=== PATIENT | male | born 1945 | race Two or more races ===

== ENCOUNTER 2020-11-22 10:15 | Inpatient (IN) | payer MEDICAID ==
[~2020-11-22] VITALS: Ht 167.6 cm; Wt 63.5 kg
[2020-11-22] MEDS ORDERED: Cefepime HCl 2 GM in NS 110 ML IV ONE (10:30)
--- NOTE | 2020-11-22 10:32 | Emergency Room Report ---
History of Present Illness General Source: Patient Present Illness HPI Patient is a 75-year-old male sent in from nursing facility for increased difficulty with breathing. Prior history of cerebral palsy as well as left srfqd-[id number]-vmdc amputation. Patient is chronically debilitated and nonverbal at baseline. Patient had been noted to have increased heart rate up to 150 at his facility. Patient had been sent in for further evaluation and treatment. History is limited due to patient's mental status history is primarily obtained from old chart. Allergies: Coded Allergies: No Known Allergies (Unverified , 11/22/20) Patient History Reviewed Nursing Documentation: PMH: Agreed; PSxH: Agreed Review of Systems All Other Systems: limited - Review systems is limited by poor historian Physical Exam General Appearance: mild distress, lethargic, Chronically Ill ENT: normal ENT inspection Neck: limited range of motion Respiratory: lungs clear Cardiovascular #1: tachycardia, edema Cardiovascular #2: 4+ femoral (R), 4+ femoral (L), 4+ dorsalis pedis (R) Gastrointestinal: normal inspection, non tender, soft, other - G-tube site without erythema or drainage Genitourinary: normal inspection Musculoskeletal: other - Contracted upper and lower extremity Neurologic: motor weakness, responsive - Opens eyes, nonverbal, other - Makes incomprehensible sounds grimaces to pain Psychiatric: mood/affect normal Skin: no rash Medical Decision Making Diagnostic Impression: Primary Impression: Sepsis Additional Impression: Cerebral palsy ER Course Patient presents for increased difficulty with breathing. Differential d iagnosis include was not limited to sepsis, pneumonia, urinary tract infection, electrolyte abnormality, encephalopathy among others. Because of complexity of patient's case laboratory tests and imaging studies were ordered. Patient was placed on a quality assurance monitor and was noted to have normal sinus rhythm with a rate of 111 without any PVCs or ectopy. Patient started on IV fluids as well as IV antibiotics after blood cultures were obtained. Axillary temperature was somewhat elevated suggesting that the patient may have early infection. EKG interpreted by me shows sinus tachycardia with a rate of [address] or T wave changes noted. Chest x-ray 1 view interpreted by me showed marked elevation of the right hemidiaphragm no effusions were noted with poor inspiration. Patient had a markedly elevated white count consistent with sepsis. Dr. Samantha Alvares was contacted for inpatient management Labs Test 11/22/20 10:30 11/22/20 14:53 White Blood Count 22.6 K/UL (4.8-10.8) Red Blood Count 3.65 M/UL (4.70-6.10) Hemoglobin 10.6 G/DL (14.2-18.0) Hematocrit 34.4 % (42.0-52.0) Mean Corpuscular Volume 94 FL (80-99) Mean Corpuscular Hemoglobin 29.1 PG (27.0-31.0) Mean Corpuscular Hemoglobin Concent 30.9 G/DL (32.0-36.0) Red Cell Distribution Width 15.9 % (11.6-14.8) Platelet Count 646 K/UL (150-450) Mean Platelet Volume 5.8 FL (6.5-10.1) Neutrophils (%) (Auto) % (45.0-75.0) Lymphocytes (%) (Auto) % (20.0-45.0) Monocytes (%) (Auto) % (1.0-10.0) Eosinophils (%) (Auto) % (0.0-3.0) Basophils (%) (Auto) % (0.0-2.0) Differential Total Cells Counted 100 Neutrophils % (Manual) 93 % (45-75) Lymphocytes % (Manual) 3 % (20-45) Monocytes % (Manual) 4 % (1-10) Eosinophils % (Manual) 0 % (0-3) Basophils % (Manual) 0 % (0-2) Band Neutrophils 0 % (0-8) Platelet Estimate Increased Platelet Morphology Normal Polychromasia 1+ Hypochromasia 1+ Anisocytosis 1+ Sodium Level 134 MMOL/L (136-145) Potassium Level 4.0 MMOL/L (3.5-5.1) Chloride Level 96 MMOL/L (98-107) Carbon Dioxide Level 28 MMOL/L (21-32) Anion Gap 10 mmol/L (5-15) Blood Urea Nitrogen 14 mg/dL (7-18) Creatinine 0.5 MG/DL (0.55-1.30) Estimat Glomerular Filtration Rate > 60 mL/min (>60) Glucose Level 135 MG/DL (74-106) Lactic Acid Level 1.70 mmol/L (0.4-2.0) Calcium Level 9.0 MG/DL (8.5-10.1) Phosphorus Level 4.1 MG/DL (2.5-4.9) Magnesium Level 1.9 MG/DL (1.8-2.4) Total Bilirubin 0.3 MG/DL (0.2-1.0) Aspartate Amino Transf (AST/SGOT) 31 U/L (15-37) Alanine Aminotransferase (ALT/SGPT) 49 U/L (12-78) Alkaline Phosphatase 109 U/L (46-116) Total Creatine Kinase 27 U/L (26-308) Creatine Kinase MB 0.6 NG/ML (0.0-3.6) Creatine Kinase MB Relative Index 2.2 Troponin I 0.032 ng/mL (0.000-0.056) Pro-B-Type Natriuretic Peptide 724 pg/mL (0-125) Total Protein 7.0 G/DL (6.4-8.2) Albumin 1.9 G/DL (3.4-5.0) Globulin 5.1 g/dL Albumin/Globulin Ratio 0.4 (1.0-2.7) POC Whole Blood Glucose 119 MG/DL (74-106) Status: improved Disposition: ADMITTED INPATIENT Condition: Serious Shiv Chapa MD Nov 22, 2020 10:32
[2020-11-22 10:54] LABS: HEMATOCRIT 34.4 % (42.0-52.0); HEMOGLOBIN 10.6 G/DL (14.2-18.0); MEAN CORPUSCULAR VOLUME 94 FL (80-99); PLATELET COUNT 646 K/UL (150-450); RED BLOOD COUNT 3.65 M/UL (4.70-6.10); RED CELL DISTRIBUTION WIDTH 15.9 % (11.6-14.8)
[2020-11-22 11:12] LABS: ANION GAP 10 mmol/L (5-15); BLOOD UREA NITROGEN 14 mg/dL (7-18); CARBON DIOXIDE 28 MMOL/L (21-32); CHLORIDE 96 MMOL/L (98-107); CREATININE 0.5 MG/DL (0.55-1.30); SODIUM 134 MMOL/L (136-145)
[2020-11-22 11:14] LABS: WHITE BLOOD COUNT 22.6 K/UL (4.8-10.8)
[2020-11-22 11:27] LABS: ALANINE AMINOTRANSFERASE 49 U/L (12-78); ALBUMIN 1.9 G/DL (3.4-5.0); ALBUMIN/GLOBULIN RATIO 0.4 (1.0-2.7); ALKALINE PHOSPHATASE 109 U/L (46-116); ASPARTATE AMINO TRANSFERASE 31 U/L (15-37); BILIRUBIN,TOTAL 0.3 MG/DL (0.2-1.0); CKMB 0.6 NG/ML (0.0-3.6); CREATINE KINASE 27 U/L (26-308); PHOSPHORUS 4.1 MG/DL (2.5-4.9)
[2020-11-22] MEDS ORDERED: VITAMIN C500 M1 GT (11:58)
[2020-11-22] MEDS ORDERED: VITAMIN D325 MC1 GT (11:58)
[2020-11-22] MEDS ORDERED: LEVETIRACETAM500 MG GT (11:58)
[2020-11-22] MEDS ORDERED: MIRALAX17 G2 GT (11:58)
[2020-11-22] MEDS ORDERED: ZINC SULFATE220 M1 GT (11:58)
[2020-11-22] MEDS ORDERED: PRO-STAT LIQUID30 ML GT (11:58)
[2020-11-22] MEDS ORDERED: SENNA8.6 M2 GT (11:58)
[2020-11-22] MEDS ORDERED: FAMOTIDINE20 MG GT (11:58)
[2020-11-22] MEDS ORDERED: ACETAMINOPHEN500 M3 GT (11:58)
[2020-11-22] MEDS ORDERED: MAALOX MAXIMUM355 M1 GT (11:58)
[2020-11-22] MEDS ORDERED: ALBUTEROL2.5 MG/3 M INH (11:58)
[2020-11-22] MEDS ORDERED: MULTIVITAMINS1 EAC8 GT (11:58)
[2020-11-22] MEDS ORDERED: CARBAMAZEPINE200 MG GT (11:58)
[2020-11-22] MEDS ORDERED: ZOFRAN4 M3 GT (11:58)
--- NOTE | 2020-11-22 15:02 | Cardiac Electrophysiology PN ---
Subjective Subjective [id number] Objective Last 24 Hour Vital Signs Date Time Temp Pulse Resp B/P (MAP) Pulse Ox O2 Delivery O2 Flow Rate FiO2 11/22/20 11:30 99.1 11/22/20 10:24 99.0 120 16 128/70 (89) 97 Nasal Cannula 2.0 Laboratory Tests Test 11/22/20 10:30 11/22/20 14:53 White Blood Count 22.6 K/UL (4.8-10.8) *H Red Blood Count 3.65 M/UL (4.70-6.10) L Hemoglobin 10.6 G/DL (14.2-18.0) L Hematocrit 34.4 % (42.0-52.0) L Mean Corpuscular Volume 94 FL (80-99) Mean Corpuscular Hemoglobin 29.1 PG (27.0-31.0) Mean Corpuscular Hemoglobin Concent 30.9 G/DL (32.0-36.0) L Red Cell Distribution Width 15.9 % (11.6-14.8) H Platelet Count 646 K/UL (150-450) H Mean Platelet Volume 5.8 FL (6.5-10.1) L Neutrophils (%) (Auto) % (45.0-75.0) Lymphocytes (%) (Auto) % (20.0-45.0) Monocytes (%) (Auto) % (1.0-10.0) Eosinophils (%) (Auto) % (0.0-3.0) Basophils (%) (Auto) % (0.0-2.0) Differential Total Cells Counted 100 Neutrophils % (Manual) 93 % (45-75) H Lymphocytes % (Manual) 3 % (20-45) L Monocytes % (Manual) 4 % (1-10) Eosinophils % (Manual) 0 % (0-3) Basophils % (Manual) 0 % (0-2) Band Neutrophils 0 % (0-8) Platelet Estimate Increased H Platelet Morphology Normal Polychromasia 1+ Hypochromasia 1+ Anisocytosis 1+ Sodium Level 134 MMOL/L (136-145) L Potassium Level 4.0 MMOL/L (3.5-5.1) Chloride Level 96 MMOL/L (98-107) L Carbon Dioxide Level 28 MMOL/L (21-32) Anion Gap 10 mmol/L (5-15) Blood Urea Nitrogen 14 mg/dL (7-18) Creatinine 0.5 MG/DL (0.55-1.30) L Estimat Glomerular Filtration Rate > 60 mL/min (>60) Glucose Level 135 MG/DL (74-106) H Lactic Acid Level 1.70 mmol/L (0.4-2.0) Calcium Level 9.0 MG/DL (8.5-10.1) Phosphorus Level 4.1 MG/DL (2.5-4.9) Magnesium Level 1.9 MG/DL (1.8-2.4) Total Bilirubin 0.3 MG/DL (0.2-1.0) Aspartate Amino Transf (AST/SGOT) 31 U/L (15-37) Alanine Aminotransferase (ALT/SGPT) 49 U/L (12-78) Alkaline Phosphatase 109 U/L (46-116) Total Creatine Kinase 27 U/L (26-308) Creatine Kinase MB 0.6 NG/ML (0.0-3.6) Creatine Kinase MB Relative Index 2.2 Troponin I 0.032 ng/mL (0.000-0.056) Pro-B-Type Natriuretic Peptide 724 pg/mL (0-125) H Total Protein 7.0 G/DL (6.4-8.2) Albumin 1.9 G/DL (3.4-5.0) L Globulin 5.1 g/dL Albumin/Globulin Ratio 0.4 (1.0-2.7) L POC Whole Blood Glucose 119 MG/DL (74-106) H Microbiology Date/Time Source Procedure Growth Status 11/22/20 10:40 Rectum Received 11/22/20 10:40 Nasopharynx SARS-CoV-2 Antigen (Rapid)(FRANK) - Final Complete Phoenix Amador MD Nov 22, 2020 15:02
[2020-11-22 15:29] VITALS: BP 127/83
--- NOTE | 2020-11-22 15:30 | NUR ---
NURSE NOTES: Received pt from [employer] Samira, all admission assessments and instructions done, pt is obtunded and nonverbal, pt is in RA, no SOB or acute respiratory distress noted. pt has intact iv access R wrist 20g SL. Dr Blackwood is aware about admission, WBC 22.6, NA 134 and other lab results and V/s AND multiple wounds, all orders noted and carried out. pt has multiple wounds RN took pictures and uploaded and ask wound nurse consult and Eysha came and all wound treatment done. pt has R BKA, applied condom cath for pt and is working well. pt has g tube in place and patent and pt is NPO per Dr Blackwood order. seizure precaution done. all needs attended, bed is locked and is in the lowest position, call light within easy reach. will continue close monitoring.
[2020-11-22] MEDS ORDERED: Acetaminophen 650mg/20.3ml GT PRN ×2 (16:00→16:30)
--- NOTE | 2020-11-22 17:55 | NUR ---
NURSE NOTES:WOUND CARE NOTES:Pt presented on admission with CP, L AKA,Multiple Pressure Injuries, Wound dorsal L hand. Macular red rash L Flank. Full thickness wound dorsal L hand(L)2.4cm x (W)1.9cm. Loose necrotic cap which was easily removed from wound bed. Base of wound is 95% fibrinous slough with marginal erythema along borders. Small amt sanguineous exudate noted. No erythema or elevation in skin temp periwound. Incontinence Associated dermatitis R and L groin and scrotum. Affected areas are erythematous and macerated. Full Thickness Pressure Injury Upper L buttocks(L)4.8cm x (W)6.4cmBase of wound is 25% necrotic ,75% lida. Edges are adherent to base of wound. Surrounding non-blanchable erythema without fluctuance /induration. No odor or exudate noted. No evidence of sacral skin breakdown. An erythematous and indurated soft tissue mass noted to posterior upper L thigh. (L)3.2cm x (W)3.7cm. Base of L AKA is erythematous,fluctuant, with increased warmth. DTPI medial R Heel(L)1cm x (W)1.2cm. Base of Pressure Injury is purpuric and fluctuant. Periwound is blanchable with dry flaky skin. Tx.Plan: Cleanse Dorsal L hand with Saline. Apply Therahoney. Apply Cavilon Skin Barrier periwound. Cover with Optifoam Drsg Daily and prn. Cleanse Wound L Buttocks with Saline. Apply Therahoney. Apply Moisture Barrier Paste periwound. Cover with Optifoam drsg. Change Daily and prn. Apply Moisture Barrier Paste to R and L Groin and scrotum with each incontinence care. Apply Cavilon Skin Barrier to Posterior Upper L thigh. Cover with Optifoam drsg. Change every 3 days and prn. Apply Betadine to Base of L AKA stump. Cover with Optifoam drsg. Change every 3 days and prn. Apply Betadine to medial R Heel. Cover with Optifoam drsg. Change every 3 days and prn. Reposition at least every 2hours or as tolerated. Off-load L AKA with Pillow. Off-load R Heel with Pillow.
--- NOTE | 2020-11-22 19:30 | NUR ---
NURSE NOTES: received patient sleeping with no signs of any distress. Alexis in place. patient is on room air. bed in low position. bed alarm on. will continue to monitor frequently and reposition.
--- NOTE | 2020-11-22 19:42 | NUR ---
NURSE HAND-OFF REPORT: Important Events on Shift:new addmision. Patient Status: Diet: Pending Orders: Pending Results/Labs: Pending MD notification: Latest Vital Signs: Temperature 96.3 , Pulse 94 , B/P 127 /83 , Respiratory Rate 18 , O2 SAT 94 , Nasal Cannula, O2 Flow Rate 2.0 . Vital Sign Comment: EKG Rhythm: Sinus Rhythm Rhythm change?: N MD Notified?: - MD Response: Latest Hoyt Fall Score: 55 Fall Risk: High Risk Safety Measures: Call light Within Reach, Bed Alarm Zone 1, Side Rails Side Rails x3, Bed position Low and Locked. Fall Precautions: Yellow Socks Yellow Gown Door Sign Patient Fall Education Report given to . Pt is sleeping and stable, no stress noted. endorsed plan of care.
[2020-11-22 20:00] VITALS: BP 124/70
--- NOTE | 2020-11-22 20:44 | Consultation ---
DATE OF CONSULTATION: 11/22/2020 CARDIOLOGY CONSULTATION CONSULTING PHYSICIAN: Phoenix Amador MD REFERRING PHYSICIAN: Samantha Blackwood MD REASON FOR CONSULTATION: Tachycardia. HISTORY OF PRESENT ILLNESS: The patient is a 75-year-old gentleman with history of cerebral palsy as well as left above-knee amputation, who was brought in from skilled nursing for fever and increased difficulty with breathing. The patient is chronically debilitated and nonverbal at baseline. The patient had heart rate up to 150 beats per minute at the facility. The patient was brought to the emergency room; however, the patient is not able to provide any information in view of his mental status. The patient is being admitted for sepsis and started on IV fluids as well as IV antibiotics and blood cultures were obtained. REVIEW OF SYSTEMS: Cannot be obtained. PAST MEDICAL HISTORY: As mentioned above. FAMILY HISTORY: Noncontributory. SOCIAL HISTORY: senior care resident. Does not smoke or drink alcohol. PHYSICAL EXAMINATION: VITAL SIGNS: Blood pressure 128/70, pulse is 130, respirations 18, temperature 99. HEAD AND NECK: Shows no JVD. LUNGS: Decreased breath sounds. CARDIOVASCULAR: Shows tachycardic. S1 and S2 with no gallop. ABDOMEN: Soft. EXTREMITIES: Contracted with left above-knee amputation. LABORATORY AND DIAGNOSTIC DATA: White count 22.6, hemoglobin of 10.6, hematocrit 34.5, platelet count 646. Sodium 134, potassium 4.0, BUN of 14, creatinine , glucose of 135. First troponin is negative. ASSESSMENT AND PLAN: 1. Tachycardia due to sepsis in this patient with white count of 23,000. The patient was started on IV fluid and IV antibiotics. Cultures were obtained. 2. Sinus tachycardia, again due to to the patient's sepsis. Hold off on any AV-nuria luis miguel that may make the patient more hypotensive; however, we will get an echocardiogram for further evaluation. 3. Sepsis of unclear source. 4. Mental retardation. 5. Status post left above-knee amputation. 6. Anemia. 7. Possible congestive heart failure. BNP of 724. Echocardiogram is pending. The case was discussed with the emergency room physician. Thank you very much for allowing me to participate in the care of this patient. Please do not hesitate to contact for any questions regarding my evaluation. Phoenix Amador M.D. DR: Chin JOB#: [id number] CC:
[2020-11-22] MEDS: levETIRAcetam 500mg/5ml Liquid GT SCH (21:08)
[2020-11-22] MEDS: Cefepime HCl 1 GM in D5W 55 ML IVPB SCH (21:08)
--- NOTE | 2020-11-22 22:08 | Consultation ---
History of Present Illness General Date patient seen: Nov 22, 2020 Reason for Hospitalization: Altered Level of Consciousness Present Illness HPI 75-year-old male sent in from nursing facility for increased difficulty with breathing. Prior history of cerebral palsy as well as left kpikv-thx-izrc amputation. Patient is chronically debilitated and nonverbal at baseline. Patient had been noted to have increased heart rate up to 150 at his facility. Patient had been sent in for further evaluation and treatment. History is limited due to patient's mental status history is primarily obtained from old chart. noted to have multiple decubitus and concerns. surgery called to evaluate and assist with care. Allergies: Coded Allergies: No Known Allergies (Unverified , 11/22/20) COVID-19 Screening Contact w/high risk pt: No Experienced COVID-19 symptoms?: No Medication History Scheduled Acetaminophen* (Acetaminophen Extra Strength*), 500 MG GT Q6H, (Reported) Amino Acids/Protein Hydrolys (Pro-Stat Liquid), 30 ML GT TWICE A DAY, (Reported) Ascorbic Acid* (Vitamin C*), 500 MG GT DAILY, (Reported) Carbamazepine* (Carbamazepine*), 200 MG GT FOUR TIMES A DAY, (Reported) Cholecalciferol (Vitamin D3) (Vitamin D3*), 25 MCG GT DAILY, (Reported) Famotidine* (Pepcid 20mg tablet*), 20 MG GT DAILY, (Reported) Levetiracetam* (Levetiracetam*), 100 MG GT TWICE A DAY, (Reported) Multivitamin With Minerals (Multivitamins With Minerals*), 1 TAB GT DAILY, (Repo rted) Polyethylene Glycol 3350* (Miralax*), 17 GM GT DAILY, (Reported) Zinc Sulfate (Zinc Sulfate*), 220 MG GT DAILY, (Reported) Scheduled PRN Albuterol Sulfate* (Albuterol Sulfate Hhn*), 3 ML INH Q4H PRN for Shortness of Breath, (Reported) Ondansetron* (Zofran*), 4 MG GT Q6H PRN for Nausea & Vomiting, (Reported) Miscellaneous Medications Mag Hydrox/Al Hydrox/Simeth (Maalox Maximum Strength Susp), 30 ML GT, (Reported) Sennosides (Senna), 8.6 MG GT, (Reported) Patient History History Provided By: Medical Record Healthcare decision maker Resuscitation status Advanced Directive on File Past Medical/Surgical History Past Medical/Surgical History: (1) Cerebral palsy (2) Sepsis Review of Systems Review of Symptoms General ROS: no weight loss or fever Psychological ROS: no depression or mood changes, no memory loss Ophthalmic ROS: no visual changes or eye irritation ENT ROS: no nasal congestion, hearing loss, dizziness Allergy and Immunology ROS: no allergic symptoms or urticaria Hematological and Lymphatic ROS: no swollen glands, unusual bleeding or bruising Endocrine ROS: no polyuria, polydipsia, weight changes, temperature intolerance Respiratory ROS: no cough, shortness of breath, or wheezing Cardiovascular ROS: no chest pain or dyspnea on exertion Gastrointestinal ROS: denies abdominal pain, bright red blood in stool. Musculoskeletal ROS: no myalgias or arthralgias Neurological ROS: no TIA or stroke symptoms Dermatological ROS: no new or changing skin lesions, rashes or pruritis Physical Exam Physical Exam General appearance: no distress, appears stated age Head: Normocephalic, without obvious abnormality, atraumatic Eyes: conjunctivae/corneas clear. PERRL, EOM's intact. Fundi benign Throat: Lips, mucosa, and tongue normal. Teeth and gums normal Neck: supple, symmetrical, trachea midline, no adenopathy, thyroid: not enlarged, symmetric, no tenderness/mass/nodules, no carotid bruit and no JVD Lungs: clear to auscultation bilaterally Heart: regular rate and rhythm, S1, S2 normal, no murmur, click, rub or gallop Abdomen: soft, non-tender. Bowel sounds normal. No masses, no organomegaly Extremities: extremities normal, atraumatic, no cyanosis or edema Pulses: 2+ and symmetric Skin: Skin see below Neurologic: Grossly normal Last 24 Hour Vital Signs Date Time Temp Pulse Resp B/P (MAP) Pulse Ox O2 Delivery O2 Flow Rate FiO2 11/22/20 20:00 96 11/22/20 20:00 98.1 97 22 124/70 (88) 100 11/22/20 15:30 Room Air 11/22/20 15:29 94 11/22/20 15:29 96.3 94 18 127/83 (98) 94 11/22/20 11:30 99.1 11/22/20 10:24 99.0 120 16 128/70 (89) 97 Nasal Cannula 2.0 Laboratory Tests Test 11/22/20 10:30 11/22/20 14:53 White Blood Count 22.6 K/UL (4.8-10.8) *H Red Blood Count 3.65 M/UL (4.70-6.10) L Hemoglobin 10.6 G/DL (14.2-18.0) L Hematocrit 34.4 % (42.0-52.0) L Mean Corpuscular Volume 94 FL (80-99) Mean Corpuscular Hemoglobin 29.1 PG (27.0-31.0) Mean Corpuscular Hemoglobin Concent 30.9 G/DL (32.0-36.0) L Red Cell Distribution Width 15.9 % (11.6-14.8) H Platelet Count 646 K/UL (150-450) H Mean Platelet Volume 5.8 FL (6.5-10.1) L Neutrophils (%) (Auto) % (45.0-75.0) Lymphocytes (%) (Auto) % (20.0-45.0) Monocytes (%) (Auto) % (1.0-10.0) Eosinophils (%) (Auto) % (0.0-3.0) Basophils (%) (Auto) % (0.0-2.0) Differential Total Cells Counted 100 Neutrophils % (Manual) 93 % (45-75) H Lymphocytes % (Manual) 3 % (20-45) L Monocytes % (Manual) 4 % (1-10) Eosinophils % (Manual) 0 % (0-3) Basophils % (Manual) 0 % (0-2) Band Neutrophils 0 % (0-8) Platelet Estimate Increased H Platelet Morphology Normal Polychromasia 1+ Hypochromasia 1+ Anisocytosis 1+ Sodium Level 134 MMOL/L (136-145) L Potassium Level 4.0 MMOL/L (3.5-5.1) Chloride Level 96 MMOL/L (98-107) L Carbon Dioxide Level 28 MMOL/L (21-32) Anion Gap 10 mmol/L (5-15) Blood Urea Nitrogen 14 mg/dL (7-18) Creatinine 0.5 MG/DL (0.55-1.30) L Estimat Glomerular Filtration Rate > 60 mL/min (>60) Glucose Level 135 MG/DL (74-106) H Lactic Acid Level 1.70 mmol/L (0.4-2.0) Calcium Level 9.0 MG/DL (8.5-10.1) Phosphorus Level 4.1 MG/DL (2.5-4.9) Magnesium Level 1.9 MG/DL (1.8-2.4) Total Bilirubin 0.3 MG/DL (0.2-1.0) Aspartate Amino Transf (AST/SGOT) 31 U/L (15-37) Alanine Aminotransferase (ALT/SGPT) 49 U/L (12-78) Alkaline Phosphatase 109 U/L (46-116) Total Creatine Kinase 27 U/L (26-308) Creatine Kinase MB 0.6 NG/ML (0.0-3.6) Creatine Kinase MB Relative Index 2.2 Troponin I 0.032 ng/mL (0.000-0.056) Pro-B-Type Natriuretic Peptide 724 pg/mL (0-125) H Total Protein 7.0 G/DL (6.4-8.2) Albumin 1.9 G/DL (3.4-5.0) L Globulin 5.1 g/dL Albumin/Globulin Ratio 0.4 (1.0-2.7) L POC Whole Blood Glucose 119 MG/DL (74-106) H Microbiology Date/Time Source Procedure Growth Status 11/22/20 10:40 Rectum Received 11/22/20 10:40 Nasopharynx SARS-CoV-2 Antigen (Rapid)(FRANK) - Final Complete Height (Feet): 5 Height (Inches): 6.00 Weight (Pounds): 140 Medications Current Medications Medications (Trade) Dose Ordered Sig/Venecia Route PRN Reason Start Time Stop Time Status Last Admin Dose Admin Acetaminophen (Tylenol) 650 mg Q4H PRN GT Temp >100.5 11/22/20 16:30 12/22/20 15:59 Acetaminophen (Tylenol) 650 mg Q4H PRN GT For Pain 11/22/20 16:30 12/22/20 16:29 Cefepime HCl 1 gm/ Dextrose 55 ml @ 110 mls/hr EVERY 12 HOURS IVPB 11/22/20 21:00 11/29/20 20:59 11/22/20 21:08 Levetiracetam (Keppra) 500 mg Q12HR GT 11/22/20 21:00 01/06/21 20:59 11/22/20 21:08 Assessment/Plan Problem List: (1) Cerebral palsy ICD Codes: G80.9 - Cerebral palsy, unspecified SNOMED: 360214241 (2) Sepsis Assessment & Plan: Pt presented on admission with CP, L AKA,Multiple Pressure Injuries, Wound dorsal L hand. Macular red rash L Flank. Full thickness wound dorsal L hand(L)2.4cm x (W)1.9cm. Loose necrotic cap which was easily removed from wound bed. Base of wound is 95% fibrinous slough with marginal erythema along borders. Small amt sanguineous exudate noted. No erythema or elevation in skin temp periwound. Incontinence Associated dermatitis R and L groin and scrotum. Affected areas are erythematous and macerated. Full Thickness Pressure Injury Upper L buttocks(L)4.8cm x (W)6.4cmBase of wound is 25% necrotic ,75% lida. Edges are adherent to base of wound. Surrounding non-blanchable erythema without fluctuance /induration. No odor or exudate noted. No evidence of sacral skin breakdown. An erythematous and indurated soft tissue mass noted to posterior upper L thigh. (L)3.2cm x (W)3.7cm. Base of L AKA is erythematous,fluctuant, with increased warmth. DTPI medial R Heel(L)1cm x (W)1.2cm. Base of Pressure Injury is purpuric and fluctuant. Periwound is blanchable with dry flaky skin. unlikely etiology of sepsis urine noted leukocytosis on abx Tx.Plan: Cleanse Dorsal L hand with Saline. Apply Therahoney. Apply Cavilon Skin Barrier periwound. Cover with Optifoam Drsg Daily and prn. Cleanse Wound L Buttocks with Saline. Apply Therahoney. Apply Moisture Barrier Paste periwound. Cover with Optifoam drsg. Change Daily and prn. Apply Moisture Barrier Paste to R and L Groin and scrotum with each incontinence care. Apply Cavilon Skin Barrier to Posterior Upper L thigh. Cover with Optifoam drsg. Change every 3 days and prn. Apply Betadine to Base of L AKA stump. Cover with Optifoam drsg. Change every 3 days and prn. Apply Betadine to medial R Heel. Cover with Optifoam drsg. Change every 3 days and prn. Reposition at least every 2hours or as tolerated. Off-load L AKA with Pillow. Off-load R Heel with Pillow. ICD Codes: A41.9 - Sepsis, unspecified organism SNOMED: [id number] Rowdy Arce Nov 22, 2020 22:08
--- NOTE | 2020-11-22 22:29 | History and Physical Report ---
DATE OF ADMISSION: 11/22/2020 HISTORY OF PRESENT ILLNESS: Patient is noted with secretions at the mouth and was suctioned. Patient had labored breathing at the longterm and was tachycardic. Patient still was tachycardic despite secretions and came to the hospital. Patient is a poor historian. He is being admitted for rule out pneumonia, rule out sepsis. COVID negative according to the ER doctor. Patient also has leukocytosis. Patient is admitted also for urinary tract infection with sepsis. Patient is basically again poor historian. Has history of cerebral palsy. PAST MEDICAL HISTORY: Cerebral palsy, nonverbal, history of GERD. Patient also has history of seizures and history of wounds. Patient has history of constipation as well. PAST SURGICAL HISTORY: Left AKA. ALLERGIES: No known allergies. FAMILY HISTORY: Noncontributory. SOCIAL HISTORY: No history of smoking, alcohol, or illicit drugs. Comes from a longterm. REVIEW OF SYSTEMS: Unable to obtain. Poor historian. Mostly nonverbal. Also, patient has cerebral palsy again. MEDICATIONS: Senokot, Keppra, famotidine, vitamin C. PHYSICAL EXAMINATION: VITAL SIGNS: Temperature 99.1, pulse is 94, blood pressure 127/83. HEENT: PERRLA. CHEST: Bilateral rhonchi. CARDIOVASCULAR: Regular rate and rhythm. No murmurs or extra sounds. GASTROINTESTINAL: Soft, nontender, nondistended. No organomegaly. EXTREMITIES: Does have amputation as mentioned. NEUROLOGIC: Nonverbal. LABORATORY DATA: WBC of 22.6, hemoglobin of 10.6, platelets of 646. Sodium 134, potassium of 4, BUN of 14, creatinine of 0.5. ASSESSMENT AND PLAN: Rule out pneumonia, respiratory insufficiency, seizure disorder, sepsis, UTI, tachycardia, SOB, leukocytosis. COVID negative. I have consulted Dr. Amador, Dr. Noam Em, and Dr. John Lara to help with the management of above-mentioned abnormal symptoms and abnormal findings and abnormal laboratories. Samantha Blackwood M.D. DR: GRISEL JOB#: [id number] CC:
[2020-11-22] MEDS: Acetaminophen 650mg/20.3ml GT PRN (23:12)
[2020-11-23] VITALS: BP 109/64
--- NOTE | 2020-11-23 02:00 | NUR ---
NURSE NOTES: patient sleeping comfortable with no signs of distress noted. changed repositioned. bed alarm on. call murrell within reach, will continue to monitor.
[2020-11-23 04:00] VITALS: BP 155/84
[2020-11-23 07:22] LABS: HEMOGLOBIN 9.8 G/DL (14.2-18.0); MEAN CORPUSCULAR VOLUME 95 FL (80-99); PLATELET COUNT 651 K/UL (150-450); RED BLOOD COUNT 3.37 M/UL (4.70-6.10); RED CELL DISTRIBUTION WIDTH 15.7 % (11.6-14.8); WHITE BLOOD COUNT 16.2 K/UL (4.8-10.8)
--- NOTE | 2020-11-23 07:27 | NUR ---
NURSE HAND-OFF REPORT: Important Events on Shift:no changes from previous assessment. patient resting comfortable with no signs of distress. complete bath, repositioned. 1 bm, empty condom cath 300 clear yellow. Patient Status: full Diet: NPO X meds Pending Orders: Pending Results/Labs: Pending MD notification: Latest Vital Signs: Temperature 97.7 , Pulse 95 , B/P 155 /84 , Respiratory Rate 24 , O2 SAT 97 , Nasal Cannula, O2 Flow Rate 2.0 . Vital Sign Comment: EKG Rhythm: Sinus Rhythm Rhythm change?: N MD Notified?: - MD Response: Latest Hoyt Fall Score: 70 Fall Risk: High Risk Safety Measures: Call light Within Reach, Bed Alarm Zone 1, Side Rails Side Rails x3, Bed position Low and Locked. Fall Precautions: Yellow Socks Yellow Gown Door Sign Patient Fall Education Report given to incoming day RN .
[2020-11-23 07:56] LABS: ALANINE AMINOTRANSFERASE 42 U/L (12-78); ALBUMIN 1.9 G/DL (3.4-5.0); ALBUMIN/GLOBULIN RATIO 0.4 (1.0-2.7); ALKALINE PHOSPHATASE 109 U/L (46-116); ANION GAP 11 mmol/L (5-15); ASPARTATE AMINO TRANSFERASE 28 U/L (15-37); BILIRUBIN,TOTAL 0.2 MG/DL (0.2-1.0); BLOOD UREA NITROGEN 14 mg/dL (7-18); CALCIUM 8.9 MG/DL (8.5-10.1); CARBON DIOXIDE 27 MMOL/L (21-32); CHLORIDE 103 MMOL/L (98-107); CREATININE 0.4 MG/DL (0.55-1.30); POTASSIUM 3.5 MMOL/L (3.5-5.1); SODIUM 141 MMOL/L (136-145)
[2020-11-23 08:00] VITALS: BP 166/104
--- NOTE | 2020-11-23 08:00 | NUR ---
NURSE NOTES: dr howell made aware regarding peg tube placement, that most likely PEG tube is not patent anymore. ped dr howell, dr clark call dr clark for GI issue.will take note and carry out.
[2020-11-23] MEDS: Cefepime HCl 1 GM in D5W 55 ML IVPB SCH ×2 (08:03→21:58)
[2020-11-23] MEDS: levETIRAcetam 500mg/5ml Liquid GT SCH ×2 (08:03→09:00)
[2020-11-23] MEDS ORDERED: NS 275ml ONE (08:14)
[2020-11-23] MEDS ORDERED: Sterile Water Irrig 1000ml IRRIG ONE (08:14)
--- NOTE | 2020-11-23 08:33 | Diagnostic Imaging Report ---
Indication: Shortness of breath Technique: One view of the chest Comparison: none Findings: There is marked elevation of the right hemidiaphragm. There is atelectasis at the right lung base. The lungs and pleural spaces are otherwise clear. The heart size is normal. Impression: Elevated right hemidiaphragm with right basilar atelectasis. No acute process otherwise
[2020-11-23] MEDS ORDERED: Hydromorphone 0.5mg/0.5ml inj IVP PRN (09:45)
--- NOTE | 2020-11-23 09:48 | General Progress Note ---
Subjective Allergies: Coded Allergies: No Known Allergies (Unverified , 11/22/20) Objective Last 24 Hour Vital Signs Date Time Temp Pulse Resp B/P (MAP) Pulse Ox O2 Delivery O2 Flow Rate FiO2 11/23/20 08:00 98.1 108 23 166/104 (124) 97 11/23/20 04:00 97.7 100 24 155/84 (107) 97 11/23/20 04:00 95 11/23/20 00:00 98.1 77 22 109/64 (79) 98 11/22/20 23:00 127 11/22/20 21:00 Room Air 11/22/20 20:00 96 11/22/20 20:00 98.1 97 22 124/70 (88) 100 11/22/20 15:30 Room Air 11/22/20 15:29 94 11/22/20 15:29 96.3 94 18 127/83 (98) 94 11/22/20 11:30 99.1 11/22/20 10:24 99.0 120 16 128/70 (89) 97 Nasal Cannula 2.0 Intake and Output 11/22/20 11/23/20 19:00 07:00 Output Total 300 ml Balance -300 ml Output Urine Total 300 ml # Voids 1 # Bowel Movements 1 1 Laboratory Tests 11/22/20 10:30: White Blood Count 22.6*H, Red Blood Count 3.65L, Hemoglobin 10.6L, Hematocrit 34.4L, Mean Corpuscular Volume 94, Mean Corpuscular Hemoglobin 29.1, Mean Corpuscular Hemoglobin Concent 30.9L, Red Cell Distribution Width 15.9H, Platelet Count 646H, Mean Platelet Volume 5.8L, Neutrophils (%) (Auto) , Lymphocytes (%) (Auto) , Monocytes (%) (Auto) , Eosinophils (%) (Auto) , Basophils (%) (Auto) , Differential Total Cells Counted 100, Neutrophils % (Manual) 93H, Lymphocytes % (Manual) 3L, Monocytes % (Manual) 4, Eosinophils % (Manual) 0, Basophils % (Manual) 0, Band Neutrophils 0, Platelet Estimate IncreasedH, Platelet Morphology Normal, Polychromasia 1+, Hypochromasia 1+, Anisocytosis 1+, Sodium Level 134L, Potassium Level 4.0, Chloride Level 96L, Carbon Dioxide Level 28, Anion Gap 10, Blood Urea Nitrogen 14, Creatinine 0.5L, Estimat Glomerular Filtration Rate > 60, Glucose Level 135H, Lactic Acid Level 1.70, Calcium Level 9.0, Phosphorus Level 4.1, Magnesium Level 1.9, Total Bilirubin 0.3, Aspartate Amino Transf (AST/SGOT) 31, Alanine Aminotransferase (ALT/SGPT) 49, Alkaline Phosphatase 109, Total Creatine Kinase 27, Creatine Kinase MB 0.6, Creatine Kinase MB Relative Index 2.2, Troponin I 0.032, Pro-B-Type Natriuretic Peptide 724H, Total Protein 7.0, Albumin 1.9L, Globulin 5.1, Albumin/Globulin Ratio 0.4L 11/22/20 14:53: POC Whole Blood Glucose 119H 11/23/20 06:54: White Blood Count 16.2H, Red Blood Count 3.37L, Hemoglobin 9.8L, Hematocrit 32.0L, Mean Corpuscular Volume 95, Mean Corpuscular Hemoglobin 29.2, Mean Corpuscular Hemoglobin Concent 30.7L, Red Cell Distribution Width 15.7H, Platelet Count 651H, Mean Platelet Volume 5.8L, Neutrophils (%) (Auto) , Lymphocytes (%) (Auto) , Monocytes (%) (Auto) , Eosinophils (%) (Auto) , Basophils (%) (Auto) , Differential Total Cells Counted 100, Neutrophils % (Manual) 87H, Lymphocytes % (Manual) 6L, Monocytes % (Manual) 5, Eosinophils % (Manual) 2, Basophils % (Manual) 0, Band Neutrophils 0, Platelet Estimate IncreasedH, Platelet Morphology Normal, Hypochromasia 1+, Anisocytosis 1+, Sodium Level 141, Potassium Level 3.5, Chloride Level 103, Carbon Dioxide Level 27, Anion Gap 11, Blood Urea Nitrogen 14, Creatinine 0.4L, Estimat Glomerular Filtration Rate > 60, Glucose Level 95, Calcium Level 8.9, Total Bilirubin 0.2, Aspartate Amino Transf (AST/SGOT) 28, Alanine Aminotransferase (ALT/SGPT) 42, Alkaline Phosphatase 109, Troponin I 0.006, Pro-B-Type Natriuretic Peptide 782H, Total Protein 6.8, Albumin 1.9L, Globulin 4.9, Albumin/Globulin Ratio 0.4L, Thyroid Stimulating Hormone (TSH) 2.220, Free Thyroxine 0.97 Height (Feet): 5 Height (Inches): 6.00 Weight (Pounds): 140 Assessment/Plan Assessment/Plan: Assessment - GT has migrated out of gastric cavity into anterior abd wall - removed - abdominal pain, induration - r/o abscess - tachycardia, leukocytosis, sepsis - cerebral palsy - contractures - decubitus ulcers - (L) BKA Recommendations - broad spect abx - CT abd / Pelvis - NGT - needs new GT at later date - IVF Nacho Mcelroy MD Nov 23, 2020 09:47
[2020-11-23] MEDS ORDERED: D5 1/2NS 1,000 ML IV SCH (10:00)
--- NOTE | 2020-11-23 10:09 | Consultation ---
Consult Note Consult Note DATE OF CONSULTATION: 11/23/2020 CONSULTING PHYSICIAN: Noam Em MD. ATTENDING PHYSICIAN: Dr. Blackwood REASON FOR CONSULTATION: Respiratory distress on arrival, abnormal chest x-ray HISTORY OF PRESENT ILLNESS: This is a 75-year-old male with past medical history of cerebral palsy, and left above-knee amputation, who was sent to ED from [facility] for worsening respiratory distress. Patient is reported to be chronically debilitated and nonverbal at baseline. EKG showed sinus tachycardia without acute ST or T wave changes in the ER. Chest x-ray shows right hemidiaphragm elevation with right basilar atelectasis. Patient was admitted to the hospital for further management. Patient was initially placed on 2 L nasal cannula but is now on room air. Leukocytosis improved with antibiotics. PAST MEDICAL HISTORY: Cerebral palsy, left above-knee amputation MEDICATIONS: Acetaminophen, albuterol sulfate, ascorbic acid, carbamazepine, cholecalciferol, famotidine, levetiracetam, multivitamin, ondansetron, polyethylene glycol, sennosides, zinc sulfate ALLERGIES: No known allergies FAMILY HISTORY: Unknown PERSONAL/SOCIAL HISTORY: Resident of [facility] REVIEW OF SYSTEMS: Unobtainable PHYSICAL EXAMINATION: VITAL SIGNS: Blood pressure 166/104, heart rate 108, respiratory rate 23, weight 63 kg, height 167 cm. General Appearance: mild distress, lethargic, Chronically Ill ENT: normal ENT inspection Neck: limited range of motion Respiratory: lungs clear Cardiovascular #1: tachycardia, edema Cardiovascular #2: 4+ femoral (R), 4+ femoral (L), 4+ dorsalis pedis (R) Gastrointestinal: normal inspection, non tender, soft, other - G-tube site without erythema or drainage Genitourinary: normal inspection Musculoskeletal: Contracted upper and lower extremity Neurologic: motor weakness, responsive - Opens eyes, nonverbal, Makes incomprehensible sounds grimaces to pain Psychiatric: mood/affect normal Skin: no rash LABORATORY DATA: Laboratory testing shows WBC 16.2, hemoglobin 9.8, hematocrit 32.0, platelet count 651. Chemistries show BNP 782, albumin 1.9 Assessment/Plan 1. Respiratory distress on arrival -Now saturating well on room air -Monitor for hypoxia and provide supplemental oxygen as needed 2. Right basilar atelectasis -Unknown whether acute or chronic as there is no previous chest x-ray on record -Given normoxemia, monitor at this point -Follow-up chest x-ray if indicated 3. Sepsis - On Abx - WBC downtrending The care for this patient was discussed with my supervising physician. Time spent for this case was approximately 31 minutes. Richi Boo Nov 23, 2020 10:09
[2020-11-23] MEDS ORDERED: Albuterol ud Inhalation HHN PRN (10:15)
--- NOTE | 2020-11-23 10:30 | NUR ---
NURSE NOTES: will keep patient NPO for now. Dr Mcelroy came and dcd PEG tube. Apparently PEG tube migrated and patient needs a new one. CT abd ordered.
--- NOTE | 2020-11-23 11:23 | Consultation ---
Consult Note Consult Note I am asked to evaluate the patient at the request of Dr. Alvares for fluid and electrolyte and blood pressure management Patient is a 75-year-old male sent in from nursing facility for increased difficulty with breathing. Prior history of cerebral palsy as well as left veuty-mzo-njmq amputation. Patient is chronically debilitated and nonverbal at baseline. Patient had been noted to have increased heart rate up to 150 at his facility. Patient had been sent in for further evaluation and treatment. History is limited due to patient's mental status history is primarily obtained from old chart. Allergies: No Known Allergies (Unverified , 11/22/20) PHYSICAL EXAMINATION: VITAL SIGNS: Temperature is 98.1, pulse is 108, blood pressure is 166/104. GENERAL APPEARANCE: Seems to have normal weight. HEAD AND NECK: Moist mucous membranes. HEART: Tachycardic. LUNGS: Clear. ABDOMEN: Soft. Currently has NG-tube. EXTREMITIES: No edema. Has contracture, left qodlf-wvo-lmrf amputation. SKIN: He has multiple early stage pressure ulcers, also has a left hand ulcer that seems to be pressure induced. LABORATORY AND DIAGNOSTIC DATA: WBC today is 16.2, hemoglobin 9.8, hematocrit 32, platelet is 651. Sodium 141, potassium 3.5, chloride 103, bicarb 27, BUN 13, creatinine 0.4, glucose is 95, albumin is 1.9. COVID test was negative. Chest x-ray, elevated right hemidiaphragm, right basilar atelectasis, no acute process otherwise. Cultures are pending. . Assessment/Plan 75-year-old male Patient presented with low serum sodium 134 however it is now corrected Blood pressure remains high Left gkkho-ser-ypoo amputation Sepsis, tachycardia Anemia Encephalopathy acute Seizure disorder Nonfunctioning GT tube, migrated to abdominal wall from gastric cavity. It is now removed Patient is n.p.o. per GI Change IV to D5 normal saline Intravenous Vasotec as needed for high blood pressure Monitor renal parameters and electrolytes Anemia work-up Urine analysis and culture Antibiotics Per orders Lenny Veliz MD Nov 23, 2020 11:23
[2020-11-23] MEDS ORDERED: Enalaprilat 2.5mg/2ml Inj IV PRN (11:30)
[2020-11-23] MEDS: D5NS 1,000 ML IV SCH (11:42)
--- NOTE | 2020-11-23 11:44 | Consultation ---
DATE OF CONSULTATION: 11/23/2020 CHIEF COMPLAINT: I was asked to see patient by Dr. Blackwood for evaluation of the gastrostomy failure. HISTORY OF PRESENT ILLNESS: The patient is a debilitated elderly man with a longstanding history of cerebral palsy and nonverbal state with gastrostomy tube who was brought into the hospital due to tachycardia and illness. He has been treated with antibiotics but overnight the nurse noted the gastrostomy tube would not flush. This morning, I was called to see the patient and upon examination I realized that the gastrostomy tip was within the anterior abdominal wall and not in the stomach. The gastrostomy catheter was therefore removed and some pink sanguinous fluid was draining. The abdomen itself appeared to be tender and indurated. PAST MEDICAL HISTORY: History of cerebral palsy, nonverbal state, gastroesophageal reflux disease, dysphagia status gastrostomy tube placement, seizure disorder, multiple wounds, status post left jrnoz-upo-meqf amputation, history of constipation, and contracture. ALLERGIES: None. FAMILY HISTORY: Noncontributory. SOCIAL HISTORY: The patient has had no history of smoking or drinking. REVIEW OF SYSTEMS: Unobtainable. PHYSICAL EXAMINATION: GENERAL: Thin man seen in his room, in distress. HEENT: Normocephalic and atraumatic. temporal wasting. NECK: Supple. CHEST: Clear to auscultation. CARDIOVASCULAR: Tachycardic heart rate. ABDOMEN: Distended, indurated, tender. When gastrostomy tube removed, there was pink sanguinous fluid draining from the gastrostomy site. EXTREMITIES: Contractions in the upper extremities and the left lloac-xcg-fhkl amputation in the left lower extremity. LABORATORY DATA: Noted. ASSESSMENT: The patient has a gastrostomy tube migration. He is to be evaluated with a CT scan of the abdomen and pelvis to rule out abscess formation. He is tachycardic with heart rate of 150. Some of this may be from pain since he is agitated. Also he may have sepsis, seems to have leukocytosis, tachycardia, and gastrostomy complication. I will keep the patient NPO, give broad-spectrum antibiotics, and check CT scan abdomen and pelvis. A nasogastric tube can be used in interim but the patient will need another gastrostomy tube at a later day once the current process is resolved. RECOMMENDATIONS: Per above discussion and per orders in the chart. Thank you for asking me to participate in the care of this patient. Nacho Mcelroy M.D. DR: Ruddy JOB#: [id number] CC: VISHAL
[2020-11-23 12:00] VITALS: BP 109/76
--- NOTE | 2020-11-23 12:20 | NUR ---
NURSE NOTES: left a message to Jennifer Szymanski, person who is listed on the facesheet regarding consent for contrast administration for CT abdomen. awaiting callback as of this time.
--- NOTE | 2020-11-23 12:38 | Surgery Progress Note ---
Surgery Progress Note Subjective Additional Comments no acute events labs improved exam stable dressings going well on abx Objective Last 24 Hour Vital Signs Date Time Temp Pulse Resp B/P (MAP) Pulse Ox O2 Delivery O2 Flow Rate FiO2 11/23/20 12:00 119 11/23/20 12:00 97.7 116 22 109/76 (87) 98 11/23/20 09:00 Room Air 11/23/20 08:00 101 11/23/20 08:00 98.1 108 23 166/104 (124) 97 11/23/20 04:00 97.7 100 24 155/84 (107) 97 11/23/20 04:00 95 11/23/20 00:00 98.1 77 22 109/64 (79) 98 11/22/20 23:00 127 11/22/20 21:00 Room Air 11/22/20 20:00 96 11/22/20 20:00 98.1 97 22 124/70 (88) 100 11/22/20 15:30 Room Air 11/22/20 15:29 94 11/22/20 15:29 96.3 94 18 127/83 (98) 94 I&O Intake and Output 11/22/20 11/23/20 19:00 07:00 Output Total 300 ml Balance -300 ml Output Urine Total 300 ml # Voids 1 # Bowel Movements 1 1 Dressing: saturated Cardiovascular: RSR Respiratory: decreased breath sounds Abdomen: soft, non-tender, present bowel sounds, non-distended Extremities: no edema, no tenderness, no cyanosis Laboratory Tests Test 11/22/20 14:53 11/23/20 06:54 POC Whole Blood Glucose 119 MG/DL (74-106) H White Blood Count 16.2 K/UL (4.8-10.8) H Red Blood Count 3.37 M/UL (4.70-6.10) L Hemoglobin 9.8 G/DL (14.2-18.0) L Hematocrit 32.0 % (42.0-52.0) L Mean Corpuscular Volume 95 FL (80-99) Mean Corpuscular Hemoglobin 29.2 PG (27.0-31.0) Mean Corpuscular Hemoglobin Concent 30.7 G/DL (32.0-36.0) L Red Cell Distribution Width 15.7 % (11.6-14.8) H Platelet Count 651 K/UL (150-450) H Mean Platelet Volume 5.8 FL (6.5-10.1) L Neutrophils (%) (Auto) % (45.0-75.0) Lymphocytes (%) (Auto) % (20.0-45.0) Monocytes (%) (Auto) % (1.0-10.0) Eosinophils (%) (Auto) % (0.0-3.0) Basophils (%) (Auto) % (0.0-2.0) Differential Total Cells Counted 100 Neutrophils % (Manual) 87 % (45-75) H Lymphocytes % (Manual) 6 % (20-45) L Monocytes % (Manual) 5 % (1-10) Eosinophils % (Manual) 2 % (0-3) Basophils % (Manual) 0 % (0-2) Band Neutrophils 0 % (0-8) Platelet Estimate Increased H Platelet Morphology Normal Hypochromasia 1+ Anisocytosis 1+ Sodium Level 141 MMOL/L (136-145) Potassium Level 3.5 MMOL/L (3.5-5.1) Chloride Level 103 MMOL/L (98-107) Carbon Dioxide Level 27 MMOL/L (21-32) Anion Gap 11 mmol/L (5-15) Blood Urea Nitrogen 14 mg/dL (7-18) Creatinine 0.4 MG/DL (0.55-1.30) L Estimat Glomerular Filtration Rate > 60 mL/min (>60) Glucose Level 95 MG/DL (74-106) Calcium Level 8.9 MG/DL (8.5-10.1) Total Bilirubin 0.2 MG/DL (0.2-1.0) Aspartate Amino Transf (AST/SGOT) 28 U/L (15-37) Alanine Aminotransferase (ALT/SGPT) 42 U/L (12-78) Alkaline Phosphatase 109 U/L (46-116) Troponin I 0.006 ng/mL (0.000-0.056) Pro-B-Type Natriuretic Peptide 782 pg/mL (0-125) H Total Protein 6.8 G/DL (6.4-8.2) Albumin 1.9 G/DL (3.4-5.0) L Globulin 4.9 g/dL Albumin/Globulin Ratio 0.4 (1.0-2.7) L Thyroid Stimulating Hormone (TSH) 2.220 uiU/mL (0.358-3.740) Free Thyroxine 0.97 NG/DL (0.76-1.46) Plan Problems: (1) Cerebral palsy (2) Sepsis Assessment & Plan: Pt presented on admission with CP, L AKA,Multiple Pressure Injuries, Wound dorsal L hand. Macular red rash L Flank. Full thickness wound dorsal L hand(L)2.4cm x (W)1.9cm. Loose necrotic cap which was easily removed from wound bed. Base of wound is 95% fibrinous slough with marginal erythema along borders. Small amt sanguineous exudate noted. No erythema or elevation in skin temp periwound. Incontinence Associated dermatitis R and L groin and scrotum. Affected areas are erythematous and macerated. Full Thickness Pressure Injury Upper L buttocks(L)4.8cm x (W)6.4cmBase of wound is 25% necrotic ,75% lida. Edges are adherent to base of wound. Surrounding non-blanchable erythema without fluctuance /induration. No odor or exudate noted. No evidence of sacral skin breakdown. An erythematous and indurated soft tissue mass noted to posterior upper L thigh. (L)3.2cm x (W)3.7cm. Base of L AKA is erythematous,fluctuant, with increased warmth. DTPI medial R Heel(L)1cm x (W)1.2cm. Base of Pressure Injury is purpuric and fluctuant. Periwound is blanchable with dry flaky skin. unlikely etiology of sepsis urine noted leukocytosis on abx Tx.Plan: Cleanse Dorsal L hand with Saline. Apply Therahoney. Apply Cavilon Skin Barrier periwound. Cover with Optifoam Drsg Daily and prn. Cleanse Wound L Buttocks with Saline. Apply Therahoney. Apply Moisture Barrier Paste periwound. Cover with Optifoam drsg. Change Daily and prn. Apply Moisture Barrier Paste to R and L Groin and scrotum with each incontinence care. Apply Cavilon Skin Barrier to Posterior Upper L thigh. Cover with Optifoam drsg. Change every 3 days and prn. Apply Betadine to Base of L AKA stump. Cover with Optifoam drsg. Change every 3 days and prn. Apply Betadine to medial R Heel. Cover with Optifoam drsg. Change every 3 days and prn. Reposition at least every 2hours or as tolerated. Off-load L AKA with Pillow. Off-load R Heel with Pillow. Rowdy Arce Nov 23, 2020 12:38
--- NOTE | 2020-11-23 13:42 | Diagnostic Imaging Report ---
Indication: Post nasogastric tube placement Technique: Supine view of the abdomen Comparison: none Findings: There is a nasogastric tube, tip coiled in the gastric fundus, in good position. Bowel gas pattern is unremarkable. There is severe thoracolumbar scoliotic deformity. Considerable stool is seen expanding the rectum Impression: Satisfactory nasogastric intubation Possible rectal fecal impaction
--- NOTE | 2020-11-23 14:14 | NUR ---
RADIOLOGY DEPT., ABDOMEN FOR N/GT PLCMT PERFORMED.-P.DYE
[2020-11-23 16:00] VITALS: BP 99/63
--- NOTE | 2020-11-23 16:33 | Cardiac Electrophysiology PN ---
Assessment/Plan Assessment/Plan 1. Sinus Tachycardia due to sepsis in this patient with white count of 23,000. The patient was started on IV fluid and IV antibiotics. 2. S/P gastrostomy tube migration. CT scan of the abdomen and pelvis to rule out abscess formation pending. 3. Sepsis of unclear source. 4. Possible congestive heart failure. BNP of 724. Echocardiogram EF 65% 5. Status post left above-knee amputation. 6. Anemia. 7. Mental retardation. Subjective Subjective Sinus tach is better now. PEG was removed as it was misplaced. Has NGT. Ct abd/pelvis is pending. Objective Last 24 Hour Vital Signs Date Time Temp Pulse Resp B/P (MAP) Pulse Ox O2 Delivery O2 Flow Rate FiO2 11/23/20 12:00 119 11/23/20 12:00 97.7 116 22 109/76 (87) 98 11/23/20 09:00 Room Air 11/23/20 08:00 101 11/23/20 08:00 98.1 108 23 166/104 (124) 97 11/23/20 04:00 97.7 100 24 155/84 (107) 97 11/23/20 04:00 95 11/23/20 00:00 98.1 77 22 109/64 (79) 98 11/22/20 23:00 127 11/22/20 21:00 Room Air 11/22/20 20:00 96 11/22/20 20:00 98.1 97 22 124/70 (88) 100 Intake and Output 11/22/20 11/23/20 19:00 07:00 Output Total 300 ml Balance -300 ml Output Urine Total 300 ml # Voids 1 # Bowel Movements 1 1 Laboratory Tests Test 11/23/20 06:54 White Blood Count 16.2 K/UL (4.8-10.8) H Red Blood Count 3.37 M/UL (4.70-6.10) L Hemoglobin 9.8 G/DL (14.2-18.0) L Hematocrit 32.0 % (42.0-52.0) L Mean Corpuscular Volume 95 FL (80-99) Mean Corpuscular Hemoglobin 29.2 PG (27.0-31.0) Mean Corpuscular Hemoglobin Concent 30.7 G/DL (32.0-36.0) L Red Cell Distribution Width 15.7 % (11.6-14.8) H Platelet Count 651 K/UL (150-450) H Mean Platelet Volume 5.8 FL (6.5-10.1) L Neutrophils (%) (Auto) % (45.0-75.0) Lymphocytes (%) (Auto) % (20.0-45.0) Monocytes (%) (Auto) % (1.0-10.0) Eosinophils (%) (Auto) % (0.0-3.0) Basophils (%) (Auto) % (0.0-2.0) Differential Total Cells Counted 100 Neutrophils % (Manual) 87 % (45-75) H Lymphocytes % (Manual) 6 % (20-45) L Monocytes % (Manual) 5 % (1-10) Eosinophils % (Manual) 2 % (0-3) Basophils % (Manual) 0 % (0-2) Band Neutrophils 0 % (0-8) Platelet Estimate Increased H Platelet Morphology Normal Hypochromasia 1+ Anisocytosis 1+ Sodium Level 141 MMOL/L (136-145) Potassium Level 3.5 MMOL/L (3.5-5.1) Chloride Level 103 MMOL/L (98-107) Carbon Dioxide Level 27 MMOL/L (21-32) Anion Gap 11 mmol/L (5-15) Blood Urea Nitrogen 14 mg/dL (7-18) Creatinine 0.4 MG/DL (0.55-1.30) L Estimat Glomerular Filtration Rate > 60 mL/min (>60) Glucose Level 95 MG/DL (74-106) Calcium Level 8.9 MG/DL (8.5-10.1) Total Bilirubin 0.2 MG/DL (0.2-1.0) Aspartate Amino Transf (AST/SGOT) 28 U/L (15-37) Alanine Aminotransferase (ALT/SGPT) 42 U/L (12-78) Alkaline Phosphatase 109 U/L (46-116) Troponin I 0.006 ng/mL (0.000-0.056) Pro-B-Type Natriuretic Peptide 782 pg/mL (0-125) H Total Protein 6.8 G/DL (6.4-8.2) Albumin 1.9 G/DL (3.4-5.0) L Globulin 4.9 g/dL Albumin/Globulin Ratio 0.4 (1.0-2.7) L Thyroid Stimulating Hormone (TSH) 2.220 uiU/mL (0.358-3.740) Free Thyroxine 0.97 NG/DL (0.76-1.46) Microbiology Date/Time Source Procedure Growth Status 11/22/20 10:40 Rectum Received 11/22/20 10:40 Nasopharynx SARS-CoV-2 Antigen (Rapid)(FRANK) - Final Complete Objective HEAD AND NECK: Shows no JVD.NGT in place LUNGS: Decreased breath sounds. CARDIOVASCULAR: Shows tachycardic. S1 and S2 with no gallop. ABDOMEN: Soft. EXTREMITIES: Contracted with left above-knee amputation. Phoenix Amador MD Nov 23, 2020 16:33
--- NOTE | 2020-11-23 17:44 | Consultation ---
DATE OF CONSULTATION: 11/23/2020 INFECTIOUS DISEASES CONSULTATION CONSULTING PHYSICIAN: John Lara MD PRIMARY ATTENDING PHYSICIAN: Samantha Blackwood MD REASON FOR CONSULTATION: Sepsis, gastrostomy infection. HISTORY OF PRESENT ILLNESS: This is a 75-year-old white male admitted yesterday from nursing facility because of difficulty of breathing. The patient is nonverbal. At the time of admission, had leukocytosis of 22.6, tachycardia with heart rate of 120. The patient had a gastrostomy tube that has migrated away and was out into anterior abdominal wall. G-tube will be removed. PAST MEDICAL HISTORY: Cerebral palsy, left nohaa-lix-bchw amputation, G-tube placement, pressure ulcer, constipation, anemia. ALLERGIES: No known drug allergies. MEDICATIONS: Enalapril, albuterol, cefepime, Keppra, Tylenol. SOCIAL HISTORY: long term resident. No other history obtainable. He is single. PHYSICAL EXAMINATION: VITAL SIGNS: Temperature is 98.1, pulse is 108, blood pressure is 166/104. GENERAL APPEARANCE: Seems to have normal weight. HEAD AND NECK: Moist mucous membranes. HEART: Tachycardic. LUNGS: Clear. ABDOMEN: Soft. Currently has NG-tube. EXTREMITIES: No edema. Has contracture, left ryirn-ifx-pqce amputation. SKIN: He has multiple early stage pressure ulcers, also has a left hand ulcer that seems to be pressure induced. LABORATORY AND DIAGNOSTIC DATA: WBC today is 16.2, hemoglobin 9.8, hematocrit 32, platelet is 651. Sodium 141, potassium 3.5, chloride 103, bicarb 27, BUN 13, creatinine 0.4, glucose is 95, albumin is 1.9. COVID test was negative. Chest x-ray, elevated right hemidiaphragm, right basilar atelectasis, no acute process otherwise. Cultures are pending. IMPRESSION: Sepsis, infected gastrostomy with gastrostomy migration, has cerebral palsy, anemia, has aphasia. RECOMMENDATION: Continue cefepime. We will follow up the cultures. At the end of my exam, I thank Dr. Blackwood for involving me in the care of this patient. John Lara M.D. DR: Wallace JOB#: [id number] CC: VISHAL
[2020-11-23 18:46] LABS: APPEARANCE,URINE SLIGHTLY CLOUDY; BILIRUBIN, URINE NEGATIVE (NEGATIVE); COLOR,URINE YELLOW; GLUCOSE, URINE (UA) NEGATIVE (NEGATIVE); KETONES,URINE 2+ (NEGATIVE); LEUKOCYTE ESTERASE ,URINE 1+ (NEGATIVE); NITRITE,URINE NEGATIVE (NEGATIVE); PH,URINE 5 (4.5-8.0); PROTEIN,URINE 2+ (NEGATIVE); UROBILINOGEN,URINE NORMAL MG/DL (0.0-1.0)
--- NOTE | 2020-11-23 19:47 | NUR ---
NURSE HAND-OFF REPORT: Important Events on Shift:pef tube dcd Patient Status: full code Diet: [] Pending Orders: [] Pending Results/Labs:[] Pending MD notification:[] Latest Vital Signs: Temperature 97.5 , Pulse 116 , B/P 99 /63 , Respiratory Rate 24 , O2 SAT 95 , Nasal Cannula, O2 Flow Rate 2.0 . Vital Sign Comment: [] EKG Rhythm: Sinus Tachycardia Rhythm change?: N MD Notified?: - MD Response: Latest Hoyt Fall Score: 70 Fall Risk: High Risk Safety Measures: Call light Within Reach, Bed Alarm Zone 1, Side Rails Side Rails x3, Bed position Low and Locked. Fall Precautions: Yellow Socks Yellow Gown Door Sign Patient Fall Education Report given to jimena jose
[2020-11-23 20:00] VITALS: BP 140/78
--- NOTE | 2020-11-23 20:40 | General Progress Note ---
Subjective ROS Limited/Unobtainable: Yes Allergies: Coded Allergies: No Known Allergies (Unverified , 11/22/20) Objective Last 24 Hour Vital Signs Date Time Temp Pulse Resp B/P (MAP) Pulse Ox O2 Delivery O2 Flow Rate FiO2 11/23/20 16:00 97.5 118 24 99/63 (75) 95 11/23/20 16:00 116 11/23/20 12:00 119 11/23/20 12:00 97.7 116 22 109/76 (87) 98 11/23/20 09:00 Room Air 11/23/20 08:00 101 11/23/20 08:00 98.1 108 23 166/104 (124) 97 11/23/20 04:00 97.7 100 24 155/84 (107) 97 11/23/20 04:00 95 11/23/20 00:00 98.1 77 22 109/64 (79) 98 11/22/20 23:00 127 11/22/20 21:00 Room Air Intake and Output 11/22/20 11/23/20 19:00 07:00 Output Total 300 ml Balance -300 ml Output Urine Total 300 ml # Voids 1 # Bowel Movements 1 1 Laboratory Tests 11/23/20 06:54: White Blood Count 16.2H, Red Blood Count 3.37L, Hemoglobin 9.8L, Hematocrit 32.0L, Mean Corpuscular Volume 95, Mean Corpuscular Hemoglobin 29.2, Mean Corpuscular Hemoglobin Concent 30.7L, Red Cell Distribution Width 15.7H, Platelet Count 651H, Mean Platelet Volume 5.8L, Neutrophils (%) (Auto) , Lymphocytes (%) (Auto) , Monocytes (%) (Auto) , Eosinophils (%) (Auto) , Ba sophils (%) (Auto) , Differential Total Cells Counted 100, Neutrophils % (Manual) 87H, Lymphocytes % (Manual) 6L, Monocytes % (Manual) 5, Eosinophils % (Manual) 2, Basophils % (Manual) 0, Band Neutrophils 0, Platelet Estimate IncreasedH, Platelet Morphology Normal, Hypochromasia 1+, Anisocytosis 1+, Sodium Level 141, Potassium Level 3.5, Chloride Level 103, Carbon Dioxide Level 27, Anion Gap 11, Blood Urea Nitrogen 14, Creatinine 0.4L, Estimat Glomerular Filtration Rate > 60, Glucose Level 95, Calcium Level 8.9, Total Bilirubin 0.2, Aspartate Amino Transf (AST/SGOT) 28, Alanine Aminotransferase (ALT/SGPT) 42, Alkaline Phosphatase 109, Troponin I 0.006, Pro-B-Type Natriuretic Peptide 782H, Total Protein 6.8, Albumin 1.9L, Globulin 4.9, Albumin/Globulin Ratio 0.4L, Thyroid Stimulating Hormone (TSH) 2.220, Free Thyroxine 0.97 11/23/20 16:17: Urine Color Yellow, Urine Appearance Slightly cloudy, Urine pH 5, Urine Specific Artie 1.020, Urine Protein 2+H, Urine Glucose (UA) Negative, Urine Ketones 2+H , Urine Blood Negative, Urine Nitrite Negative, Urine Bilirubin Negative, Urine Urobilinogen Normal, Urine Leukocyte Esterase 1+H, Urine RBC 0-2H, Urine WBC 2- 4, Urine Squamous Epithelial Cells Occasional, Urine Calcium Oxalate Crystals Many, Urine Bacteria Few Height (Feet): 5 Height (Inches): 6.00 Weight (Pounds): 140 Assessment/Plan Problem List: (1) Cerebral palsy ICD Codes: G80.9 - Cerebral palsy, unspecified SNOMED: 736008018 (2) Sepsis ICD Codes: A41.9 - Sepsis, unspecified organism SNOMED: 06921926 Status: progressing Assessment/Plan: afebrile nac sepsis uti tachy r/o abdominal abscess peg is out abx per Samantha Solis MD Nov 23, 2020 20:40
--- NOTE | 2020-11-23 21:42 | Diagnostic Imaging Report ---
EXAM: CT Abdomen and Pelvis With Intravenous Contrast CLINICAL HISTORY: Abscess TECHNIQUE: Axial computed tomography images of the abdomen and pelvis with intravenous contrast. CTDI is 4.0 mGy and DLP is 209.0 mGy-cm. One or more of the following dose reduction techniques were used: automated exposure control, adjustment of the mA and/or kV according to patient size, use of iterative reconstruction technique. COMPARISON: No relevant prior studies available. FINDINGS: Lung bases: Unremarkable. No mass. No consolidation. ABDOMEN: Liver: Simple appearing 0.9 cm hepatic cyst. No follow up is needed. The liver is otherwise unremarkable. Gallbladder and bile ducts: Unremarkable. No calcified stones. No ductal dilation. Pancreas: Unremarkable. No mass. No ductal dilation. Spleen: Unremarkable. No splenomegaly. Adrenals: Unremarkable. No mass. Kidneys and ureters: Striated nephrograms of the inferior poles of both kidneys is concerning for pyelonephritis. Simple appearing bilateral renal cysts measure up to 1.3 cm. No follow-up is needed. No hydronephrosis. Stomach and bowel: Significant stool in the rectal vault is concerning for impaction. No obstruction. No mucosal thickening. PELVIS: Appendix: No findings to suggest acute appendicitis. Bladder: There is marked thickening of the urinary bladder wall. Reproductive: Unremarkable as visualized. ABDOMEN and PELVIS: Intraperitoneal space: Unremarkable. No free air. No significant fluid collection. Bones/joints: Marked scoliosis. There are degenerative changes of the spine. No fracture. No dislocation. Soft tissues: There is an area of vague hypodensity just distal to the xiphoid process of the anterior abdominal wall musculature just left of midline measuring approximately 2.3 cm which appears to have a fistulous communication to the environment, and adjacent very foci of gas. Vasculature: Unremarkable. No abdominal aortic aneurysm. Lymph nodes: Unremarkable. No enlarged lymph nodes. Tubes, lines and devices: The nasogastric tube is in good position. IMPRESSION: 1. There is an area of vague hypodensity just distal to the xiphoid process of the anterior abdominal wall musculature just left of midline measuring approximately 2.3 cm which appears to have a fistulous communication to the environment, and adjacent very foci of gas. This finding is concerning for developing abscess/phlegmon. 2. Striated nephrograms of the inferior poles of both kidneys is concerning for pyelonephritis. 3. There is marked thickening of the urinary bladder wall. This is concerning for cystitis. 4. Significant stool in the rectal vault is concerning for impaction.
[2020-11-23] MEDS: levETIRAcetam 500mg/NS100ml 100 ML IVPB SCH (21:59)
--- NOTE | 2020-11-23 22:00 | NUR ---
NURSE NOTES: Assumed pt's care at 1900 from Sanket Shepard. Pt is alert to self, non verbal. Contrast admin via NG tube at 2029. Pt went down for CT at 2099. Pt returned from procedure at 2119. No acute distress noted. Cont IV ABT cefepime for sepsis with no adv reactions. Safety and comfort measures maintained, call light within reach, bed in low position & locked.
--- NOTE | 2020-11-23 23:18 | NUR ---
NURSE NOTES: Reviewed ABD CT scan with DR Mcelroy, no new orders received.
[2020-11-24] VITALS (9 sets, daily range): BP systolic 113–175; BP diastolic 71–92
--- NOTE | 2020-11-24 00:17 | NUR ---
Received call from microbiology lab to inform teletypewriter operator that pt is positive for MRSA in the nares. Message left for PCP. Contact precautions initiated
[2020-11-24 06:13] LABS: HEMATOCRIT 29.7 % (42.0-52.0); HEMOGLOBIN 9.2 G/DL (14.2-18.0); MEAN CORPUSCULAR VOLUME 93 FL (80-99); PLATELET COUNT 606 K/UL (150-450); RED BLOOD COUNT 3.19 M/UL (4.70-6.10); RED CELL DISTRIBUTION WIDTH 15.3 % (11.6-14.8); WHITE BLOOD COUNT 12.7 K/UL (4.8-10.8)
[2020-11-24 06:52] LABS: ALANINE AMINOTRANSFERASE 30 U/L (12-78); ALBUMIN 1.6 G/DL (3.4-5.0); ALBUMIN/GLOBULIN RATIO 0.3 (1.0-2.7); ALKALINE PHOSPHATASE 98 U/L (46-116); ANION GAP 11 mmol/L (5-15); ASPARTATE AMINO TRANSFERASE 18 U/L (15-37); BILIRUBIN,TOTAL 0.2 MG/DL (0.2-1.0); BLOOD UREA NITROGEN 11 mg/dL (7-18); CALCIUM 8.7 MG/DL (8.5-10.1); CARBON DIOXIDE 27 MMOL/L (21-32); CHLORIDE 103 MMOL/L (98-107); CHOLESTEROL 162 MG/DL (< 200); CREATININE 0.4 MG/DL (0.55-1.30); FERRITIN 397 NG/ML (8-388); GAMMA GLUTAMYL TRANSPEPTIDASE 53 U/L (5-85); HDL CHOLESTEROL 42 MG/DL (40-60); PHOSPHORUS 3.5 MG/DL (2.5-4.9); POTASSIUM 3.2 MMOL/L (3.5-5.1); SODIUM 141 MMOL/L (136-145); TRIGLYCERIDES 87 MG/DL (30-150)
[2020-11-24 07:07] LABS: % IRON SATURATION 9 % (15-50); IRON 9 ug/dL (50-175); TOTAL IRON BINDING CAPACITY 104 ug/dL (250-450)
--- NOTE | 2020-11-24 07:08 | NUR ---
NURSE NOTES: received patient report from jimena jose. patient is on bed asleep. not in acute distress. NPO. no acute events reported last night. afebrile. bed is low and locked for safety. will follow plan of care.
--- NOTE | 2020-11-24 07:14 | NUR ---
NURSE NOTES: reported to dr howell that k level today 3.2. awaiting callback and new order.
--- NOTE | 2020-11-24 07:15 | NUR ---
NURSE NOTES: Pt remains NPO, no acute distress noted. Endorse to oncoming shift to follow with DR Lara per PCP's request. IVF cont infusing at 50cc/hr. Safety and comfort measures maintained, remains on contact precautions.
--- NOTE | 2020-11-24 07:17 | NUR ---
NURSE HAND-OFF REPORT: Important Events on Shift: Follow up with DR Lara for positive MRRSA in nares, remains NPO.. IV fluid infusion cont. Patient Status: Diet: Pending Orders: Pending Results/Labs: Pending MD notification: Latest Vital Signs: Temperature 98.9 , Pulse 97 , B/P 155 /86 , Respiratory Rate 20 , O2 SAT 100 , Nasal Cannula, O2 Flow Rate 2.0 . Vital Sign Comment: EKG Rhythm: Sinus Rhythm Rhythm change?: N MD Notified?: - MD Response: Latest Hoyt Fall Score: 70 Fall Risk: High Risk Safety Measures: Call light Within Reach, Bed Alarm Zone 1, Side Rails Side Rails x3, Bed position Low and Locked. Fall Precautions: Yellow Socks Yellow Gown Door Sign Patient Fall Education Report given to .
[2020-11-24] MEDS: D5NS 1,000 ML IV SCH (07:57)
[2020-11-24] MEDS: levETIRAcetam 500mg/NS100ml 100 ML IVPB SCH ×2 (08:59→20:17)
[2020-11-24] MEDS: Cefepime HCl 1 GM in D5W 55 ML IVPB SCH (09:00)
--- NOTE | 2020-11-24 09:30 | NUR ---
RD ASSESSMENT & RECOMMENDATIONS SEE CARE ACTIVITY FOR COMPLETE ASSESSMENT DAILY ESTIMATED NEEDS: Needs based on Wound underweight 37kg 30-40 kcals/kg 9398-5861 total kcals 1.25-2 g protein/kg 46-74 g total protein 25-35ml/kcal mL/kg 925-1295 total fluid mLs NUTRITION DIAGNOSIS: Increased kcal and pro needs r/t underweight status and wound care as evidenced by pt is est 62% of IBW, BMI underweight per guidelines, multiple wounds including full thickness wounds x2, refer to WC eval. CURRENT TF: Jevity 1.2 @50 ml/hr ENTERAL NUTRITION RECOMMENDATIONS: Maintain current TF as ordered Jevity 1.2 @50ml/hr x24 hrs to provide 1200ml, 1440 kcal, 67g pro, 968ml free H2O - Initiate Jevity 1.2 @35ml/hr for 6 hrs, advance as tolerated 10ml/hr q4-6 hrs to goal. - Flush per MD, HOB over 30 degrees ADDITIONAL RECOMMENDATIONS: 1) Wound care: add DARLENE BID, Vit C 250mg BID 2) Maintain calibrated bed scale wts 3) Monitor BG, need for carb control TF
--- NOTE | 2020-11-24 09:32 | Pulmonology Progress Note ---
Subjective ROS Limited/Unobtainable: Yes Interval Events: none major reported per nursing Constitutional: Reports: no symptoms HEENT: Repors: no symptoms Respiratory: Reports: no symptoms Cardiovascular: Reports: no symptoms Gastrointestinal/Abdominal: Reports: constipation Genitourinary: Reports: no symptoms Allergies: Coded Allergies: No Known Allergies (Unverified , 11/22/20) Objective Last 24 Hour Vital Signs Date Time Temp Pulse Resp B/P (MAP) Pulse Ox O2 Delivery O2 Flow Rate FiO2 11/24/20 09:00 Room Air 11/24/20 08:00 98.8 100 20 159/81 (107) 100 11/24/20 07:42 107 11/24/20 04:25 97 11/24/20 04:01 98.9 100 20 155/86 (109) 100 11/24/20 00:13 98.9 103 20 175/92 (119) 100 11/24/20 00:00 105 11/23/20 21:00 Room Air 11/23/20 20:20 106 11/23/20 20:00 98.8 107 20 140/78 (98) 94 11/23/20 16:00 97.5 118 24 99/63 (75) 95 11/23/20 16:00 116 11/23/20 12:00 119 11/23/20 12:00 97.7 116 22 109/76 (87) 98 Intake and Output 11/23/20 11/24/20 19:00 07:00 Intake Total 55 ml 400 ml Output Total 400 ml 200 ml Balance -345 ml 200 ml Intake IV Total 55 ml 400 ml Output Urine Total 400 ml 200 ml # Bowel Movements 1 1 General Appearance: no acute distress HEENT: normocephalic, atraumatic, anicteric Respiratory: lungs clear Cardiovascular: normal rate, regular rhythm Extremities: no edema, other - contracture noted Microbiology Date/Time Source Procedure Growth Status 11/22/20 11:00 Blood Blood Culture - Preliminary NO GROWTH AFTER 24 HOURS Resulted 11/22/20 10:45 Blood Blood Culture - Preliminary NO GROWTH AFTER 24 HOURS Resulted 11/22/20 10:40 Rectum Received 11/22/20 10:40 Nasal Nares MRSA Culture - Final Staphylococcus Aureus - Mrsa Complete 11/22/20 10:40 Nasopharynx SARS-CoV-2 Antigen (Rapid)(FRANK) - Final Complete Laboratory Tests 11/23/20 16:17: Urine Color Yellow, Urine Appearance Slightly cloudy, Urine pH 5, Urine Specific [place] 1.020, Urine Protein 2+H, Urine Glucose (UA) Negative, Urine Ketones 2+H , Urine Blood Negative, Urine Nitrite Negative, Urine Bilirubin Negative, Urine Urobilinogen Normal, Urine Leukocyte Esterase 1+H, Urine RBC 0-2H, Urine WBC 2- 4, Urine Squamous Epithelial Cells Occasional, Urine Calcium Oxalate Crystals Many, Urine Bacteria Few 11/24/20 05:45: White Blood Count 12.7H, Red Blood Count 3.19L, Hemoglobin 9.2L, Hematocrit 29.7L, Mean Corpuscular Volume 93, Mean Corpuscular Hemoglobin 29.0, Mean Corpuscular Hemoglobin Concent 31.1L, Red Cell Distribution Width 15.3H, Platelet Count 606H, Mean Platelet Volume 5.5L, Neutrophils (%) (Auto) , Lymphocytes (%) (Auto) , Monocytes (%) (Auto) , Eosinophils (%) (Auto) , Basophils (%) (Auto) , Differential Total Cells Counted 100, Neutrophils % (Manual) 85H, Lymphocytes % (Manual) 7L, Monocytes % (Manual) 6, Eosinophils % (Manual) 2, Basophils % (Manual) 0, Band Neutrophils 0, Platelet Estimate IncreasedH, Platelet Morphology Normal, Hypochromasia 1+, Anisocytosis 1+, Sodium Level 141, Potassium Level 3.2L, Chloride Level 103, Carbon Dioxide Level 27, Anion Gap 11, Blood Urea Nitrogen 11, Creatinine 0.4L, Estimat Glomerular Filtration Rate > 60, Glucose Level 136H, Calcium Level 8.7, Phosphorus Level 3.5, Magnesium Level 1.9, Iron Level 9L, Total Iron Binding Capacity 104L, Percent Iron Saturation 9L, Unsaturated Iron Binding 95L, Ferritin 397H, Total Bilirubin 0.2, Gamma Glutamyl Transpeptidase 53, Aspartate Amino Transf (AST/SGOT) 18, Alanine Aminotransferase (ALT/SGPT) 30, Alkaline Phosphatase 98, C-Reactive Protein, Quantitative 34.2H, Pro-B-Type Natriuretic Peptide 831H, Total Protein 6.3L, Albumin 1.6L, Globulin 4.7, Albumin/Globulin Ratio 0.3L, Triglycerides Level 87, Cholesterol Level 162, LDL Cholesterol 101H, HDL Cholesterol 42, Cholesterol/HDL Ratio 3.9, Vitamin B12 Level 1017H, Folate 15.2 Current Medications Medications (Trade) Dose Ordered Sig/Venecia Route PRN Reason Start Time Stop Time Status Last Admin Dose Admin Acetaminophen (Tylenol) 650 mg Q4H PRN GT Temp >100.5 11/22/20 16:30 12/22/20 15:59 11/22/20 23:12 Acetaminophen (Tylenol) 650 mg Q4H PRN GT For Pain 11/22/20 16:30 12/22/20 16:29 Albuterol Sulfate (Proventil) 2.5 mg Q4H PRN HHN Shortness of Breath 11/23/20 10:15 11/28/20 10:14 Barium Sulfate (Readi-Cat 2) 450 ml NOW PRN ORAL Radiology Procedure 11/23/20 10:00 11/25/20 09:59 11/23/20 19:58 Cefepime HCl 1 gm/ Dextrose 55 ml @ 110 mls/hr EVERY 12 HOURS IVPB 11/22/20 21:00 11/29/20 20:59 11/24/20 09:00 Dextrose/Sodium Chloride 1,000 ml @ 50 mls/hr Q20H IV 11/23/20 11:30 12/23/20 11:29 11/24/20 07:57 Enalaprilat (Vasotec) 2.5 mg Q4H PRN IV For blood pressure over 160 sy 11/23/20 11:30 12/23/20 11:29 Hydromorphone HCl (Dilaudid) 0.5 mg Q2H PRN IVP For Pain 11/23/20 09:45 11/30/20 09:44 11/23/20 09:57 Levetiracetam 100 ml @ 400 mls/hr Q12HR IVPB 11/23/20 21:00 02/21/21 20:59 11/24/20 08:59 Potassium Chloride 100 ml @ 100 mls/hr Q1HR IVPB 11/24/20 08:00 11/24/20 11:59 11/24/20 08:59 Assessment/Plan Assessment/Plan 1. Respiratory distress on arrival -Now saturating well on room air -Monitor for hypoxia and provide supplemental oxygen as needed 2. Right basilar atelectasis -Unknown whether acute or chronic as there is no previous chest x-ray on record -Given normoxemia, monitor at this point -Follow-up chest x-ray if indicated 3. Sepsis - On Abx - WBC downtrending 4. DVT ppx - SCD if V/D US negative for DVT The care for this patient was discussed with my supervising physician. Time spent for this case was approximately 31 minutes. Richi Boo Nov 24, 2020 09:32
[2020-11-24] MEDS ORDERED: Sorbitol Solution UD 30ml NG SCH (11:30)
[2020-11-24] MEDS: Acetaminophen 650mg/20.3ml GT PRN (11:35)
--- NOTE | 2020-11-24 11:35 | Infectious Diseases Prog Note ---
Assessment/Plan Assessment/Plan IMPRESSION: Sepsis, Infected gastrostomy with gastrostomy migration, ? 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 RECOMMENDATION: Change cefepime to Zosyn We will follow up the cultures. Subjective ROS Limited/Unobtainable: Yes Allergies: Coded Allergies: No Known Allergies (Unverified , 11/22/20) Objective Last 24 Hour Vital Signs Date Time Temp Pulse Resp B/P (MAP) Pulse Ox O2 Delivery O2 Flow Rate FiO2 11/24/20 09:00 Room Air 11/24/20 08:00 98.8 100 20 159/81 (107) 100 11/24/20 07:42 107 11/24/20 04:25 97 11/24/20 04:01 98.9 100 20 155/86 (109) 100 11/24/20 00:13 98.9 103 20 175/92 (119) 100 11/24/20 00:00 105 11/23/20 21:00 Room Air 11/23/20 20:20 106 11/23/20 20:00 98.8 107 20 140/78 (98) 94 11/23/20 16:00 97.5 118 24 99/63 (75) 95 11/23/20 16:00 116 11/23/20 12:00 119 11/23/20 12:00 97.7 116 22 109/76 (87) 98 Height (Feet): 5 Height (Inches): 6.00 Weight (Pounds): 140 HEENT: mucous membranes moist Respiratory/Chest: lungs clear Cardiovascular: tachycardia Abdomen: soft, non tender, other - NG tube Extremities: no edema, other - left AKA, flexion contraction of hands Neurologic/Psychiatric: unresponsiveness Microbiology Date/Time Source Procedure Growth Status 11/22/20 11:00 Blood Blood Culture - Preliminary NO GROWTH AFTER 24 HOURS Resulted 11/22/20 10:45 Blood Blood Culture - Preliminary NO GROWTH AFTER 24 HOURS Resulted 11/22/20 10:40 Rectum Received 11/22/20 10:40 Nasal Nares MRSA Culture - Final Staphylococcus Aureus - Mrsa Complete 11/22/20 10:40 Nasopharynx SARS-CoV-2 Antigen (Rapid)(FRANK) - Final Complete Laboratory Tests Test 11/23/20 16:17 11/24/20 05:45 Urine Color Yellow Urine Appearance Slightly cloudy Urine pH 5 (4.5-8.0) Urine Specific [place] 1.020 (1.005-1.035) Urine Protein 2+ (NEGATIVE) H Urine Glucose (UA) Negative (NEGATIVE) Urine Ketones 2+ (NEGATIVE) H Urine Blood Negative (NEGATIVE) Urine Nitrite Negative (NEGATIVE) Urine Bilirubin Negative (NEGATIVE) Urine Urobilinogen Normal MG/DL (0.0-1.0) Urine Leukocyte Esterase 1+ (NEGATIVE) H Urine RBC 0-2 /HPF (0 - 0) H Urine WBC 2-4 /HPF (0 - 0) Urine Squamous Epithelial Cells Occasional /LPF Urine Calcium Oxalate Crystals Many /LPF (NONE) Urine Bacteria Few /HPF (NONE) White Blood Count 12.7 K/UL (4.8-10.8) H Red Blood Count 3.19 M/UL (4.70-6.10) L Hemoglobin 9.2 G/DL (14.2-18.0) L Hematocrit 29.7 % (42.0-52.0) L Mean Corpuscular Volume 93 FL (80-99) Mean Corpuscular Hemoglobin 29.0 PG (27.0-31.0) Mean Corpuscular Hemoglobin Concent 31.1 G/DL (32.0-36.0) L Red Cell Distribution Width 15.3 % (11.6-14.8) H Platelet Count 606 K/UL (150-450) H Mean Platelet Volume 5.5 FL (6.5-10.1) L Neutrophils (%) (Auto) % (45.0-75.0) Lymphocytes (%) (Auto) % (20.0-45.0) Monocytes (%) (Auto) % (1.0-10.0) Eosinophils (%) (Auto) % (0.0-3.0) Basophils (%) (Auto) % (0.0-2.0) Differential Total Cells Counted 100 Neutrophils % (Manual) 85 % (45-75) H Lymphocytes % (Manual) 7 % (20-45) L Monocytes % (Manual) 6 % (1-10) Eosinophils % (Manual) 2 % (0-3) Basophils % (Manual) 0 % (0-2) Band Neutrophils 0 % (0-8) Platelet Estimate Increased H Platelet Morphology Normal Hypochromasia 1+ Anisocytosis 1+ Sodium Level 141 MMOL/L (136-145) Potassium Level 3.2 MMOL/L (3.5-5.1) L Chloride Level 103 MMOL/L (98-107) Carbon Dioxide Level 27 MMOL/L (21-32) Anion Gap 11 mmol/L (5-15) Blood Urea Nitrogen 11 mg/dL (7-18) Creatinine 0.4 MG/DL (0.55-1.30) L Estimat Glomerular Filtration Rate > 60 mL/min (>60) Glucose Level 136 MG/DL (74-106) H Calcium Level 8.7 MG/DL (8.5-10.1) Phosphorus Level 3.5 MG/DL (2.5-4.9) Magnesium Level 1.9 MG/DL (1.8-2.4) Iron Level 9 ug/dL (50-175) L Total Iron Binding Capacity 104 ug/dL (250-450) L Percent Iron Saturation 9 % (15-50) L Unsaturated Iron Binding 95 ug/dL (112-346) L Ferritin 397 NG/ML (8-388) H Total Bilirubin 0.2 MG/DL (0.2-1.0) Gamma Glutamyl Transpeptidase 53 U/L (5-85) Aspartate Amino Transf (AST/SGOT) 18 U/L (15-37) Alanine Aminotransferase (ALT/SGPT) 30 U/L (12-78) Alkaline Phosphatase 98 U/L (46-116) C-Reactive Protein, Quantitative 34.2 mg/dL (0.00-0.90) H Pro-B-Type Natriuretic Peptide 831 pg/mL (0-125) H Total Protein 6.3 G/DL (6.4-8.2) L Albumin 1.6 G/DL (3.4-5.0) L Globulin 4.7 g/dL Albumin/Globulin Ratio 0.3 (1.0-2.7) L Triglycerides Level 87 MG/DL (30-150) Cholesterol Level 162 MG/DL (< 200) LDL Cholesterol 101 mg/dL (<100) H HDL Cholesterol 42 MG/DL (40-60) Cholesterol/HDL Ratio 3.9 (3.3-4.4) Vitamin B12 Level 1017 PG/ML (193-986) H Folate 15.2 NG/ML (8.6-58.9) Current Medications Medications (Trade) Dose Ordered Sig/Venecia Route PRN Reason Start Time Stop Time Status Last Admin Dose Admin Acetaminophen (Tylenol) 650 mg Q4H PRN GT Temp >100.5 11/22/20 16:30 12/22/20 15:59 11/22/20 23:12 Acetaminophen (Tylenol) 650 mg Q4H PRN GT For Pain 11/22/20 16:30 12/22/20 16:29 Albuterol Sulfate (Proventil) 2.5 mg Q4H PRN HHN Shortness of Breath 11/23/20 10:15 11/28/20 10:14 Barium Sulfate (Readi-Cat 2) 450 ml NOW PRN ORAL Radiology Procedure 11/23/20 10:00 11/25/20 09:59 11/23/20 19:58 Cefepime HCl 1 gm/ Dextrose 55 ml @ 110 mls/hr EVERY 12 HOURS IVPB 11/22/20 21:00 11/29/20 20:59 11/24/20 09:00 Dextrose/Sodium Chloride 1,000 ml @ 50 mls/hr Q20H IV 11/23/20 11:30 12/23/20 11:29 11/24/20 07:57 Enalaprilat (Vasotec) 2.5 mg Q4H PRN IV For blood pressure over 160 sy 11/23/20 11:30 12/23/20 11:29 Hydromorphone HCl (Dilaudid) 0.5 mg Q2H PRN IVP For Pain 11/23/20 09:45 11/30/20 09:44 11/23/20 09:57 Levetiracetam 100 ml @ 400 mls/hr Q12HR IVPB 11/23/20 21:00 02/21/21 20:59 11/24/20 08:59 Potassium Chloride 100 ml @ 100 mls/hr Q1HR IVPB 11/24/20 08:00 11/24/20 11:59 11/24/20 11:00 Sorbitol (sorbitoL) 60 ml ONCE NG 11/24/20 11:30 11/24/20 13:00 John Lara MD Nov 24, 2020 11:35
--- NOTE | 2020-11-24 12:07 | Surgery Progress Note ---
Surgery Progress Note Subjective Additional Comments doing well tolerating tube feeds comfortable dressings going well Objective Last 24 Hour Vital Signs Date Time Temp Pulse Resp B/P (MAP) Pulse Ox O2 Delivery O2 Flow Rate FiO2 11/24/20 11:55 100.5 103 20 145/77 (99) 100 11/24/20 09:00 Room Air 11/24/20 08:00 98.8 100 20 159/81 (107) 100 11/24/20 07:42 107 11/24/20 04:25 97 11/24/20 04:01 98.9 100 20 155/86 (109) 100 11/24/20 00:13 98.9 103 20 175/92 (119) 100 11/24/20 00:00 105 11/23/20 21:00 Room Air 11/23/20 20:20 106 11/23/20 20:00 98.8 107 20 140/78 (98) 94 11/23/20 16:00 97.5 118 24 99/63 (75) 95 11/23/20 16:00 116 I&O Intake and Output 11/23/20 11/24/20 19:00 07:00 Intake Total 55 ml 400 ml Output Total 400 ml 200 ml Balance -345 ml 200 ml Intake IV Total 55 ml 400 ml Output Urine Total 400 ml 200 ml # Bowel Movements 1 1 Dressing: saturated Cardiovascular: RSR Respiratory: decreased breath sounds Abdomen: soft, non-tender, present bowel sounds, non-distended Extremities: no tenderness, no cyanosis Laboratory Tests Test 11/23/20 16:17 11/24/20 05:45 Urine Color Yellow Urine Appearance Slightly cloudy Urine pH 5 (4.5-8.0) Urine Specific [place] 1.020 (1.005-1.035) Urine Protein 2+ (NEGATIVE) H Urine Glucose (UA) Negative (NEGATIVE) Urine Ketones 2+ (NEGATIVE) H Urine Blood Negative (NEGATIVE) Urine Nitrite Negative (NEGATIVE) Urine Bilirubin Negative (NEGATIVE) Urine Urobilinogen Normal MG/DL (0.0-1.0) Urine Leukocyte Esterase 1+ (NEGATIVE) H Urine RBC 0-2 /HPF (0 - 0) H Urine WBC 2-4 /HPF (0 - 0) Urine Squamous Epithelial Cells Occasional /LPF Urine Calcium Oxalate Crystals Many /LPF (NONE) Urine Bacteria Few /HPF (NONE) White Blood Count 12.7 K/UL (4.8-10.8) H Red Blood Count 3.19 M/UL (4.70-6.10) L Hemoglobin 9.2 G/DL (14.2-18.0) L Hematocrit 29.7 % (42.0-52.0) L Mean Corpuscular Volume 93 FL (80-99) Mean Corpuscular Hemoglobin 29.0 PG (27.0-31.0) Mean Corpuscular Hemoglobin Concent 31.1 G/DL (32.0-36.0) L Red Cell Distribution Width 15.3 % (11.6-14.8) H Platelet Count 606 K/UL (150-450) H Mean Platelet Volume 5.5 FL (6.5-10.1) L Neutrophils (%) (Auto) % (45.0-75.0) Lymphocytes (%) (Auto) % (20.0-45.0) Monocytes (%) (Auto) % (1.0-10.0) Eosinophils (%) (Auto) % (0.0-3.0) Basophils (%) (Auto) % (0.0-2.0) Differential Total Cells Counted 100 Neutrophils % (Manual) 85 % (45-75) H Lymphocytes % (Manual) 7 % (20-45) L Monocytes % (Manual) 6 % (1-10) Eosinophils % (Manual) 2 % (0-3) Basophils % (Manual) 0 % (0-2) Band Neutrophils 0 % (0-8) Platelet Estimate Increased H Platelet Morphology Normal Hypochromasia 1+ Anisocytosis 1+ Sodium Level 141 MMOL/L (136-145) Potassium Level 3.2 MMOL/L (3.5-5.1) L Chloride Level 103 MMOL/L (98-107) Carbon Dioxide Level 27 MMOL/L (21-32) Anion Gap 11 mmol/L (5-15) Blood Urea Nitrogen 11 mg/dL (7-18) Creatinine 0.4 MG/DL (0.55-1.30) L Estimat Glomerular Filtration Rate > 60 mL/min (>60) Glucose Level 136 MG/DL (74-106) H Calcium Level 8.7 MG/DL (8.5-10.1) Phosphorus Level 3.5 MG/DL (2.5-4.9) Magnesium Level 1.9 MG/DL (1.8-2.4) Iron Level 9 ug/dL (50-175) L Total Iron Binding Capacity 104 ug/dL (250-450) L Percent Iron Saturation 9 % (15-50) L Unsaturated Iron Binding 95 ug/dL (112-346) L Ferritin 397 NG/ML (8-388) H Total Bilirubin 0.2 MG/DL (0.2-1.0) Gamma Glutamyl Transpeptidase 53 U/L (5-85) Aspartate Amino Transf (AST/SGOT) 18 U/L (15-37) Alanine Aminotransferase (ALT/SGPT) 30 U/L (12-78) Alkaline Phosphatase 98 U/L (46-116) C-Reactive Protein, Quantitative 34.2 mg/dL (0.00-0.90) H Pro-B-Type Natriuretic Peptide 831 pg/mL (0-125) H Total Protein 6.3 G/DL (6.4-8.2) L Albumin 1.6 G/DL (3.4-5.0) L Globulin 4.7 g/dL Albumin/Globulin Ratio 0.3 (1.0-2.7) L Triglycerides Level 87 MG/DL (30-150) Cholesterol Level 162 MG/DL (< 200) LDL Cholesterol 101 mg/dL (<100) H HDL Cholesterol 42 MG/DL (40-60) Cholesterol/HDL Ratio 3.9 (3.3-4.4) Vitamin B12 Level 1017 PG/ML (193-986) H Folate 15.2 NG/ML (8.6-58.9) Plan Problems: (1) Cerebral palsy (2) Sepsis Assessment & Plan: Pt presented on admission with CP, L AKA,Multiple Pressure Injuries, Wound dorsal L hand. Macular red rash L Flank. Full thickness wound dorsal L hand(L)2.4cm x (W)1.9cm. Loose necrotic cap which was easily removed from wound bed. Base of wound is 95% fibrinous slough with marginal erythema along borders. Small amt sanguineous exudate noted. No erythema or elevation in skin temp periwound. Incontinence Associated dermatitis R and L groin and scrotum. Affected areas are erythematous and macerated. Full Thickness Pressure Injury Upper L buttocks(L)4.8cm x (W)6.4cmBase of wound is 25% necrotic ,75% lida. Edges are adherent to base of wound. Surrounding non-blanchable erythema without fluctuance /induration. No odor or exudate noted. No evidence of sacral skin breakdown. An erythematous and indurated soft tissue mass noted to posterior upper L thigh. (L)3.2cm x (W)3.7cm. Base of L AKA is erythematous,fluctuant, with increased warmth. DTPI medial R Heel(L)1cm x (W)1.2cm. Base of Pressure Injury is purpuric and fluctuant. Periwound is blanchable with dry flaky skin. unlikely etiology of sepsis urine noted leukocytosis on abx Tx.Plan: Cleanse Dorsal L hand with Saline. Apply Therahoney. Apply Cavilon Skin Barrier periwound. Cover with Optifoam Drsg Daily and prn. Cleanse Wound L Buttocks with Saline. Apply Therahoney. Apply Moisture Barrier Paste periwound. Cover with Optifoam drsg. Change Daily and prn. Apply Moisture Barrier Paste to R and L Groin and scrotum with each incontinence care. Apply Cavilon Skin Barrier to Posterior Upper L thigh. Cover with Optifoam drsg. Change every 3 days and prn. Apply Betadine to Base of L AKA stump. Cover with Optifoam drsg. Change every 3 days and prn. Apply Betadine to medial R Heel. Cover with Optifoam drsg. Change every 3 days and prn. Reposition at least every 2hours or as tolerated. Off-load L AKA with Pillow. Off-load R Heel with Pillow. DAILY ESTIMATED NEEDS: Needs based on Wound underweight 37kg 30-40 kcals/kg 9027-5780 total kcals 1.25-2 g protein/kg 46-74 g total protein 25-35ml/kcal mL/kg 925-1295 total fluid mLs NUTRITION DIAGNOSIS: Increased kcal and pro needs r/t underweight status and wound care as evidenced by pt is est 62% of IBW, BMI underweight per guidelines, multiple wounds including full thickness wounds x2, refer to WC eval. CURRENT TF: Jevity 1.2 @50 ml/hr ENTERAL NUTRITION RECOMMENDATIONS: Maintain current TF as ordered Jevity 1.2 @50ml/hr x24 hrs to provide 1200ml, 1440 kcal, 67g pro, 968ml free H2O - Initiate Jevity 1.2 @35ml/hr for 6 hrs, advance as tolerated 10ml/hr q4-6 hrs to goal. - Flush per MD, HOB over 30 degrees ADDITIONAL RECOMMENDATIONS: 1) Wound care: add DARLENE BID, Vit C 250mg BID 2) Maintain calibrated bed scale wts 3) Monitor BG, need for carb control TF Rowdy Arce Nov 24, 2020 12:06
--- NOTE | 2020-11-24 12:28 | Nephrology Progress Note ---
Assessment/Plan Problem List: (1) Dehydration (2) Electrolyte imbalance (3) Sepsis (4) Anemia (5) HTN (hypertension) (6) Seizure disorder Assessment 75-year-old male Patient presented with low serum sodium 134 however it is now corrected Blood pressure remains high Left [id number] amputation Sepsis, tachycardia Anemia Encephalopathy acute Seizure disorder Nonfunctioning GT tube, migrated to abdominal wall from gastric cavity. It is now removed Plan November 24: Labs reviewed. Low potassium addressed. Venofer 200 mg 1 dose IV ordered. Continue per consultants. On tube feeding now. Will stop IV fluids. Patient is n.p.o. per GI Change IV to D5 normal saline Intravenous Vasotec as needed for high blood pressure Monitor renal parameters and electrolytes Anemia work-up Urine analysis and culture Antibiotics Per orders Subjective ROS Limited/Unobtainable: Yes Objective Objective Last 24 Hour Vital Signs Date Time Temp Pulse Resp B/P (MAP) Pulse Ox O2 Delivery O2 Flow Rate FiO2 11/24/20 11:55 100.5 103 20 145/77 (99) 100 11/24/20 09:00 Room Air 11/24/20 08:00 98.8 100 20 159/81 (107) 100 11/24/20 07:42 107 11/24/20 04:25 97 11/24/20 04:01 98.9 100 20 155/86 (109) 100 11/24/20 00:13 98.9 103 20 175/92 (119) 100 11/24/20 00:00 105 11/23/20 21:00 Room Air 11/23/20 20:20 106 11/23/20 20:00 98.8 107 20 140/78 (98) 94 11/23/20 16:00 97.5 118 24 99/63 (75) 95 11/23/20 16:00 116 Intake and Output 11/23/20 11/24/20 19:00 07:00 Intake Total 55 ml 400 ml Output Total 400 ml 200 ml Balance -345 ml 200 ml Intake IV Total 55 ml 400 ml Output Urine Total 400 ml 200 ml # Bowel Movements 1 1 Current Medications Medications (Trade) Dose Ordered Sig/Venecia Route PRN Reason Start Time Stop Time Status Last Admin Dose Admin Acetaminophen (Tylenol) 650 mg Q4H PRN GT Temp >100.5 11/22/20 16:30 12/22/20 15:59 11/24/20 11:35 Acetaminophen (Tylenol) 650 mg Q4H PRN GT For Pain 11/22/20 16:30 12/22/20 16:29 Albuterol Sulfate (Proventil) 2.5 mg Q4H PRN HHN Shortness of Breath 11/23/20 10:15 11/28/20 10:14 Barium Sulfate (Readi-Cat 2) 450 ml NOW PRN ORAL Radiology Procedure 11/23/20 10:00 11/25/20 09:59 11/23/20 19:58 Dextrose/Sodium Chloride 1,000 ml @ 50 mls/hr Q20H IV 11/23/20 11:30 12/23/20 11:29 11/24/20 07:57 Enalaprilat (Vasotec) 2.5 mg Q4H PRN IV For blood pressure over 160 sy 11/23/20 11:30 12/23/20 11:29 Hydromorphone HCl (Dilaudid) 0.5 mg Q2H PRN IVP For Pain 11/23/20 09:45 11/30/20 09:44 11/23/20 09:57 Levetiracetam 100 ml @ 400 mls/hr Q12HR IVPB 11/23/20 21:00 02/21/21 20:59 11/24/20 08:59 Piperacillin Sod/ Tazobactam Sod 3.375 gm/Sodium Chloride 110 ml @ 27.5 mls/hr EVERY 8 HOURS IVPB 11/24/20 14:00 11/29/20 13:59 Sorbitol (sorbitoL) 60 ml ONCE NG 11/24/20 11:30 11/24/20 13:00 11/24/20 11:35 Laboratory Tests 11/23/20 16:17: Urine Color Yellow, Urine Appearance Slightly cloudy, Urine pH 5, Urine Specific [place] 1.020, Urine Protein 2+H, Urine Glucose (UA) Negative, Urine Ketones 2+H , Urine Blood Negative, Urine Nitrite Negative, Urine Bilirubin Negative, Urine Urobilinogen Normal, Urine Leukocyte Esterase 1+H, Urine RBC 0-2H, Urine WBC 2- 4, Urine Squamous Epithelial Cells Occasional, Urine Calcium Oxalate Crystals Many, Urine Bacteria Few 11/24/20 05:45: White Blood Count 12.7H, Red Blood Count 3.19L, Hemoglobin 9.2L, Hematocrit 29.7L, Mean Corpuscular Volume 93, Mean Corpuscular Hemoglobin 29.0, Mean Corpuscular Hemoglobin Concent 31.1L, Red Cell Distribution Width 15.3H, Platelet Count 606H, Mean Platelet Volume 5.5L, Neutrophils (%) (Auto) , Lymphocytes (%) (Auto) , Monocytes (%) (Auto) , Eosinophils (%) (Auto) , Basophils (%) (Auto) , Differential Total Cells Counted 100, Neutrophils % (Manual) 85H, Lymphocytes % (Manual) 7L, Monocytes % (Manual) 6, Eosinophils % (Manual) 2, Basophils % (Manual) 0, Band Neutrophils 0, Platelet Estimate IncreasedH, Platelet Morphology Normal, Hypochromasia 1+, Anisocytosis 1+, Sodium Level 141, Potassium Level 3.2L, Chloride Level 103, Carbon Dioxide Level 27, Anion Gap 11, Blood Urea Nitrogen 11, Creatinine 0.4L, Estimat Glomerular Filtration Rate > 60, Glucose Level 136H, Calcium Level 8.7, Phosphorus Level 3.5, Magnesium Level 1.9, Iron Level 9L, Total Iron Binding Capacity 104L, Percent Iron Saturation 9L, Unsaturated Iron Binding 95L, Ferritin 397H, Total Bilirubin 0.2, Gamma Glutamyl Transpeptidase 53, Aspartate Amino Transf (AST/SGOT) 18, Alanine Aminotransferase (ALT/SGPT) 30, Alkaline Phosphatase 98, C-Reactive Protein, Quantitative 34.2H, Pro-B-Type Natriuretic Peptide 831H, Total Protein 6.3L, Albumin 1.6L, Globulin 4.7, Albumin/Globulin Ratio 0.3L, Triglycerides Level 87, Cholesterol Level 162, LDL Cholesterol 101H, HDL Cholesterol 42, Cholesterol/HDL Ratio 3.9, Vitamin B12 Level 1017H, Folate 15.2 Height (Feet): 5 Height (Inches): 6.00 Weight (Pounds): 140 General Appearance: no apparent distress, lethargic Cardiovascular: tachycardia Respiratory/Chest: decreased breath sounds Abdomen: distended Lenny Veliz MD Nov 24, 2020 12:28
[2020-11-24] MEDS ORDERED: Iron Sucrose 200 MG in NS 110 ML IVPB SCH (14:00)
--- NOTE | 2020-11-24 14:24 | Diagnostic Imaging Report ---
Indication: Bilateral lower extremity edema Technique: Grayscale and duplex images of the bilateral lower extremity veins Comparison: 06/07/2019 Findings: Grayscale and duplex images demonstrate thrombus expanding the left common femoral vein, also filling the femoral vein. This results in absence of flow. Patient is status post [id number] amputation. On the right, grayscale and duplex images demonstrate no evidence of intraluminal thrombus. Normal phasic Doppler waveforms and normal augmentation response. No evidence of valvular insufficiency. Normal compressibility Impression: Positive for left common femoral and femoral deep venous thrombosis
[2020-11-24] MEDS: Piperacillin/Tazobactam 3.375 GM in NS 110 ML IVPB SCH ×2 (15:34→20:19)
--- NOTE | 2020-11-24 16:59 | Cardiac Electrophysiology PN ---
Assessment/Plan Assessment/Plan 1. Sinus Tachycardia due to sepsis in this patient with white count of 23,000 on IV fluid and IV antibiotics. 2. S/P gastrostomy tube migration.Now is removed and has NGT. S/P CT scan of the abdomen and pelvis to rule out abscess formation FU GI and surgery 3. Sepsis of unclear source. 4. Possible congestive heart failure. BNP of 724. Echocardiogram EF 65% 5. Status post left above-knee amputation. 6. Anemia. 7. Mental retardation. Subjective Subjective PEG was removed as it was misplaced. Has NGT. S/P CT abd/pelvis is noted. Also has DVT in the LLE stump Objective Last 24 Hour Vital Signs Date Time Temp Pulse Resp B/P (MAP) Pulse Ox O2 Delivery O2 Flow Rate FiO2 11/24/20 12:05 97.7 11/24/20 11:55 100.5 103 20 145/77 (99) 100 11/24/20 09:00 Room Air 11/24/20 08:00 98.8 100 20 159/81 (107) 100 11/24/20 07:42 107 11/24/20 04:25 97 11/24/20 04:01 98.9 100 20 155/86 (109) 100 11/24/20 00:13 98.9 103 20 175/92 (119) 100 11/24/20 00:00 105 11/23/20 21:00 Room Air 11/23/20 20:20 106 11/23/20 20:00 98.8 107 20 140/78 (98) 94 Intake and Output 11/23/20 11/24/20 19:00 07:00 Intake Total 55 ml 400 ml Output Total 400 ml 200 ml Balance -345 ml 200 ml Intake IV Total 55 ml 400 ml Output Urine Total 400 ml 200 ml # Bowel Movements 1 1 Laboratory Tests Test 11/24/20 05:45 White Blood Count 12.7 K/UL (4.8-10.8) H Red Blood Count 3.19 M/UL (4.70-6.10) L Hemoglobin 9.2 G/DL (14.2-18.0) L Hematocrit 29.7 % (42.0-52.0) L Mean Corpuscular Volume 93 FL (80-99) Mean Corpuscular Hemoglobin 29.0 PG (27.0-31.0) Mean Corpuscular Hemoglobin Concent 31.1 G/DL (32.0-36.0) L Red Cell Distribution Width 15.3 % (11.6-14.8) H Platelet Count 606 K/UL (150-450) H Mean Platelet Volume 5.5 FL (6.5-10.1) L Neutrophils (%) (Auto) % (45.0-75.0) Lymphocytes (%) (Auto) % (20.0-45.0) Monocytes (%) (Auto) % (1.0-10.0) Eosinophils (%) (Auto) % (0.0-3.0) Basophils (%) (Auto) % (0.0-2.0) Differential Total Cells Counted 100 Neutrophils % (Manual) 85 % (45-75) H Lymphocytes % (Manual) 7 % (20-45) L Monocytes % (Manual) 6 % (1-10) Eosinophils % (Manual) 2 % (0-3) Basophils % (Manual) 0 % (0-2) Band Neutrophils 0 % (0-8) Platelet Estimate Increased H Platelet Morphology Normal Hypochromasia 1+ Anisocytosis 1+ Sodium Level 141 MMOL/L (136-145) Potassium Level 3.2 MMOL/L (3.5-5.1) L Chloride Level 103 MMOL/L (98-107) Carbon Dioxide Level 27 MMOL/L (21-32) Anion Gap 11 mmol/L (5-15) Blood Urea Nitrogen 11 mg/dL (7-18) Creatinine 0.4 MG/DL (0.55-1.30) L Estimat Glomerular Filtration Rate > 60 mL/min (>60) Glucose Level 136 MG/DL (74-106) H Calcium Level 8.7 MG/DL (8.5-10.1) Phosphorus Level 3.5 MG/DL (2.5-4.9) Magnesium Level 1.9 MG/DL (1.8-2.4) Iron Level 9 ug/dL (50-175) L Total Iron Binding Capacity 104 ug/dL (250-450) L Percent Iron Saturation 9 % (15-50) L Unsaturated Iron Binding 95 ug/dL (112-346) L Ferritin 397 NG/ML (8-388) H Total Bilirubin 0.2 MG/DL (0.2-1.0) Gamma Glutamyl Transpeptidase 53 U/L (5-85) Aspartate Amino Transf (AST/SGOT) 18 U/L (15-37) Alanine Aminotransferase (ALT/SGPT) 30 U/L (12-78) Alkaline Phosphatase 98 U/L (46-116) C-Reactive Protein, Quantitative 34.2 mg/dL (0.00-0.90) H Pro-B-Type Natriuretic Peptide 831 pg/mL (0-125) H Total Protein 6.3 G/DL (6.4-8.2) L Albumin 1.6 G/DL (3.4-5.0) L Globulin 4.7 g/dL Albumin/Globulin Ratio 0.3 (1.0-2.7) L Triglycerides Level 87 MG/DL (30-150) Cholesterol Level 162 MG/DL (< 200) LDL Cholesterol 101 mg/dL (<100) H HDL Cholesterol 42 MG/DL (40-60) Cholesterol/HDL Ratio 3.9 (3.3-4.4) Vitamin B12 Level 1017 PG/ML (193-986) H Folate 15.2 NG/ML (8.6-58.9) Microbiology Date/Time Source Procedure Growth Status 11/22/20 11:00 Blood Blood Culture - Preliminary NO GROWTH AFTER 24 HOURS Resulted 11/22/20 10:45 Blood Blood Culture - Preliminary NO GROWTH AFTER 24 HOURS Resulted 11/22/20 10:40 Rectum Received 11/22/20 10:40 Nasal Nares MRSA Culture - Final Staphylococcus Aureus - Mrsa Complete 11/22/20 10:40 Nasopharynx SARS-CoV-2 Antigen (Rapid)(FRANK) - Final Complete Objective HEAD AND NECK: Shows no JVD.NGT in place LUNGS: Decreased breath sounds. CARDIOVASCULAR: Shows tachycardic. S1 and S2 with no gallop. ABDOMEN: Soft. EXTREMITIES: Contracted with left above-knee amputation. Phoenix Amador MD Nov 24, 2020 16:59
--- NOTE | 2020-11-24 17:16 | NUR ---
NURSE NOTES: patient is noted to be in distress, breathing rapidly, and HR was elevated to 150s. Patient was suctioned, VS taken 142/95 34 146 94% on non-rebreather which was placed by RT, when and blood sugar was checked resulted to 179. PERSONNEL SECURITY SPECIALIST came and stabilized the patient. DR Blackwood was informed by MARLEN Ascencio, ordered to transfer to ICU. Currently patient is stable, more awake now. Awaiting bed availability in ICU.
--- NOTE | 2020-11-24 17:48 | NUR ---
NURSE NOTES: Called Dr. Blackwood regarding patient's condition. MD ordered to transfer to ICU. Informed Dr. Blackwood that ABG was done while patient is on room air, and non rebreather mask was placed during rapid response. And MD said to inform Dr. Em about patient's condition, if patient can stay telemetry or SDU status. Will call Dr. Em about this matter.
--- NOTE | 2020-11-24 17:50 | NUR ---
NURSE NOTES: Dr. Amador made aware that [facility] called for the patient- due to resp. distress- HR 148-150/min BP 170/98
--- NOTE | 2020-11-24 17:52 | NUR ---
NURSE NOTES: Left message to Dr. Baxter, awaiting for call back. Per Dr. Blackwood, Dr. Em can decide if patient needs to be transferred to ICU or SDU, or to remain in telemetry.
--- NOTE | 2020-11-24 18:52 | NUR ---
NURSE NOTES: patient will be transferred to bed F
--- NOTE | 2020-11-24 19:11 | Diagnostic Imaging Report ---
EXAM: XR Chest, 1 View CLINICAL HISTORY: SOB TECHNIQUE: Frontal view of the chest. COMPARISON: Chest radiograph on 11/22/2020 FINDINGS: Hardware: Enteric tube terminates in the region of the gastric antrum. Lungs/pleura: Stable elevation of the right hemidiaphragm. Low lung volumes with probable crowding of bronchovascular markings and bibasilar atelectasis. Component of pulmonary vasculature congestion or infectious/inflammatory process cannot be excluded. No pleural effusion or pneumothorax. Heart/mediastinum: Normal. No cardiomegaly. Soft tissues: Unremarkable. Bones: No acute fracture. Upper abdomen: Nonspecific gas filled bowel partially visualized. IMPRESSION: 1. Enteric tube terminates in the region of the gastric antrum. 2. Stable elevation of the right hemidiaphragm. Low lung volumes with probable crowding of bronchovascular markings and bibasilar atelectasis. Component of pulmonary vasculature congestion or infectious/inflammatory process cannot be excluded.
[2020-11-24 19:19] LABS: HEMATOCRIT 34.8 % (42.0-52.0); HEMOGLOBIN 10.7 G/DL (14.2-18.0); MEAN CORPUSCULAR VOLUME 96 FL (80-99); PLATELET COUNT 721 K/UL (150-450); RED BLOOD COUNT 3.64 M/UL (4.70-6.10); RED CELL DISTRIBUTION WIDTH 17.3 % (11.6-14.8)
[2020-11-24 19:26] LABS: ANION GAP 14 mmol/L (5-15); BLOOD UREA NITROGEN 13 mg/dL (7-18); CARBON DIOXIDE 23 MMOL/L (21-32); CHLORIDE 104 MMOL/L (98-107); CREATININE 0.6 MG/DL (0.55-1.30); SODIUM 141 MMOL/L (136-145)
[2020-11-24 19:31] LABS: ALANINE AMINOTRANSFERASE 30 U/L (12-78); ALBUMIN 1.9 G/DL (3.4-5.0); ALBUMIN/GLOBULIN RATIO 0.4 (1.0-2.7); ALKALINE PHOSPHATASE 127 U/L (46-116); ASPARTATE AMINO TRANSFERASE 22 U/L (15-37); BILIRUBIN,TOTAL 0.3 MG/DL (0.2-1.0); PHOSPHORUS 3.6 MG/DL (2.5-4.9)
--- NOTE | 2020-11-24 22:24 | General Progress Note ---
Subjective Allergies: Coded Allergies: No Known Allergies (Unverified , 11/22/20) Subjective Seen early am appeared stable at time of visit subsequently went into tachycardia and resp distress NGT feeds stopped and transferred to ICU Objective Last 24 Hour Vital Signs Date Time Temp Pulse Resp B/P (MAP) Pulse Ox O2 Delivery O2 Flow Rate FiO2 11/24/20 19:30 94 Non-Rebreather 15.0 100 11/24/20 19:30 156 24 94 Non-Rebreather 15.0 100 11/24/20 17:19 146 34 94 11/24/20 17:18 156 11/24/20 16:00 98.6 97 20 125/74 (91) 100 11/24/20 16:00 97 11/24/20 16:00 98 11/24/20 12:05 97.7 11/24/20 12:00 104 11/24/20 11:55 100.5 103 20 145/77 (99) 100 11/24/20 09:00 Room Air 11/24/20 08:00 98.8 100 20 159/81 (107) 100 11/24/20 07:42 107 11/24/20 04:25 97 11/24/20 04:01 98.9 100 20 155/86 (109) 100 11/24/20 00:13 98.9 103 20 175/92 (119) 100 11/24/20 00:00 105 Intake and Output 11/23/20 11/24/20 19:00 07:00 Intake Total 55 ml 400 ml Output Total 400 ml 200 ml Balance -345 ml 200 ml Intake IV Total 55 ml 400 ml Output Urine Total 400 ml 200 ml # Bowel Movements 1 1 Laboratory Tests 11/24/20 05:45: White Blood Count 12.7H, Red Blood Count 3.19L, Hemoglobin 9.2L, Hematocrit 29.7L, Mean Corpuscular Volume 93, Mean Corpuscular Hemoglobin 29.0, Mean Corpuscular Hemoglobin Concent 31.1L, Red Cell Distribution Width 15.3H, Platelet Count 606H, Mean Platelet Volume 5.5L, Neutrophils (%) (Auto) , Lymphocytes (%) (Auto) , Monocytes (%) (Auto) , Eosinophils (%) (Auto) , Basophils (%) (Auto) , Differential Total Cells Counted 100, Neutrophils % (Manual) 85H, Lymphocytes % (Manual) 7L, Monocytes % (Manual) 6, Eosinophils % (Manual) 2, Basophils % (Manual) 0, Band Neutrophils 0, Platelet Estimate IncreasedH, Platelet Morphology Normal, Hypochromasia 1+, Anisocytosis 1+, Sodium Level 141, Potassium Level 3.2L, Chloride Level 103, Carbon Dioxide Level 27, Anion Gap 11, Blood Urea Nitrogen 11, Creatinine 0.4L, Estimat Glomerular Filtration Rate > 60, Glucose Level 136H, Calcium Level 8.7, Phosphorus Level 3.5, Magnesium Level 1.9, Iron Level 9L, Total Iron Binding Capacity 104L, Percent Iron Saturation 9L, Unsaturated Iron Binding 95L, Ferritin 397H, Total Bilirubin 0.2, Gamma Glutamyl Transpeptidase 53, Aspartate Amino Transf (AST/SGOT) 18, Alanine Aminotransferase (ALT/SGPT) 30, Alkaline Phosphatase 98, C-Reactive Protein, Quantitative 34.2H, Pro-B-Type Natriuretic Peptide 831H, Total Protein 6.3L, Albumin 1.6L, Globulin 4.7, Albumin/Globulin Ratio 0.3L, Triglycerides Level 87, Cholesterol Level 162, LDL Cholesterol 101H, HDL Cholesterol 42, Cholesterol/HDL Ratio 3.9, Vitamin B12 Level 1017H, Folate 15.2 11/24/20 17:16: Arterial Blood pH 7.399, Arterial Blood Partial Pressure CO2 32.9L, Arterial Blo od Partial Pressure O2 46.0*L, Arterial Blood HCO3 19.9L, Arterial Blood Oxygen Saturation 80.0*L, Arterial Blood Base Excess -4.2L, Raj Test Positive 11/24/20 18:50: White Blood Count 23.0#*H, Red Blood Count 3.64L, Hemoglobin 10.7L, Hematocrit 34.8L, Mean Corpuscular Volume 96, Mean Corpuscular Hemoglobin 29.4, Mean Corpuscular Hemoglobin Concent 30.6L, Red Cell Distribution Width 17.3H, Platelet Count 721H, Mean Platelet Volume 5.5L, Neutrophils (%) (Auto) , Lymphocytes (%) (Auto) , Monocytes (%) (Auto) , Eosinophils (%) (Auto) , Basophils (%) (Auto) , Differential Total Cells Counted 100, Neutrophils % (Manual) 88H, Lymphocytes % (Manual) 10L, Monocytes % (Manual) 2, Eosinophils % (Manual) 0, Basophils % (Manual) 0, Band Neutrophils 0, Platelet Estimate IncreasedH, Platelet Morphology Normal, Hypochromasia 1+, Anisocytosis 1+, Sod ium Level 141, Potassium Level 4.0, Chloride Level 104, Carbon Dioxide Level 23, Anion Gap 14, Blood Urea Nitrogen 13, Creatinine 0.6, Estimat Glomerular Filtration Rate > 60, Glucose Level 186H, Calcium Level 9.0, Phosphorus Level 3.6, Magnesium Level 2.3, Total Bilirubin 0.3, Aspartate Amino Transf (AST/SGOT) 22, Alanine Aminotransferase (ALT/SGPT) 30, Alkaline Phosphatase 127H, Total Protein 6.3L, Albumin 1.9L, Globulin 4.4, Albumin/Globulin Ratio 0.4L 11/24/20 19:00: Arterial Blood pH 7.412, Arterial Blood Partial Pressure CO2 30.7L, Arterial Blood Partial Pressure O2 71.0L, Arterial Blood HCO3 19.1L, Arterial Blood Oxygen Saturation 94.1L, Arterial Blood Base Excess -4.5L, Raj Test Positive 11/24/20 19:38: D-Dimer > 35.20H Height (Feet): 5 Height (Inches): 6.00 Weight (Pounds): 140 Objective Debilitaed man NCAT coarse BS RR abd TTP epigastric, (+) purulent d/c from prior GT site, indurated / swollen subxiphoid area (+) contracted OBS Assessment/Plan Status: progressing Assessment/Plan: Assessment - GT migration into anterior abd wall - removed - abdominal pain, induration - r/o abscess in evolution - tachycardia, leukocytosis, sepsis - respiratory distress - cerebral palsy - contractures - decubitus ulcers - (L) BKA Recommendations - broad spect abx - Hold TF - pulmonary f/u - NGT for meds (and later, for feeds) - needs new GT at later date - IVF Nacho Mcelroy MD Nov 24, 2020 22:24
--- NOTE | 2020-11-24 22:51 | General Progress Note ---
Subjective ROS Limited/Unobtainable: Yes Allergies: Coded Allergies: No Known Allergies (Unverified , 11/22/20) Objective Last 24 Hour Vital Signs Date Time Temp Pulse Resp B/P (MAP) Pulse Ox O2 Delivery O2 Flow Rate FiO2 11/24/20 19:30 94 Non-Rebreather 15.0 100 11/24/20 19:30 156 24 94 Non-Rebreather 15.0 100 11/24/20 17:19 146 34 94 11/24/20 17:18 156 11/24/20 16:00 98.6 97 20 125/74 (91) 100 11/24/20 16:00 97 11/24/20 16:00 98 11/24/20 12:05 97.7 11/24/20 12:00 104 11/24/20 11:55 100.5 103 20 145/77 (99) 100 11/24/20 09:00 Room Air 11/24/20 08:00 98.8 100 20 159/81 (107) 100 11/24/20 07:42 107 11/24/20 04:25 97 11/24/20 04:01 98.9 100 20 155/86 (109) 100 11/24/20 00:13 98.9 103 20 175/92 (119) 100 11/24/20 00:00 105 Intake and Output 11/23/20 11/24/20 19:00 07:00 Intake Total 55 ml 400 ml Output Total 400 ml 200 ml Balance -345 ml 200 ml Intake IV Total 55 ml 400 ml Output Urine Total 400 ml 200 ml # Bowel Movements 1 1 Laboratory Tests 11/24/20 05:45: White Blood Count 12.7H, Red Blood Count 3.19L, Hemoglobin 9.2L, Hematocrit 29.7L, Mean Corpuscular Volume 93, Mean Corpuscular Hemoglobin 29.0, Mean Corpuscular Hemoglobin Concent 31.1L, Red Cell Distribution Width 15.3H, Platelet Count 606H, Mean Platelet Volume 5.5L, Neutrophils (%) (Auto) , Lymphocytes (%) (Auto) , Monocytes (%) (Auto) , Eosinophils (%) (Auto) , Basophils (%) (Auto) , Differential Total Cells Counted 100, Neutrophils % (Manual) 85H, Lymphocytes % (Manual) 7L, Monocytes % (Manual) 6, Eosinophils % (Manual) 2, Basophils % (Manual) 0, Band Neutrophils 0, Platelet Estimate IncreasedH, Platelet Morphology Normal, Hypochromasia 1+, Anisocytosis 1+, Sodium Level 141, Potassium Level 3.2L, Chloride Level 103, Carbon Dioxide Level 27, Anion Gap 11, Blood Urea Nitrogen 11, Creatinine 0.4L, Estimat Glomerular Filtration Rate > 60, Glucose Level 136H, Calcium Level 8.7, Phosphorus Level 3.5, Magnesium Level 1.9, Iron Level 9L, Total Iron Binding Capacity 104L, Percent Iron Saturation 9L, Unsaturated Iron Binding 95L, Ferritin 397H, Total Bilirubin 0.2, Gamma Glutamyl Transpeptidase 53, Aspartate Amino Transf (AST/SGOT) 18, Alanine Aminotransferase (ALT/SGPT) 30, Alkaline Phosphatase 98, C-Reactive Protein, Quantitative 34.2H, Pro-B-Type Natriuretic Peptide 831H, Total Protein 6.3L, Albumin 1.6L, Globulin 4.7, Albumin/Globulin Ratio 0.3L, Triglycerides Level 87, Cholesterol Level 162, LDL Cholesterol 101H, HDL Cholesterol 42, Cholesterol/HDL Ratio 3.9, Vitamin B12 Level 1017H, Folate 15.2 11/24/20 17:16: Arterial Blood pH 7.399, Arterial Blood Partial Pressure CO2 32.9L, Arterial Blood Partial Pressure O2 46.0*L, Arterial Blood HCO3 19.9L, Arterial Blood Oxygen Saturation 80.0*L, Arterial Blood Base Excess -4.2L, Raj Test Positive 11/24/20 18:50: White Blood Count 23.0#*H, Red Blood Count 3.64L, Hemoglobin 10.7L, Hematocrit 34.8L, Mean Corpuscular Volume 96, Mean Corpuscular Hemoglobin 29.4, Mean Corpuscular Hemoglobin Concent 30.6L, Red Cell Distribution Width 17.3H, Platelet Count 721H, Mean Platelet Volume 5.5L, Neutrophils (%) (Auto) , Lymphocytes (%) (Auto) , Monocytes (%) (Auto) , Eosinophils (%) (Auto) , Basophils (%) (Auto) , Differential Total Cells Counted 100, Neutrophils % (Manual) 88H, Lymphocytes % (Manual) 10L, Monocytes % (Manual) 2, Eosinophils % (Manual) 0, Basophils % (Manual) 0, Band Neutrophils 0, Platelet Estimate IncreasedH, Platelet Morphology Normal, Hypochromasia 1+, Anisocytosis 1+, Sodium Level 141, Potassium Level 4.0, Chloride Level 104, Carbon Dioxide Level 23, Anion Gap 14, Blood Urea Nitrogen 13, Creatinine 0.6, Estimat Glomerular Filtration Rate > 60, Glucose Level 186H, Calcium Level 9.0, Phosphorus Level 3.6, Magnesium Level 2.3, Total Bilirubin 0.3, Aspartate Amino Transf (AST/SGOT) 22, Alanine Aminotransferase (ALT/SGPT) 30, Alkaline Phosphatase 127H, Total Protein 6.3L, Albumin 1.9L, Globulin 4.4, Albumin/Globulin Ratio 0.4L 11/24/20 19:00: Arterial Blood pH 7.412, Arterial Blood Partial Pressure CO2 30.7L, Arterial Blood Partial Pressure O2 71.0L, Arterial Blood HCO3 19.1L, Arterial Blood Oxygen Saturation 94.1L, Arterial Blood Base Excess -4.5L, Raj Test Positive 11/24/20 19:38: D-Dimer > 35.20H Height (Feet): 5 Height (Inches): 6.00 Weight (Pounds): 140 Assessment/Plan Problem List: (1) Cerebral palsy ICD Codes: G80.9 - Cerebral palsy, unspecified SNOMED: 731845470 (2) Sepsis ICD Codes: A41.9 - Sepsis, unspecified organism SNOMED: 84924722 Status: progressing Assessment/Plan: s/p RR gave order to transfer to icu and informed dr sales poor prognosis abnormal cxr sepsis uti r/o abdominal abscess peg is out Samantha Blackwood MD Nov 24, 2020 22:51
--- NOTE | 2020-11-24 23:11 | General Progress Note ---
Progress Note Progress Note All noted Asked to eval duplex findings--images reviewed Hx of left AKA with femoral vein DVT Hx of sepsis/ arrhythmia/ PEG feeding malfunction/ CHF/ Cerebral palsy Rec Abx per ID General surgery & GI f/u DVT prophylaxis d/w pmd Jose Lindsay MD Nov 24, 2020 23:11
[2020-11-25] VITALS (24 sets, daily range): BP systolic 119–189; BP diastolic 58–106
[2020-11-25] MEDS: Piperacillin/Tazobactam 3.375 GM in NS 110 ML IVPB SCH ×3 (06:22→20:59)
[2020-11-25 06:37] LABS: HEMATOCRIT 32.2 % (42.0-52.0); HEMOGLOBIN 9.8 G/DL (14.2-18.0); MEAN CORPUSCULAR VOLUME 94 FL (80-99); PLATELET COUNT 578 K/UL (150-450); RED BLOOD COUNT 3.41 M/UL (4.70-6.10); RED CELL DISTRIBUTION WIDTH 16.3 % (11.6-14.8); WHITE BLOOD COUNT 21.6 K/UL (4.8-10.8)
--- NOTE | 2020-11-25 07:20 | NUR ---
NURSE NOTES: Report received from Radha Storey RN.Pt asleep noted no resp distress on NRB Mask 100%,NO signs of pain or discomfort,S-Tach on the monitor,NGT clamped,Jevity feeding off,pt incontinent of urine and diarrhea stools,IV site to DANNY intact with IVF D5 1/2 NS at 50 ml/hr,LFA heplock infiltrated,not flushing,will dcd it,SR up x 2 HOB elevated ,bed lock in lowest position,will continue with plans of care.
--- NOTE | 2020-11-25 07:51 | General Progress Note ---
Subjective ROS Limited/Unobtainable: No Allergies: Coded Allergies: No Known Allergies (Unverified , 11/22/20) Objective Last 24 Hour Vital Signs Date Time Temp Pulse Resp B/P (MAP) Pulse Ox O2 Delivery O2 Flow Rate FiO2 11/25/20 07:23 97 22 100 Non-Rebreather 15.0 100 11/25/20 07:23 100 Non-Rebreather 15.0 100 11/25/20 07:00 103 22 165/86 (112) 100 11/25/20 06:00 101 25 123/74 (90) 100 11/25/20 05:00 98.5 105 21 151/84 (106) 100 11/25/20 04:00 102 11/25/20 04:00 Non-Rebreather 15.0 11/25/20 04:00 108 25 129/78 (95) 100 11/25/20 03:00 115 31 142/82 (102) 100 11/25/20 02:00 112 22 145/85 (105) 100 11/25/20 01:00 118 27 130/78 (95) 100 11/25/20 00:00 Non-Rebreather 15.0 11/25/20 00:00 115 22 135/80 (98) 100 11/25/20 00:00 120 11/24/20 23:00 116 119/73 (88) 100 11/24/20 22:00 131 29 118/76 (90) 100 11/24/20 22:00 Non-Rebreather 15.0 11/24/20 21:00 98.6 137 32 113/71 (85) 100 11/24/20 21:00 Non-Rebreather 15.0 11/24/20 20:00 147 33 141/88 (105) 99 11/24/20 20:00 Non-Rebreather 15.0 11/24/20 20:00 146 11/24/20 19:30 94 Non-Rebreather 15.0 100 11/24/20 19:30 156 24 94 Non-Rebreather 15.0 100 11/24/20 17:19 146 34 94 11/24/20 17:18 156 11/24/20 16:00 98.6 97 20 125/74 (91) 100 11/24/20 16:00 97 11/24/20 16:00 98 11/24/20 12:05 97.7 11/24/20 12:00 104 11/24/20 11:55 100.5 103 20 145/77 (99) 100 11/24/20 09:00 Room Air 11/24/20 08:00 98.8 100 20 159/81 (107) 100 Intake and Output 11/24/20 11/25/20 19:00 07:00 Intake Total 210 ml Output Total 150 ml Balance -150 ml 210 ml Intake IV Total 210 ml Output Urine Total 150 ml # Bowel Movements 4 10 Laboratory Tests 11/24/20 17:16: Arterial Blood pH 7.399, Arterial Blood Partial Pressure CO2 32.9L, Arterial Blood Partial Pressure O2 46.0*L, Arterial Blood HCO3 19.9L, Arterial Blood Oxygen Saturation 80.0*L, Arterial Blood Base Excess -4.2L, Raj Test Positive 11/24/20 18:50: White Blood Count 23.0#*H, Red Blood Count 3.64L, Hemoglobin 10.7L, Hematocrit 34.8L, Mean Corpuscular Volume 96, Mean Corpuscular Hemoglobin 29.4, Mean Corpuscular Hemoglobin Concent 30.6L, Red Cell Distribution Width 17.3H, Platelet Count 721H, Mean Platelet Volume 5.5L, Neutrophils (%) (Auto) , Lymphocytes (%) (Auto) , Monocytes (%) (Auto) , Eosinophils (%) (Auto) , Basophils (%) (Auto) , Differential Total Cells Counted 100, Neutrophils % (Manual) 88H, Lymphocytes % (Manual) 10L, Monocytes % (Manual) 2, Eosinophils % (Manual) 0, Basophils % (Manual) 0, Band Neutrophils 0, Platelet Estimate IncreasedH, Platelet Morphology Normal, Hypochromasia 1+, Anisocytosis 1+, Sodium Level 141, Potassium Level 4.0, Chloride Level 104, Carbon Dioxide Level 23, Anion Gap 14, Blood Urea Nitrogen 13, Creatinine 0.6, Estimat Glomerular Filtration Rate > 60, Glucose Level 186H, Calcium Level 9.0, Phosphorus Level 3.6, Magnesium Level 2.3, Total Bilirubin 0.3, Aspartate Amino Transf (AST/SGOT) 22, Alanine Aminotransferase (ALT/SGPT) 30, Alkaline Phosphatase 127H, Total Protein 6.3L, Albumin 1.9L, Globulin 4.4, Albumin/Globulin Ratio 0.4L 11/24/20 19:00: Arterial Blood pH 7.412, Arterial Blood Partial Pressure CO2 30.7L, Arterial Blood Partial Pressure O2 71.0L, Arterial Blood HCO3 19.1L, Arterial Blood Oxygen Saturation 94.1L, Arterial Blood Base Excess -4.5L, Raj Test Positive 11/24/20 19:38: D-Dimer > 35.20H 11/25/20 06:00: White Blood Count 21.6H, Red Blood Count 3.41L, Hemoglobin 9.8L, Hematocrit 32.2L, Mean Corpuscular Volume 94, Mean Corpuscular Hemoglobin 28.8, Mean Corpuscular Hemoglobin Concent 30.5L, Red Cell Distribution Width 16.3H, Platelet Count 578H, Mean Platelet Volume 5.8L, Neutrophils (%) (Auto) , Lymphocytes (%) (Auto) , Monocytes (%) (Auto) , Eosinophils (%) (Auto) , Basophils (%) (Auto) , Neutrophils % (Manual) [Pending], Lymphocytes % (Manual) [Pending], Platelet Estimate [Pending], Platelet Morphology [Pending], Sodium Level [Pending], Potassium Level [Pending], Chloride Level [Pending], Carbon Dioxide Level [Pending], Blood Urea Nitrogen [Pending], Creatinine [Pending], Estimat Glomerular Filtration Rate [Pending], Glucose Level [Pending], Calcium Level [Pending], Total Bilirubin [Pending], Aspartate Amino Transf (AST/SGOT) [Pending], Alanine Aminotransferase (ALT/SGPT) [Pending], Alkaline Phosphatase [Pending], Total Protein [Pending], Albumin [Pending], Globulin [Pending] Height (Feet): 5 Height (Inches): 6.00 Weight (Pounds): 140 General Appearance: lethargic EENT: normal ENT inspection Neck: supple Cardiovascular: tachycardia Respiratory/Chest: decreased breath sounds, accessory muscle use Abdomen: hypoactive bowel sounds Extremities: non-tender Assessment/Plan Status: progressing Assessment/Plan: Assessment - GT migration into anterior abd wall - removed - abdominal pain, induration - r/o abscess in evolution - tachycardia, leukocytosis, sepsis - respiratory distress - cerebral palsy - contractures - decubitus ulcers - (L) BKA Recommendations - broad spect abx - Hold TF given patient on 100 % non breather - pulmonary f/u - NGT for meds (and later, for feeds) - needs new GT at later date - IVF Padilla Luz MD Nov 25, 2020 07:51
[2020-11-25 08:58] LABS: ALANINE AMINOTRANSFERASE 18 U/L (12-78); ALBUMIN 1.4 G/DL (3.4-5.0); ALBUMIN/GLOBULIN RATIO 0.3 (1.0-2.7); ALKALINE PHOSPHATASE 94 U/L (46-116); ANION GAP 13 mmol/L (5-15); ASPARTATE AMINO TRANSFERASE 18 U/L (15-37); BILIRUBIN,TOTAL 0.1 MG/DL (0.2-1.0); BLOOD UREA NITROGEN 16 mg/dL (7-18); CALCIUM 8.6 MG/DL (8.5-10.1); CARBON DIOXIDE 23 MMOL/L (21-32); CHLORIDE 109 MMOL/L (98-107); CREATININE 0.6 MG/DL (0.55-1.30); POTASSIUM 2.8 MMOL/L (3.5-5.1); SODIUM 145 MMOL/L (136-145)
--- NOTE | 2020-11-25 09:00 | NUR ---
NURSE NOTES: Dr Veliz at bedside,updated re pt's status,K level low 2.9,K replacement IV ordered.
--- NOTE | 2020-11-25 09:18 | Diagnostic Imaging Report ---
EXAM: US Duplex Bilateral Lower Extremities Veins CLINICAL HISTORY: DVT TECHNIQUE: Real-time duplex ultrasound scan of the bilateral lower extremity veins integrating B-mode two-dimensional vascular structure, Doppler spectral analysis, color flow Doppler imaging and compression. COMPARISON: Bilateral lower extremity venous Doppler dated 11/24/20 FINDINGS: Right deep veins: Unremarkable. No DVT in the right common femoral, femoral, proximal deep femoral or popliteal veins. The veins demonstrate normal color flow, are normally compressible, with normal phasic flow and/or augmentation response. Left deep veins: Persistent thrombus in the left common femoral and proximal superficial femoral veins. Patent flow in the distal left superficial femoral vein. Soft tissues: No popliteal cyst. Other findings: Status post left [id number] amputation. IMPRESSION: 1. Persistent thrombus in the left common femoral and proximal superficial femoral veins. 2. No evidence of DVT in the right lower extremity. 3. Status post left [id number] amputation.
[2020-11-25] MEDS: levETIRAcetam 500mg/NS100ml 100 ML IVPB SCH ×2 (09:24→20:56)
--- NOTE | 2020-11-25 09:35 | Nephrology Progress Note ---
Assessment/Plan Problem List: (1) Dehydration (2) Electrolyte imbalance (3) Sepsis (4) Anemia (5) HTN (hypertension) (6) Seizure disorder Assessment 75-year-old male Patient presented with low serum sodium 134 however it is now corrected Blood pressure remains high Left [id number] amputation Sepsis, tachycardia Anemia Encephalopathy acute Seizure disorder Nonfunctioning GT tube, migrated to abdominal wall from gastric cavity. It is now removed Plan November 25: Patient in ICU. On nonrebreather mask. Labs reviewed. Leukocytosis. Renal parameters stable. Low serum potassium addressed. Discussed with RN. Continue per consultants. Patient is full code. November 24: Labs reviewed. Low potassium addressed. Venofer 200 mg 1 dose IV ordered. Continue per consultants. On tube feeding now. Will stop IV fluids. Patient is n.p.o. per GI Change IV to D5 normal saline Intravenous Vasotec as needed for high blood pressure Monitor renal parameters and electrolytes Anemia work-up Urine analysis and culture Antibiotics Per orders Subjective ROS Limited/Unobtainable: Yes Objective Objective Last 24 Hour Vital Signs Date Time Temp Pulse Resp B/P (MAP) Pulse Ox O2 Delivery O2 Flow Rate FiO2 11/25/20 09:00 102 22 143/83 (103) 100 11/25/20 08:00 Non-Rebreather 15.0 11/25/20 08:00 98.8 105 28 138/58 (84) 100 11/25/20 08:00 103 11/25/20 07:23 97 22 100 Non-Rebreather 15.0 100 11/25/20 07:23 100 Non-Rebreather 15.0 100 11/25/20 07:00 103 22 165/86 (112) 100 11/25/20 06:00 101 25 123/74 (90) 100 11/25/20 05:00 98.5 105 21 151/84 (106) 100 11/25/20 04:00 102 11/25/20 04:00 Non-Rebreather 15.0 11/25/20 04:00 108 25 129/78 (95) 100 11/25/20 03:00 115 31 142/82 (102) 100 11/25/20 02:00 112 22 145/85 (105) 100 11/25/20 01:00 118 27 130/78 (95) 100 11/25/20 00:00 Non-Rebreather 15.0 11/25/20 00:00 115 22 135/80 (98) 100 11/25/20 00:00 120 11/24/20 23:00 116 119/73 (88) 100 11/24/20 22:00 131 29 118/76 (90) 100 11/24/20 22:00 Non-Rebreather 15.0 11/24/20 21:00 98.6 137 32 113/71 (85) 100 11/24/20 21:00 Non-Rebreather 15.0 11/24/20 20:00 147 33 141/88 (105) 99 11/24/20 20:00 Non-Rebreather 15.0 11/24/20 20:00 146 11/24/20 19:30 94 Non-Rebreather 15.0 100 11/24/20 19:30 156 24 94 Non-Rebreather 15.0 100 11/24/20 17:19 146 34 94 11/24/20 17:18 156 11/24/20 16:00 98.6 97 20 125/74 (91) 100 11/24/20 16:00 97 11/24/20 16:00 98 11/24/20 12:05 97.7 11/24/20 12:00 104 11/24/20 11:55 100.5 103 20 145/77 (99) 100 Intake and Output 11/24/20 11/25/20 19:00 07:00 Intake Total 210 ml Output Total 150 ml Balance -150 ml 210 ml Intake IV Total 210 ml Output Urine Total 150 ml # Bowel Movements 4 10 Current Medications Medications (Trade) Dose Ordered Sig/Venecia Route PRN Reason Start Time Stop Time Status Last Admin Dose Admin Acetaminophen (Tylenol) 650 mg Q4H PRN GT Temp >100.5 11/22/20 16:30 12/22/20 15:59 11/24/20 11:35 Acetaminophen (Tylenol) 650 mg Q4H PRN GT For Pain 11/22/20 16:30 12/22/20 16:29 Albuterol Sulfate (Proventil) 2.5 mg Q4H PRN HHN Shortness of Breath 11/23/20 10:15 11/28/20 10:14 Barium Sulfate (Readi-Cat 2) 450 ml NOW PRN ORAL Radiology Procedure 11/23/20 10:00 3/20/21 09:59 11/23/20 19:58 Enalaprilat (Vasotec) 2.5 mg Q4H PRN IV For blood pressure over 160 sy 11/23/20 11:30 12/23/20 11:29 Famotidine (Pepcid I.v.) 20 mg Q12HR IVP 11/24/20 21:00 12/24/20 20:59 11/25/20 09:25 Hydromorphone HCl (Dilaudid) 0.5 mg Q2H PRN IVP For Pain 11/23/20 09:45 11/30/20 09:44 11/23/20 09:57 Levetiracetam 100 ml @ 400 mls/hr Q12HR IVPB 11/23/20 21:00 02/21/21 20:59 11/25/20 09:24 Piperacillin Sod/ Tazobactam Sod 3.375 gm/Sodium Chloride 110 ml @ 27.5 mls/hr EVERY 8 HOURS IVPB 11/24/20 14:00 11/29/20 13:59 11/25/20 06:22 Potassium Chloride 100 ml @ 100 mls/hr Q1HR IVPB 11/25/20 10:00 11/25/20 13:59 11/25/20 09:25 Laboratory Tests 11/24/20 17:16: Arterial Blood pH 7.399, Arterial Blood Partial Pressure CO2 32.9L, Arterial Blood Partial Pressure O2 46.0*L, Arterial Blood HCO3 19.9L, Arterial Blood Oxygen Saturation 80.0*L, Arterial Blood Base Excess -4.2L, Raj Test Positive 11/24/20 18:50: White Blood Count 23.0#*H, Red Blood Count 3.64L, Hemoglobin 10.7L, Hematocrit 34.8L, Mean Corpuscular Volume 96, Mean Corpuscular Hemoglobin 29.4, Mean Corpuscular Hemoglobin Concent 30.6L, Red Cell Distribution Width 17.3H, Platelet Count 721H, Mean Platelet Volume 5.5L, Neutrophils (%) (Auto) , Lymphocytes (%) (Auto) , Monocytes (%) (Auto) , Eosinophils (%) (Auto) , Basophils (%) (Auto) , Differential Total Cells Counted 100, Neutrophils % (Manual) 88H, Lymphocytes % (Manual) 10L, Monocytes % (Manual) 2, Eosinophils % (Manual) 0, Basophils % (Manual) 0, Band Neutrophils 0, Platelet Estimate IncreasedH, Platelet Morphology Normal, Hypochromasia 1+, Anisocytosis 1+, Sodium Level 141, Potassium Level 4.0, Chloride Level 104, Carbon Dioxide Level 23, Anion Gap 14, Blood Urea Nitrogen 13, Creatinine 0.6, Estimat Glomerular Filtration Rate > 60, Glucose Level 186H, Calcium Level 9.0, Phosphorus Level 3.6, Magnesium Level 2.3, Total Bilirubin 0.3, Aspartate Amino Transf (AST/SGOT) 22, Alanine Aminotransferase (ALT/SGPT) 30, Alkaline Phosphatase 127H, Total Protein 6.3L, Albumin 1.9L, Globulin 4.4, Albumin/Globulin Ratio 0.4L 11/24/20 19:00: Arterial Blood pH 7.412, Arterial Blood Partial Pressure CO2 30.7L, Arterial Blood Partial Pressure O2 71.0L, Arterial Blood HCO3 19.1L, Arterial Blood Oxygen Saturation 94.1L, Arterial Blood Base Excess -4.5L, Raj Test Positive 11/24/20 19:38: D-Dimer > 35.20H 11/25/20 06:00: White Blood Count 21.6H, Red Blood Count 3.41L, Hemoglobin 9.8L, Hematocrit 32.2L, Mean Corpuscular Volume 94, Mean Corpuscular Hemoglobin 28.8, Mean Corpuscular Hemoglobin Concent 30.5L, Red Cell Distribution Width 16.3H, Platelet Count 578H, Mean Platelet Volume 5.8L, Neutrophils (%) (Auto) , Lymphocytes (%) (Auto) , Monocytes (%) (Auto) , Eosinophils (%) (Auto) , Basophils (%) (Auto) , Neutrophils % (Manual) [Pending], Lymphocytes % (Manual) [Pending], Platelet Estimate [Pending], Platelet Morphology [Pending], Sodium Level 145, Potassium Level 2.8L, Chloride Level 109H, Carbon Dioxide Level 23, Anion Gap 13, Blood Urea Nitrogen 16, Creatinine 0.6, Estimat Glomerular Filtration Rate > 60, Glucose Level 175H, Calcium Level 8.6, Total Bilirubin 0.1L, Aspartate Amino Transf (AST/SGOT) 18, Alanine Aminotransferase (ALT/SGPT) 18, Alkaline Phosphatase 94, Total Protein 5.7L, Albumin 1.4L, Globulin 4.3, Albumin/Globulin Ratio 0.3L Height (Feet): 5 Height (Inches): 6.00 Weight (Pounds): 140 General Appearance: mild distress EENT: other - On nonrebreather mask Cardiovascular: tachycardia Respiratory/Chest: decreased breath sounds Abdomen: distended Lenny Veliz MD Nov 25, 2020 09:35
--- NOTE | 2020-11-25 10:33 | General Progress Note ---
Subjective ROS Limited/Unobtainable: Yes Allergies: Coded Allergies: No Known Allergies (Unverified , 11/22/20) Objective Last 24 Hour Vital Signs Date Time Temp Pulse Resp B/P (MAP) Pulse Ox O2 Delivery O2 Flow Rate FiO2 11/25/20 10:00 102 24 139/89 (106) 100 11/25/20 09:00 102 22 143/83 (103) 100 11/25/20 08:00 Non-Rebreather 15.0 11/25/20 08:00 98.8 105 28 138/58 (84) 100 11/25/20 08:00 103 11/25/20 07:23 97 22 100 Non-Rebreather 15.0 100 11/25/20 07:23 100 Non-Rebreather 15.0 100 11/25/20 07:00 103 22 165/86 (112) 100 11/25/20 06:00 101 25 123/74 (90) 100 11/25/20 05:00 98.5 105 21 151/84 (106) 100 11/25/20 04:00 102 11/25/20 04:00 Non-Rebreather 15.0 11/25/20 04:00 108 25 129/78 (95) 100 11/25/20 03:00 115 31 142/82 (102) 100 11/25/20 02:00 112 22 145/85 (105) 100 11/25/20 01:00 118 27 130/78 (95) 100 11/25/20 00:00 Non-Rebreather 15.0 11/25/20 00:00 115 22 135/80 (98) 100 11/25/20 00:00 120 11/24/20 23:00 116 119/73 (88) 100 11/24/20 22:00 131 29 118/76 (90) 100 11/24/20 22:00 Non-Rebreather 15.0 11/24/20 21:00 98.6 137 32 113/71 (85) 100 11/24/20 21:00 Non-Rebreather 15.0 11/24/20 20:00 147 33 141/88 (105) 99 11/24/20 20:00 Non-Rebreather 15.0 11/24/20 20:00 146 11/24/20 19:30 94 Non-Rebreather 15.0 100 11/24/20 19:30 156 24 94 Non-Rebreather 15.0 100 11/24/20 17:19 146 34 94 11/24/20 17:18 156 11/24/20 16:00 98.6 97 20 125/74 (91) 100 11/24/20 16:00 97 11/24/20 16:00 98 11/24/20 12:05 97.7 11/24/20 12:00 104 11/24/20 11:55 100.5 103 20 145/77 (99) 100 Intake and Output 11/24/20 11/25/20 19:00 07:00 Intake Total 210 ml Output Total 150 ml Balance -150 ml 210 ml Intake IV Total 210 ml Output Urine Total 150 ml # Bowel Movements 4 10 Laboratory Tests 11/24/20 17:16: Arterial Blood pH 7.399, Arterial Blood Partial Pressure CO2 32.9L, Arterial Blood Partial Pressure O2 46.0*L, Arterial Blood HCO3 19.9L, Arterial Blood Oxygen Saturation 80.0*L, Arterial Blood Base Excess -4.2L, Raj Test Positive 11/24/20 18:50: White Blood Count 23.0#*H, Red Blood Count 3.64L, Hemoglobin 10.7L, Hematocrit 34.8L, Mean Corpuscular Volume 96, Mean Corpuscular Hemoglobin 29.4, Mean Corpuscular Hemoglobin Concent 30.6L, Red Cell Distribution Width 17.3H, Platelet Count 721H, Mean Platelet Volume 5.5L, Neutrophils (%) (Auto) , Lymphocytes (%) (Auto) , Monocytes (%) (Auto) , Eosinophils (%) (Auto) , Basophils (%) (Auto) , Differential Total Cells Counted 100, Neutrophils % (Manual) 88H, Lymphocytes % (Manual) 10L, Monocytes % (Manual) 2, Eosinophils % (Manual) 0, Basophils % (Manual) 0, Band Neutrophils 0, Platelet Estimate IncreasedH, Platelet Morphology Normal, Hypochromasia 1+, Anisocytosis 1+, Sodium Level 141, Potassium Level 4.0, Chloride Level 104, Carbon Dioxide Level 23, Anion Gap 14, Blood Urea Nitrogen 13, Creatinine 0.6, Estimat Glomerular Filtration Rate > 60, Glucose Level 186H, Calcium Level 9.0, Phosphorus Level 3.6, Magnesium Level 2.3, Total Bilirubin 0.3, Aspartate Amino Transf (AST/SGOT) 22, Alanine Aminotransferase (ALT/SGPT) 30, Alkaline Phosphatase 127H, Total Protein 6.3L, Albumin 1.9L, Globulin 4.4, Albumin/Globulin Ratio 0.4L 11/24/20 19:00: Arterial Blood pH 7.412, Arterial Blood Partial Pressure CO2 30.7L, Arterial Blood Partial Pressure O2 71.0L, Arterial Blood HCO3 19.1L, Arterial Blood Oxygen Saturation 94.1L, Arterial Blood Base Excess -4.5L, Raj Test Positive 11/24/20 19:38: D-Dimer > 35.20H 11/25/20 06:00: White Blood Count 21.6H, Red Blood Count 3.41L, Hemoglobin 9.8L, Hematocrit 32.2L, Mean Corpuscular Volume 94, Mean Corpuscular Hemoglobin 28.8, Mean Corpuscular Hemoglobin Concent 30.5L, Red Cell Distribution Width 16.3H, Platelet Count 578H, Mean Platelet Volume 5.8L, Neutrophils (%) (Auto) , Lymphocytes (%) (Auto) , Monocytes (%) (Auto) , Eosinophils (%) (Auto) , Basophils (%) (Auto) , Differential Total Cells Counted 100, Neutrophils % (Manual) 80H, Lymphocytes % (Manual) 14L, Monocytes % (Manual) 4, Eosinophils % (Manual) 0, Basophils % (Manual) 0, Band Neutrophils 2, Platelet Estimate IncreasedH, Platelet Morphology Normal, Hypochromasia 1+, Anisocytosis 1+, Sodi um Level 145, Potassium Level 2.8L, Chloride Level 109H, Carbon Dioxide Level 23, Anion Gap 13, Blood Urea Nitrogen 16, Creatinine 0.6, Estimat Glomerular Filtration Rate > 60, Glucose Level 175H, Calcium Level 8.6, Total Bilirubin 0.1L, Aspartate Amino Transf (AST/SGOT) 18, Alanine Aminotransferase (ALT/SGPT) 18, Alkaline Phosphatase 94, Total Protein 5.7L, Albumin 1.4L, Globulin 4.3, Albumin/Globulin Ratio 0.3L Height (Feet): 5 Height (Inches): 6.00 Weight (Pounds): 140 Assessment/Plan Problem List: (1) Cerebral palsy ICD Codes: G80.9 - Cerebral palsy, unspecified SNOMED: 530591518 (2) Sepsis ICD Codes: A41.9 - Sepsis, unspecified organism SNOMED: 07714611 Status: progressing Assessment/Plan: resp failure poor prognosis sepsis uti r/o abdominal abscess peg is out Samantha Blackwood MD Nov 25, 2020 10:33
--- NOTE | 2020-11-25 11:11 | NUR ---
NURSE NOTES: pt incontinent of urine,placed a condom catheter,will continue to monitor pt's urine output.
--- NOTE | 2020-11-25 11:44 | Pulmonology Progress Note ---
Subjective ROS Limited/Unobtainable: Yes Interval Events: Transferred to ICU for hypoxemia Constitutional: Reports: no symptoms HEENT: Repors: no symptoms Respiratory: Reports: no symptoms Cardiovascular: Reports: no symptoms Gastrointestinal/Abdominal: Reports: constipation Genitourinary: Reports: no symptoms Allergies: Coded Allergies: No Known Allergies (Unverified , 11/22/20) Objective Last 24 Hour Vital Signs Date Time Temp Pulse Resp B/P (MAP) Pulse Ox O2 Delivery O2 Flow Rate FiO2 11/25/20 11:03 95 19 150/84 (106) 100 11/25/20 10:00 102 24 139/89 (106) 100 11/25/20 09:00 102 22 143/83 (103) 100 11/25/20 08:00 Non-Rebreather 15.0 11/25/20 08:00 98.8 105 28 138/58 (84) 100 11/25/20 08:00 103 11/25/20 07:23 97 22 100 Non-Rebreather 15.0 100 11/25/20 07:23 100 Non-Rebreather 15.0 100 11/25/20 07:00 103 22 165/86 (112) 100 11/25/20 06:00 101 25 123/74 (90) 100 11/25/20 05:00 98.5 105 21 151/84 (106) 100 11/25/20 04:00 102 11/25/20 04:00 Non-Rebreather 15.0 11/25/20 04:00 108 25 129/78 (95) 100 11/25/20 03:00 115 31 142/82 (102) 100 11/25/20 02:00 112 22 145/85 (105) 100 11/25/20 01:00 118 27 130/78 (95) 100 11/25/20 00:00 Non-Rebreather 15.0 11/25/20 00:00 115 22 135/80 (98) 100 11/25/20 00:00 120 11/24/20 23:00 116 119/73 (88) 100 11/24/20 22:00 131 29 118/76 (90) 100 11/24/20 22:00 Non-Rebreather 15.0 11/24/20 21:00 98.6 137 32 113/71 (85) 100 11/24/20 21:00 Non-Rebreather 15.0 11/24/20 20:00 147 33 141/88 (105) 99 11/24/20 20:00 Non-Rebreather 15.0 11/24/20 20:00 146 11/24/20 19:30 94 Non-Rebreather 15.0 100 11/24/20 19:30 156 24 94 Non-Rebreather 15.0 100 11/24/20 17:19 146 34 94 11/24/20 17:18 156 11/24/20 16:00 98.6 97 20 125/74 (91) 100 11/24/20 16:00 97 11/24/20 16:00 98 11/24/20 12:05 97.7 11/24/20 12:00 104 11/24/20 11:55 100.5 103 20 145/77 (99) 100 Intake and Output 11/24/20 11/25/20 19:00 07:00 Intake Total 210 ml Output Total 150 ml Balance -150 ml 210 ml Intake IV Total 210 ml Output Urine Total 150 ml # Bowel Movements 4 10 General Appearance: no acute distress HEENT: normocephalic, atraumatic, anicteric Respiratory: lungs clear Cardiovascular: normal rate, regular rhythm Extremities: no edema, other - contracture noted Microbiology Date/Time Source Procedure Growth Status 11/23/20 16:17 External Cath Urine Culture - Preliminary NO GROWTH Resulted Laboratory Tests 11/24/20 17:16: Arterial Blood pH 7.399, Arterial Blood Partial Pressure CO2 32.9L, Arterial Blood Partial Pressure O2 46.0*L, Arterial Blood HCO3 19.9L, Arterial Blood Oxygen Saturation 80.0*L, Arterial Blood Base Excess -4.2L, Raj Test Positive 11/24/20 18:50: White Blood Count 23.0#*H, Red Blood Count 3.64L, Hemoglobin 10.7L, Hematocrit 34.8L, Mean Corpuscular Volume 96, Mean Corpuscular Hemoglobin 29.4, Mean Corpuscular Hemoglobin Concent 30.6L, Red Cell Distribution Width 17.3H, Platelet Count 721H, Mean Platelet Volume 5.5L, Neutrophils (%) (Auto) , Lymphocytes (%) (Auto) , Monocytes (%) (Auto) , Eosinophils (%) (Auto) , Basophils (%) (Auto) , Differential Total Cells Counted 100, Neutrophils % (Manual) 88H, Lymphocytes % (Manual) 10L, Monocytes % (Manual) 2, Eosinophils % (Manual) 0, Basophils % (Manual) 0, Band Neutrophils 0, Platelet Estimate IncreasedH, Platelet Morphology Normal, Hypochromasia 1+, Anisocytosis 1+, Sodium Level 141, Potassium Level 4.0, Chloride Level 104, Carbon Dioxide Level 23, Anion Gap 14, Blood Urea Nitrogen 13, Creatinine 0.6, Estimat Glomerular Filtration Rate > 60, Glucose Level 186H, Calcium Level 9.0, Phosphorus Level 3.6, Magnesium Level 2.3, Total Bilirubin 0.3, Aspartate Amino Transf (AST/SGOT) 22, Alanine Aminotransferase (ALT/SGPT) 30, Alkaline Phosphatase 127H, Total Protein 6.3L, Albumin 1.9L, Globulin 4.4, Albumin/Globulin Ratio 0.4L 11/24/20 19:00: Arterial Blood pH 7.412, Arterial Blood Partial Pressure CO2 30.7L, Arterial Blood Partial Pressure O2 71.0L, Arterial Blood HCO3 19.1L, Arterial Blood Oxygen Saturation 94.1L, Arterial Blood Base Excess -4.5L, Raj Test Positive 11/24/20 19:38: D-Dimer > 35.20H 11/25/20 06:00: White Blood Count 21.6H, Red Blood Count 3.41L, Hemoglobin 9.8L, Hematocrit 32.2L, Mean Corpuscular Volume 94, Mean Corpuscular Hemoglobin 28.8, Mean Corpuscular Hemoglobin Concent 30.5L, Red Cell Distribution Width 16.3H, Platelet Count 578H, Mean Platelet Volume 5.8L, Neutrophils (%) (Auto) , Lymphocytes (%) (Auto) , Monocytes (%) (Auto) , Eosinophils (%) (Auto) , Basophils (%) (Auto) , Differential Total Cells Counted 100, Neutrophils % (Manual) 80H, Lymphocytes % (Manual) 14L, Monocytes % (Manual) 4, Eosinophils % (Manual) 0, Basophils % (Manual) 0, Band Neutrophils 2, Platelet Estimate IncreasedH, Platelet Morphology Normal, Hypochromasia 1+, Anisocytosis 1+, Sodium Level 145, Potassium Level 2.8L, Chloride Level 109H, Carbon Dioxide Level 23, Anion Gap 13, Blood Urea Nitrogen 16, Creatinine 0.6, Estimat Glomerular Filtration Rate > 60, Glucose Level 175H, Calcium Level 8.6, Total Bilirubin 0.1L, Aspartate Amino Transf (AST/SGOT) 18, Alanine Aminotransferase (ALT/SGPT) 18, Alkaline Phosphatase 94, Total Protein 5.7L, Albumin 1.4L, Globulin 4.3, Albumin/Globulin Ratio 0.3L Current Medications Medications (Trade) Dose Ordered Sig/Venecia Route PRN Reason Start Time Stop Time Status Last Admin Dose Admin Acetaminophen (Tylenol) 650 mg Q4H PRN GT Temp >100.5 11/22/20 16:30 12/22/20 15:59 11/24/20 11:35 Acetaminophen (Tylenol) 650 mg Q4H PRN GT For Pain 11/22/20 16:30 12/22/20 16:29 Albuterol Sulfate (Proventil) 2.5 mg Q4H PRN HHN Shortness of Breath 11/23/20 10:15 11/28/20 10:14 Enalaprilat (Vasotec) 2.5 mg Q4H PRN IV For blood pressure over 160 sy 11/23/20 11:30 12/23/20 11:29 Enoxaparin Sodium (Lovenox) 60 mg EVERY 12 HOURS SUBQ 11/25/20 21:00 02/23/21 20:59 Famotidine (Pepcid I.v.) 20 mg Q12HR IVP 11/24/20 21:00 12/24/20 20:59 11/25/20 09:25 Hydromorphone HCl (Dilaudid) 0.5 mg Q2H PRN IVP For Pain 11/23/20 09:45 11/30/20 09:44 11/23/20 09:57 Levetiracetam 100 ml @ 400 mls/hr Q12HR IVPB 11/23/20 21:00 02/21/21 20:59 11/25/20 09:24 Piperacillin Sod/ Tazobactam Sod 3.375 gm/Sodium Chloride 110 ml @ 27.5 mls/hr EVERY 8 HOURS IVPB 11/24/20 14:00 11/29/20 13:59 11/25/20 06:22 Potassium Chloride 100 ml @ 100 mls/hr Q1HR IVPB 11/25/20 10:00 11/25/20 13:59 11/25/20 11:20 Assessment/Plan Assessment/Plan 1. Respiratory distress -Continue NRBM - Needs frequent suctioning and hygiene 2. Right basilar atelectasis -Continue pulmonary hygiene 3. Sepsis - On Abx - WBC downtrending 4. 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
--- NOTE | 2020-11-25 13:00 | NUR ---
NURSE NOTES: Reinaldo Coleman placed pt on Venti mask 50%,tolerating well O2 sat 98%
--- NOTE | 2020-11-25 14:31 | Surgery Progress Note ---
Surgery Progress Note Subjective Additional Comments respiratory distress now in ICU labs noted imaging reviewed min responsive Objective Last 24 Hour Vital Signs Date Time Temp Pulse Resp B/P (MAP) Pulse Ox O2 Delivery O2 Flow Rate FiO2 11/25/20 13:03 98 27 169/106 (127) 100 11/25/20 12:00 Non-Rebreather 15.0 11/25/20 12:00 92 11/25/20 12:00 98.4 92 20 157/85 (109) 100 11/25/20 11:03 95 19 150/84 (106) 100 11/25/20 10:00 102 24 139/89 (106) 100 11/25/20 09:00 102 22 143/83 (103) 100 11/25/20 08:00 Non-Rebreather 15.0 11/25/20 08:00 98.8 105 28 138/58 (84) 100 11/25/20 08:00 103 11/25/20 07:23 97 22 100 Non-Rebreather 15.0 100 11/25/20 07:23 100 Non-Rebreather 15.0 100 11/25/20 07:00 103 22 165/86 (112) 100 11/25/20 06:00 101 25 123/74 (90) 100 11/25/20 05:00 98.5 105 21 151/84 (106) 100 11/25/20 04:00 102 11/25/20 04:00 Non-Rebreather 15.0 11/25/20 04:00 108 25 129/78 (95) 100 11/25/20 03:00 115 31 142/82 (102) 100 11/25/20 02:00 112 22 145/85 (105) 100 11/25/20 01:00 118 27 130/78 (95) 100 11/25/20 00:00 Non-Rebreather 15.0 11/25/20 00:00 115 22 135/80 (98) 100 11/25/20 00:00 120 11/24/20 23:00 116 119/73 (88) 100 11/24/20 22:00 131 29 118/76 (90) 100 11/24/20 22:00 Non-Rebreather 15.0 11/24/20 21:00 98.6 137 32 113/71 (85) 100 11/24/20 21:00 Non-Rebreather 15.0 11/24/20 20:00 147 33 141/88 (105) 99 11/24/20 20:00 Non-Rebreather 15.0 11/24/20 20:00 146 11/24/20 19:30 94 Non-Rebreather 15.0 100 11/24/20 19:30 156 24 94 Non-Rebreather 15.0 100 11/24/20 17:19 146 34 94 11/24/20 17:18 156 11/24/20 16:00 98.6 97 20 125/74 (91) 100 11/24/20 16:00 97 11/24/20 16:00 98 I&O Intake and Output 11/24/20 11/25/20 19:00 07:00 Intake Total 210 ml Output Total 150 ml Balance -150 ml 210 ml Intake IV Total 210 ml Output Urine Total 150 ml # Bowel Movements 4 10 Dressing: saturated Cardiovascular: RSR Respiratory: decreased breath sounds Abdomen: soft, non-tender, present bowel sounds, non-distended Extremities: no tenderness, no cyanosis Laboratory Tests Test 11/24/20 17:16 11/24/20 18:50 11/24/20 19:00 11/24/20 19:38 Arterial Blood pH 7.399 (7.350-7.450) 7.412 (7.350-7.450) Arterial Blood Partial Pressure CO2 32.9 mmHg (35.0-45.0) L 30.7 mmHg (35.0-45.0) L Arterial Blood Partial Pressure O2 46.0 mmHg (75.0-100.0) 71.0 mmHg (75.0-100.0) L Arterial Blood HCO3 19.9 mmol/L (22.0-26.0) L 19.1 mmol/L (22.0-26.0) L Arterial Blood Oxygen Saturation 80.0 % (95-100) *L 94.1 % (95-100) L Arterial Blood Base Excess -4.2 (-2-2) L -4.5 (-2-2) L Raj Test Positive Positive White Blood Count 23.0 K/UL (4.8-10.8) #*H Red Blood Count 3.64 M/UL (4.70-6.10) L Hemoglobin 10.7 G/DL (14.2-18.0) L Hematocrit 34.8 % (42.0-52.0) L Mean Corpuscular Volume 96 FL (80-99) Mean Corpuscular Hemoglobin 29.4 PG (27.0-31.0) Mean Corpuscular Hemoglobin Concent 30.6 G/DL (32.0-36.0) L Red Cell Distribution Width 17.3 % (11.6-14.8) H Platelet Count 721 K/UL (150-450) H Mean Platelet Volume 5.5 FL (6.5-10.1) L Neutrophils (%) (Auto) % (45.0-75.0) Lymphocytes (%) (Auto) % (20.0-45.0) Monocytes (%) (Auto) % (1.0-10.0) Eosinophils (%) (Auto) % (0.0-3.0) Basophils (%) (Auto) % (0.0-2.0) Differential Total Cells Counted 100 Neutrophils % (Manual) 88 % (45-75) H Lymphocytes % (Manual) 10 % (20-45) L Monocytes % (Manual) 2 % (1-10) Eosinophils % (Manual) 0 % (0-3) Basophils % (Manual) 0 % (0-2) Band Neutrophils 0 % (0-8) Platelet Estimate Increased H Platelet Morphology Normal Hypochromasia 1+ Anisocytosis 1+ Sodium Level 141 MMOL/L (136-145) Potassium Level 4.0 MMOL/L (3.5-5.1) Chloride Level 104 MMOL/L (98-107) Carbon Dioxide Level 23 MMOL/L (21-32) Anion Gap 14 mmol/L (5-15) Blood Urea Nitrogen 13 mg/dL (7-18) Creatinine 0.6 MG/DL (0.55-1.30) Estimat Glomerular Filtration Rate > 60 mL/min (>60) Glucose Level 186 MG/DL (74-106) H Calcium Level 9.0 MG/DL (8.5-10.1) Phosphorus Level 3.6 MG/DL (2.5-4.9) Magnesium Level 2.3 MG/DL (1.8-2.4) Total Bilirubin 0.3 MG/DL (0.2-1.0) Aspartate Amino Transf (AST/SGOT) 22 U/L (15-37) Alanine Aminotransferase (ALT/SGPT) 30 U/L (12-78) Alkaline Phosphatase 127 U/L (46-116) H Total Protein 6.3 G/DL (6.4-8.2) L Albumin 1.9 G/DL (3.4-5.0) L Globulin 4.4 g/dL Albumin/Globulin Ratio 0.4 (1.0-2.7) L D-Dimer > 35.20 mg/L FEU Test 11/25/20 06:00 White Blood Count 21.6 K/UL (4.8-10.8) H Red Blood Count 3.41 M/UL (4.70-6.10) L Hemoglobin 9.8 G/DL (14.2-18.0) L Hematocrit 32.2 % (42.0-52.0) L Mean Corpuscular Volume 94 FL (80-99) Mean Corpuscular Hemoglobin 28.8 PG (27.0-31.0) Mean Corpuscular Hemoglobin Concent 30.5 G/DL (32.0-36.0) L Red Cell Distribution Width 16.3 % (11.6-14.8) H Platelet Count 578 K/UL (150-450) H Mean Platelet Volume 5.8 FL (6.5-10.1) L Neutrophils (%) (Auto) % (45.0-75.0) Lymphocytes (%) (Auto) % (20.0-45.0) Monocytes (%) (Auto) % (1.0-10.0) Eosinophils (%) (Auto) % (0.0-3.0) Basophils (%) (Auto) % (0.0-2.0) Differential Total Cells Counted 100 Neutrophils % (Manual) 80 % (45-75) H Lymphocytes % (Manual) 14 % (20-45) L Monocytes % (Manual) 4 % (1-10) Eosinophils % (Manual) 0 % (0-3) Basophils % (Manual) 0 % (0-2) Band Neutrophils 2 % (0-8) Platelet Estimate Increased H Platelet Morphology Normal Hypochromasia 1+ Anisocytosis 1+ Sodium Level 145 MMOL/L (136-145) Potassium Level 2.8 MMOL/L (3.5-5.1) L Chloride Level 109 MMOL/L (98-107) H Carbon Dioxide Level 23 MMOL/L (21-32) Anion Gap 13 mmol/L (5-15) Blood Urea Nitrogen 16 mg/dL (7-18) Creatinine 0.6 MG/DL (0.55-1.30) Estimat Glomerular Filtration Rate > 60 mL/min (>60) Glucose Level 175 MG/DL (74-106) H Calcium Level 8.6 MG/DL (8.5-10.1) Total Bilirubin 0.1 MG/DL (0.2-1.0) L Aspartate Amino Transf (AST/SGOT) 18 U/L (15-37) Alanine Aminotransferase (ALT/SGPT) 18 U/L (12-78) Alkaline Phosphatase 94 U/L (46-116) Total Protein 5.7 G/DL (6.4-8.2) L Albumin 1.4 G/DL (3.4-5.0) L Globulin 4.3 g/dL Albumin/Globulin Ratio 0.3 (1.0-2.7) L Plan Problems: (1) Cerebral palsy (2) Sepsis Assessment & Plan: Pt presented on admission with CP, L AKA,Multiple Pressure Injuries, Wound dorsal L hand. Macular red rash L Flank. Full thickness wound dorsal L hand(L)2.4cm x (W)1.9cm. Loose necrotic cap which was easily removed from wound bed. Base of wound is 95% fibrinous slough with marginal erythema along borders. Small amt sanguineous exudate noted. No erythema or elevation in skin temp periwound. Incontinence Associated dermatitis R and L groin and scrotum. Affected areas are erythematous and macerated. Full Thickness Pressure Injury Upper L buttocks(L)4.8cm x (W)6.4cmBase of wound is 25% necrotic ,75% lida. Edges are adherent to base of wound. Surrounding non-blanchable erythema without fluctuance /induration. No odor or exudate noted. No evidence of sacral skin breakdown. An erythematous and indurated soft tissue mass noted to posterior upper L thigh. (L)3.2cm x (W)3.7cm. Base of L AKA is erythematous,fluctuant, with increased warmth. DTPI medial R Heel(L)1cm x (W)1.2cm. Base of Pressure Injury is purpuric and fluctuant. Periwound is blanchable with dry flaky skin. unlikely etiology of sepsis urine noted leukocytosis on abx Tx.Plan: Cleanse Dorsal L hand with Saline. Apply Therahoney. Apply Cavilon Skin Barrier periwound. Cover with Optifoam Drsg Daily and prn. Cleanse Wound L Buttocks with Saline. Apply Therahoney. Apply Moisture Barrier Paste periwound. Cover with Optifoam drsg. Change Daily and prn. Apply Moisture Barrier Paste to R and L Groin and scrotum with each incontinence care. Apply Cavilon Skin Barrier to Posterior Upper L thigh. Cover with Optifoam drsg. Change every 3 days and prn. Apply Betadine to Base of L AKA stump. Cover with Optifoam drsg. Change every 3 days and prn. Apply Betadine to medial R Heel. Cover with Optifoam drsg. Change every 3 days and prn. Reposition at least every 2hours or as tolerated. Off-load L AKA with Pillow. Off-load R Heel with Pillow. DAILY ESTIMATED NEEDS: Needs based on Wound underweight 37kg 30-40 kcals/kg 0454-6542 total kcals 1.25-2 g protein/kg 46-74 g total protein 25-35ml/kcal mL/kg 925-1295 total fluid mLs NUTRITION DIAGNOSIS: Increased kcal and pro needs r/t underweight status and wound care as evidenced by pt is est 62% of IBW, BMI underweight per guidelines, multiple wounds including full thickness wounds x2, refer to WC eval. CURRENT TF: Jevity 1.2 @50 ml/hr ENTERAL NUTRITION RECOMMENDATIONS: Maintain current TF as ordered Jevity 1.2 @50ml/hr x24 hrs to provide 1200ml, 1440 kcal, 67g pro, 968ml free H2O - Initiate Jevity 1.2 @35ml/hr for 6 hrs, advance as tolerated 10ml/hr q4-6 hrs to goal. - Flush per , HOB over 30 degrees ADDITIONAL RECOMMENDATIONS: 1) Wound care: add DARLENE BID, Vit C 250mg BID 2) Maintain calibrated bed scale wts 3) Monitor BG, need for carb control TF respiratory insufficiency now in icu on support cxr noted cont respiratory support Rowdy Arce Nov 25, 2020 14:31
--- NOTE | 2020-11-25 14:42 | NUR ---
CASE MANAGEMENT:REVIEW 11/25/20 SI: SEPSIS. RESPIRATORY DISTRESS 98.4 92 20 157/85 100% ON 15L/NRB WBC+21.6 H/H-9.8/32.2 K-2.8 IS: IV KCL Q1HRS X4 BAGS IV ZOSYN Q8HRS IV KEPPRA Q12 IV PEPCID Q12 LOVENOX SQ Q12 : ICU STATUS DCP: FROM [facility]
--- NOTE | 2020-11-25 14:45 | NUR ---
NURSE NOTES: Pt's BP remains high and sustaining,Vasotec 2.5 mg IV given,will continue to monitor pt's BP,Dr Amador here,aware of pt's high BP.
--- NOTE | 2020-11-25 14:47 | Cardiac Electrophysiology PN ---
Assessment/Plan Assessment/Plan 1. Sinus Tachycardia due to sepsis in this patient with white count of 23,000 on IV fluid and IV antibiotics. 2. S/P gastrostomy tube migration. Now is removed and has NGT. S/P CT scan of the abdomen and pelvis to rule out abscess formation. FU GI and surgery 3. Sepsis of unclear source. 4. Possible congestive heart failure. BNP of 724. Echocardiogram EF 65% 5. Status post left above-knee amputation. 6. Anemia. 7. Mental retardation. 8. Left thigh DVT on Lovenox 60 bid 9. Accelerated HTN. add Norvasc 5 bid and prn Clonidine DW RN Subjective Subjective PEG was removed as it was misplaced. Has NGT. S/P CT abd/pelvis. Also has DVT in the LLE stump Objective Last 24 Hour Vital Signs Date Time Temp Pulse Resp B/P (MAP) Pulse Ox O2 Delivery O2 Flow Rate FiO2 11/25/20 14:00 92 22 189/93 (125) 100 11/25/20 13:03 98 27 169/106 (127) 100 11/25/20 12:00 Non-Rebreather 15.0 11/25/20 12:00 92 11/25/20 12:00 98.4 92 20 157/85 (109) 100 11/25/20 11:03 95 19 150/84 (106) 100 11/25/20 10:00 102 24 139/89 (106) 100 11/25/20 09:00 102 22 143/83 (103) 100 11/25/20 08:00 Non-Rebreather 15.0 11/25/20 08:00 98.8 105 28 138/58 (84) 100 11/25/20 08:00 103 11/25/20 07:23 97 22 100 Non-Rebreather 15.0 100 11/25/20 07:23 100 Non-Rebreather 15.0 100 11/25/20 07:00 103 22 165/86 (112) 100 11/25/20 06:00 101 25 123/74 (90) 100 11/25/20 05:00 98.5 105 21 151/84 (106) 100 11/25/20 04:00 102 11/25/20 04:00 Non-Rebreather 15.0 11/25/20 04:00 108 25 129/78 (95) 100 11/25/20 03:00 115 31 142/82 (102) 100 11/25/20 02:00 112 22 145/85 (105) 100 11/25/20 01:00 118 27 130/78 (95) 100 11/25/20 00:00 Non-Rebreather 15.0 11/25/20 00:00 115 22 135/80 (98) 100 11/25/20 00:00 120 11/24/20 23:00 116 119/73 (88) 100 11/24/20 22:00 131 29 118/76 (90) 100 11/24/20 22:00 Non-Rebreather 15.0 11/24/20 21:00 98.6 137 32 113/71 (85) 100 11/24/20 21:00 Non-Rebreather 15.0 11/24/20 20:00 147 33 141/88 (105) 99 11/24/20 20:00 Non-Rebreather 15.0 11/24/20 20:00 146 11/24/20 19:30 94 Non-Rebreather 15.0 100 11/24/20 19:30 156 24 94 Non-Rebreather 15.0 100 11/24/20 17:19 146 34 94 11/24/20 17:18 156 11/24/20 16:00 98.6 97 20 125/74 (91) 100 11/24/20 16:00 97 11/24/20 16:00 98 Intake and Output 11/24/20 11/25/20 19:00 07:00 Intake Total 210 ml Output Total 150 ml Balance -150 ml 210 ml Intake IV Total 210 ml Output Urine Total 150 ml # Bowel Movements 4 10 Laboratory Tests Test 11/24/20 17:16 11/24/20 18:50 11/24/20 19:00 11/24/20 19:38 Arterial Blood pH 7.399 (7.350-7.450) 7.412 (7.350-7.450) Arterial Blood Partial Pressure CO2 32.9 mmHg (35.0-45.0) L 30.7 mmHg (35.0-45.0) L Arterial Blood Partial Pressure O2 46.0 mmHg (75.0-100.0) 71.0 mmHg (75.0-100.0) L Arterial Blood HCO3 19.9 mmol/L (22.0-26.0) L 19.1 mmol/L (22.0-26.0) L Arterial Blood Oxygen Saturation 80.0 % (95-100) *L 94.1 % (95-100) L Arterial Blood Base Excess -4.2 (-2-2) L -4.5 (-2-2) L Raj Test Positive Positive White Blood Count 23.0 K/UL (4.8-10.8) #*H Red Blood Count 3.64 M/UL (4.70-6.10) L Hemoglobin 10.7 G/DL (14.2-18.0) L Hematocrit 34.8 % (42.0-52.0) L Mean Corpuscular Volume 96 FL (80-99) Mean Corpuscular Hemoglobin 29.4 PG (27.0-31.0) Mean Corpuscular Hemoglobin Concent 30.6 G/DL (32.0-36.0) L Red Cell Distribution Width 17.3 % (11.6-14.8) H Platelet Count 721 K/UL (150-450) H Mean Platelet Volume 5.5 FL (6.5-10.1) L Neutrophils (%) (Auto) % (45.0-75.0) Lymphocytes (%) (Auto) % (20.0-45.0) Monocytes (%) (Auto) % (1.0-10.0) Eosinophils (%) (Auto) % (0.0-3.0) Basophils (%) (Auto) % (0.0-2.0) Differential Total Cells Counted 100 Neutrophils % (Manual) 88 % (45-75) H Lymphocytes % (Manual) 10 % (20-45) L Monocytes % (Manual) 2 % (1-10) Eosinophils % (Manual) 0 % (0-3) Basophils % (Manual) 0 % (0-2) Band Neutrophils 0 % (0-8) Platelet Estimate Increased H Platelet Morphology Normal Hypochromasia 1+ Anisocytosis 1+ Sodium Level 141 MMOL/L (136-145) Potassium Level 4.0 MMOL/L (3.5-5.1) Chloride Level 104 MMOL/L (98-107) Carbon Dioxide Level 23 MMOL/L (21-32) Anion Gap 14 mmol/L (5-15) Blood Urea Nitrogen 13 mg/dL (7-18) Creatinine 0.6 MG/DL (0.55-1.30) Estimat Glomerular Filtration Rate > 60 mL/min (>60) Glucose Level 186 MG/DL (74-106) H Calcium Level 9.0 MG/DL (8.5-10.1) Phosphorus Level 3.6 MG/DL (2.5-4.9) Magnesium Level 2.3 MG/DL (1.8-2.4) Total Bilirubin 0.3 MG/DL (0.2-1.0) Aspartate Amino Transf (AST/SGOT) 22 U/L (15-37) Alanine Aminotransferase (ALT/SGPT) 30 U/L (12-78) Alkaline Phosphatase 127 U/L (46-116) H Total Protein 6.3 G/DL (6.4-8.2) L Albumin 1.9 G/DL (3.4-5.0) L Globulin 4.4 g/dL Albumin/Globulin Ratio 0.4 (1.0-2.7) L D-Dimer > 35.20 mg/L FEU Test 11/25/20 06:00 White Blood Count 21.6 K/UL (4.8-10.8) H Red Blood Count 3.41 M/UL (4.70-6.10) L Hemoglobin 9.8 G/DL (14.2-18.0) L Hematocrit 32.2 % (42.0-52.0) L Mean Corpuscular Volume 94 FL (80-99) Mean Corpuscular Hemoglobin 28.8 PG (27.0-31.0) Mean Corpuscular Hemoglobin Concent 30.5 G/DL (32.0-36.0) L Red Cell Distribution Width 16.3 % (11.6-14.8) H Platelet Count 578 K/UL (150-450) H Mean Platelet Volume 5.8 FL (6.5-10.1) L Neutrophils (%) (Auto) % (45.0-75.0) Lymphocytes (%) (Auto) % (20.0-45.0) Monocytes (%) (Auto) % (1.0-10.0) Eosinophils (%) (Auto) % (0.0-3.0) Basophils (%) (Auto) % (0.0-2.0) Differential Total Cells Counted 100 Neutrophils % (Manual) 80 % (45-75) H Lymphocytes % (Manual) 14 % (20-45) L Monocytes % (Manual) 4 % (1-10) Eosinophils % (Manual) 0 % (0-3) Basophils % (Manual) 0 % (0-2) Band Neutrophils 2 % (0-8) Platelet Estimate Increased H Platelet Morphology Normal Hypochromasia 1+ Anisocytosis 1+ Sodium Level 145 MMOL/L (136-145) Potassium Level 2.8 MMOL/L (3.5-5.1) L Chloride Level 109 MMOL/L (98-107) H Carbon Dioxide Level 23 MMOL/L (21-32) Anion Gap 13 mmol/L (5-15) Blood Urea Nitrogen 16 mg/dL (7-18) Creatinine 0.6 MG/DL (0.55-1.30) Estimat Glomerular Filtration Rate > 60 mL/min (>60) Glucose Level 175 MG/DL (74-106) H Calcium Level 8.6 MG/DL (8.5-10.1) Total Bilirubin 0.1 MG/DL (0.2-1.0) L Aspartate Amino Transf (AST/SGOT) 18 U/L (15-37) Alanine Aminotransferase (ALT/SGPT) 18 U/L (12-78) Alkaline Phosphatase 94 U/L (46-116) Total Protein 5.7 G/DL (6.4-8.2) L Albumin 1.4 G/DL (3.4-5.0) L Globulin 4.3 g/dL Albumin/Globulin Ratio 0.3 (1.0-2.7) L Microbiology Date/Time Source Procedure Growth Status 11/23/20 16:17 External Cath Urine Culture - Preliminary NO GROWTH Resulted Objective HEAD AND NECK: Shows no JVD.NGT in place LUNGS: Decreased breath sounds. CARDIOVASCULAR: Shows tachycardic. S1 and S2 with no gallop. ABDOMEN: Soft. EXTREMITIES: Contracted with left above-knee amputation. Phoenix Amador MD Nov 25, 2020 14:47
--- NOTE | 2020-11-25 16:00 | NUR ---
NURSE NOTES: Pt placed on 340% Venti mask, by Clayton,O2 sat 97%,tolerating well O2 titration,no sob presented.,
--- NOTE | 2020-11-25 17:00 | NUR ---
NURSE NOTES: bed bath given ,pt with diarrhea stools x2,kept dry and clean,pulled up and repositioned.
--- NOTE | 2020-11-25 19:01 | NUR ---
NURSE HAND-OFF REPORT: Latest Vital Signs: Temperature 98.0 , Pulse 115 , B/P 180 /83 , Respiratory Rate 21 , O2 SAT 91 , Nasal Cannula, O2 Flow Rate 8.0 . Vital Sign Comment: stable EKG Rhythm: Sinus Tachycardia Rhythm change?: N Notified?: Josef Em MD Response: Latest Hoyt Fall Score: 70 Fall Risk: High Risk Safety Measures: Call light Within Reach, Bed Alarm Zone 1, Side Rails Side Rails x3, Bed position Low and Locked. Fall Precautions: Yellow Socks Yellow Gown Door Sign Patient Fall Education Report given to Stacy fernandez RN..
[2020-11-25] MEDS: Enoxaparin 60mg Inj SUBQ SCH (20:58)
[2020-11-26] VITALS (24 sets, daily range): BP systolic 105–165; BP diastolic 58–87
[2020-11-26] MEDS: Piperacillin/Tazobactam 3.375 GM in NS 110 ML IVPB SCH ×3 (06:00→21:08)
--- NOTE | 2020-11-26 06:35 | Consultation ---
History of Present Illness General Chief Complaint: Altered Level of Consciousness Present Illness Allergies: Coded Allergies: No Known Allergies (Unverified , 11/22/20) Medication History Scheduled Acetaminophen* (Acetaminophen Extra Strength*), 500 MG GT Q6H, (Reported) Amino Acids/Protein Hydrolys (Pro-Stat Liquid), 30 ML GT TWICE A DAY, (Reported) Ascorbic Acid* (Vitamin C*), 500 MG GT DAILY, (Reported) Carbamazepine* (Carbamazepine*), 200 MG GT FOUR TIMES A DAY, (Reported) Cholecalciferol (Vitamin D3) (Vitamin D3*), 25 MCG GT DAILY, (Reported) Famotidine* (Pepcid 20mg tablet*), 20 MG GT DAILY, (Reported) Levetiracetam* (Levetiracetam*), 100 MG GT TWICE A DAY, (Reported) Multivitamin With Minerals (Multivitamins With Minerals*), 1 TAB GT DAILY, (Reported) Polyethylene Glycol 3350* (Miralax*), 17 GM GT DAILY, (Reported) Zinc Sulfate (Zinc Sulfate*), 220 MG GT DAILY, (Reported) Scheduled PRN Albuterol Sulfate* (Albuterol Sulfate Hhn*), 3 ML INH Q4H PRN for Shortness of Breath, (Reported) Ondansetron* (Zofran*), 4 MG GT Q6H PRN for Nausea & Vomiting, (Reported) Miscellaneous Medications Mag Hydrox/Al Hydrox/Simeth (Maalox Maximum Strength Susp), 30 ML GT, (Reported) Sennosides (Senna), 8.6 MG GT, (Reported) Patient History Healthcare decision maker Resuscitation status Advanced Directive on File Physical Exam Last 24 Hour Vital Signs Date Time Temp Pulse Resp B/P (MAP) Pulse Ox O2 Delivery O2 Flow Rate FiO2 11/26/20 05:00 98 146/64 (91) 100 11/26/20 04:00 Non-Rebreather 15.0 11/26/20 04:00 102 136/68 (90) 99 11/26/20 04:00 96 11/26/20 03:00 97 126/74 (91) 100 11/26/20 02:00 99 118/77 (91) 100 11/26/20 01:00 99 144/74 (97) 100 11/26/20 00:00 102 128/65 (86) 100 3/21/21 00:00 Non-Rebreather 15.0 11/26/20 00:00 102 11/25/20 23:00 105 119/65 (83) 99 11/25/20 22:00 109 137/74 (95) 99 11/25/20 21:00 109 119/74 (89) 100 11/25/20 20:57 107 161/74 11/25/20 20:00 Non-Rebreather 15.0 11/25/20 20:00 108 161/74 (103) 100 11/25/20 19:30 100 Venturi Mask 10.0 45 11/25/20 19:30 106 22 100 Venturi Mask 10.0 45 11/25/20 19:00 109 135/78 (97) 97 11/25/20 18:00 115 21 180/83 (115) 91 11/25/20 17:00 96 21 167/92 (117) 97 11/25/20 17:00 100 Venturi Mask 8.0 40 11/25/20 16:42 97 142/70 11/25/20 16:00 Non-Rebreather 15.0 11/25/20 16:00 97 11/25/20 16:00 98.0 97 16 142/70 (94) 97 11/25/20 15:04 100 Bi-Pap 10.0 50 11/25/20 15:04 99 22 100 Venturi Mask 10.0 50 11/25/20 15:00 99 19 123/64 (83) 97 11/25/20 14:45 189/93 11/25/20 14:00 92 22 189/93 (125) 100 11/25/20 13:03 98 27 169/106 (127) 100 11/25/20 12:01 Non-Rebreather 15.0 11/25/20 12:00 92 11/25/20 12:00 98.4 92 20 157/85 (109) 100 11/25/20 11:03 95 19 150/84 (106) 100 11/25/20 10:00 102 24 139/89 (106) 100 11/25/20 09:00 102 22 143/83 (103) 100 11/25/20 08:01 Non-Rebreather 15.0 11/25/20 08:00 98.8 105 28 138/58 (84) 100 11/25/20 08:00 103 11/25/20 07:23 97 22 100 Non-Rebreather 15.0 100 11/25/20 07:23 100 Non-Rebreather 15.0 100 11/25/20 07:00 103 22 165/86 (112) 100 Intake and Output 11/25/20 11/26/20 19:00 07:00 Intake Total 160 ml Output Total 220 ml Balance -60 ml Intake Oral 0 ml Free Water 100 ml Other 60 ml Output Urine Total 220 ml # Bowel Movements 3 3 Height (Feet): 5 Height (Inches): 6.00 Weight (Pounds): 140 Medications Current Medications Medications (Trade) Dose Ordered Sig/Venecia Route PRN Reason Start Time Stop Time Status Last Admin Dose Admin Acetaminophen (Tylenol) 650 mg Q4H PRN GT Temp >100.5 11/22/20 16:30 12/22/20 15:59 11/24/20 11:35 Acetaminophen (Tylenol) 650 mg Q4H PRN GT For Pain 11/22/20 16:30 12/22/20 16:29 Albuterol Sulfate (Proventil) 2.5 mg Q4H PRN HHN Shortness of Breath 11/23/20 10:15 11/28/20 10:14 Amlodipine Besylate (Norvasc) 5 mg EVERY 12 HOURS ORAL 11/25/20 21:00 12/25/20 20:59 11/25/20 20:57 Clonidine HCl (Catapres Tab) 0.1 mg Q4H PRN ORAL sbp>170 11/25/20 14:45 02/23/21 14:44 Enalaprilat (Vasotec) 2.5 mg Q4H PRN IV For blood pressure over 160 sy 11/23/20 11:30 12/23/20 11:29 11/25/20 14:45 Enoxaparin Sodium (Lovenox) 60 mg EVERY 12 HOURS SUBQ 11/25/20 21:00 02/23/21 20:59 11/25/20 20:58 Famotidine (Pepcid I.v.) 20 mg Q12HR IVP 11/24/20 21:00 12/24/20 20:59 11/25/20 20:54 Hydromorphone HCl (Dilaudid) 0.5 mg Q2H PRN IVP For Pain 11/23/20 09:45 11/30/20 09:44 11/23/20 09:57 Levetiracetam 100 ml @ 400 mls/hr Q12HR IVPB 11/23/20 21:00 02/21/21 20:59 11/25/20 20:56 Piperacillin Sod/ Tazobactam Sod 3.375 gm/Sodium Chloride 110 ml @ 27.5 mls/hr EVERY 8 HOURS IVPB 11/24/20 14:00 11/29/20 13:59 11/25/20 20:59 Assessment/Plan Assessment/Plan: Hematology Consultation JOSE ROBERTO RECIO: Omaira Mendez [facility]: LLE stump dvt HPI Patient is a 75-year-old male sent in from nursing facility for increased difficulty with breathing. Prior history of cerebral palsy as well as left [id number] amputation. Patient is chronically debilitated and nonverbal at baseline. Patient had been noted to have increased heart rate up to 150 at his facility. Patient had been sent in for further evaluation and treatment. History is limited due to patient's mental status history is primarily obtained from old chart. In the icu at this time, has a lle stump, have started him on lovenox bid therapy. Allergies: No Known Allergies (Unverified , 11/22/20) Patient History Reviewed Nursing Documentation: PMH: Agreed; PSxH: Agreed Review of Systems All Other Systems: limited - Review systems is limited by poor historian Physical Exam General Appearance: mild distress, lethargic, Chronically Ill ENT: normal ENT inspection Neck: limited range of motion Respiratory: lungs clear Cardiovascular: tachycardia, edema Gastrointestinal: normal inspection, non tender, soft Genitourinary: normal inspection Musculoskeletal: other - Contracted upper and lower extremity +++left above knee amp Neurologic: motor weakness, responsive - Opens eyes, nonverbal, other - Makes incomprehensible sounds grimaces to pain Skin: no rash Labs: reviewed Imaging: noted Assessment and Recs # LLE stump dvt, that is acute diagnosed --> for dvt have started lovenox bid therapy, treatment dose --> 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 --> as per cards # S/P gastrostomy tube migration. Now is removed and has NGT. --> S/P CT scan of the abdomen and pelvis to rule out abscess formation. FU GI and surgery # Status post left above-knee amputation. # Mental retardation. Nate Robbins RN, MD Nov 26, 2020 06:35
--- NOTE | 2020-11-26 07:10 | NUR ---
NURSE NOTES: Report received from rebecca Storey RN.Pt asleep noted no resp distress,stable,no signs of pain or discomfort,SR on the monitor,NGT clamped,Kept NPO,incontinent of diarrhea stools and urine,condom cath out SR up x2 HOB elevated bed lock in lowest position,will continue with plans of care.,
[2020-11-26 07:27] LABS: HEMATOCRIT 27.1 % (42.0-52.0); HEMOGLOBIN 8.2 G/DL (14.2-18.0); MEAN CORPUSCULAR VOLUME 95 FL (80-99); PLATELET COUNT 520 K/UL (150-450); RED BLOOD COUNT 2.86 M/UL (4.70-6.10); WHITE BLOOD COUNT 20.9 K/UL (4.8-10.8)
--- NOTE | 2020-11-26 07:54 | Pulmonology Progress Note ---
Subjective ROS Limited/Unobtainable: Yes Interval Events: Transferred to ICU for hypoxemia Constitutional: Reports: no symptoms HEENT: Repors: no symptoms Respiratory: Reports: no symptoms Cardiovascular: Reports: no symptoms Gastrointestinal/Abdominal: Reports: constipation Genitourinary: Reports: no symptoms Allergies: Coded Allergies: No Known Allergies (Unverified , 11/22/20) Objective Last 24 Hour Vital Signs Date Time Temp Pulse Resp B/P (MAP) Pulse Ox O2 Delivery O2 Flow Rate FiO2 11/26/20 07:00 93 17 140/81 (100) 99 11/26/20 06:00 90 105/59 (74) 99 11/26/20 05:00 98 146/64 (91) 100 11/26/20 04:00 Non-Rebreather 15.0 11/26/20 04:00 102 136/68 (90) 99 11/26/20 04:00 96 11/26/20 03:00 97 126/74 (91) 100 11/26/20 02:00 99 118/77 (91) 100 11/26/20 01:00 99 144/74 (97) 100 11/26/20 00:00 102 128/65 (86) 100 11/26/20 00:00 Non-Rebreather 15.0 11/26/20 00:00 102 11/25/20 23:00 105 119/65 (83) 99 11/25/20 22:00 109 137/74 (95) 99 11/25/20 21:00 109 119/74 (89) 100 11/25/20 20:57 107 161/74 11/25/20 20:00 Non-Rebreather 15.0 11/25/20 20:00 108 161/74 (103) 100 11/25/20 19:30 100 Venturi Mask 10.0 45 11/25/20 19:30 106 22 100 Venturi Mask 10.0 45 11/25/20 19:00 109 135/78 (97) 97 11/25/20 18:00 115 21 180/83 (115) 91 11/25/20 17:00 96 21 167/92 (117) 97 11/25/20 17:00 100 Venturi Mask 8.0 40 11/25/20 16:42 97 142/70 11/25/20 16:00 Non-Rebreather 15.0 11/25/20 16:00 97 11/25/20 16:00 98.0 97 16 142/70 (94) 97 11/25/20 15:04 100 Bi-Pap 10.0 50 11/25/20 15:04 99 22 100 Venturi Mask 10.0 50 11/25/20 15:00 99 19 123/64 (83) 97 11/25/20 14:45 189/93 11/25/20 14:00 92 22 189/93 (125) 100 11/25/20 13:03 98 27 169/106 (127) 100 11/25/20 12:01 Non-Rebreather 15.0 11/25/20 12:00 92 11/25/20 12:00 98.4 92 20 157/85 (109) 100 11/25/20 11:03 95 19 150/84 (106) 100 11/25/20 10:00 102 24 139/89 (106) 100 11/25/20 09:00 102 22 143/83 (103) 100 11/25/20 08:01 Non-Rebreather 15.0 11/25/20 08:00 98.8 105 28 138/58 (84) 100 11/25/20 08:00 103 Intake and Output 11/25/20 11/26/20 19:00 07:00 Intake Total 160 ml Output Total 220 ml Balance -60 ml Intake Oral 0 ml Free Water 100 ml Other 60 ml Output Urine Total 220 ml # Bowel Movements 3 3 General Appearance: no acute distress HEENT: normocephalic, atraumatic, anicteric Respiratory: lungs clear Cardiovascular: normal rate, regular rhythm Extremities: no edema, other - contracture noted Microbiology Date/Time Source Procedure Growth Status 11/23/20 16:17 External Cath Urine Culture - Preliminary NO GROWTH Resulted Laboratory Tests 11/26/20 06:45: White Blood Count 20.9H, Red Blood Count 2.86L, Hemoglobin 8.2L, Hematocrit 27.1L, Mean Corpuscular Volume 95, Mean Corpuscular Hemoglobin 28.9, Mean Corpuscular Hemoglobin Concent 30.4L, Red Cell Distribution Width 17.0H, Platelet Count 520H, Mean Platelet Volume 5.8L, Neutrophils (%) (Auto) , Lympho cytes (%) (Auto) , Monocytes (%) (Auto) , Eosinophils (%) (Auto) , Basophils (%) (Auto) , Neutrophils % (Manual) [Pending], Lymphocytes % (Manual) [Pending], Platelet Estimate [Pending], Platelet Morphology [Pending], Sodium Level [Pending], Potassium Level [Pending], Chloride Level [Pending], Carbon Dioxide Level [Pending], Blood Urea Nitrogen [Pending], Creatinine [Pending], Estimat Glomerular Filtration Rate [Pending], Glucose Level [Pending], Uric Acid [Pending], Calcium Level [Pending], Phosphorus Level [Pending], Magnesium Level [Pending], Total Bilirubin [Pending], Aspartate Amino Transf (AST/SGOT) [Pending], Alanine Aminotransferase (ALT/SGPT) [Pending], Alkaline Phosphatase [Pending], C-Reactive Protein, Quantitative [Pending], Pro-B-Type Natriuretic Peptide [Pending], Total Protein [Pending], Albumin [Pending], Globulin [Pending] Current Medications Medications (Trade) Dose Ordered Sig/Venecia Route PRN Reason Start Time Stop Time Status Last Admin Dose Admin Acetaminophen (Tylenol) 650 mg Q4H PRN GT Temp >100.5 11/22/20 16:30 12/22/20 15:59 11/24/20 11:35 Acetaminophen (Tylenol) 650 mg Q4H PRN GT For Pain 11/22/20 16:30 12/22/20 16:29 Albuterol Sulfate (Proventil) 2.5 mg Q4H PRN HHN Shortness of Breath 11/23/20 10:15 11/28/20 10:14 Amlodipine Besylate (Norvasc) 5 mg EVERY 12 HOURS ORAL 11/25/20 21:00 12/25/20 20:59 11/25/20 20:57 Clonidine HCl (Catapres Tab) 0.1 mg Q4H PRN ORAL sbp>170 11/25/20 14:45 02/23/21 14:44 Enalaprilat (Vasotec) 2.5 mg Q4H PRN IV For blood pressure over 160 sy 11/23/20 11:30 12/23/20 11:29 11/25/20 14:45 Enoxaparin Sodium (Lovenox) 60 mg EVERY 12 HOURS SUBQ 11/25/20 21:00 02/23/21 20:59 11/25/20 20:58 Famotidine (Pepcid I.v.) 20 mg Q12HR IVP 11/24/20 21:00 12/24/20 20:59 11/25/20 20:54 Hydromorphone HCl (Dilaudid) 0.5 mg Q2H PRN IVP For Pain 11/23/20 09:45 11/30/20 09:44 11/23/20 09:57 Levetiracetam 100 ml @ 400 mls/hr Q12HR IVPB 11/23/20 21:00 02/21/21 20:59 11/25/20 20:56 Piperacillin Sod/ Tazobactam Sod 3.375 gm/Sodium Chloride 110 ml @ 27.5 mls/hr EVERY 8 HOURS IVPB 11/24/20 14:00 11/29/20 13:59 11/26/20 06:00 Assessment/Plan Assessment/Plan 1. Respiratory distress -Continue NRBM - Needs frequent suctioning and hygiene 2. Right basilar atelectasis -Continue pulmonary hygiene 3. Sepsis - On Abx - WBC downtrending 4. 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
--- NOTE | 2020-11-26 07:55 | NUR ---
RESPIRATORY NOTE: Patient received in stable condition on Venturi mask @ 10 Lpm / 45% FiO2. All VS are WNL. No s/s of respiratory distress noted at this time. ABG to be drawn. Will continue to monitor.
[2020-11-26 07:57] LABS: ALANINE AMINOTRANSFERASE 19 U/L (12-78); ALBUMIN 1.4 G/DL (3.4-5.0); ALBUMIN/GLOBULIN RATIO 0.4 (1.0-2.7); ALKALINE PHOSPHATASE 88 U/L (46-116); ANION GAP 9 mmol/L (5-15); ASPARTATE AMINO TRANSFERASE 16 U/L (15-37); BILIRUBIN,TOTAL 0.2 MG/DL (0.2-1.0); BLOOD UREA NITROGEN 11 mg/dL (7-18); CALCIUM 8.4 MG/DL (8.5-10.1); CARBON DIOXIDE 25 MMOL/L (21-32); CHLORIDE 111 MMOL/L (98-107); CREATININE 0.4 MG/DL (0.55-1.30); PHOSPHORUS 2.6 MG/DL (2.5-4.9); SODIUM 146 MMOL/L (136-145)
--- NOTE | 2020-11-26 08:01 | General Progress Note ---
Subjective ROS Limited/Unobtainable: No Allergies: Coded Allergies: No Known Allergies (Unverified , 11/22/20) Objective Last 24 Hour Vital Signs Date Time Temp Pulse Resp B/P (MAP) Pulse Ox O2 Delivery O2 Flow Rate FiO2 11/26/20 07:00 93 17 140/81 (100) 99 11/26/20 06:00 90 105/59 (74) 99 11/26/20 05:00 98 146/64 (91) 100 11/26/20 04:00 Non-Rebreather 15.0 11/26/20 04:00 102 136/68 (90) 99 11/26/20 04:00 96 11/26/20 03:00 97 126/74 (91) 100 11/26/20 02:00 99 118/77 (91) 100 11/26/20 01:00 99 144/74 (97) 100 11/26/20 00:00 102 128/65 (86) 100 11/26/20 00:00 Non-Rebreather 15.0 11/26/20 00:00 102 11/25/20 23:00 105 119/65 (83) 99 11/25/20 22:00 109 137/74 (95) 99 11/25/20 21:00 109 119/74 (89) 100 11/25/20 20:57 107 161/74 11/25/20 20:00 Non-Rebreather 15.0 11/25/20 20:00 108 161/74 (103) 100 11/25/20 19:30 100 Venturi Mask 10.0 45 11/25/20 19:30 106 22 100 Venturi Mask 10.0 45 11/25/20 19:00 109 135/78 (97) 97 11/25/20 18:00 115 21 180/83 (115) 91 11/25/20 17:00 96 21 167/92 (117) 97 11/25/20 17:00 100 Venturi Mask 8.0 40 11/25/20 16:42 97 142/70 11/25/20 16:00 Non-Rebreather 15.0 11/25/20 16:00 97 11/25/20 16:00 98.0 97 16 142/70 (94) 97 11/25/20 15:04 100 Bi-Pap 10.0 50 11/25/20 15:04 99 22 100 Venturi Mask 10.0 50 11/25/20 15:00 99 19 123/64 (83) 97 11/25/20 14:45 189/93 11/25/20 14:00 92 22 189/93 (125) 100 11/25/20 13:03 98 27 169/106 (127) 100 11/25/20 12:01 Non-Rebreather 15.0 11/25/20 12:00 92 11/25/20 12:00 98.4 92 20 157/85 (109) 100 11/25/20 11:03 95 19 150/84 (106) 100 11/25/20 10:00 102 24 139/89 (106) 100 11/25/20 09:00 102 22 143/83 (103) 100 11/25/20 08:01 Non-Rebreather 15.0 Intake and Output 11/25/20 11/26/20 19:00 07:00 Intake Total 160 ml Output Total 220 ml Balance -60 ml Intake Oral 0 ml Free Water 100 ml Other 60 ml Output Urine Total 220 ml # Bowel Movements 3 3 Laboratory Tests 11/26/20 06:45: White Blood Count 20.9H, Red Blood Count 2.86L, Hemoglobin 8.2L, Hematocrit 27.1L, Mean Corpuscular Volume 95, Mean Corpuscular Hemoglobin 28.9, Mean Corpuscular Hemoglobin Concent 30.4L, Red Cell Distribution Width 17.0H, Platelet Count 520H, Mean Platelet Volume 5.8L, Neutrophils (%) (Auto) , Lymphocytes (%) (Auto) , Monocytes (%) (Auto) , Eosinophils (%) (Auto) , Basophi ls (%) (Auto) , Neutrophils % (Manual) [Pending], Lymphocytes % (Manual) [Pending], Platelet Estimate [Pending], Platelet Morphology [Pending], Sodium Level [Pending], Potassium Level [Pending], Chloride Level [Pending], Carbon Dioxide Level [Pending], Blood Urea Nitrogen [Pending], Creatinine [Pending], Estimat Glomerular Filtration Rate [Pending], Glucose Level [Pending], Uric Acid [Pending], Calcium Level [Pending], Phosphorus Level [Pending], Magnesium Level [Pending], Total Bilirubin [Pending], Aspartate Amino Transf (AST/SGOT) [Pending], Alanine Aminotransferase (ALT/SGPT) [Pending], Alkaline Phosphatase [Pending], C-Reactive Protein, Quantitative [Pending], Pro-B-Type Natriuretic Peptide [Pending], Total Protein [Pending], Albumin [Pending], Globulin [Pending] Height (Feet): 5 Height (Inches): 6.00 Weight (Pounds): 140 General Appearance: no apparent distress EENT: normal ENT inspection Neck: supple Cardiovascular: normal rate Respiratory/Chest: decreased breath sounds Abdomen: normal bowel sounds, non tender, soft Extremities: non-tender Assessment/Plan Status: progressing Assessment/Plan: Assessment - GT migration into anterior abd wall - removed - abdominal pain, induration - r/o abscess in evolution - tachycardia, leukocytosis, sepsis - respiratory distress - cerebral palsy - contractures - decubitus ulcers - (L) BKA Recommendations - broad spect abx - Hold TF given patient on 100 % non breather - pulmonary f/u - NGT for meds (and later, for feeds) - needs new GT at later date - IVF Padilla Luz MD Nov 26, 2020 08:01
[2020-11-26 08:08] LABS: POTASSIUM 2.7 MMOL/L (3.5-5.1)
--- NOTE | 2020-11-26 08:16 | NUR ---
RESPIRATORY NOTE: ABG drawn at this time. Results given to Bonnie CALDERON.
[2020-11-26] MEDS: levETIRAcetam 500mg/NS100ml 100 ML IVPB SCH ×2 (08:50→20:56)
[2020-11-26] MEDS: Enoxaparin 60mg Inj SUBQ SCH ×2 (08:51→21:03)
--- NOTE | 2020-11-26 08:51 | NUR ---
RESPIRATORY NOTE: Post ABG result Patient's FiO2 was titrated from 10 Lpm / 45% Venturi mask to 4 Lpm / 36% Nasal Cannula. All VS remain WNL. No s/s of respiratory distress noted at this time. Bonnie CALDERON is aware. Will continue to closely monitor.
--- NOTE | 2020-11-26 09:30 | NUR ---
NURSE NOTES: Dona care done,pt with diarrhea stools,kept dry and clean,Pulled up and repositioned,condom cath replaced.
--- NOTE | 2020-11-26 10:00 | NUR ---
NURSE NOTES: Pt stable,tolerating O2 at 4 L NC,no son presented,O2 sat remains high 98-100%.
--- NOTE | 2020-11-26 10:29 | Nephrology Progress Note ---
Assessment/Plan Problem List: (1) Dehydration (2) Electrolyte imbalance (3) Sepsis (4) Anemia (5) HTN (hypertension) (6) Seizure disorder Assessment 75-year-old male Patient presented with low serum sodium 134 however it is now corrected Blood pressure remains high Left [id number] amputation Sepsis, tachycardia Anemia Encephalopathy acute Seizure disorder Nonfunctioning GT tube, migrated to abdominal wall from gastric cavity. It is now removed Plan November 26: Patient remains in ICU. Not in any distress. Labs reviewed. Potassium 2.6, replacement ordered. Medication list reviewed. Discussed with RN. Clinically improved. November 25: Patient in ICU. On nonrebreather mask. Labs reviewed. Leukocytosis. Renal parameters stable. Low serum potassium addressed. Discussed with RN. Continue per consultants. Patient is full code. November 24: Labs reviewed. Low potassium addressed. Venofer 200 mg 1 dose IV ordered. Continue per consultants. On tube feeding now. Will stop IV fluids. Patient is n.p.o. per GI Change IV to D5 normal saline Intravenous Vasotec as needed for high blood pressure Monitor renal parameters and electrolytes Anemia work-up Urine analysis and culture Antibiotics Per orders Subjective ROS Limited/Unobtainable: Yes Objective Objective Last 24 Hour Vital Signs Date Time Temp Pulse Resp B/P (MAP) Pulse Ox O2 Delivery O2 Flow Rate FiO2 11/26/20 09:00 95 16 154/87 (109) 100 11/26/20 08:51 100 Nasal Cannula 4.0 36 11/26/20 08:50 96 153/62 11/26/20 08:04 Non-Rebreather 15.0 11/26/20 08:01 98.8 96 20 153/62 (92) 93 11/26/20 08:00 91 11/26/20 07:55 99 Venturi Mask 10.0 45 11/26/20 07:55 92 18 99 Venturi Mask 10.0 45 11/26/20 07:00 93 17 140/81 (100) 99 11/26/20 06:00 90 105/59 (74) 99 11/26/20 05:00 98 146/64 (91) 100 11/26/20 04:00 Non-Rebreather 15.0 11/26/20 04:00 102 136/68 (90) 99 11/26/20 04:00 96 11/26/20 03:00 97 126/74 (91) 100 11/26/20 02:00 99 118/77 (91) 100 11/26/20 01:00 99 144/74 (97) 100 11/26/20 00:00 102 128/65 (86) 100 11/26/20 00:00 Non-Rebreather 15.0 11/26/20 00:00 102 11/25/20 23:00 105 119/65 (83) 99 11/25/20 22:00 109 137/74 (95) 99 11/25/20 21:00 109 119/74 (89) 100 11/25/20 20:57 107 161/74 11/25/20 20:00 Non-Rebreather 15.0 11/25/20 20:00 108 161/74 (103) 100 11/25/20 19:30 100 Venturi Mask 10.0 45 11/25/20 19:30 106 22 100 Venturi Mask 10.0 45 11/25/20 19:00 109 135/78 (97) 97 11/25/20 18:00 115 21 180/83 (115) 91 11/25/20 17:00 96 21 167/92 (117) 97 11/25/20 17:00 100 Venturi Mask 8.0 40 11/25/20 16:42 97 142/70 11/25/20 16:00 Non-Rebreather 15.0 11/25/20 16:00 97 11/25/20 16:00 98.0 97 16 142/70 (94) 97 11/25/20 15:04 100 Bi-Pap 10.0 50 11/25/20 15:04 99 22 100 Venturi Mask 10.0 50 11/25/20 15:00 99 19 123/64 (83) 97 11/25/20 14:45 189/93 11/25/20 14:00 92 22 189/93 (125) 100 11/25/20 13:03 98 27 169/106 (127) 100 11/25/20 12:01 Non-Rebreather 15.0 11/25/20 12:00 92 11/25/20 12:00 98.4 92 20 157/85 (109) 100 11/25/20 11:03 95 19 150/84 (106) 100 Intake and Output 11/25/20 11/26/20 19:00 07:00 Intake Total 160 ml Output Total 220 ml Balance -60 ml Intake Oral 0 ml Free Water 100 ml Other 60 ml Output Urine Total 220 ml # Bowel Movements 3 3 Current Medications Medications (Trade) Dose Ordered Sig/Venecia Route PRN Reason Start Time Stop Time Status Last Admin Dose Admin Acetaminophen (Tylenol) 650 mg Q4H PRN GT Temp >100.5 11/22/20 16:30 12/22/20 15:59 11/24/20 11:35 Acetaminophen (Tylenol) 650 mg Q4H PRN GT For Pain 11/22/20 16:30 12/22/20 16:29 Albuterol Sulfate (Proventil) 2.5 mg Q4H PRN HHN Shortness of Breath 11/23/20 10:15 11/28/20 10:14 Amlodipine Besylate (Norvasc) 5 mg EVERY 12 HOURS ORAL 11/25/20 21:00 12/25/20 20:59 11/26/20 08:50 Clonidine HCl (Catapres Tab) 0.1 mg Q4H PRN ORAL sbp>170 11/25/20 14:45 02/23/21 14:44 Enalaprilat (Vasotec) 2.5 mg Q4H PRN IV For blood pressure over 160 sy 11/23/20 11:30 12/23/20 11:29 11/25/20 14:45 Enoxaparin Sodium (Lovenox) 60 mg EVERY 12 HOURS SUBQ 11/25/20 21:00 02/23/21 20:59 11/26/20 08:51 Famotidine (Pepcid I.v.) 20 mg Q12HR IVP 11/24/20 21:00 12/24/20 20:59 11/26/20 08:50 Hydromorphone HCl (Dilaudid) 0.5 mg Q2H PRN IVP For Pain 11/23/20 09:45 11/30/20 09:44 11/23/20 09:57 Levetiracetam 100 ml @ 400 mls/hr Q12HR IVPB 11/23/20 21:00 02/21/21 20:59 11/26/20 08:50 Piperacillin Sod/ Tazobactam Sod 3.375 gm/Sodium Chloride 110 ml @ 27.5 mls/hr EVERY 8 HOURS IVPB 11/24/20 14:00 11/29/20 13:59 11/26/20 06:00 Potassium Chloride 100 ml @ 100 mls/hr Q1H IVPB 11/26/20 09:15 11/26/20 15:14 11/26/20 09:35 Laboratory Tests 11/26/20 06:45: White Blood Count 20.9H, Red Blood Count 2.86L, Hemoglobin 8.2L, Hematocrit 27.1L, Mean Corpuscular Volume 95, Mean Corpuscular Hemoglobin 28.9, Mean Corpuscular Hemoglobin Concent 30.4L, Red Cell Distribution Width 17.0H, Platelet Count 520H, Mean Platelet Volume 5.8L, Neutrophils (%) (Auto) , Lymphocytes (%) (Auto) , Monocytes (%) (Auto) , Eosinophils (%) (Auto) , Basophils (%) (Auto) , Differential Total Cells Counted 100, Neutrophils % (Manual) 87H, Lymphocytes % (Manual) 7L, Monocytes % (Manual) 5, Eosinophils % (Manual) 1, Basophils % (Manual) 0, Band Neutrophils 0, Platelet Estimate Inc reasedH, Platelet Morphology Normal, Hypochromasia 1+, Anisocytosis 1+, Sodium Level 146H, Potassium Level 2.7*L, Chloride Level 111H, Carbon Dioxide Level 25, Anion Gap 9, Blood Urea Nitrogen 11, Creatinine 0.4L, Estimat Glomerular Filtration Rate > 60, Glucose Level 85, Uric Acid 2.6, Calcium Level 8.4L, Phosphorus Level 2.6, Magnesium Level 1.8, Total Bilirubin 0.2, Aspartate Amino Transf (AST/SGOT) 16, Alanine Aminotransferase (ALT/SGPT) 19, Alkaline Phosphatase 88, C-Reactive Protein, Quantitative 28.8H, Pro-B-Type Natriuretic Peptide 583H, Total Protein 5.3L, Albumin 1.4L, Globulin 3.9, Albumin/Globulin Ratio 0.4L 11/26/20 08:16: Arterial Blood pH 7.437, Arterial Blood Partial Pressure CO2 35.6, Arterial Blood Partial Pressure O2 101.4H, Arterial Blood HCO3 23.5, Arterial Blood Oxygen Saturation 97.5, Arterial Blood Base Excess -0.5, Raj Test Positive Height (Feet): 5 Height (Inches): 6.00 Weight (Pounds): 140 General Appearance: no apparent distress Neck: limited range of motion Cardiovascular: tachycardia Respiratory/Chest: decreased breath sounds Abdomen: distended Lenny Veliz MD Nov 26, 2020 10:29
--- NOTE | 2020-11-26 12:22 | Infectious Diseases Prog Note ---
Assessment/Plan Assessment/Plan IMPRESSION: Sepsis, Infected gastrostomy with gastrostomy migration, ? 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 DVT of left leg RECOMMENDATION: Continue Zosyn We will follow up CBC Subjective ROS Limited/Unobtainable: Yes Allergies: Coded Allergies: No Known Allergies (Unverified , 11/22/20) Objective Last 24 Hour Vital Signs Date Time Temp Pulse Resp B/P (MAP) Pulse Ox O2 Delivery O2 Flow Rate FiO2 11/26/20 11:00 93 19 150/78 (102) 100 11/26/20 10:00 88 18 132/62 (85) 100 11/26/20 09:00 95 16 154/87 (109) 100 11/26/20 08:51 100 Nasal Cannula 4.0 36 11/26/20 08:50 96 153/62 11/26/20 08:04 Non-Rebreather 15.0 11/26/20 08:01 98.8 96 20 153/62 (92) 93 11/26/20 08:00 91 11/26/20 07:55 99 Venturi Mask 10.0 45 11/26/20 07:55 92 18 99 Venturi Mask 10.0 45 11/26/20 07:00 93 17 140/81 (100) 99 11/26/20 06:00 90 105/59 (74) 99 11/26/20 05:00 98 146/64 (91) 100 11/26/20 04:00 Non-Rebreather 15.0 11/26/20 04:00 102 136/68 (90) 99 11/26/20 04:00 96 11/26/20 03:00 97 126/74 (91) 100 11/26/20 02:00 99 118/77 (91) 100 11/26/20 01:00 99 144/74 (97) 100 11/26/20 00:00 102 128/65 (86) 100 11/26/20 00:00 Non-Rebreather 15.0 11/26/20 00:00 102 11/25/20 23:00 105 119/65 (83) 99 11/25/20 22:00 109 137/74 (95) 99 11/25/20 21:00 109 119/74 (89) 100 11/25/20 20:57 107 161/74 11/25/20 20:00 Non-Rebreather 15.0 11/25/20 20:00 108 161/74 (103) 100 11/25/20 19:30 100 Venturi Mask 10.0 45 11/25/20 19:30 106 22 100 Venturi Mask 10.0 45 11/25/20 19:00 109 135/78 (97) 97 11/25/20 18:00 115 21 180/83 (115) 91 11/25/20 17:00 96 21 167/92 (117) 97 11/25/20 17:00 100 Venturi Mask 8.0 40 11/25/20 16:42 97 142/70 11/25/20 16:00 Non-Rebreather 15.0 11/25/20 16:00 97 11/25/20 16:00 98.0 97 16 142/70 (94) 97 11/25/20 15:04 100 Bi-Pap 10.0 50 11/25/20 15:04 99 22 100 Venturi Mask 10.0 50 11/25/20 15:00 99 19 123/64 (83) 97 11/25/20 14:45 189/93 11/25/20 14:00 92 22 189/93 (125) 100 11/25/20 13:03 98 27 169/106 (127) 100 Height (Feet): 5 Height (Inches): 6.00 Weight (Pounds): 140 HEENT: other - dry mouth Respiratory/Chest: lungs clear, other - O2 by nasal cannula Cardiovascular: normal rate Abdomen: soft, non tender Extremities: no edema, other - contracture Skin: ulcers, other - buttock Neurologic/Psychiatric: aphasia Microbiology Date/Time Source Procedure Growth Status 11/23/20 16:17 External Cath Urine Culture - Preliminary NO GROWTH Resulted Laboratory Tests Test 11/26/20 06:45 11/26/20 08:16 White Blood Count 20.9 K/UL (4.8-10.8) H Red Blood Count 2.86 M/UL (4.70-6.10) L Hemoglobin 8.2 G/DL (14.2-18.0) L Hematocrit 27.1 % (42.0-52.0) L Mean Corpuscular Volume 95 FL (80-99) Mean Corpuscular Hemoglobin 28.9 PG (27.0-31.0) Mean Corpuscular Hemoglobin Concent 30.4 G/DL (32.0-36.0) L Red Cell Distribution Width 17.0 % (11.6-14.8) H Platelet Count 520 K/UL (150-450) H Mean Platelet Volume 5.8 FL (6.5-10.1) L Neutrophils (%) (Auto) % (45.0-75.0) Lymphocytes (%) (Auto) % (20.0-45.0) Monocytes (%) (Auto) % (1.0-10.0) Eosinophils (%) (Auto) % (0.0-3.0) Basophils (%) (Auto) % (0.0-2.0) Differential Total Cells Counted 100 Neutrophils % (Manual) 87 % (45-75) H Lymphocytes % (Manual) 7 % (20-45) L Monocytes % (Manual) 5 % (1-10) Eosinophils % (Manual) 1 % (0-3) Basophils % (Manual) 0 % (0-2) Band Neutrophils 0 % (0-8) Platelet Estimate Increased H Platelet Morphology Normal Hypochromasia 1+ Anisocytosis 1+ Sodium Level 146 MMOL/L (136-145) H Potassium Level 2.7 MMOL/L (3.5-5.1) *L Chloride Level 111 MMOL/L (98-107) H Carbon Dioxide Level 25 MMOL/L (21-32) Anion Gap 9 mmol/L (5-15) Blood Urea Nitrogen 11 mg/dL (7-18) Creatinine 0.4 MG/DL (0.55-1.30) L Estimat Glomerular Filtration Rate > 60 mL/min (>60) Glucose Level 85 MG/DL (74-106) Uric Acid 2.6 MG/DL (2.6-7.2) Calcium Level 8.4 MG/DL (8.5-10.1) L Phosphorus Level 2.6 MG/DL (2.5-4.9) Magnesium Level 1.8 MG/DL (1.8-2.4) Total Bilirubin 0.2 MG/DL (0.2-1.0) Aspartate Amino Transf (AST/SGOT) 16 U/L (15-37) Alanine Aminotransferase (ALT/SGPT) 19 U/L (12-78) Alkaline Phosphatase 88 U/L (46-116) C-Reactive Protein, Quantitative 28.8 mg/dL (0.00-0.90) H Pro-B-Type Natriuretic Peptide 583 pg/mL (0-125) H Total Protein 5.3 G/DL (6.4-8.2) L Albumin 1.4 G/DL (3.4-5.0) L Globulin 3.9 g/dL Albumin/Globulin Ratio 0.4 (1.0-2.7) L Arterial Blood pH 7.437 (7.350-7.450) Arterial Blood Partial Pressure CO2 35.6 mmHg (35.0-45.0) Arterial Blood Partial Pressure O2 101.4 mmHg (75.0-100.0) H Arterial Blood HCO3 23.5 mmol/L (22.0-26.0) Arterial Blood Oxygen Saturation 97.5 % (95-100) Arterial Blood Base Excess -0.5 (-2-2) Raj Test Positive Current Medications Medications (Trade) Dose Ordered Sig/Venecia Route PRN Reason Start Time Stop Time Status Last Admin Dose Admin Acetaminophen (Tylenol) 650 mg Q4H PRN GT Temp >100.5 11/22/20 16:30 12/22/20 15:59 11/24/20 11:35 Acetaminophen (Tylenol) 650 mg Q4H PRN GT For Pain 11/22/20 16:30 12/22/20 16:29 Albuterol Sulfate (Proventil) 2.5 mg Q4H PRN HHN Shortness of Breath 11/23/20 10:15 11/28/20 10:14 Amlodipine Besylate (Norvasc) 5 mg EVERY 12 HOURS ORAL 11/25/20 21:00 12/25/20 20:59 11/26/20 08:50 Clonidine HCl (Catapres Tab) 0.1 mg Q4H PRN ORAL sbp>170 11/25/20 14:45 02/23/21 14:44 Enalaprilat (Vasotec) 2.5 mg Q4H PRN IV For blood pressure over 160 sy 11/23/20 11:30 12/23/20 11:29 11/25/20 14:45 Enoxaparin Sodium (Lovenox) 60 mg EVERY 12 HOURS SUBQ 11/25/20 21:00 02/23/21 20:59 11/26/20 08:51 Famotidine (Pepcid I.v.) 20 mg Q12HR IVP 11/24/20 21:00 12/24/20 20:59 11/26/20 08:50 Hydromorphone HCl (Dilaudid) 0.5 mg Q2H PRN IVP For Pain 11/23/20 09:45 11/30/20 09:44 11/23/20 09:57 Levetiracetam 100 ml @ 400 mls/hr Q12HR IVPB 11/23/20 21:00 02/21/21 20:59 11/26/20 08:50 Piperacillin Sod/ Tazobactam Sod 3.375 gm/Sodium Chloride 110 ml @ 27.5 mls/hr EVERY 8 HOURS IVPB 11/24/20 14:00 11/29/20 13:59 11/26/20 06:00 Potassium Chloride 100 ml @ 100 mls/hr Q1H IVPB 11/26/20 09:15 11/26/20 15:14 11/26/20 12:10 John Lara MD Nov 26, 2020 12:22
--- NOTE | 2020-11-26 12:57 | Surgery Progress Note ---
Surgery Progress Note Subjective Additional Comments weaning oxygen support doing better labs noted no n/v/f/c Objective Last 24 Hour Vital Signs Date Time Temp Pulse Resp B/P (MAP) Pulse Ox O2 Delivery O2 Flow Rate FiO2 11/26/20 12:00 Non-Rebreather 15.0 11/26/20 12:00 98.5 100 19 157/85 (109) 99 11/26/20 12:00 101 11/26/20 11:00 93 19 150/78 (102) 100 11/26/20 10:00 88 18 132/62 (85) 100 11/26/20 09:00 95 16 154/87 (109) 100 11/26/20 08:51 100 Nasal Cannula 4.0 36 11/26/20 08:50 96 153/62 11/26/20 08:04 Non-Rebreather 15.0 11/26/20 08:01 98.8 96 20 153/62 (92) 93 11/26/20 08:00 91 11/26/20 07:55 99 Venturi Mask 10.0 45 11/26/20 07:55 92 18 99 Venturi Mask 10.0 45 11/26/20 07:00 93 17 140/81 (100) 99 11/26/20 06:00 90 105/59 (74) 99 11/26/20 05:00 98 146/64 (91) 100 11/26/20 04:00 Non-Rebreather 15.0 11/26/20 04:00 102 136/68 (90) 99 11/26/20 04:00 96 11/26/20 03:00 97 126/74 (91) 100 11/26/20 02:00 99 118/77 (91) 100 11/26/20 01:00 99 144/74 (97) 100 11/26/20 00:00 102 128/65 (86) 100 11/26/20 00:00 Non-Rebreather 15.0 11/26/20 00:00 102 11/25/20 23:00 105 119/65 (83) 99 11/25/20 22:00 109 137/74 (95) 99 11/25/20 21:00 109 119/74 (89) 100 11/25/20 20:57 107 161/74 11/25/20 20:00 Non-Rebreather 15.0 11/25/20 20:00 108 161/74 (103) 100 11/25/20 19:30 100 Venturi Mask 10.0 45 11/25/20 19:30 106 22 100 Venturi Mask 10.0 45 11/25/20 19:00 109 135/78 (97) 97 11/25/20 18:00 115 21 180/83 (115) 91 11/25/20 17:00 96 21 167/92 (117) 97 11/25/20 17:00 100 Venturi Mask 8.0 40 11/25/20 16:42 97 142/70 11/25/20 16:00 Non-Rebreather 15.0 11/25/20 16:00 97 11/25/20 16:00 98.0 97 16 142/70 (94) 97 11/25/20 15:04 100 Bi-Pap 10.0 50 11/25/20 15:04 99 22 100 Venturi Mask 10.0 50 11/25/20 15:00 99 19 123/64 (83) 97 11/25/20 14:45 189/93 11/25/20 14:00 92 22 189/93 (125) 100 11/25/20 13:03 98 27 169/106 (127) 100 I&O Intake and Output 11/25/20 11/26/20 19:00 07:00 Intake Total 160 ml Output Total 220 ml Balance -60 ml Intake Oral 0 ml Free Water 100 ml Other 60 ml Output Urine Total 220 ml # Bowel Movements 3 3 Dressing: saturated Cardiovascular: RSR Respiratory: decreased breath sounds Abdomen: soft, flat, non-tender, present bowel sounds, non-distended Extremities: no edema, no tenderness, no cyanosis Laboratory Tests Test 11/26/20 06:45 11/26/20 08:16 White Blood Count 20.9 K/UL (4.8-10.8) H Red Blood Count 2.86 M/UL (4.70-6.10) L Hemoglobin 8.2 G/DL (14.2-18.0) L Hematocrit 27.1 % (42.0-52.0) L Mean Corpuscular Volume 95 FL (80-99) Mean Corpuscular Hemoglobin 28.9 PG (27.0-31.0) Mean Corpuscular Hemoglobin Concent 30.4 G/DL (32.0-36.0) L Red Cell Distribution Width 17.0 % (11.6-14.8) H Platelet Count 520 K/UL (150-450) H Mean Platelet Volume 5.8 FL (6.5-10.1) L Neutrophils (%) (Auto) % (45.0-75.0) Lymphocytes (%) (Auto) % (20.0-45.0) Monocytes (%) (Auto) % (1.0-10.0) Eosinophils (%) (Auto) % (0.0-3.0) Basophils (%) (Auto) % (0.0-2.0) Differential Total Cells Counted 100 Neutrophils % (Manual) 87 % (45-75) H Lymphocytes % (Manual) 7 % (20-45) L Monocytes % (Manual) 5 % (1-10) Eosinophils % (Manual) 1 % (0-3) Basophils % (Manual) 0 % (0-2) Band Neutrophils 0 % (0-8) Platelet Estimate Increased H Platelet Morphology Normal Hypochromasia 1+ Anisocytosis 1+ Sodium Level 146 MMOL/L (136-145) H Potassium Level 2.7 MMOL/L (3.5-5.1) *L Chloride Level 111 MMOL/L (98-107) H Carbon Dioxide Level 25 MMOL/L (21-32) Anion Gap 9 mmol/L (5-15) Blood Urea Nitrogen 11 mg/dL (7-18) Creatinine 0.4 MG/DL (0.55-1.30) L Estimat Glomerular Filtration Rate > 60 mL/min (>60) Glucose Level 85 MG/DL (74-106) Uric Acid 2.6 MG/DL (2.6-7.2) Calcium Level 8.4 MG/DL (8.5-10.1) L Phosphorus Level 2.6 MG/DL (2.5-4.9) Magnesium Level 1.8 MG/DL (1.8-2.4) Total Bilirubin 0.2 MG/DL (0.2-1.0) Aspartate Amino Transf (AST/SGOT) 16 U/L (15-37) Alanine Aminotransferase (ALT/SGPT) 19 U/L (12-78) Alkaline Phosphatase 88 U/L (46-116) C-Reactive Protein, Quantitative 28.8 mg/dL (0.00-0.90) H Pro-B-Type Natriuretic Peptide 583 pg/mL (0-125) H Total Protein 5.3 G/DL (6.4-8.2) L Albumin 1.4 G/DL (3.4-5.0) L Globulin 3.9 g/dL Albumin/Globulin Ratio 0.4 (1.0-2.7) L Arterial Blood pH 7.437 (7.350-7.450) Arterial Blood Partial Pressure CO2 35.6 mmHg (35.0-45.0) Arterial Blood Partial Pressure O2 101.4 mmHg (75.0-100.0) H Arterial Blood HCO3 23.5 mmol/L (22.0-26.0) Arterial Blood Oxygen Saturation 97.5 % (95-100) Arterial Blood Base Excess -0.5 (-2-2) Raj Test Positive Plan Problems: (1) Cerebral palsy (2) Sepsis Assessment & Plan: Pt presented on admission with CP, L AKA,Multiple Pressure Injuries, Wound dorsal L hand. Macular red rash L Flank. Full thickness wound dorsal L hand(L)2.4cm x (W)1.9cm. Loose necrotic cap which was easily removed from wound bed. Base of wound is 95% fibrinous slough with marginal erythema along borders. Small amt sanguineous exudate noted. No erythema or elevation in skin temp periwound. Incontinence Associated dermatitis R and L groin and scrotum. Affected areas are erythematous and macerated. Full Thickness Pressure Injury Upper L buttocks(L)4.8cm x (W)6.4cmBase of wound is 25% necrotic ,75% lida. Edges are adherent to base of wound. Surrounding non-blanchable erythema without fluctuance /induration. No odor or exudate noted. No evidence of sacral skin breakdown. An erythematous and indurated soft tissue mass noted to posterior upper L thigh. (L)3.2cm x (W)3.7cm. Base of L AKA is erythematous,fluctuant, with increased warmth. DTPI medial R Heel(L)1cm x (W)1.2cm. Base of Pressure Injury is purpuric and fluctuant. Periwound is blanchable with dry flaky skin. unlikely etiology of sepsis urine noted leukocytosis on abx Tx.Plan: Cleanse Dorsal L hand with Saline. Apply Therahoney. Apply Cavilon Skin Barrier periwound. Cover with Optifoam Drsg Daily and prn. Cleanse Wound L Buttocks with Saline. Apply Therahoney. Apply Moisture Barrier Paste periwound. Cover with Optifoam drsg. Change Daily and prn. Apply Moisture Barrier Paste to R and L Groin and scrotum with each incontinence care. Apply Cavilon Skin Barrier to Posterior Upper L thigh. Cover with Optifoam drsg. Change every 3 days and prn. Apply Betadine to Base of L AKA stump. Cover with Optifoam drsg. Change every 3 days and prn. Apply Betadine to medial R Heel. Cover with Optifoam drsg. Change every 3 days and prn. Reposition at least every 2hours or as tolerated. Off-load L AKA with Pillow. Off-load R Heel with Pillow. DAILY ESTIMATED NEEDS: Needs based on Wound underweight 37kg 30-40 kcals/kg 6547-6783 total kcals 1.25-2 g protein/kg 46-74 g total protein 25-35ml/kcal mL/kg 925-1295 total fluid mLs NUTRITION DIAGNOSIS: Increased kcal and pro needs r/t underweight status and wound care as evidenced by pt is est 62% of IBW, BMI underweight per guidelines, multiple wounds including full thickness wounds x2, refer to WC eval. CURRENT TF: Jevity 1.2 @50 ml/hr ENTERAL NUTRITION RECOMMENDATIONS: Maintain current TF as ordered Jevity 1.2 @50ml/hr x24 hrs to provide 1200ml, 1440 kcal, 67g pro, 968ml free H2O - Initiate Jevity 1.2 @35ml/hr for 6 hrs, advance as tolerated 10ml/hr q4-6 hrs to goal. - Flush per , HOB over 30 degrees ADDITIONAL RECOMMENDATIONS: 1) Wound care: add DARLENE BID, Vit C 250mg BID 2) Maintain calibrated bed scale wts 3) Monitor BG, need for carb control TF respiratory insufficiency now in icu on support cxr noted cont respiratory support Rowdy Arce Nov 26, 2020 12:57
--- NOTE | 2020-11-26 15:00 | NUR ---
NURSE NOTES: IV site to DANNY starting to get red and swollen,IV site resited to RAC ,inserted by Renate Fernández with # 20 G angiocath x1 attempt,procedure tolerated well.
--- NOTE | 2020-11-26 15:42 | General Progress Note ---
Subjective ROS Limited/Unobtainable: Yes Allergies: Coded Allergies: No Known Allergies (Unverified , 11/22/20) Objective Last 24 Hour Vital Signs Date Time Temp Pulse Resp B/P (MAP) Pulse Ox O2 Delivery O2 Flow Rate FiO2 11/26/20 15:00 102 21 111/74 (86) 94 11/26/20 14:00 99 20 165/76 (105) 100 11/26/20 13:00 106 20 147/74 (98) 100 11/26/20 12:00 Non-Rebreather 15.0 11/26/20 12:00 98.5 100 19 157/85 (109) 99 11/26/20 12:00 101 11/26/20 11:00 93 19 150/78 (102) 100 11/26/20 10:00 88 18 132/62 (85) 100 11/26/20 09:00 95 16 154/87 (109) 100 11/26/20 08:51 100 Nasal Cannula 4.0 36 11/26/20 08:50 96 153/62 11/26/20 08:04 Non-Rebreather 15.0 11/26/20 08:01 98.8 96 20 153/62 (92) 93 11/26/20 08:00 91 11/26/20 07:55 99 Venturi Mask 10.0 45 11/26/20 07:55 92 18 99 Venturi Mask 10.0 45 11/26/20 07:00 93 17 140/81 (100) 99 11/26/20 06:00 90 105/59 (74) 99 11/26/20 05:00 98 146/64 (91) 100 11/26/20 04:00 Non-Rebreather 15.0 11/26/20 04:00 102 136/68 (90) 99 11/26/20 04:00 96 11/26/20 03:00 97 126/74 (91) 100 11/26/20 02:00 99 118/77 (91) 100 11/26/20 01:00 99 144/74 (97) 100 11/26/20 00:00 102 128/65 (86) 100 11/26/20 00:00 Non-Rebreather 15.0 11/26/20 00:00 102 11/25/20 23:00 105 119/65 (83) 99 11/25/20 22:00 109 137/74 (95) 99 11/25/20 21:00 109 119/74 (89) 100 11/25/20 20:57 107 161/74 11/25/20 20:00 Non-Rebreather 15.0 11/25/20 20:00 108 161/74 (103) 100 11/25/20 19:30 100 Venturi Mask 10.0 45 11/25/20 19:30 106 22 100 Venturi Mask 10.0 45 11/25/20 19:00 109 135/78 (97) 97 11/25/20 18:00 115 21 180/83 (115) 91 11/25/20 17:00 96 21 167/92 (117) 97 11/25/20 17:00 100 Venturi Mask 8.0 40 11/25/20 16:42 97 142/70 11/25/20 16:00 Non-Rebreather 15.0 11/25/20 16:00 97 11/25/20 16:00 98.0 97 16 142/70 (94) 97 Intake and Output 11/25/20 11/26/20 19:00 07:00 Intake Total 160 ml Output Total 220 ml Balance -60 ml Intake Oral 0 ml Free Water 100 ml Other 60 ml Output Urine Total 220 ml # Bowel Movements 3 3 Laboratory Tests 11/26/20 06:45: White Blood Count 20.9H, Red Blood Count 2.86L, Hemoglobin 8.2L, Hematocrit 27.1L, Mean Corpuscular Volume 95, Mean Corpuscular Hemoglobin 28.9, Mean Corpuscular Hemoglobin Concent 30.4L, Red Cell Distribution Width 17.0H, Platelet Count 520H, Mean Platelet Volume 5.8L, Neutrophils (%) (Auto) , Lymphocytes (%) (Auto) , Monocytes (%) (Auto) , Eosinophils (%) (Auto) , Basophils (%) (Auto) , Differential Total Cells Counted 100, Neutrophils % (Manual) 87H, Lymphocytes % (Manual) 7L, Monocytes % (Manual) 5, Eosinophils % (Manual) 1, Basophils % (Manual) 0, Band Neutrophils 0, Platelet Estimate IncreasedH, Platelet Morphology Normal, Hypochromasia 1+, Anisocytosis 1+, Sodium Level 146H, Potassium Level 2.7*L, Chloride Level 111H, Carbon Dioxide Level 25, Anion Gap 9, Blood Urea Nitrogen 11, Creatinine 0.4L, Estimat Glomerular Filtration Rate > 60, Glucose Level 85, Uric Acid 2.6, Calcium Level 8.4L, Phosphorus Level 2.6, Magnesium Level 1.8, Total Bilirubin 0.2, Aspartate Amino Transf (AST/SGOT) 16, Alanine Aminotransferase (ALT/SGPT) 19, Alkaline Phosphatase 88, C-Reactive Protein, Quantitative 28.8H, Pro-B-Type Natriuretic Peptide 583H, Total Protein 5.3L, Albumin 1.4L, Globulin 3.9, Albumin/Globulin Ratio 0.4L 11/26/20 08:16: Arterial Blood pH 7.437, Arterial Blood Partial Pressure CO2 35.6, Arterial Blood Partial Pressure O2 101.4H, Arterial Blood HCO3 23.5, Arterial Blood Oxygen Saturation 97.5, Arterial Blood Base Excess -0.5, Raj Test Positive Height (Feet): 5 Height (Inches): 6.00 Weight (Pounds): 140 Assessment/Plan Problem List: (1) Cerebral palsy ICD Codes: G80.9 - Cerebral palsy, unspecified SNOMED: 543244739 (2) Sepsis ICD Codes: A41.9 - Sepsis, unspecified organism SNOMED: 54622073 Status: progressing Assessment/Plan: hypokalemia.treatment per dr osorio persistent leukocytosis anemia is getting worse poor prognosis sepsis uti r/o abdominal abscess peg is out Samantha Blackwood MD Nov 26, 2020 15:42
--- NOTE | 2020-11-26 17:00 | NUR ---
NURSE NOTES: Bed bath given,pt with another diarrhea stools with solid particles at this time.kept dry and clean,pulled up turned and repositioned .
--- NOTE | 2020-11-26 18:56 | NUR ---
NURSE HAND-OFF REPORT: Latest Vital Signs: Temperature 97.8 , Pulse 88 , B/P 126 /58 , Respiratory Rate 21 , O2 SAT 100 , Nasal Cannula, O2 Flow Rate 4.0 . Vital Sign Comment: stable EKG Rhythm: Sinus Rhythm Rhythm change?: N Notified?: N Response: Latest Hoyt Fall Score: 70 Fall Risk: High Risk Safety Measures: Call light Within Reach, Bed Alarm Zone 1, Side Rails Side Rails x3, Bed position Low and Locked. Fall Precautions: Yellow Socks Yellow Gown Door Sign Patient Fall Education Report given to Radha Storey RN..
[2020-11-27] VITALS (18 sets, daily range): BP systolic 98–151; BP diastolic 51–88
[2020-11-27 05:23] LABS: HEMATOCRIT 31.5 % (42.0-52.0); HEMOGLOBIN 9.5 G/DL (14.2-18.0); MEAN CORPUSCULAR VOLUME 95 FL (80-99); PLATELET COUNT 548 K/UL (150-450); RED BLOOD COUNT 3.32 M/UL (4.70-6.10); RED CELL DISTRIBUTION WIDTH 17.3 % (11.6-14.8); WHITE BLOOD COUNT 18.1 K/UL (4.8-10.8)
[2020-11-27] MEDS: Piperacillin/Tazobactam 3.375 GM in NS 110 ML IVPB SCH ×3 (06:28→21:41)
--- NOTE | 2020-11-27 06:58 | Hematology/Onc Progress Note ---
Assessment/Plan Assessment/Plan Assessment and Recs # LLE stump dvt, that is acute diagnosed --> for dvt have started lovenox bid therapy, treatment dose --> likely is due to penitentiary immobility --> does not need a hypercoag workup # Leukocytosis due to Sepsis --> currently is on abx --> .wbc 23-->21-->18 -> remains on zosyn --> as per ID # Anemia due to chronic disease --> hgb 9.8-->9.5 --> transfuse prn --> no hemolysis is noted # Cerebral palsy -> chronic condition # Sinus Tachycardia due to sepsis in this patient with white count of 23,000 on IV fluid and IV antibiotics. --> as per cards # S/P gastrostomy tube migration. Now is removed and has NGT. --> S/P CT scan of the abdomen and pelvis to rule out abscess formation. FU GI and surgery # Status post left above-knee amputation. # Mental retardation. DARIUS RN Subjective HEENT: Denies: no symptoms, eye pain, blurred vision, tearing, double vision, ear pain, ear discharge, nose pain, nose congestion, throat pain, throat swelling, mouth pain, mouth swelling, other Cardiovascular: Denies: no symptoms, chest pain, edema, irregular heart rate, lightheadedness, palpitations, syncope, other Respiratory: Denies: no symptoms, cough, shortness of breath, SOB with excertion, SOB at rest, sputum, wheezing, other Gastrointestinal/Abdominal: Denies: no symptoms, abdomen distended, abdominal pain, black stools, tarry stools, blood in stool, constipated, diarrhea, difficulty swallowing, nausea, poor appetite, poor fluid intake, rectal bleeding, vomiting, other Genitourinary: Denies: no symptoms, burning, discharge, frequency, flank pain, hematuria, incontinence, pain, urgency, other Neurologic/Psychiatric: Denies: no symptoms, anxiety, depressed, emotional problems, headache, numbness, paresthesia, pre-existing deficit, seizure, tingling, tremors, weakness, other Endocrine: Denies: no symptoms, excessive sweating, flushing, intolerance to cold, intolerance to heat, increased hunger, increased thirst, increased urine, unexplained weight gain, unexplained weight loss, other Hematologic/Lymphatic: Denies: no symptoms, anemia, easy bleeding, easy bruising, adenopathy, other Allergies: Coded Allergies: No Known Allergies (Unverified , 11/22/20) Subjective 11/27 labs noted, meds reviewed, on lovenox bid, cbc is noted Objective Objective Current Medications Medications (Trade) Dose Ordered Sig/Venecia Route PRN Reason Start Time Stop Time Status Last Admin Dose Admin Acetaminophen (Tylenol) 650 mg Q4H PRN GT Temp >100.5 11/22/20 16:30 12/22/20 15:59 11/24/20 11:35 Acetaminophen (Tylenol) 650 mg Q4H PRN GT For Pain 11/22/20 16:30 12/22/20 16:29 Albuterol Sulfate (Proventil) 2.5 mg Q4H PRN HHN Shortness of Breath 11/23/20 10:15 11/28/20 10:14 Amlodipine Besylate (Norvasc) 5 mg EVERY 12 HOURS ORAL 11/25/20 21:00 12/25/20 20:59 11/26/20 20:57 Clonidine HCl (Catapres Tab) 0.1 mg Q4H PRN ORAL sbp>170 11/25/20 14:45 02/23/21 14:44 Enalaprilat (Vasotec) 2.5 mg Q4H PRN IV For blood pressure over 160 sy 11/23/20 11:30 12/23/20 11:29 11/25/20 14:45 Enoxaparin Sodium (Lovenox) 60 mg EVERY 12 HOURS SUBQ 11/25/20 21:00 02/23/21 20:59 11/26/20 21:03 Famotidine (Pepcid I.v.) 20 mg Q12HR IVP 11/24/20 21:00 12/24/20 20:59 11/26/20 20:55 Hydromorphone HCl (Dilaudid) 0.5 mg Q2H PRN IVP For Pain 11/23/20 09:45 11/30/20 09:44 11/23/20 09:57 Levetiracetam 100 ml @ 400 mls/hr Q12HR IVPB 11/23/20 21:00 02/21/21 20:59 11/26/20 20:56 Piperacillin Sod/ Tazobactam Sod 3.375 gm/Sodium Chloride 110 ml @ 27.5 mls/hr EVERY 8 HOURS IVPB 11/24/20 14:00 11/29/20 13:59 11/27/20 06:28 Last 24 Hour Vital Signs Date Time Temp Pulse Resp B/P (MAP) Pulse Ox O2 Delivery O2 Flow Rate FiO2 11/27/20 05:00 77 18 151/70 (97) 99 11/27/20 04:00 80 21 98/51 (67) 98 11/27/20 04:00 Nasal Cannula 4.0 11/27/20 04:00 77 11/27/20 03:00 79 19 146/64 (91) 97 11/27/20 02:00 83 20 136/64 (88) 98 11/27/20 01:00 87 20 147/70 (95) 100 11/27/20 00:00 88 11/27/20 00:00 88 19 151/85 (107) 98 11/27/20 00:00 Nasal Cannula 4.0 11/26/20 23:00 93 17 133/77 (95) 100 11/26/20 22:00 92 18 109/64 (79) 98 11/26/20 21:00 94 18 120/85 (97) 99 11/26/20 20:57 95 140/69 11/26/20 20:00 Nasal Cannula 4.0 11/26/20 20:00 95 16 140/69 (92) 100 11/26/20 19:16 100 Nasal Cannula 4.0 36 11/26/20 19:16 95 18 100 Nasal Cannula 4.0 36 11/26/20 19:00 93 20 124/62 (82) 99 11/26/20 18:00 88 21 126/58 (80) 100 11/26/20 17:05 95 17 111/74 (86) 98 11/26/20 16:05 97.8 88 15 125/78 (94) 99 11/26/20 16:01 Nasal Cannula 4.0 11/26/20 16:00 90 11/26/20 15:00 102 21 111/74 (86) 94 11/26/20 14:00 99 20 165/76 (105) 100 11/26/20 13:00 106 20 147/74 (98) 100 11/26/20 12:01 Nasal Cannula 4.0 11/26/20 12:00 98.5 100 19 157/85 (109) 99 11/26/20 12:00 101 11/26/20 11:00 93 19 150/78 (102) 100 11/26/20 10:00 88 18 132/62 (85) 100 11/26/20 09:00 95 16 154/87 (109) 100 11/26/20 08:51 100 Nasal Cannula 4.0 36 11/26/20 08:50 96 153/62 11/26/20 08:01 98.8 96 20 153/62 (92) 93 11/26/20 08:01 Venturi Mask 45.0 11/26/20 08:00 91 11/26/20 07:55 99 Venturi Mask 10.0 45 11/26/20 07:55 92 18 99 Venturi Mask 10.0 45 11/26/20 07:00 93 17 140/81 (100) 99 11/26/20 06:00 90 105/59 (74) 99 11/26/20 05:00 98 146/64 (91) 100 11/26/20 04:00 Non-Rebreather 15.0 11/26/20 04:00 102 136/68 (90) 99 11/26/20 04:00 96 11/26/20 03:00 97 126/74 (91) 100 11/26/20 02:00 99 118/77 (91) 100 11/26/20 01:00 99 144/74 (97) 100 11/26/20 00:00 102 128/65 (86) 100 11/26/20 00:00 Non-Rebreather 15.0 11/26/20 00:00 102 11/25/20 23:00 105 119/65 (83) 99 11/25/20 22:00 109 137/74 (95) 99 11/25/20 21:00 109 119/74 (89) 100 11/25/20 20:57 107 161/74 11/25/20 20:00 Non-Rebreather 15.0 11/25/20 20:00 108 161/74 (103) 100 11/25/20 19:30 100 Venturi Mask 10.0 45 11/25/20 19:30 106 22 100 Venturi Mask 10.0 45 11/25/20 19:00 109 135/78 (97) 97 11/25/20 18:00 115 21 180/83 (115) 91 11/25/20 17:00 96 21 167/92 (117) 97 11/25/20 17:00 100 Venturi Mask 8.0 40 11/25/20 16:42 97 142/70 11/25/20 16:02 Venturi Mask 8.0 11/25/20 16:00 97 11/25/20 16:00 98.0 97 16 142/70 (94) 97 11/25/20 15:04 100 Bi-Pap 10.0 50 11/25/20 15:04 99 22 100 Venturi Mask 10.0 50 11/25/20 15:00 99 19 123/64 (83) 97 11/25/20 14:45 189/93 11/25/20 14:00 92 22 189/93 (125) 100 11/25/20 13:03 98 27 169/106 (127) 100 11/25/20 12:02 Non-Rebreather 15.0 11/25/20 12:00 92 11/25/20 12:00 98.4 92 20 157/85 (109) 100 11/25/20 11:03 95 19 150/84 (106) 100 11/25/20 10:00 102 24 139/89 (106) 100 11/25/20 09:00 102 22 143/83 (103) 100 11/25/20 08:02 Non-Rebreather 15.0 11/25/20 08:00 98.8 105 28 138/58 (84) 100 11/25/20 08:00 103 11/25/20 07:23 97 22 100 Non-Rebreather 15.0 100 11/25/20 07:23 100 Non-Rebreather 15.0 100 11/25/20 07:00 103 22 165/86 (112) 100 Intake and Output 11/26/20 11/27/20 19:00 07:00 Intake Total 260 ml Output Total 601 ml Balance -341 ml Free Water 200 ml Other 60 ml Output Urine Total 600 ml Stool Total 1 ml # Bowel Movements 3 3 Labs Test 11/24/20 17:16 11/24/20 18:50 11/24/20 19:00 11/24/20 19:38 Arterial Blood pH 7.399 (7.350-7.450) 7.412 (7.350-7.450) Arterial Blood Partial Pressure CO2 32.9 mmHg (35.0-45.0) 30.7 mmHg (35.0-45.0) Arterial Blood Partial Pressure O2 46.0 mmHg (75.0-100.0) 71.0 mmHg (75.0-100.0) Arterial Blood HCO3 19.9 mmol/L (22.0-26.0) 19.1 mmol/L (22.0-26.0) Arterial Blood Oxygen Saturation 80.0 % (95-100) 94.1 % (95-100) Arterial Blood Base Excess -4.2 (-2-2) -4.5 (-2-2) Raj Test Positive Positive White Blood Count 23.0 K/UL (4.8-10.8) Red Blood Count 3.64 M/UL (4.70-6.10) Hemoglobin 10.7 G/DL (14.2-18.0) Hematocrit 34.8 % (42.0-52.0) Mean Corpuscular Volume 96 FL (80-99) Mean Corpuscular Hemoglobin 29.4 PG (27.0-31.0) Mean Corpuscular Hemoglobin Concent 30.6 G/DL (32.0-36.0) Red Cell Distribution Width 17.3 % (11.6-14.8) Platelet Count 721 K/UL (150-450) Mean Platelet Volume 5.5 FL (6.5-10.1) Neutrophils (%) (Auto) % (45.0-75.0) Lymphocytes (%) (Auto) % (20.0-45.0) Monocytes (%) (Auto) % (1.0-10.0) Eosinophils (%) (Auto) % (0.0-3.0) Basophils (%) (Auto) % (0.0-2.0) Differential Total Cells Counted 100 Neutrophils % (Manual) 88 % (45-75) Lymphocytes % (Manual) 10 % (20-45) Monocytes % (Manual) 2 % (1-10) Eosinophils % (Manual) 0 % (0-3) Basophils % (Manual) 0 % (0-2) Band Neutrophils 0 % (0-8) Platelet Estimate Increased Platelet Morphology Normal Hypochromasia 1+ Anisocytosis 1+ Sodium Level 141 MMOL/L (136-145) Potassium Level 4.0 MMOL/L (3.5-5.1) Chloride Level 104 MMOL/L (98-107) Carbon Dioxide Level 23 MMOL/L (21-32) Anion Gap 14 mmol/L (5-15) Blood Urea Nitrogen 13 mg/dL (7-18) Creatinine 0.6 MG/DL (0.55-1.30) Estimat Glomerular Filtration Rate > 60 mL/min (>60) Glucose Level 186 MG/DL (74-106) Calcium Level 9.0 MG/DL (8.5-10.1) Phosphorus Level 3.6 MG/DL (2.5-4.9) Magnesium Level 2.3 MG/DL (1.8-2.4) Total Bilirubin 0.3 MG/DL (0.2-1.0) Aspartate Amino Transf (AST/SGOT) 22 U/L (15-37) Alanine Aminotransferase (ALT/SGPT) 30 U/L (12-78) Alkaline Phosphatase 127 U/L (46-116) Total Protein 6.3 G/DL (6.4-8.2) Albumin 1.9 G/DL (3.4-5.0) Globulin 4.4 g/dL Albumin/Globulin Ratio 0.4 (1.0-2.7) D-Dimer > 35.20 mg/L FEU Test 11/25/20 06:00 11/26/20 06:45 11/26/20 08:16 11/27/20 05:10 White Blood Count 21.6 K/UL (4.8-10.8) 20.9 K/UL (4.8-10.8) 18.1 K/UL (4.8-10.8) Red Blood Count 3.41 M/UL (4.70-6.10) 2.86 M/UL (4.70-6.10) 3.32 M/UL (4.70-6.10) Hemoglobin 9.8 G/DL (14.2-18.0) 8.2 G/DL (14.2-18.0) 9.5 G/DL (14.2-18.0) Hematocrit 32.2 % (42.0-52.0) 27.1 % (42.0-52.0) 31.5 % (42.0-52.0) Mean Corpuscular Volume 94 FL (80-99) 95 FL (80-99) 95 FL (80-99) Mean Corpuscular Hemoglobin 28.8 PG (27.0-31.0) 28.9 PG (27.0-31.0) 28.7 PG (27.0-31.0) Mean Corpuscular Hemoglobin Concent 30.5 G/DL (32.0-36.0) 30.4 G/DL (32.0-36.0) 30.2 G/DL (32.0-36.0) Red Cell Distribution Width 16.3 % (11.6-14.8) 17.0 % (11.6-14.8) 17.3 % (11.6-14.8) Platelet Count 578 K/UL (150-450) 520 K/UL (150-450) 548 K/UL (150-450) Mean Platelet Volume 5.8 FL (6.5-10.1) 5.8 FL (6.5-10.1) 5.8 FL (6.5-10.1) Neutrophils (%) (Auto) % (45.0-75.0) % (45.0-75.0) % (45.0-75.0) Lymphocytes (%) (Auto) % (20.0-45.0) % (20.0-45.0) % (20.0-45.0) Monocytes (%) (Auto) % (1.0-10.0) % (1.0-10.0) % (1.0-10.0) Eosinophils (%) (Auto) % (0.0-3.0) % (0.0-3.0) % (0.0-3.0) Basophils (%) (Auto) % (0.0-2.0) % (0.0-2.0) % (0.0-2.0) Differential Total Cells Counted 100 100 Neutrophils % (Manual) 80 % (45-75) 87 % (45-75) Lymphocytes % (Manual) 14 % (20-45) 7 % (20-45) Monocytes % (Manual) 4 % (1-10) 5 % (1-10) Eosinophils % (Manual) 0 % (0-3) 1 % (0-3) Basophils % (Manual) 0 % (0-2) 0 % (0-2) Band Neutrophils 2 % (0-8) 0 % (0-8) Platelet Estimate Increased Increased Platelet Morphology Normal Normal Hypochromasia 1+ 1+ Anisocytosis 1+ 1+ Sodium Level 145 MMOL/L (136-145) 146 MMOL/L (136-145) Potassium Level 2.8 MMOL/L (3.5-5.1) 2.7 MMOL/L (3.5-5.1) Chloride Level 109 MMOL/L (98-107) 111 MMOL/L (98-107) Carbon Dioxide Level 23 MMOL/L (21-32) 25 MMOL/L (21-32) Anion Gap 13 mmol/L (5-15) 9 mmol/L (5-15) Blood Urea Nitrogen 16 mg/dL (7-18) 11 mg/dL (7-18) Creatinine 0.6 MG/DL (0.55-1.30) 0.4 MG/DL (0.55-1.30) Estimat Glomerular Filtration Rate > 60 mL/min (>60) > 60 mL/min (>60) Glucose Level 175 MG/DL (74-106) 85 MG/DL (74-106) Calcium Level 8.6 MG/DL (8.5-10.1) 8.4 MG/DL (8.5-10.1) Total Bilirubin 0.1 MG/DL (0.2-1.0) 0.2 MG/DL (0.2-1.0) Aspartate Amino Transf (AST/SGOT) 18 U/L (15-37) 16 U/L (15-37) Alanine Aminotransferase (ALT/SGPT) 18 U/L (12-78) 19 U/L (12-78) Alkaline Phosphatase 94 U/L (46-116) 88 U/L (46-116) Total Protein 5.7 G/DL (6.4-8.2) 5.3 G/DL (6.4-8.2) Albumin 1.4 G/DL (3.4-5.0) 1.4 G/DL (3.4-5.0) Globulin 4.3 g/dL 3.9 g/dL Albumin/Globulin Ratio 0.3 (1.0-2.7) 0.4 (1.0-2.7) Uric Acid 2.6 MG/DL (2.6-7.2) Phosphorus Level 2.6 MG/DL (2.5-4.9) Magnesium Level 1.8 MG/DL (1.8-2.4) C-Reactive Protein, Quantitative 28.8 mg/dL (0.00-0.90) Pro-B-Type Natriuretic Peptide 583 pg/mL (0-125) Arterial Blood pH 7.437 (7.350-7.450) Arterial Blood Partial Pressure CO2 35.6 mmHg (35.0-45.0) Arterial Blood Partial Pressure O2 101.4 mmHg (75.0-100.0) Arterial Blood HCO3 23.5 mmol/L (22.0-26.0) Arterial Blood Oxygen Saturation 97.5 % (95-100) Arterial Blood Base Excess -0.5 (-2-2) Raj Test Positive Height (Feet): 5 Height (Inches): 6.00 Weight (Pounds): 140 Objective Physical Exam General Appearance: mild distress, lethargic, Chronically Ill ENT: normal ENT inspection Neck: limited range of motion Respiratory: lungs clear Cardiovascular: tachycardia, edema Gastrointestinal: normal inspection, non tender, soft Genitourinary: normal inspection Musculoskeletal: other - Contracted upper and lower extremity +++left above knee amp Neurologic: motor weakness, responsive - Opens eyes, nonverbal, other - Makes incomprehensible sounds grimaces to pain Skin: no rash Nate Wren MD Nov 27, 2020 06:58
--- NOTE | 2020-11-27 07:15 | NUR ---
NURSE NOTES: Received report from YUMIKO Kumar. Pt is obtunded and nonverbal, pt is on 4LPM via N/C as ordered despite of dx COPD. No SOB or acute respiratory distress noted. IV in RAC 20G SL patent, intact. seizure precaution reinforced. All needs attended, bed is locked and is in the lowest position, Call light within easy reach. HOB elevated with 30 degree. Noted NGT. SR on cardiac monnitor. Will continue plan of care.
--- NOTE | 2020-11-27 07:15 | NUR ---
NURSE NOTES: NG tube placed in left nare and advanced at 51cm
[2020-11-27] MEDS: levETIRAcetam 500mg/NS100ml 100 ML IVPB SCH ×2 (08:10→21:19)
[2020-11-27] MEDS: Enoxaparin 60mg Inj SUBQ SCH ×2 (08:11→21:17)
--- NOTE | 2020-11-27 08:56 | Cardiac Electrophysiology PN ---
Assessment/Plan Assessment/Plan 1. Sinus Tachycardia due to sepsis in this patient with white count of 23,000 on IV antibiotics. 2. S/P gastrostomy tube migration. Now is removed and has NGT. S/P CT scan of the abdomen and pelvis to rule out abscess formation. FU GI and surgery 3. Sepsis of unclear source. 4. S/P DIRECTOR OF MUSIC THERAPY for respiratory failure. BNP of 724. Echocardiogram EF 65% 5. Status post left above-knee amputation. 6. Anemia. 7. Mental retardation. 8. Left thigh DVT on Lovenox 60 bid 9. Accelerated HTN. Better on Norvasc 5 bid and prn Clonidine 10. HyperNatremia. Atart D51/2 NS at 50 cc / hr DW RN Subjective Subjective PEG was removed as it was misplaced. Has NGT On anticoagulation for DVT in the LLE stump S/P DIRECTOR OF MUSIC THERAPY for respiratory failure. Now on 2 liter NC Objective Last 24 Hour Vital Signs Date Time Temp Pulse Resp B/P (MAP) Pulse Ox O2 Delivery O2 Flow Rate FiO2 11/27/20 08:00 98.0 90 17 130/53 (78) 100 11/27/20 07:00 89 24 105/64 (78) 100 11/27/20 05:00 77 18 151/70 (97) 99 11/27/20 04:00 80 21 98/51 (67) 98 11/27/20 04:00 Nasal Cannula 4.0 11/27/20 04:00 77 11/27/20 03:00 79 19 146/64 (91) 97 11/27/20 02:00 83 20 136/64 (88) 98 11/27/20 01:00 87 20 147/70 (95) 100 11/27/20 00:00 88 11/27/20 00:00 88 19 151/85 (107) 98 11/27/20 00:00 Nasal Cannula 4.0 11/26/20 23:00 93 17 133/77 (95) 100 11/26/20 22:00 92 18 109/64 (79) 98 11/26/20 21:00 94 18 120/85 (97) 99 11/26/20 20:57 95 140/69 11/26/20 20:00 Nasal Cannula 4.0 11/26/20 20:00 95 16 140/69 (92) 100 11/26/20 19:16 100 Nasal Cannula 4.0 36 11/26/20 19:16 95 18 100 Nasal Cannula 4.0 36 11/26/20 19:00 93 20 124/62 (82) 99 11/26/20 18:00 88 21 126/58 (80) 100 11/26/20 17:05 95 17 111/74 (86) 98 11/26/20 16:05 97.8 88 15 125/78 (94) 99 11/26/20 16:01 Nasal Cannula 4.0 11/26/20 16:00 90 11/26/20 15:00 102 21 111/74 (86) 94 11/26/20 14:00 99 20 165/76 (105) 100 11/26/20 13:00 106 20 147/74 (98) 100 11/26/20 12:01 Nasal Cannula 4.0 11/26/20 12:00 98.5 100 19 157/85 (109) 99 11/26/20 12:00 101 11/26/20 11:00 93 19 150/78 (102) 100 11/26/20 10:00 88 18 132/62 (85) 100 11/26/20 09:00 95 16 154/87 (109) 100 Intake and Output 11/26/20 11/27/20 19:00 07:00 Intake Total 260 ml Output Total 601 ml Balance -341 ml Free Water 200 ml Other 60 ml Output Urine Total 600 ml Stool Total 1 ml # Bowel Movements 3 3 Laboratory Tests Test 11/27/20 05:10 White Blood Count 18.1 K/UL (4.8-10.8) H Red Blood Count 3.32 M/UL (4.70-6.10) L Hemoglobin 9.5 G/DL (14.2-18.0) L Hematocrit 31.5 % (42.0-52.0) L Mean Corpuscular Volume 95 FL (80-99) Mean Corpuscular Hemoglobin 28.7 PG (27.0-31.0) Mean Corpuscular Hemoglobin Concent 30.2 G/DL (32.0-36.0) L Red Cell Distribution Width 17.3 % (11.6-14.8) H Platelet Count 548 K/UL (150-450) H Mean Platelet Volume 5.8 FL (6.5-10.1) L Neutrophils (%) (Auto) % (45.0-75.0) Lymphocytes (%) (Auto) % (20.0-45.0) Monocytes (%) (Auto) % (1.0-10.0) Eosinophils (%) (Auto) % (0.0-3.0) Basophils (%) (Auto) % (0.0-2.0) Differential Total Cells Counted 100 Neutrophils % (Manual) 81 % (45-75) H Lymphocytes % (Manual) 14 % (20-45) L Monocytes % (Manual) 5 % (1-10) Eosinophils % (Manual) 0 % (0-3) Basophils % (Manual) 0 % (0-2) Band Neutrophils 0 % (0-8) Platelet Estimate Increased H Platelet Morphology Normal Hypochromasia 1+ Anisocytosis 1+ Objective HEAD AND NECK: No JVD.NGT in place LUNGS: Decreased breath sounds. CARDIOVASCULAR: Regular S1 and S2 with no gallop. ABDOMEN: Soft. EXTREMITIES: Contracted with left above-knee amputation. Phoenix Amador MD Nov 27, 2020 08:56
[2020-11-27 09:01] LABS: ANION GAP 12 mmol/L (5-15); BLOOD UREA NITROGEN 7 mg/dL (7-18); CALCIUM 8.7 MG/DL (8.5-10.1); CARBON DIOXIDE 24 MMOL/L (21-32); CHLORIDE 109 MMOL/L (98-107); CREATININE 0.4 MG/DL (0.55-1.30); SODIUM 145 MMOL/L (136-145)
[2020-11-27 09:07] LABS: ALANINE AMINOTRANSFERASE 22 U/L (12-78); ALBUMIN 1.7 G/DL (3.4-5.0); ALBUMIN/GLOBULIN RATIO 0.4 (1.0-2.7); ALKALINE PHOSPHATASE 96 U/L (46-116); ASPARTATE AMINO TRANSFERASE 20 U/L (15-37); BILIRUBIN,TOTAL 0.3 MG/DL (0.2-1.0)
--- NOTE | 2020-11-27 09:20 | NUR ---
RD ASSESSMENT & RECOMMENDATIONS SEE CARE ACTIVITY FOR COMPLETE ASSESSMENT DAILY ESTIMATED NEEDS: Needs based on Wound underweight 37kg 30-40 kcals/kg 1858-5789 total kcals 1.25-2 g protein/kg 46-74 g total protein 25-35ml/kcal mL/kg 925-1295 total fluid mLs NUTRITION DIAGNOSIS: Increased kcal and pro needs r/t underweight status and wound care as evidenced by pt is est 62% of IBW, BMI underweight per guidelines, multiple wounds including full thickness wounds x2, refer to WC eval. CURRENT TF: Jevity 1.2 @50 ml/hr - HELD ENTERAL NUTRITION RECOMMENDATIONS: Maintain current TF as ordered Jevity 1.2 @50ml/hr x24 hrs to provide 1200ml, 1440 kcal, 67g pro, 968ml free H2O - Initiate Jevity 1.2 @35ml/hr for 6 hrs, advance as tolerated 10ml/hr q4-6 hrs to goal. - Flush per MD, HOB over 30 degrees ADDITIONAL RECOMMENDATIONS: 1) Wound care: add DARLENE BID, Vit C 250mg BID 2) Maintain calibrated bed scale wts 3) Monitor BG, need for carb control TF 4) NGT feeds as able, GT out.
[2020-11-27] MEDS: D5 1/2NS 1,000 ML IV SCH (09:39)
--- NOTE | 2020-11-27 09:50 | NUR ---
NURSE NOTES: WOUND CARE FOLLOW-UP NOTES: Pt presented on admission with Wound dorsal L Hand. Pressure injuries. Full Thickness wound dorsal L Hand(L)2.4cm x (W)1.9cm. Base of wound is 95% fibrinous slough,5% lida and moist. Small amt seropurulent exudate noted. No erythema or elevation in skin temp periwound. Small amt purulent exudate noted from Previous Gastrostomy. Dona-Stomal opening is indurated. Rash L flank previously documented in initial assessment has resolved. Full thickness Pressure Injury Upper L Buttocks(L)4.8cm x (W)6cm. Base of wound is 90% lida,i0% soft necrosis. Edges are adherent to base of wound. No evidence of additional skin breakdown periwound. No evidence of Sacral Skin breakdown. Base of L AKA Stump noted to be erythematous over bony protrusion. NO elevation in skin temp,fluctuance or induration when palpated.(L)3.4cm x (W)4.4cm. Reabsorbed DTPI which now presents as an Unstageable Pressure Injury. Base of wound is 100% dry eschar(L)1.4cm x (W)1.2cm. No evidence of additional skin breakdown periwound. Non-Blanching erythema without induration or fluctuance lateral R malleolus(L)0.8cm x (W)1.1cm. Wound care orders are effective and continued as ordered. All wound prevention protocols continued as care-planned.
--- NOTE | 2020-11-27 11:45 | Nephrology Progress Note ---
Assessment/Plan Problem List: (1) Dehydration (2) Electrolyte imbalance (3) Sepsis (4) Anemia (5) HTN (hypertension) (6) Seizure disorder Assessment 75-year-old male Patient presented with low serum sodium 134 however it is now corrected Blood pressure remains high Left [id number]-[id number] amputation Sepsis, tachycardia Anemia Encephalopathy acute Seizure disorder Nonfunctioning GT tube, migrated to abdominal wall from gastric cavity. It is now removed Plan November 27: Seen in ICU. Low magnesium and low potassium addressed. Discussed with RN. Continue per consultants. November 26: Patient remains in ICU. Not in any distress. Labs reviewed. Potassium 2.6, replacement ordered. Medication list reviewed. Discussed with RN. Clinically improved. November 25: Patient in ICU. On nonrebreather mask. Labs reviewed. Leukocytosis. Renal parameters stable. Low serum potassium addressed. Discussed with RN. Continue per consultants. Patient is full code. November 24: Labs reviewed. Low potassium addressed. Venofer 200 mg 1 dose IV ordered. Continue per consultants. On tube feeding now. Will stop IV fluids. Patient is n.p.o. per GI Change IV to D5 normal saline Intravenous Vasotec as needed for high blood pressure Monitor renal parameters and electrolytes Anemia work-up Urine analysis and culture Antibiotics Per orders Subjective ROS Limited/Unobtainable: Yes Objective Objective Last 24 Hour Vital Signs Date Time Temp Pulse Resp B/P (MAP) Pulse Ox O2 Delivery O2 Flow Rate FiO2 11/27/20 11:00 101 20 135/68 (90) 99 11/27/20 10:00 101 22 130/75 (93) 100 11/27/20 09:10 90 130/53 11/27/20 09:00 95 17 150/78 (102) 100 11/27/20 08:00 89 11/27/20 08:00 Nasal Cannula 2.0 11/27/20 08:00 98.0 90 17 130/53 (78) 100 11/27/20 07:00 89 24 105/64 (78) 100 11/27/20 05:00 77 18 151/70 (97) 99 11/27/20 04:00 80 21 98/51 (67) 98 11/27/20 04:00 Nasal Cannula 4.0 11/27/20 04:00 77 11/27/20 03:00 79 19 146/64 (91) 97 11/27/20 02:00 83 20 136/64 (88) 98 11/27/20 01:00 87 20 147/70 (95) 100 11/27/20 00:00 88 11/27/20 00:00 88 19 151/85 (107) 98 11/27/20 00:00 Nasal Cannula 4.0 11/26/20 23:00 93 17 133/77 (95) 100 11/26/20 22:00 92 18 109/64 (79) 98 11/26/20 21:00 94 18 120/85 (97) 99 11/26/20 20:57 95 140/69 11/26/20 20:00 Nasal Cannula 4.0 11/26/20 20:00 95 16 140/69 (92) 100 11/26/20 19:16 100 Nasal Cannula 4.0 36 11/26/20 19:16 95 18 100 Nasal Cannula 4.0 36 11/26/20 19:00 93 20 124/62 (82) 99 11/26/20 18:00 88 21 126/58 (80) 100 11/26/20 17:05 95 17 111/74 (86) 98 11/26/20 16:05 97.8 88 15 125/78 (94) 99 11/26/20 16:01 Nasal Cannula 4.0 11/26/20 16:00 90 11/26/20 15:00 102 21 111/74 (86) 94 11/26/20 14:00 99 20 165/76 (105) 100 11/26/20 13:00 106 20 147/74 (98) 100 11/26/20 12:01 Nasal Cannula 4.0 11/26/20 12:00 98.5 100 19 157/85 (109) 99 11/26/20 12:00 101 Intake and Output 11/26/20 11/27/20 19:00 07:00 Intake Total 260 ml Output Total 601 ml Balance -341 ml Free Water 200 ml Other 60 ml Output Urine Total 600 ml Stool Total 1 ml # Bowel Movements 3 3 Current Medications Medications (Trade) Dose Ordered Sig/Venecia Route PRN Reason Start Time Stop Time Status Last Admin Dose Admin Acetaminophen (Tylenol) 650 mg Q4H PRN GT Temp >100.5 11/22/20 16:30 12/22/20 15:59 11/24/20 11:35 Acetaminophen (Tylenol) 650 mg Q4H PRN GT For Pain 11/22/20 16:30 12/22/20 16:29 Albuterol Sulfate (Proventil) 2.5 mg Q4H PRN HHN Shortness of Breath 11/23/20 10:15 11/28/20 10:14 Amlodipine Besylate (Norvasc) 5 mg EVERY 12 HOURS ORAL 11/25/20 21:00 12/25/20 20:59 11/27/20 09:10 Clonidine HCl (Catapres Tab) 0.1 mg Q4H PRN ORAL sbp>170 11/25/20 14:45 02/23/21 14:44 Dextrose/Sodium Chloride 1,000 ml @ 60 mls/hr [id number] IV 11/27/20 09:30 12/27/20 09:29 11/27/20 09:39 Enalaprilat (Vasotec) 2.5 mg Q4H PRN IV For blood pressure over 160 sy 11/23/20 11:30 12/23/20 11:29 11/25/20 14:45 Enoxaparin Sodium (Lovenox) 60 mg EVERY 12 HOURS SUBQ 11/25/20 21:00 02/23/21 20:59 11/27/20 08:11 Famotidine (Pepcid I.v.) 20 mg Q12HR IVP 11/24/20 21:00 12/24/20 20:59 11/27/20 08:09 Hydromorphone HCl (Dilaudid) 0.5 mg Q2H PRN IVP For Pain 11/23/20 09:45 11/30/20 09:44 11/23/20 09:57 Levetiracetam 100 ml @ 400 mls/hr Q12HR IVPB 11/23/20 21:00 02/21/21 20:59 11/27/20 08:10 Piperacillin Sod/ Tazobactam Sod 3.375 gm/Sodium Chloride 110 ml @ 27.5 mls/hr EVERY 8 HOURS IVPB 11/24/20 14:00 11/29/20 13:59 11/27/20 06:28 Laboratory Tests 11/27/20 05:10: White Blood Count 18.1H, Red Blood Count 3.32L, Hemoglobin 9.5L, Hematocrit 31.5L, Mean Corpuscular Volume 95, Mean Corpuscular Hemoglobin 28.7, Mean Corpuscular Hemoglobin Concent 30.2L, Red Cell Distribution Width 17.3H, Platelet Count 548H, Mean Platelet Volume 5.8L, Neutrophils (%) (Auto) , Lymphocytes (%) (Auto) , Monocytes (%) (Auto) , Eosinophils (%) (Auto) , Basophils (%) (Auto) , Differential Total Cells Counted 100, Neutrophils % (Manual) 81H, Lymphocytes % (Manual) 14L, Monocytes % (Manual) 5, Eosinophils % (Manual) 0, Basophils % (Manual) 0, Band Neutrophils 0, Platelet Estimate IncreasedH, Platelet Morphology Normal, Hypochromasia 1+, Anisocytosis 1+, Sodium Level 145, Potassium Level 3.0L, Chloride Level 109H, Carbon Dioxide Level 24, Anion Gap 12, Blood Urea Nitrogen 7, Creatinine 0.4L, Estimat Glomerular Filtration Rate > 60, Glucose Level 71L, Calcium Level 8.7, Phosphorus Level 3.0, Magnesium Level 1.6L, Total Bilirubin 0.3, Aspartate Amino Transf (AST/SGOT) 20, Alanine Aminotransferase (ALT/SGPT) 22, Alkaline Phosphatase 96, Total Protein 6.1L, Albumin 1.7L, Globulin 4.4, Albumin/Globulin Ratio 0.4L Height (Feet): 5 Height (Inches): 6.00 Weight (Pounds): 140 EENT: other - On nasal cannula Cardiovascular: tachycardia Respiratory/Chest: decreased breath sounds Abdomen: distended Lenny Veliz MD Nov 27, 2020 11:45
--- NOTE | 2020-11-27 12:23 | Infectious Diseases Prog Note ---
Assessment/Plan Assessment/Plan IMPRESSION: Sepsis, Infected gastrostomy with gastrostomy migration, ? 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 DVT of left leg RECOMMENDATION: Continue Zosyn Wound culture from GT site Subjective ROS Limited/Unobtainable: Yes Constitutional: Denies: fever Allergies: Coded Allergies: No Known Allergies (Unverified , 11/22/20) Objective Last 24 Hour Vital Signs Date Time Temp Pulse Resp B/P (MAP) Pulse Ox O2 Delivery O2 Flow Rate FiO2 11/27/20 11:00 101 20 135/68 (90) 99 11/27/20 10:00 101 22 130/75 (93) 100 11/27/20 09:10 90 130/53 11/27/20 09:00 95 17 150/78 (102) 100 11/27/20 08:00 89 11/27/20 08:00 Nasal Cannula 2.0 11/27/20 08:00 98.0 90 17 130/53 (78) 100 11/27/20 07:00 89 24 105/64 (78) 100 11/27/20 05:00 77 18 151/70 (97) 99 11/27/20 04:00 80 21 98/51 (67) 98 11/27/20 04:00 Nasal Cannula 4.0 11/27/20 04:00 77 11/27/20 03:00 79 19 146/64 (91) 97 11/27/20 02:00 83 20 136/64 (88) 98 11/27/20 01:00 87 20 147/70 (95) 100 11/27/20 00:00 88 11/27/20 00:00 88 19 151/85 (107) 98 11/27/20 00:00 Nasal Cannula 4.0 11/26/20 23:00 93 17 133/77 (95) 100 11/26/20 22:00 92 18 109/64 (79) 98 11/26/20 21:00 94 18 120/85 (97) 99 11/26/20 20:57 95 140/69 11/26/20 20:00 Nasal Cannula 4.0 11/26/20 20:00 95 16 140/69 (92) 100 11/26/20 19:16 100 Nasal Cannula 4.0 36 11/26/20 19:16 95 18 100 Nasal Cannula 4.0 36 11/26/20 19:00 93 20 124/62 (82) 99 11/26/20 18:00 88 21 126/58 (80) 100 11/26/20 17:05 95 17 111/74 (86) 98 11/26/20 16:05 97.8 88 15 125/78 (94) 99 11/26/20 16:01 Nasal Cannula 4.0 11/26/20 16:00 90 11/26/20 15:00 102 21 111/74 (86) 94 11/26/20 14:00 99 20 165/76 (105) 100 11/26/20 13:00 106 20 147/74 (98) 100 Height (Feet): 5 Height (Inches): 6.00 Weight (Pounds): 140 HEENT: mucous membranes moist, other - left corneal opacity Respiratory/Chest: lungs clear, other - O2 by nasal cannula Cardiovascular: tachycardia Abdomen: soft, non tender, other - NG tube Extremities: no edema, other - Left AKA Laboratory Tests Test 11/27/20 05:10 White Blood Count 18.1 K/UL (4.8-10.8) H Red Blood Count 3.32 M/UL (4.70-6.10) L Hemoglobin 9.5 G/DL (14.2-18.0) L Hematocrit 31.5 % (42.0-52.0) L Mean Corpuscular Volume 95 FL (80-99) Mean Corpuscular Hemoglobin 28.7 PG (27.0-31.0) Mean Corpuscular Hemoglobin Concent 30.2 G/DL (32.0-36.0) L Red Cell Distribution Width 17.3 % (11.6-14.8) H Platelet Count 548 K/UL (150-450) H Mean Platelet Volume 5.8 FL (6.5-10.1) L Neutrophils (%) (Auto) % (45.0-75.0) Lymphocytes (%) (Auto) % (20.0-45.0) Monocytes (%) (Auto) % (1.0-10.0) Eosinophils (%) (Auto) % (0.0-3.0) Basophils (%) (Auto) % (0.0-2.0) Differential Total Cells Counted 100 Neutrophils % (Manual) 81 % (45-75) H Lymphocytes % (Manual) 14 % (20-45) L Monocytes % (Manual) 5 % (1-10) Eosinophils % (Manual) 0 % (0-3) Basophils % (Manual) 0 % (0-2) Band Neutrophils 0 % (0-8) Platelet Estimate Increased H Platelet Morphology Normal Hypochromasia 1+ Anisocytosis 1+ Sodium Level 145 MMOL/L (136-145) Potassium Level 3.0 MMOL/L (3.5-5.1) L Chloride Level 109 MMOL/L (98-107) H Carbon Dioxide Level 24 MMOL/L (21-32) Anion Gap 12 mmol/L (5-15) Blood Urea Nitrogen 7 mg/dL (7-18) Creatinine 0.4 MG/DL (0.55-1.30) L Estimat Glomerular Filtration Rate > 60 mL/min (>60) Glucose Level 71 MG/DL (74-106) L Calcium Level 8.7 MG/DL (8.5-10.1) Phosphorus Level 3.0 MG/DL (2.5-4.9) Magnesium Level 1.6 MG/DL (1.8-2.4) L Total Bilirubin 0.3 MG/DL (0.2-1.0) Aspartate Amino Transf (AST/SGOT) 20 U/L (15-37) Alanine Aminotransferase (ALT/SGPT) 22 U/L (12-78) Alkaline Phosphatase 96 U/L (46-116) Total Protein 6.1 G/DL (6.4-8.2) L Albumin 1.7 G/DL (3.4-5.0) L Globulin 4.4 g/dL Albumin/Globulin Ratio 0.4 (1.0-2.7) L Current Medications Medications (Trade) Dose Ordered Sig/Venecia Route PRN Reason Start Time Stop Time Status Last Admin Dose Admin Acetaminophen (Tylenol) 650 mg Q4H PRN GT Temp >100.5 11/22/20 16:30 12/22/20 15:59 11/24/20 11:35 Acetaminophen (Tylenol) 650 mg Q4H PRN GT For Pain 11/22/20 16:30 12/22/20 16:29 Albuterol Sulfate (Proventil) 2.5 mg Q4H PRN HHN Shortness of Breath 11/23/20 10:15 11/28/20 10:14 Amlodipine Besylate (Norvasc) 5 mg EVERY 12 HOURS ORAL 11/25/20 21:00 12/25/20 20:59 11/27/20 09:10 Clonidine HCl (Catapres Tab) 0.1 mg Q4H PRN ORAL sbp>170 11/25/20 14:45 02/23/21 14:44 Dextrose/Sodium Chloride 1,000 ml @ 60 mls/hr [id number] IV 11/27/20 09:30 12/27/20 09:29 11/27/20 09:39 Enalaprilat (Vasotec) 2.5 mg Q4H PRN IV For blood pressure over 160 sy 11/23/20 11:30 12/23/20 11:29 11/25/20 14:45 Enoxaparin Sodium (Lovenox) 60 mg EVERY 12 HOURS SUBQ 11/25/20 21:00 02/23/21 20:59 11/27/20 08:11 Famotidine (Pepcid I.v.) 20 mg Q12HR IVP 11/24/20 21:00 12/24/20 20:59 11/27/20 08:09 Hydromorphone HCl (Dilaudid) 0.5 mg Q2H PRN IVP For Pain 11/23/20 09:45 11/30/20 09:44 11/23/20 09:57 Levetiracetam 100 ml @ 400 mls/hr Q12HR IVPB 11/23/20 21:00 02/21/21 20:59 11/27/20 08:10 Magnesium Sulfate 100 ml @ 100 mls/hr Q1H IVPB 11/27/20 11:45 11/27/20 13:44 11/27/20 12:17 Piperacillin Sod/ Tazobactam Sod 3.375 gm/Sodium Chloride 110 ml @ 27.5 mls/hr EVERY 8 HOURS IVPB 11/24/20 14:00 11/29/20 13:59 11/27/20 06:28 Potassium Chloride 40 meq/ Sodium Chloride 570 ml @ 100 mls/hr ONCE IVPB 11/27/20 14:00 11/27/20 23:59 John Lara MD Nov 27, 2020 12:23
--- NOTE | 2020-11-27 12:28 | NUR ---
NURSE NOTES: Wound culture sent to lab
[2020-11-27] MEDS ORDERED: Potassium Chloride 40 MEQ in Sodium Chloride 550 ML IVPB SCH (14:00)
--- NOTE | 2020-11-27 15:29 | Surgery Progress Note ---
Surgery Progress Note Subjective Additional Comments anterior abd wall phlegmon stable min drainage no n/v labs noted wbc trending down no fluctuance for abscess drainage. hard and phlegmon Objective Last 24 Hour Vital Signs Date Time Temp Pulse Resp B/P (MAP) Pulse Ox O2 Delivery O2 Flow Rate FiO2 11/27/20 14:00 98.4 96 15 133/69 (90) 100 11/27/20 13:00 93 18 101/68 (79) 100 11/27/20 12:00 99 11/27/20 12:00 Nasal Cannula 2.0 11/27/20 12:00 98 16 122/67 (85) 100 11/27/20 11:00 101 20 135/68 (90) 99 11/27/20 10:00 101 22 130/75 (93) 100 11/27/20 09:10 90 130/53 11/27/20 09:00 95 17 150/78 (102) 100 11/27/20 08:00 89 11/27/20 08:00 Nasal Cannula 2.0 11/27/20 08:00 98.0 90 17 130/53 (78) 100 11/27/20 07:00 89 24 105/64 (78) 100 11/27/20 05:00 77 18 151/70 (97) 99 11/27/20 04:00 80 21 98/51 (67) 98 11/27/20 04:00 Nasal Cannula 4.0 11/27/20 04:00 77 11/27/20 03:00 79 19 146/64 (91) 97 11/27/20 02:00 83 20 136/64 (88) 98 11/27/20 01:00 87 20 147/70 (95) 100 11/27/20 00:00 88 11/27/20 00:00 88 19 151/85 (107) 98 11/27/20 00:00 Nasal Cannula 4.0 11/26/20 23:00 93 17 133/77 (95) 100 11/26/20 22:00 92 18 109/64 (79) 98 11/26/20 21:00 94 18 120/85 (97) 99 11/26/20 20:57 95 140/69 11/26/20 20:00 Nasal Cannula 4.0 11/26/20 20:00 95 16 140/69 (92) 100 11/26/20 19:16 100 Nasal Cannula 4.0 36 11/26/20 19:16 95 18 100 Nasal Cannula 4.0 36 11/26/20 19:00 93 20 124/62 (82) 99 11/26/20 18:00 88 21 126/58 (80) 100 11/26/20 17:05 95 17 111/74 (86) 98 11/26/20 16:05 97.8 88 15 125/78 (94) 99 11/26/20 16:01 Nasal Cannula 4.0 11/26/20 16:00 90 I&O Intake and Output 11/26/20 11/27/20 19:00 07:00 Intake Total 260 ml 27.5 ml Output Total 601 ml Balance -341 ml 27.5 ml Free Water 200 ml IV Total 27.5 ml Other 60 ml Output Urine Total 600 ml Stool Total 1 ml # Bowel Movements 3 3 Dressing: saturated Cardiovascular: RSR Respiratory: decreased breath sounds Abdomen: soft, present bowel sounds, other, non-distended Extremities: edema, other Laboratory Tests Test 11/27/20 05:10 White Blood Count 18.1 K/UL (4.8-10.8) H Red Blood Count 3.32 M/UL (4.70-6.10) L Hemoglobin 9.5 G/DL (14.2-18.0) L Hematocrit 31.5 % (42.0-52.0) L Mean Corpuscular Volume 95 FL (80-99) Mean Corpuscular Hemoglobin 28.7 PG (27.0-31.0) Mean Corpuscular Hemoglobin Concent 30.2 G/DL (32.0-36.0) L Red Cell Distribution Width 17.3 % (11.6-14.8) H Platelet Count 548 K/UL (150-450) H Mean Platelet Volume 5.8 FL (6.5-10.1) L Neutrophils (%) (Auto) % (45.0-75.0) Lymphocytes (%) (Auto) % (20.0-45.0) Monocytes (%) (Auto) % (1.0-10.0) Eosinophils (%) (Auto) % (0.0-3.0) Basophils (%) (Auto) % (0.0-2.0) Differential Total Cells Counted 100 Neutrophils % (Manual) 81 % (45-75) H Lymphocytes % (Manual) 14 % (20-45) L Monocytes % (Manual) 5 % (1-10) Eosinophils % (Manual) 0 % (0-3) Basophils % (Manual) 0 % (0-2) Band Neutrophils 0 % (0-8) Platelet Estimate Increased H Platelet Morphology Normal Hypochromasia 1+ Anisocytosis 1+ Sodium Level 145 MMOL/L (136-145) Potassium Level 3.0 MMOL/L (3.5-5.1) L Chloride Level 109 MMOL/L (98-107) H Carbon Dioxide Level 24 MMOL/L (21-32) Anion Gap 12 mmol/L (5-15) Blood Urea Nitrogen 7 mg/dL (7-18) Creatinine 0.4 MG/DL (0.55-1.30) L Estimat Glomerular Filtration Rate > 60 mL/min (>60) Glucose Level 71 MG/DL (74-106) L Calcium Level 8.7 MG/DL (8.5-10.1) Phosphorus Level 3.0 MG/DL (2.5-4.9) Magnesium Level 1.6 MG/DL (1.8-2.4) L Total Bilirubin 0.3 MG/DL (0.2-1.0) Aspartate Amino Transf (AST/SGOT) 20 U/L (15-37) Alanine Aminotransferase (ALT/SGPT) 22 U/L (12-78) Alkaline Phosphatase 96 U/L (46-116) Total Protein 6.1 G/DL (6.4-8.2) L Albumin 1.7 G/DL (3.4-5.0) L Globulin 4.4 g/dL Albumin/Globulin Ratio 0.4 (1.0-2.7) L Plan Problems: (1) Cerebral palsy (2) Sepsis Assessment & Plan: Pt presented on admission with CP, L AKA,Multiple Pressure Injuries, Wound dorsal L hand. Macular red rash L Flank. Full thickness wound dorsal L hand(L)2.4cm x (W)1.9cm. Loose necrotic cap which was easily removed from wound bed. Base of wound is 95% fibrinous slough with ma rginal erythema along borders. Small amt sanguineous exudate noted. No erythema or elevation in skin temp periwound. Incontinence Associated dermatitis R and L groin and scrotum. Affected areas are erythematous and macerated. Full Thickness Pressure Injury Upper L buttocks(L)4.8cm x (W)6.4cmBase of wound is 25% necrotic ,75% lida. Edges are adherent to base of wound. Surrounding n on-blanchable erythema without fluctuance /induration. No odor or exudate noted. No evidence of sacral skin breakdown. An erythematous and indurated soft tissue mass noted to posterior upper L thigh. (L)3.2cm x (W)3.7cm. Base of L AKA is erythematous,fluctuant, with increased warmth. DTPI medial R Heel(L)1cm x (W)1.2cm. Base of Pressure Injury is purpuric and fluctuant. Periwound is blanchable with dry flaky skin. unlikely etiology of sepsis urine noted leukocytosis on abx Tx.Plan: Cleanse Dorsal L hand with Saline. Apply Therahoney. Apply Cavilon Skin Barrier periwound. Cover with Optifoam Drsg Daily and prn. Cleanse Wound L Buttocks with Saline. Apply Therahoney. Apply Moisture Barrier Paste periwound. Cover with Optifoam drsg. Change Daily and prn. Apply Moisture Barrier Paste to R and L Groin and scrotum with each incontinence care. Apply Cavilon Skin Barrier to Posterior Upper L thigh. Cover with Optifoam drsg. Change every 3 days and prn. Apply Betadine to Base of L AKA stump. Cover with Optifoam drsg. Change every 3 days and prn. Apply Betadine to medial R Heel. Cover with Optifoam drsg. Change every 3 days and prn. Reposition at least every 2hours or as tolerated. Off-load L AKA with Pillow. Off-load R Heel with Pillow. DAILY ESTIMATED NEEDS: Needs based on Wound underweight 37kg 30-40 kcals/kg 8640-9924 total kcals 1.25-2 g protein/kg 46-74 g total protein 25-35ml/kcal mL/kg 925-1295 total fluid mLs NUTRITION DIAGNOSIS: Increased kcal and pro needs r/t underweight status and wound care as evidenced by pt is est 62% of IBW, BMI underweight per guidelines, multiple wounds including full thickness wounds x2, refer to WC eval. CURRENT TF: Jevity 1.2 @50 ml/hr ENTERAL NUTRITION RECOMMENDATIONS: Maintain current TF as ordered Jevity 1.2 @50ml/hr x24 hrs to provide 1200ml, 1440 kcal, 67g pro, 968ml free H2O - Initiate Jevity 1.2 @35ml/hr for 6 hrs, advance as tolerated 10ml/hr q4-6 hrs to goal. - Flush per MD, HOB over 30 degrees ADDITIONAL RECOMMENDATIONS: 1) Wound care: add DARLENE BID, Vit C 250mg BID 2) Maintain calibrated bed scale wts 3) Monitor BG, need for carb control TF respiratory insufficiency now in icu on support cxr noted cont respiratory support CT noted ant abd wall phlegmon. hard and no fluctuance. nothing to drain at this time. packing and dressings to prior g tube site bka with erythema distal as bone pushing Rowdy Arce Nov 27, 2020 15:29
--- NOTE | 2020-11-27 16:50 | NUR ---
NURSE NOTES: Pt transferred to Tele. Report given to YUMIKO Curran. Pt remains stable.
--- NOTE | 2020-11-27 18:00 | NUR ---
received patient from icu, vss no distress noted will monitor
--- NOTE | 2020-11-27 19:30 | NUR ---
NURSE NOTES: received patient in bed resting, no signs of distress noted. assessment initiated. on cont IV fluid. NG tube in place. condom cath on. reposition. bed in low position. bed alarm on. will continue to monitor frequently.
--- NOTE | 2020-11-27 21:33 | General Progress Note ---
Subjective ROS Limited/Unobtainable: Yes Allergies: Coded Allergies: No Known Allergies (Unverified , 11/22/20) Objective Last 24 Hour Vital Signs Date Time Temp Pulse Resp B/P (MAP) Pulse Ox O2 Delivery O2 Flow Rate FiO2 11/27/20 21:15 102 134/88 11/27/20 20:00 Nasal Cannula 2.0 11/27/20 20:00 102 11/27/20 20:00 98.2 100 20 134/88 (103) 97 11/27/20 17:00 98 16 122/63 (82) 100 11/27/20 16:00 97 11/27/20 16:00 Nasal Cannula 2.0 11/27/20 16:00 98.1 96 20 113/73 (86) 98 11/27/20 15:00 93 16 116/72 (87) 100 11/27/20 14:00 98.4 96 15 133/69 (90) 100 11/27/20 13:00 93 18 101/68 (79) 100 11/27/20 12:00 99 11/27/20 12:00 Nasal Cannula 2.0 11/27/20 12:00 98 16 122/67 (85) 100 11/27/20 11:00 101 20 135/68 (90) 99 11/27/20 10:00 101 22 130/75 (93) 100 11/27/20 09:10 90 130/53 11/27/20 09:00 95 17 150/78 (102) 100 11/27/20 08:00 89 11/27/20 08:00 Nasal Cannula 2.0 11/27/20 08:00 98.0 90 17 130/53 (78) 100 11/27/20 07:00 89 24 105/64 (78) 100 11/27/20 05:00 77 18 151/70 (97) 99 11/27/20 04:00 80 21 98/51 (67) 98 11/27/20 04:00 Nasal Cannula 4.0 11/27/20 04:00 77 11/27/20 03:00 79 19 146/64 (91) 97 11/27/20 02:00 83 20 136/64 (88) 98 11/27/20 01:00 87 20 147/70 (95) 100 11/27/20 00:00 88 11/27/20 00:00 88 19 151/85 (107) 98 11/27/20 00:00 Nasal Cannula 4.0 11/26/20 23:00 93 17 133/77 (95) 100 11/26/20 22:00 92 18 109/64 (79) 98 Intake and Output 11/26/20 11/27/20 19:00 07:00 Intake Total 260 ml 27.5 ml Output Total 601 ml Balance -341 ml 27.5 ml Free Water 200 ml IV Total 27.5 ml Other 60 ml Output Urine Total 600 ml Stool Total 1 ml # Bowel Movements 3 3 Laboratory Tests 11/27/20 05:10: White Blood Count 18.1H, Red Blood Count 3.32L, Hemoglobin 9.5L, Hematocrit 31.5L, Mean Corpuscular Volume 95, Mean Corpuscular Hemoglobin 28.7, Mean Corpuscular Hemoglobin Concent 30.2L, Red Cell Distribution Width 17.3H, Platelet Count 548H, Mean Platelet Volume 5.8L, Neutrophils (%) (Auto) , Lymphocytes (%) (Auto) , Monocytes (%) (Auto) , Eosinophils (%) (Auto) , Basophils (%) (Auto) , Differential Total Cells Counted 100, Neutrophils % (Manual) 81H, Lymphocytes % (Manual) 14L, Monocytes % (Manual) 5, Eosinophils % (Manual) 0, Basophils % (Manual) 0, Band Neutrophils 0, Platelet Estimate IncreasedH, Platelet Morphology Normal, Hypochromasia 1+, Anisocytosis 1+, Sodium Level 145, Potassium Level 3.0L, Chloride Level 109H, Carbon Dioxide Level 24, Anion Gap 12, Blood Urea Nitrogen 7, Creatinine 0.4L, Estimat Glomerular Filtration Rate > 60, Glucose Level 71L, Calcium Level 8.7, Phosphorus Level 3.0, Magnesium Level 1.6L, Total Bilirubin 0.3, Aspartate Amino Transf (AST/SGOT) 20, Alanine Aminotransferase (ALT/SGPT) 22, Alkaline Phosphatase 96, Total Protein 6.1L, Albumin 1.7L, Globulin 4.4, Albumin/Globulin Ratio 0.4L Height (Feet): 5 Height (Inches): 6.00 Weight (Pounds): 140 Assessment/Plan Problem List: (1) Cerebral palsy ICD Codes: G80.9 - Cerebral palsy, unspecified SNOMED: 230075552 (2) Sepsis ICD Codes: A41.9 - Sepsis, unspecified organism SNOMED: 01967302 Status: progressing Assessment/Plan: hypokalemia is improving.treatment per dr osorio persistent leukocytosis is improving anemia poor prognosis sepsis uti r/o abdominal abscess peg is out malnutrition supportive care contracture Samantha Blackwood MD Nov 27, 2020 21:33
--- NOTE | 2020-11-27 22:32 | General Progress Note ---
Subjective Allergies: Coded Allergies: No Known Allergies (Unverified , 11/22/20) Subjective Seen early am in ICU examined with RN at bedside (+) purulent d/c from abandoned GT site (+) NGT Objective Last 24 Hour Vital Signs Date Time Temp Pulse Resp B/P (MAP) Pulse Ox O2 Delivery O2 Flow Rate FiO2 11/27/20 21:15 102 134/88 11/27/20 20:00 Nasal Cannula 2.0 11/27/20 20:00 102 11/27/20 20:00 98.2 100 20 134/88 (103) 97 11/27/20 17:00 98 16 122/63 (82) 100 11/27/20 16:00 97 11/27/20 16:00 Nasal Cannula 2.0 11/27/20 16:00 98.1 96 20 113/73 (86) 98 11/27/20 15:00 93 16 116/72 (87) 100 11/27/20 14:00 98.4 96 15 133/69 (90) 100 11/27/20 13:00 93 18 101/68 (79) 100 11/27/20 12:00 99 11/27/20 12:00 Nasal Cannula 2.0 11/27/20 12:00 98 16 122/67 (85) 100 11/27/20 11:00 101 20 135/68 (90) 99 11/27/20 10:00 101 22 130/75 (93) 100 11/27/20 09:10 90 130/53 11/27/20 09:00 95 17 150/78 (102) 100 11/27/20 08:00 89 11/27/20 08:00 Nasal Cannula 2.0 11/27/20 08:00 98.0 90 17 130/53 (78) 100 11/27/20 07:00 89 24 105/64 (78) 100 11/27/20 05:00 77 18 151/70 (97) 99 11/27/20 04:00 80 21 98/51 (67) 98 11/27/20 04:00 Nasal Cannula 4.0 11/27/20 04:00 77 11/27/20 03:00 79 19 146/64 (91) 97 11/27/20 02:00 83 20 136/64 (88) 98 11/27/20 01:00 87 20 147/70 (95) 100 11/27/20 00:00 88 11/27/20 00:00 88 19 151/85 (107) 98 11/27/20 00:00 Nasal Cannula 4.0 11/26/20 23:00 93 17 133/77 (95) 100 Intake and Output 11/26/20 11/27/20 19:00 07:00 Intake Total 260 ml 27.5 ml Output Total 601 ml Balance -341 ml 27.5 ml Free Water 200 ml IV Total 27.5 ml Other 60 ml Output Urine Total 600 ml Stool Total 1 ml # Bowel Movements 3 3 Laboratory Tests 11/27/20 05:10: White Blood Count 18.1H, Red Blood Count 3.32L, Hemoglobin 9.5L, Hematocrit 31.5L, Mean Corpuscular Volume 95, Mean Corpuscular Hemoglobin 28.7, Mean Corpuscular Hemoglobin Concent 30.2L, Red Cell Distribution Width 17.3H, Platelet Count 548H, Mean Platelet Volume 5.8L, Neutrophils (%) (Auto) , Lymphocytes (%) (Auto) , Monocytes (%) (Auto) , Eosinophils (%) (Auto) , Basop hils (%) (Auto) , Differential Total Cells Counted 100, Neutrophils % (Manual) 81H, Lymphocytes % (Manual) 14L, Monocytes % (Manual) 5, Eosinophils % (Manual) 0, Basophils % (Manual) 0, Band Neutrophils 0, Platelet Estimate IncreasedH, Platelet Morphology Normal, Hypochromasia 1+, Anisocytosis 1+, Sodium Level 145, Potassium Level 3.0L, Chloride Level 109H, Carbon Dioxide Level 24, Anion Gap 12, Blood Urea Nitrogen 7, Creatinine 0.4L, Estimat Glomerular Filtration Rate > 60, Glucose Level 71L, Calcium Level 8.7, Phosphorus Level 3.0, Magnesium Level 1.6L, Total Bilirubin 0.3, Aspartate Amino Transf (AST/SGOT) 20, Alanine Aminotransferase (ALT/SGPT) 22, Alkaline Phosphatase 96, Total Protein 6.1L, Albumin 1.7L, Globulin 4.4, Albumin/Globulin Ratio 0.4L Height (Feet): 5 Height (Inches): 6.00 Weight (Pounds): 140 Objective Debilitaed man NCAT coarse BS RR abd (+) indurated subxiphoid area, (+) purulent d/c (+) contracted OBS Assessment/Plan Status: progressing Assessment/Plan: Assessment - GT migration into anterior abd wall - removed - abdominal pain, induration - r/o abscess in evolution - respiratory distress - resolved - cerebral palsy - contractures - decubitus ulcers - (L) BKA Recommendations - broad spect abx - Restart TF, slowly - pulmonary f/u - NGT for meds - needs new GT at later date - IVF Nacho Mcelroy MD Nov 27, 2020 22:32
[2020-11-28] VITALS: BP 121/74
[2020-11-28] MEDS: D5 1/2NS 1,000 ML IV SCH ×2 (03:13→17:52)
[2020-11-28 04:00] VITALS: BP 119/67
[2020-11-28 05:54] LABS: BASOPHILS % (AUTO) 0.4 % (0.0-2.0); EOSINOPHILS % (AUTO) 1.7 % (0.0-3.0); HEMOGLOBIN 9.3 G/DL (14.2-18.0); LYMPHOCYTES % (AUTO) 9.9 % (20.0-45.0); MEAN CORPUSCULAR VOLUME 93 FL (80-99); MONOCYTES % (AUTO) 6.2 % (1.0-10.0); NEUTROPHILS % (AUTO) 81.7 % (45.0-75.0); PLATELET COUNT 564 K/UL (150-450); RED BLOOD COUNT 3.23 M/UL (4.70-6.10); RED CELL DISTRIBUTION WIDTH 16.5 % (11.6-14.8); WHITE BLOOD COUNT 15.5 K/UL (4.8-10.8)
[2020-11-28 06:15] LABS: ALANINE AMINOTRANSFERASE 17 U/L (12-78); ALBUMIN 1.5 G/DL (3.4-5.0); ALBUMIN/GLOBULIN RATIO 0.4 (1.0-2.7); ALKALINE PHOSPHATASE 93 U/L (46-116); ANION GAP 10 mmol/L (5-15); ASPARTATE AMINO TRANSFERASE 16 U/L (15-37); BILIRUBIN,TOTAL 0.3 MG/DL (0.2-1.0); BLOOD UREA NITROGEN 3 mg/dL (7-18); CALCIUM 7.7 MG/DL (8.5-10.1); CARBON DIOXIDE 26 MMOL/L (21-32); CHLORIDE 107 MMOL/L (98-107); CREATININE 0.4 MG/DL (0.55-1.30); PHOSPHORUS 2.6 MG/DL (2.5-4.9); SODIUM 142 MMOL/L (136-145)
[2020-11-28 06:19] LABS: POTASSIUM 2.3 MMOL/L (3.5-5.1)
[2020-11-28] MEDS: Piperacillin/Tazobactam 3.375 GM in NS 110 ML IVPB SCH ×3 (06:34→20:11)
--- NOTE | 2020-11-28 06:50 | NUR ---
NURSE NOTES: potassium level 2.3. send message to MD for orders. awaiting call back.
--- NOTE | 2020-11-28 07:32 | NUR ---
NURSE HAND-OFF REPORT: Important Events on Shift: patient resting in bed comfortable with no signs of distress noted. repositioned. complete bath . patient had a large bm loose. condom cath on empty 800ml. potassium low inform day RN to send message to physician to inform with verbal understanding, also to start cont tube feeding per order.. bed alarm on. bed in low position. Patient Status: full Diet: NPO Pending Orders: Pending Results/Labs: Pending MD notification: Latest Vital Signs: Temperature 98.1 , Pulse 90 , B/P 119 /67 , Respiratory Rate 20 , O2 SAT 96 , Nasal Cannula, O2 Flow Rate 2.0 . Vital Sign Comment: EKG Rhythm: Sinus Rhythm Rhythm change?: N MD Notified?: Josef Em MD Response: Latest Hoyt Fall Score: 70 Fall Risk: High Risk Safety Measures: Call light Within Reach, Bed Alarm Zone 1, Side Rails Side Rails x3, Bed position Low and Locked. Fall Precautions: Yellow Socks Yellow Gown Door Sign Patient Fall Education Report given to Bina CALDERON.
[2020-11-28 08:00] VITALS: BP 141/74
--- NOTE | 2020-11-28 08:32 | NUR ---
change in assignment- report given to margie dyer rn
[2020-11-28] MEDS: levETIRAcetam 500mg/NS100ml 100 ML IVPB SCH (09:02)
[2020-11-28] MEDS: Enoxaparin 60mg Inj SUBQ SCH ×2 (09:04→20:10)
--- NOTE | 2020-11-28 09:23 | Pulmonology Progress Note ---
Subjective ROS Limited/Unobtainable: Yes Interval Events: seen in ICU Constitutional: Denies: fever HEENT: Repors: no symptoms Respiratory: Reports: no symptoms Cardiovascular: Reports: no symptoms Gastrointestinal/Abdominal: Reports: constipation Genitourinary: Reports: no symptoms Allergies: Coded Allergies: No Known Allergies (Unverified , 11/22/20) Objective Last 24 Hour Vital Signs Date Time Temp Pulse Resp B/P (MAP) Pulse Ox O2 Delivery O2 Flow Rate FiO2 11/28/20 09:02 94 141/74 11/28/20 08:00 97.7 94 20 141/74 (96) 97 11/28/20 04:00 98.1 90 20 119/67 (84) 96 11/28/20 04:00 90 11/28/20 04:00 Nasal Cannula 2.0 11/28/20 00:00 79 11/28/20 00:00 Nasal Cannula 2.0 11/28/20 00:00 98.2 86 20 121/74 (90) 98 11/27/20 21:15 102 134/88 11/27/20 20:00 Nasal Cannula 2.0 11/27/20 20:00 102 11/27/20 20:00 98.2 100 20 134/88 (103) 97 11/27/20 17:00 98 16 122/63 (82) 100 11/27/20 16:00 97 11/27/20 16:00 Nasal Cannula 2.0 11/27/20 16:00 98.1 96 20 113/73 (86) 98 11/27/20 15:00 93 16 116/72 (87) 100 11/27/20 14:00 98.4 96 15 133/69 (90) 100 11/27/20 13:00 93 18 101/68 (79) 100 11/27/20 12:00 99 11/27/20 12:00 Nasal Cannula 2.0 11/27/20 12:00 98 16 122/67 (85) 100 11/27/20 11:00 101 20 135/68 (90) 99 11/27/20 10:00 101 22 130/75 (93) 100 Intake and Output 11/27/20 11/28/20 19:00 07:00 Intake Total 863.75 ml 100 ml Balance 863.75 ml 100 ml Free Water 100 ml 100 ml IV Total 763.75 ml # Bowel Movements 1 3 General Appearance: no acute distress HEENT: normocephalic, atraumatic, anicteric Respiratory: lungs clear Cardiovascular: normal rate, regular rhythm Extremities: no edema, other - contracture noted Microbiology Date/Time Source Procedure Growth Status 11/27/20 12:25 Abdomen Gram Stain - Final Resulted 11/27/20 12:25 Abdomen Wound Culture - Preliminary NO GROWTH Resulted Laboratory Tests 11/28/20 05:05: White Blood Count 15.5H, Red Blood Count 3.23L, Hemoglobin 9.3L, Hematocrit 30.0L, Mean Corpuscular Volume 93, Mean Corpuscular Hemoglobin 28.8, Mean Corpuscular Hemoglobin Concent 31.1L, Red Cell Distribution Width 16.5H, Platelet Count 564H, Mean Platelet Volume 5.6L, Neutrophils (%) (Auto) 81.7H, Lymphocytes (%) (Auto) 9.9L, Monocytes (%) (Auto) 6.2, Eosinophils (%) (Auto) 1.7, Basophils (%) (Auto) 0.4, Sodium Level 142, Potassium Level 2.3*L, Chloride Level 107, Carbon Dioxide Level 26, Anion Gap 10, Blood Urea Nitrogen 3L, Creatinine 0.4L, Estimat Glomerular Filtration Rate > 60, Glucose Level 120H, Calcium Level 7.7L, Phosphorus Level 2.6, Magnesium Level 1.8, Total Bilirubin 0.3, Aspartate Amino Transf (AST/SGOT) 16, Alanine Aminotransferase (ALT/SGPT) 17, Alkaline Phosphatase 93, C-Reactive Protein, Quantitative 12.4H, Pro-B-Type Natriuretic Peptide 555H, Total Protein 5.7L, Albumin 1.5L, Globulin 4.2, Albumin/Globulin Ratio 0.4L Current Medications Medications (Trade) Dose Ordered Sig/Venecia Route PRN Reason Start Time Stop Time Status Last Admin Dose Admin Acetaminophen (Tylenol) 650 mg Q4H PRN GT Temp >100.5 11/22/20 16:30 12/22/20 15:59 11/24/20 11:35 Acetaminophen (Tylenol) 650 mg Q4H PRN GT For Pain 11/22/20 16:30 12/22/20 16:29 Albuterol Sulfate (Proventil) 2.5 mg Q4H PRN HHN Shortness of Breath 11/23/20 10:15 11/28/20 10:14 Amlodipine Besylate (Norvasc) 5 mg EVERY 12 HOURS ORAL 11/25/20 21:00 12/25/20 20:59 11/28/20 09:02 Clonidine HCl (Catapres Tab) 0.1 mg Q4H PRN ORAL sbp>170 11/25/20 14:45 02/23/21 14:44 Dextrose/Sodium Chloride 1,000 ml @ 60 mls/hr [id number] IV 11/27/20 09:30 12/27/20 09:29 11/28/20 03:13 Enalaprilat (Vasotec) 2.5 mg Q4H PRN IV For blood pressure over 160 sy 11/23/20 11:30 12/23/20 11:29 11/25/20 14:45 Enoxaparin Sodium (Lovenox) 60 mg EVERY 12 HOURS SUBQ 11/25/20 21:00 02/23/21 20:59 11/28/20 09:04 Famotidine (Pepcid I.v.) 20 mg Q12HR IVP 11/24/20 21:00 12/24/20 20:59 11/28/20 09:02 Hydromorphone HCl (Dilaudid) 0.5 mg Q2H PRN IVP For Pain 11/23/20 09:45 11/30/20 09:44 11/23/20 09:57 Levetiracetam 100 ml @ 400 mls/hr Q12HR IVPB 11/23/20 21:00 02/21/21 20:59 11/28/20 09:02 Piperacillin Sod/ Tazobactam Sod 3.375 gm/Sodium Chloride 110 ml @ 27.5 mls/hr EVERY 8 HOURS IVPB 11/24/20 14:00 11/30/20 13:59 11/28/20 06:34 Potassium Chloride 60 meq/ Sodium Chloride 530 ml @ 88.333 mls/ hr ONCE ONCE IVPB 11/28/20 10:00 11/28/20 15:59 Spironolactone (Aldactone) 25 mg EVERY 12 HOURS GT 11/28/20 09:15 12/28/20 09:14 Assessment/Plan Assessment/Plan 1. Respiratory distress -Continue NRBM; wean as tolerated - Needs frequent suctioning and hygiene 2. Right basilar atelectasis -Continue pulmonary hygiene 3. Sepsis - On Abx - WBC downtrending 4. DVT ppx -Will start subcu heparin - has DVT on amputated leg; due to venous ligation THIS PROGRESS NOTE IS FOR 11/27/20 ENTERED AT A LATER DATE DUE TO TECHNICAL DIFFICULTIES The care of this patient was discussed with my supervising physician Time spent for this encounter was approximately 31 minutes Richi Boo Nov 28, 2020 09:23
--- NOTE | 2020-11-28 09:39 | Nephrology Progress Note ---
Assessment/Plan Problem List: (1) Dehydration (2) Electrolyte imbalance (3) Sepsis (4) Anemia (5) HTN (hypertension) (6) Seizure disorder Assessment 75-year-old male Patient presented with low serum sodium 134 however it is now corrected Blood pressure remains high Left [id number] amputation Sepsis, tachycardia Anemia Encephalopathy acute Seizure disorder Nonfunctioning GT tube, migrated to abdominal wall from gastric cavity. It is now removed Plan November 28: Patient now on monitor bed. Labs reviewed. Serum potassium again low. KCl IV ordered. Aldactone through GT ordered. Continue per consultants. November 27: Seen in ICU. Low magnesium and low potassium addressed. Discussed with RN. Continue per consultants. November 26: Patient remains in ICU. Not in any distress. Labs reviewed. Potassium 2.6, replacement ordered. Medication list reviewed. Discussed with RN. Clinically improved. November 25: Patient in ICU. On nonrebreather mask. Labs reviewed. Leukocytosis. Renal parameters stable. Low serum potassium addressed. Discussed with RN. Continue per consultants. Patient is full code. November 24: Labs reviewed. Low potassium addressed. Venofer 200 mg 1 dose IV ordered. Continue per consultants. On tube feeding now. Will stop IV fluids. Patient is n.p.o. per GI Change IV to D5 normal saline Intravenous Vasotec as needed for high blood pressure Monitor renal parameters and electrolytes Anemia work-up Urine analysis and culture Antibiotics Per orders Subjective ROS Limited/Unobtainable: Yes Objective Objective Last 24 Hour Vital Signs Date Time Temp Pulse Resp B/P (MAP) Pulse Ox O2 Delivery O2 Flow Rate FiO2 11/28/20 09:02 94 141/74 11/28/20 08:00 97.7 94 20 141/74 (96) 97 11/28/20 04:00 98.1 90 20 119/67 (84) 96 11/28/20 04:00 90 11/28/20 04:00 Nasal Cannula 2.0 11/28/20 00:00 79 11/28/20 00:00 Nasal Cannula 2.0 11/28/20 00:00 98.2 86 20 121/74 (90) 98 11/27/20 21:15 102 134/88 11/27/20 20:00 Nasal Cannula 2.0 11/27/20 20:00 102 11/27/20 20:00 98.2 100 20 134/88 (103) 97 11/27/20 17:00 98 16 122/63 (82) 100 11/27/20 16:00 97 11/27/20 16:00 Nasal Cannula 2.0 11/27/20 16:00 98.1 96 20 113/73 (86) 98 11/27/20 15:00 93 16 116/72 (87) 100 11/27/20 14:00 98.4 96 15 133/69 (90) 100 11/27/20 13:00 93 18 101/68 (79) 100 11/27/20 12:00 99 11/27/20 12:00 Nasal Cannula 2.0 11/27/20 12:00 98 16 122/67 (85) 100 11/27/20 11:00 101 20 135/68 (90) 99 11/27/20 10:00 101 22 130/75 (93) 100 Intake and Output 11/27/20 11/28/20 19:00 07:00 Intake Total 863.75 ml 100 ml Balance 863.75 ml 100 ml Free Water 100 ml 100 ml IV Total 763.75 ml # Bowel Movements 1 3 Current Medications Medications (Trade) Dose Ordered Sig/Venecia Route PRN Reason Start Time Stop Time Status Last Admin Dose Admin Acetaminophen (Tylenol) 650 mg Q4H PRN GT Temp >100.5 11/22/20 16:30 12/22/20 15:59 11/24/20 11:35 Acetaminophen (Tylenol) 650 mg Q4H PRN GT For Pain 11/22/20 16:30 12/22/20 16:29 Albuterol Sulfate (Proventil) 2.5 mg Q4H PRN HHN Shortness of Breath 11/23/20 10:15 11/28/20 10:14 Amlodipine Besylate (Norvasc) 5 mg EVERY 12 HOURS ORAL 11/25/20 21:00 12/25/20 20:59 11/28/20 09:02 Clonidine HCl (Catapres Tab) 0.1 mg Q4H PRN ORAL sbp>170 11/25/20 14:45 02/23/21 14:44 Dextrose/Sodium Chloride 1,000 ml @ 60 mls/hr [id number] IV 11/27/20 09:30 12/27/20 09:29 11/28/20 03:13 Enalaprilat (Vasotec) 2.5 mg Q4H PRN IV For blood pressure over 160 sy 11/23/20 11:30 12/23/20 11:29 11/25/20 14:45 Enoxaparin Sodium (Lovenox) 60 mg EVERY 12 HOURS SUBQ 11/25/20 21:00 02/23/21 20:59 11/28/20 09:04 Famotidine (Pepcid I.v.) 20 mg Q12HR IVP 11/24/20 21:00 12/24/20 20:59 11/28/20 09:02 Hydromorphone HCl (Dilaudid) 0.5 mg Q2H PRN IVP For Pain 11/23/20 09:45 11/30/20 09:44 11/23/20 09:57 Levetiracetam 100 ml @ 400 mls/hr Q12HR IVPB 11/23/20 21:00 02/21/21 20:59 11/28/20 09:02 Piperacillin Sod/ Tazobactam Sod 3.375 gm/Sodium Chloride 110 ml @ 27.5 mls/hr EVERY 8 HOURS IVPB 11/24/20 14:00 11/30/20 13:59 11/28/20 06:34 Potassium Chloride 60 meq/ Sodium Chloride 530 ml @ 88.333 mls/ hr ONCE ONCE IVPB 11/28/20 10:00 11/28/20 15:59 Spironolactone (Aldactone) 25 mg EVERY 12 HOURS GT 11/28/20 09:15 12/28/20 09:14 Laboratory Tests 11/28/20 05:05: White Blood Count 15.5H, Red Blood Count 3.23L, Hemoglobin 9.3L, Hematocrit 30.0L, Mean Corpuscular Volume 93, Mean Corpuscular Hemoglobin 28.8, Mean Corpuscular Hemoglobin Concent 31.1L, Red Cell Distribution Width 16.5H, Platelet Count 564H, Mean Platelet Volume 5.6L, Neutrophils (%) (Auto) 81.7H, Lymphocytes (%) (Auto) 9.9L, Monocytes (%) (Auto) 6.2, Eosinophils (%) (Auto) 1.7, Basophils (%) (Auto) 0.4, Sodium Level 142, Potassium Level 2.3*L, Chloride Level 107, Carbon Dioxide Level 26, Anion Gap 10, Blood Urea Nitrogen 3L, Creatinine 0.4L, Estimat Glomerular Filtration Rate > 60, Glucose Level 120H, Calcium Level 7.7L, Phosphorus Level 2.6, Magnesium Level 1.8, Total Bilirubin 0.3, Aspartate Amino Transf (AST/SGOT) 16, Alanine Aminotransferase (ALT/SGPT) 17, Alkaline Phosphatase 93, C-Reactive Protein, Quantitative 12.4H, Pro-B-Type Natriuretic Peptide 555H, Total Protein 5.7L, Albumin 1.5L, Globulin 4.2, Albumin/Globulin Ratio 0.4L Height (Feet): 5 Height (Inches): 6.00 Weight (Pounds): 140 General Appearance: no apparent distress, lethargic Neck: limited range of motion Cardiovascular: tachycardia Respiratory/Chest: decreased breath sounds Abdomen: distended Lenny Veliz MD Nov 28, 2020 09:39
[2020-11-28] MEDS: Spironolactone 25mg tab GT SCH ×2 (09:40→20:08)
--- NOTE | 2020-11-28 09:53 | Cardiac Electrophysiology PN ---
Assessment/Plan Assessment/Plan 1. Sinus Tachycardia due to sepsis in this patient with white count of 23,000 on IV antibiotics. 2. S/P gastrostomy tube migration. Now is removed and has NGT. S/P CT scan of the abdomen and pelvis to rule out abscess formation. FU GI and surgery NGT feeding started today 3. Sepsis of unclear source. 4. 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 BNP of 724. Echocardiogram EF 65% 5. Status post left above-knee amputation. 6. Anemia. 7. Mental retardation. 8. Left thigh DVT on Lovenox 60 bid 9. Accelerated HTN. Better on Norvasc 5 bid, Aldactone 25 bid and prn Clonidine 10. Hypernatremia. Resolved on D51/2 NS at 50 cc / hr 11. Persistent hypokalemia. Replaced again today. Also on Aldactone 25 po bid DW RN Subjective Subjective PEG was removed as it was misplaced. Has NGT On anticoagulation for DVT in the LLE stump S/P STEREO COMPILER for respiratory failure. Now on 2 liter NC Transferred out of ICU K was 2.3 today and got 60 meq iv KCL by Dr Veliz Objective Last 24 Hour Vital Signs Date Time Temp Pulse Resp B/P (MAP) Pulse Ox O2 Delivery O2 Flow Rate FiO2 11/28/20 09:02 94 141/74 11/28/20 08:00 97.7 94 20 141/74 (96) 97 11/28/20 04:00 98.1 90 20 119/67 (84) 96 11/28/20 04:00 90 11/28/20 04:00 Nasal Cannula 2.0 11/28/20 00:00 79 11/28/20 00:00 Nasal Cannula 2.0 11/28/20 00:00 98.2 86 20 121/74 (90) 98 11/27/20 21:15 102 134/88 11/27/20 20:00 Nasal Cannula 2.0 11/27/20 20:00 102 11/27/20 20:00 98.2 100 20 134/88 (103) 97 11/27/20 17:00 98 16 122/63 (82) 100 11/27/20 16:00 97 11/27/20 16:00 Nasal Cannula 2.0 11/27/20 16:00 98.1 96 20 113/73 (86) 98 11/27/20 15:00 93 16 116/72 (87) 100 11/27/20 14:00 98.4 96 15 133/69 (90) 100 11/27/20 13:00 93 18 101/68 (79) 100 11/27/20 12:00 99 11/27/20 12:00 Nasal Cannula 2.0 11/27/20 12:00 98 16 122/67 (85) 100 11/27/20 11:00 101 20 135/68 (90) 99 11/27/20 10:00 101 22 130/75 (93) 100 Intake and Output 11/27/20 11/28/20 19:00 07:00 Intake Total 863.75 ml 100 ml Balance 863.75 ml 100 ml Free Water 100 ml 100 ml IV Total 763.75 ml # Bowel Movements 1 3 Laboratory Tests Test 11/28/20 05:05 White Blood Count 15.5 K/UL (4.8-10.8) H Red Blood Count 3.23 M/UL (4.70-6.10) L Hemoglobin 9.3 G/DL (14.2-18.0) L Hematocrit 30.0 % (42.0-52.0) L Mean Corpuscular Volume 93 FL (80-99) Mean Corpuscular Hemoglobin 28.8 PG (27.0-31.0) Mean Corpuscular Hemoglobin Concent 31.1 G/DL (32.0-36.0) L Red Cell Distribution Width 16.5 % (11.6-14.8) H Platelet Count 564 K/UL (150-450) H Mean Platelet Volume 5.6 FL (6.5-10.1) L Neutrophils (%) (Auto) 81.7 % (45.0-75.0) H Lymphocytes (%) (Auto) 9.9 % (20.0-45.0) L Monocytes (%) (Auto) 6.2 % (1.0-10.0) Eosinophils (%) (Auto) 1.7 % (0.0-3.0) Basophils (%) (Auto) 0.4 % (0.0-2.0) Sodium Level 142 MMOL/L (136-145) Potassium Level 2.3 MMOL/L (3.5-5.1) *L Chloride Level 107 MMOL/L (98-107) Carbon Dioxide Level 26 MMOL/L (21-32) Anion Gap 10 mmol/L (5-15) Blood Urea Nitrogen 3 mg/dL (7-18) L Creatinine 0.4 MG/DL (0.55-1.30) L Estimat Glomerular Filtration Rate > 60 mL/min (>60) Glucose Level 120 MG/DL (74-106) H Calcium Level 7.7 MG/DL (8.5-10.1) L Phosphorus Level 2.6 MG/DL (2.5-4.9) Magnesium Level 1.8 MG/DL (1.8-2.4) Total Bilirubin 0.3 MG/DL (0.2-1.0) Aspartate Amino Transf (AST/SGOT) 16 U/L (15-37) Alanine Aminotransferase (ALT/SGPT) 17 U/L (12-78) Alkaline Phosphatase 93 U/L (46-116) C-Reactive Protein, Quantitative 12.4 mg/dL (0.00-0.90) H Pro-B-Type Natriuretic Peptide 555 pg/mL (0-125) H Total Protein 5.7 G/DL (6.4-8.2) L Albumin 1.5 G/DL (3.4-5.0) L Globulin 4.2 g/dL Albumin/Globulin Ratio 0.4 (1.0-2.7) L Microbiology Date/Time Source Procedure Growth Status 11/27/20 12:25 Abdomen Gram Stain - Final Resulted 11/27/20 12:25 Abdomen Wound Culture - Preliminary NO GROWTH Resulted Objective HEAD AND NECK: No JVD.NGT in place LUNGS: Decreased breath sounds. CARDIOVASCULAR: Regular S1 and S2 with no gallop. ABDOMEN: Soft. EXTREMITIES: Contracted with left above-knee amputation. Phoenix Amador MD Nov 28, 2020 09:53
[2020-11-28] MEDS ORDERED: SODIUM CHLORIDE IVPB ONE (10:00)
[2020-11-28] MEDS ORDERED: POTASSIUM CHLORIDE IVPB ONE (10:00)
--- NOTE | 2020-11-28 10:27 | Surgery Progress Note ---
Surgery Progress Note Subjective Symptoms: improved, tolerating diet, passing flatus Additional Comments ng tube tolerating tube feeds ? peg labs noted exam stable Objective Last 24 Hour Vital Signs Date Time Temp Pulse Resp B/P (MAP) Pulse Ox O2 Delivery O2 Flow Rate FiO2 11/28/20 09:02 94 141/74 11/28/20 08:00 97.7 94 20 141/74 (96) 97 11/28/20 04:00 98.1 90 20 119/67 (84) 96 11/28/20 04:00 90 11/28/20 04:00 Nasal Cannula 2.0 11/28/20 00:00 79 11/28/20 00:00 Nasal Cannula 2.0 11/28/20 00:00 98.2 86 20 121/74 (90) 98 11/27/20 21:15 102 134/88 11/27/20 20:00 Nasal Cannula 2.0 11/27/20 20:00 102 11/27/20 20:00 98.2 100 20 134/88 (103) 97 11/27/20 17:00 98 16 122/63 (82) 100 11/27/20 16:00 97 11/27/20 16:00 Nasal Cannula 2.0 11/27/20 16:00 98.1 96 20 113/73 (86) 98 11/27/20 15:00 93 16 116/72 (87) 100 11/27/20 14:00 98.4 96 15 133/69 (90) 100 11/27/20 13:00 93 18 101/68 (79) 100 11/27/20 12:00 99 11/27/20 12:00 Nasal Cannula 2.0 11/27/20 12:00 98 16 122/67 (85) 100 11/27/20 11:00 101 20 135/68 (90) 99 I&O Intake and Output 11/27/20 11/28/20 19:00 07:00 Intake Total 863.75 ml 100 ml Balance 863.75 ml 100 ml Free Water 100 ml 100 ml IV Total 763.75 ml # Bowel Movements 1 3 Dressing: saturated Cardiovascular: RSR Respiratory: decreased breath sounds Abdomen: non-tender, present bowel sounds, non-distended Extremities: no tenderness, no cyanosis Laboratory Tests Test 11/28/20 05:05 White Blood Count 15.5 K/UL (4.8-10.8) H Red Blood Count 3.23 M/UL (4.70-6.10) L Hemoglobin 9.3 G/DL (14.2-18.0) L Hematocrit 30.0 % (42.0-52.0) L Mean Corpuscular Volume 93 FL (80-99) Mean Corpuscular Hemoglobin 28.8 PG (27.0-31.0) Mean Corpuscular Hemoglobin Concent 31.1 G/DL (32.0-36.0) L Red Cell Distribution Width 16.5 % (11.6-14.8) H Platelet Count 564 K/UL (150-450) H Mean Platelet Volume 5.6 FL (6.5-10.1) L Neutrophils (%) (Auto) 81.7 % (45.0-75.0) H Lymphocytes (%) (Auto) 9.9 % (20.0-45.0) L Monocytes (%) (Auto) 6.2 % (1.0-10.0) Eosinophils (%) (Auto) 1.7 % (0.0-3.0) Basophils (%) (Auto) 0.4 % (0.0-2.0) Sodium Level 142 MMOL/L (136-145) Potassium Level 2.3 MMOL/L (3.5-5.1) *L Chloride Level 107 MMOL/L (98-107) Carbon Dioxide Level 26 MMOL/L (21-32) Anion Gap 10 mmol/L (5-15) Blood Urea Nitrogen 3 mg/dL (7-18) L Creatinine 0.4 MG/DL (0.55-1.30) L Estimat Glomerular Filtration Rate > 60 mL/min (>60) Glucose Level 120 MG/DL (74-106) H Calcium Level 7.7 MG/DL (8.5-10.1) L Phosphorus Level 2.6 MG/DL (2.5-4.9) Magnesium Level 1.8 MG/DL (1.8-2.4) Total Bilirubin 0.3 MG/DL (0.2-1.0) Aspartate Amino Transf (AST/SGOT) 16 U/L (15-37) Alanine Aminotransferase (ALT/SGPT) 17 U/L (12-78) Alkaline Phosphatase 93 U/L (46-116) C-Reactive Protein, Quantitative 12.4 mg/dL (0.00-0.90) H Pro-B-Type Natriuretic Peptide 555 pg/mL (0-125) H Total Protein 5.7 G/DL (6.4-8.2) L Albumin 1.5 G/DL (3.4-5.0) L Globulin 4.2 g/dL Albumin/Globulin Ratio 0.4 (1.0-2.7) L Plan Problems: (1) Cerebral palsy (2) Sepsis Assessment & Plan: Pt presented on admission with CP, L AKA,Multiple Pressure Injuries, Wound dorsal L hand. Macular red rash L Flank. Full thickness wound dorsal L hand(L)2.4cm x (W)1.9cm. Loose necrotic cap which was easily removed from wound bed. Base of wound is 95% fibrinous slough with marginal erythema along borders. Small amt sanguineous exudate noted. No erythema or elevation in skin temp periwound. Incontinence Associated dermatitis R and L groin and scrotum. Affected areas are erythematous and macerated. Full Thickness Pressure Injury Upper L buttocks(L)4.8cm x (W)6.4cmBase of wound is 25% necrotic ,75% lida. Edges are adherent to base of wound. Surrounding non-blanchable erythema without fluctuance /induration. No odor or exudate noted. No evidence of sacral skin breakdown. An erythematous and indurated soft tissue mass noted to posterior upper L thigh. (L)3.2cm x (W)3.7cm. Base of L AKA is erythematous,fluctuant, with increased warmth. DTPI medial R Heel(L)1cm x (W)1.2cm. Base of Pressure Injury is purpuric and f luctuant. Periwound is blanchable with dry flaky skin. unlikely etiology of sepsis urine noted leukocytosis on abx Tx.Plan: Cleanse Dorsal L hand with Saline. Apply Therahoney. Apply Cavilon Skin Barrier periwound. Cover with Optifoam Drsg Daily and prn. Cleanse Wound L Buttocks with Saline. Apply Therahoney. Apply Moisture Barrier Paste periwound. Cover with Optifoam drsg. Change Daily and prn. Apply Moisture Barrier Paste to R and L Groin and scrotum with each incontinence care. Apply Cavilon Skin Barrier to Posterior Upper L thigh. Cover with Optifoam drsg. Change every 3 days and prn. Apply Betadine to Base of L AKA stump. Cover with Optifoam drsg. Change every 3 days and prn. Apply Betadine to medial R Heel. Cover with Optifoam drsg. Change every 3 days and prn. Reposition at least every 2hours or as tolerated. Off-load L AKA with Pillow. Off-load R Heel with Pillow. DAILY ESTIMATED NEEDS: Needs based on Wound underweight 37kg 30-40 kcals/kg 4166-0231 total kcals 1.25-2 g protein/kg 46-74 g total protein 25-35ml/kcal mL/kg 925-1295 total fluid mLs NUTRITION DIAGNOSIS: Increased kcal and pro needs r/t underweight status and wound care as evidenced by pt is est 62% of IBW, BMI underweight per guidelines, multiple wounds including full thickness wounds x2, refer to WC eval. CURRENT TF: Jevity 1.2 @50 ml/hr ENTERAL NUTRITION RECOMMENDATIONS: Maintain current TF as ordered Jevity 1.2 @50ml/hr x24 hrs to provide 1200ml, 1440 kcal, 67g pro, 968ml free H2O - Initiate Jevity 1.2 @35ml/hr for 6 hrs, advance as tolerated 10ml/hr q4-6 hrs to goal. - Flush per MD, HOB over 30 degrees ADDITIONAL RECOMMENDATIONS: 1) Wound care: add DARLENE BID, Vit C 250mg BID 2) Maintain calibrated bed scale wts 3) Monitor BG, need for carb control TF respiratory insufficiency now in icu on support cxr noted cont respiratory support CT noted ant abd wall phlegmon. hard and no fluctuance. nothing to drain at this time. packing and dressings to prior g tube site bka with erythema distal as bone pushing Rowdy Arce Nov 28, 2020 10:27
--- NOTE | 2020-11-28 11:27 | Pulmonology Progress Note ---
Subjective ROS Limited/Unobtainable: Yes Interval Events: now in tele Constitutional: Denies: fever HEENT: Repors: no symptoms Respiratory: Reports: no symptoms Cardiovascular: Reports: no symptoms Gastrointestinal/Abdominal: Reports: constipation Genitourinary: Reports: no symptoms Allergies: Coded Allergies: No Known Allergies (Unverified , 11/22/20) Objective Last 24 Hour Vital Signs Date Time Temp Pulse Resp B/P (MAP) Pulse Ox O2 Delivery O2 Flow Rate FiO2 11/28/20 09:02 94 141/74 11/28/20 08:00 93 11/28/20 08:00 Room Air 11/28/20 08:00 97.7 94 20 141/74 (96) 97 11/28/20 04:00 98.1 90 20 119/67 (84) 96 11/28/20 04:00 90 11/28/20 04:00 Nasal Cannula 2.0 11/28/20 00:00 79 11/28/20 00:00 Nasal Cannula 2.0 11/28/20 00:00 98.2 86 20 121/74 (90) 98 11/27/20 21:15 102 134/88 11/27/20 20:00 Nasal Cannula 2.0 11/27/20 20:00 102 11/27/20 20:00 98.2 100 20 134/88 (103) 97 11/27/20 17:00 98 16 122/63 (82) 100 11/27/20 16:00 97 11/27/20 16:00 Nasal Cannula 2.0 11/27/20 16:00 98.1 96 20 113/73 (86) 98 11/27/20 15:00 93 16 116/72 (87) 100 11/27/20 14:00 98.4 96 15 133/69 (90) 100 11/27/20 13:00 93 18 101/68 (79) 100 11/27/20 12:00 99 11/27/20 12:00 Nasal Cannula 2.0 11/27/20 12:00 98 16 122/67 (85) 100 Intake and Output 11/27/20 11/28/20 19:00 07:00 Intake Total 863.75 ml 100 ml Balance 863.75 ml 100 ml Free Water 100 ml 100 ml IV Total 763.75 ml # Bowel Movements 1 3 General Appearance: no acute distress HEENT: normocephalic, atraumatic, anicteric Respiratory: lungs clear Cardiovascular: normal rate, regular rhythm Extremities: no edema, other - contracture noted Microbiology Date/Time Source Procedure Growth Status 11/27/20 12:25 Abdomen Gram Stain - Final Resulted 11/27/20 12:25 Abdomen Wound Culture - Preliminary NO GROWTH Resulted Laboratory Tests 11/28/20 05:05: White Blood Count 15.5H, Red Blood Count 3.23L, Hemoglobin 9.3L, Hematocrit 30.0L, Mean Corpuscular Volume 93, Mean Corpuscular Hemoglobin 28.8, Mean Corpuscular Hemoglobin Concent 31.1L, Red Cell Distribution Width 16.5H, Platelet Count 564H, Mean Platelet Volume 5.6L, Neutrophils (%) (Auto) 81.7H, Lymphocytes (%) (Auto) 9.9L, Monocytes (%) (Auto) 6.2, Eosinophils (%) (Auto) 1.7, Basophils (%) (Auto) 0.4, Sodium Level 142, Potassium Level 2.3*L, Chloride Level 107, Carbon Dioxide Level 26, Anion Gap 10, Blood Urea Nitrogen 3L, Cr eatinine 0.4L, Estimat Glomerular Filtration Rate > 60, Glucose Level 120H, Calcium Level 7.7L, Phosphorus Level 2.6, Magnesium Level 1.8, Total Bilirubin 0.3, Aspartate Amino Transf (AST/SGOT) 16, Alanine Aminotransferase (ALT/SGPT) 17, Alkaline Phosphatase 93, C-Reactive Protein, Quantitative 12.4H, Pro-B-Type Natriuretic Peptide 555H, Total Protein 5.7L, Albumin 1.5L, Globulin 4.2, Albumin/Globulin Ratio 0.4L Current Medications Medications (Trade) Dose Ordered Sig/Venecia Route PRN Reason Start Time Stop Time Status Last Admin Dose Admin Acetaminophen (Tylenol) 650 mg Q4H PRN GT Temp >100.5 11/22/20 16:30 12/22/20 15:59 11/24/20 11:35 Acetaminophen (Tylenol) 650 mg Q4H PRN GT For Pain 11/22/20 16:30 12/22/20 16:29 Amlodipine Besylate (Norvasc) 5 mg EVERY 12 HOURS ORAL 11/25/20 21:00 12/25/20 20:59 11/28/20 09:02 Clonidine HCl (Catapres Tab) 0.1 mg Q4H PRN ORAL sbp>170 11/25/20 14:45 02/23/21 14:44 Dextrose/Sodium Chloride 1,000 ml @ 60 mls/hr [id number] IV 11/27/20 09:30 12/27/20 09:29 11/28/20 03:13 Enalaprilat (Vasotec) 2.5 mg Q4H PRN IV For blood pressure over 160 sy 11/23/20 11:30 12/23/20 11:29 11/25/20 14:45 Enoxaparin Sodium (Lovenox) 60 mg EVERY 12 HOURS SUBQ 11/25/20 21:00 02/23/21 20:59 11/28/20 09:04 Famotidine (Pepcid I.v.) 20 mg Q12HR IVP 11/24/20 21:00 12/24/20 20:59 11/28/20 09:02 Hydromorphone HCl (Dilaudid) 0.5 mg Q2H PRN IVP For Pain 11/23/20 09:45 11/30/20 09:44 11/23/20 09:57 Levetiracetam 100 ml @ 400 mls/hr Q12HR IVPB 11/23/20 21:00 02/21/21 20:59 11/28/20 09:02 Piperacillin Sod/ Tazobactam Sod 3.375 gm/Sodium Chloride 110 ml @ 27.5 mls/hr EVERY 8 HOURS IVPB 11/24/20 14:00 11/30/20 13:59 11/28/20 06:34 Potassium Chloride 60 meq/ Sodium Chloride 530 ml @ 88.333 mls/ hr ONCE ONCE IVPB 11/28/20 10:00 11/28/20 15:59 11/28/20 10:13 Spironolactone (Aldactone) 25 mg EVERY 12 HOURS GT 11/28/20 09:15 12/28/20 09:14 11/28/20 09:40 Assessment/Plan Assessment/Plan 1. Respiratory distress - now on 2L NC; wean as tolerated - Needs frequent suctioning and hygiene 2. Right basilar atelectasis -Continue pulmonary hygiene 3. Sepsis - On Abx - WBC downtrending 4. 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
[2020-11-28 12:00] VITALS: BP 132/75
--- NOTE | 2020-11-28 12:09 | Cardiology Report ---
APPROVED REPORT EKG Measurement Heart [id number] <Conclusion> Sinus tachycardia Left axis deviation Pulmonary disease pattern Abnormal ECG
--- NOTE | 2020-11-28 12:58 | Infectious Diseases Prog Note ---
Assessment/Plan Assessment/Plan IMPRESSION: Sepsis, Infected gastrostomy with gastrostomy migration, ? 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 DVT of left leg RECOMMENDATION: Continue Zosyn Subjective ROS Limited/Unobtainable: Yes Constitutional: Reports: other - doing better, transferred from ICU to telemetry Allergies: Coded Allergies: No Known Allergies (Unverified , 11/22/20) Objective Last 24 Hour Vital Signs Date Time Temp Pulse Resp B/P (MAP) Pulse Ox O2 Delivery O2 Flow Rate FiO2 11/28/20 12:00 99 11/28/20 12:00 98.0 101 20 132/75 (94) 94 11/28/20 09:02 94 141/74 11/28/20 08:00 93 11/28/20 08:00 Room Air 11/28/20 08:00 97.7 94 20 141/74 (96) 97 11/28/20 04:00 98.1 90 20 119/67 (84) 96 11/28/20 04:00 90 11/28/20 04:00 Nasal Cannula 2.0 11/28/20 00:00 79 11/28/20 00:00 Nasal Cannula 2.0 11/28/20 00:00 98.2 86 20 121/74 (90) 98 11/27/20 21:15 102 134/88 11/27/20 20:00 Nasal Cannula 2.0 11/27/20 20:00 102 11/27/20 20:00 98.2 100 20 134/88 (103) 97 11/27/20 17:00 98 16 122/63 (82) 100 11/27/20 16:00 97 11/27/20 16:00 Nasal Cannula 2.0 11/27/20 16:00 98.1 96 20 113/73 (86) 98 11/27/20 15:00 93 16 116/72 (87) 100 11/27/20 14:00 98.4 96 15 133/69 (90) 100 11/27/20 13:00 93 18 101/68 (79) 100 Height (Feet): 5 Height (Inches): 6.00 Weight (Pounds): 140 HEENT: mucous membranes moist Respiratory/Chest: other - coarse sounds, O2 by nasal cannula Cardiovascular: tachycardia Abdomen: soft, non tender, other - NG tube Genitourinary: other - condom catheter Extremities: other - left AKA Neurologic/Psychiatric: aphasia Microbiology Date/Time Source Procedure Growth Status 11/27/20 12:25 Abdomen Gram Stain - Final Resulted 11/27/20 12:25 Abdomen Wound Culture - Preliminary NO GROWTH Resulted Laboratory Tests Test 11/28/20 05:05 White Blood Count 15.5 K/UL (4.8-10.8) H Red Blood Count 3.23 M/UL (4.70-6.10) L Hemoglobin 9.3 G/DL (14.2-18.0) L Hematocrit 30.0 % (42.0-52.0) L Mean Corpuscular Volume 93 FL (80-99) Mean Corpuscular Hemoglobin 28.8 PG (27.0-31.0) Mean Corpuscular Hemoglobin Concent 31.1 G/DL (32.0-36.0) L Red Cell Distribution Width 16.5 % (11.6-14.8) H Platelet Count 564 K/UL (150-450) H Mean Platelet Volume 5.6 FL (6.5-10.1) L Neutrophils (%) (Auto) 81.7 % (45.0-75.0) H Lymphocytes (%) (Auto) 9.9 % (20.0-45.0) L Monocytes (%) (Auto) 6.2 % (1.0-10.0) Eosinophils (%) (Auto) 1.7 % (0.0-3.0) Basophils (%) (Auto) 0.4 % (0.0-2.0) Sodium Level 142 MMOL/L (136-145) Potassium Level 2.3 MMOL/L (3.5-5.1) *L Chloride Level 107 MMOL/L (98-107) Carbon Dioxide Level 26 MMOL/L (21-32) Anion Gap 10 mmol/L (5-15) Blood Urea Nitrogen 3 mg/dL (7-18) L Creatinine 0.4 MG/DL (0.55-1.30) L Estimat Glomerular Filtration Rate > 60 mL/min (>60) Glucose Level 120 MG/DL (74-106) H Calcium Level 7.7 MG/DL (8.5-10.1) L Phosphorus Level 2.6 MG/DL (2.5-4.9) Magnesium Level 1.8 MG/DL (1.8-2.4) Total Bilirubin 0.3 MG/DL (0.2-1.0) Aspartate Amino Transf (AST/SGOT) 16 U/L (15-37) Alanine Aminotransferase (ALT/SGPT) 17 U/L (12-78) Alkaline Phosphatase 93 U/L (46-116) C-Reactive Protein, Quantitative 12.4 mg/dL (0.00-0.90) H Pro-B-Type Natriuretic Peptide 555 pg/mL (0-125) H Total Protein 5.7 G/DL (6.4-8.2) L Albumin 1.5 G/DL (3.4-5.0) L Globulin 4.2 g/dL Albumin/Globulin Ratio 0.4 (1.0-2.7) L Current Medications Medications (Trade) Dose Ordered Sig/Venecia Route PRN Reason Start Time Stop Time Status Last Admin Dose Admin Acetaminophen (Tylenol) 650 mg Q4H PRN GT Temp >100.5 11/22/20 16:30 12/22/20 15:59 11/24/20 11:35 Acetaminophen (Tylenol) 650 mg Q4H PRN GT For Pain 11/22/20 16:30 12/22/20 16:29 Amlodipine Besylate (Norvasc) 5 mg EVERY 12 HOURS ORAL 11/25/20 21:00 12/25/20 20:59 11/28/20 09:02 Clonidine HCl (Catapres Tab) 0.1 mg Q4H PRN ORAL sbp>170 11/25/20 14:45 02/23/21 14:44 Dextrose/Sodium Chloride 1,000 ml @ 60 mls/hr [id number] IV 11/27/20 09:30 12/27/20 09:29 11/28/20 03:13 Enalaprilat (Vasotec) 2.5 mg Q4H PRN IV For blood pressure over 160 sy 11/23/20 11:30 12/23/20 11:29 11/25/20 14:45 Enoxaparin Sodium (Lovenox) 60 mg EVERY 12 HOURS SUBQ 11/25/20 21:00 02/23/21 20:59 11/28/20 09:04 Famotidine (Pepcid I.v.) 20 mg Q12HR IVP 11/24/20 21:00 12/24/20 20:59 11/28/20 09:02 Hydromorphone HCl (Dilaudid) 0.5 mg Q2H PRN IVP For Pain 11/23/20 09:45 11/30/20 09:44 11/23/20 09:57 Levetiracetam 100 ml @ 400 mls/hr Q12HR IVPB 11/23/20 21:00 02/21/21 20:59 11/28/20 09:02 Piperacillin Sod/ Tazobactam Sod 3.375 gm/Sodium Chloride 110 ml @ 27.5 mls/hr EVERY 8 HOURS IVPB 11/24/20 14:00 11/30/20 13:59 11/28/20 06:34 Potassium Chloride 60 meq/ Sodium Chloride 530 ml @ 88.333 mls/ hr ONCE ONCE IVPB 11/28/20 10:00 11/28/20 15:59 11/28/20 10:13 Spironolactone (Aldactone) 25 mg EVERY 12 HOURS GT 11/28/20 09:15 12/28/20 09:14 11/28/20 09:40 John Lara MD Nov 28, 2020 12:58
[2020-11-28] MEDS ORDERED: NS 275ml ONE (13:24)
[2020-11-28] MEDS ORDERED: Tubing IV Secondary IV ONE (13:24)
--- NOTE | 2020-11-28 15:34 | General Progress Note ---
Subjective Allergies: Coded Allergies: No Known Allergies (Unverified , 11/22/20) Subjective Out of ICU non communicative Objective Last 24 Hour Vital Signs Date Time Temp Pulse Resp B/P (MAP) Pulse Ox O2 Delivery O2 Flow Rate FiO2 11/28/20 12:00 99 11/28/20 12:00 98.0 101 20 132/75 (94) 94 11/28/20 09:02 94 141/74 11/28/20 08:00 93 11/28/20 08:00 Room Air 11/28/20 08:00 97.7 94 20 141/74 (96) 97 11/28/20 04:00 98.1 90 20 119/67 (84) 96 11/28/20 04:00 90 11/28/20 04:00 Nasal Cannula 2.0 11/28/20 00:00 79 11/28/20 00:00 Nasal Cannula 2.0 11/28/20 00:00 98.2 86 20 121/74 (90) 98 11/27/20 21:15 102 134/88 11/27/20 20:00 Nasal Cannula 2.0 11/27/20 20:00 102 11/27/20 20:00 98.2 100 20 134/88 (103) 97 11/27/20 17:00 98 16 122/63 (82) 100 11/27/20 16:00 97 11/27/20 16:00 Nasal Cannula 2.0 11/27/20 16:00 98.1 96 20 113/73 (86) 98 Intake and Output 11/27/20 11/28/20 19:00 07:00 Intake Total 863.75 ml 100 ml Balance 863.75 ml 100 ml Free Water 100 ml 100 ml IV Total 763.75 ml # Bowel Movements 1 3 Laboratory Tests 11/28/20 05:05: White Blood Count 15.5H, Red Blood Count 3.23L, Hemoglobin 9.3L, Hematocrit 30.0L, Mean Corpuscular Volume 93, Mean Corpuscular Hemoglobin 28.8, Mean Corpuscular Hemoglobin Concent 31.1L, Red Cell Distribution Width 16.5H, Platelet Count 564H, Mean Platelet Volume 5.6L, Neutrophils (%) (Auto) 81.7H, Lymphocytes (%) (Auto) 9.9L, Monocytes (%) (Auto) 6.2, Eosinophils (%) (Auto) 1 .7, Basophils (%) (Auto) 0.4, Sodium Level 142, Potassium Level 2.3*L, Chloride Level 107, Carbon Dioxide Level 26, Anion Gap 10, Blood Urea Nitrogen 3L, Creatinine 0.4L, Estimat Glomerular Filtration Rate > 60, Glucose Level 120H, Calcium Level 7.7L, Phosphorus Level 2.6, Magnesium Level 1.8, Total Bilirubin 0.3, Aspartate Amino Transf (AST/SGOT) 16, Alanine Aminotransferase (ALT/SGPT) 17, Alkaline Phosphatase 93, C-Reactive Protein, Quantitative 12.4H, Pro-B-Type Natriuretic Peptide 555H, Total Protein 5.7L, Albumin 1.5L, Globulin 4.2, Albumin/Globulin Ratio 0.4L Height (Feet): 5 Height (Inches): 6.00 Weight (Pounds): 140 Objective Debilitaed man NCAT coarse BS RR abd (+) indurated subxiphoid area, No discharge today (+) contracted OBS Assessment/Plan Status: progressing Assessment/Plan: Assessment - GT migration into anterior abd wall - removed - abdominal pain, induration - r/o abscess in evolution - respiratory distress - resolved - cerebral palsy - contractures - decubitus ulcers - (L) BKA - hypokalemia Recommendations - broad spect abx - TF - pulmonary f/u - NGT for meds - needs new GT at later date - IVF - replace Nacho Crawford MD Nov 28, 2020 15:34
[2020-11-28 16:00] VITALS: BP 130/77
--- NOTE | 2020-11-28 19:20 | NUR ---
NURSE NOTES: received patient resting comfortable in bed with no signs of distress noted. assessment initiated. condom cath, NG tube in place. patient on cont. feeding. bed alarm on and in low position. will continue to monitor frequently.
[2020-11-28 20:00] VITALS: BP 118/63
[2020-11-28] MEDS: levETIRAcetam 500mg/5ml Liquid NG SCH (20:09)
--- NOTE | 2020-11-28 21:25 | General Progress Note ---
Subjective ROS Limited/Unobtainable: Yes Allergies: Coded Allergies: No Known Allergies (Unverified , 11/22/20) Objective Last 24 Hour Vital Signs Date Time Temp Pulse Resp B/P (MAP) Pulse Ox O2 Delivery O2 Flow Rate FiO2 11/28/20 20:09 95 118/62 11/28/20 16:00 94 11/28/20 16:00 97.7 99 20 130/77 (94) 94 11/28/20 12:00 99 11/28/20 12:00 98.0 101 20 132/75 (94) 94 11/28/20 09:02 94 141/74 11/28/20 08:00 93 11/28/20 08:00 Room Air 11/28/20 08:00 97.7 94 20 141/74 (96) 97 11/28/20 04:00 98.1 90 20 119/67 (84) 96 11/28/20 04:00 90 11/28/20 04:00 Nasal Cannula 2.0 11/28/20 00:00 79 11/28/20 00:00 Nasal Cannula 2.0 11/28/20 00:00 98.2 86 20 121/74 (90) 98 Intake and Output 11/27/20 11/28/20 19:00 07:00 Intake Total 863.75 ml 100 ml Balance 863.75 ml 100 ml Free Water 100 ml 100 ml IV Total 763.75 ml # Bowel Movements 1 3 Laboratory Tests 11/28/20 05:05: White Blood Count 15.5H, Red Blood Count 3.23L, Hemoglobin 9.3L, Hematocrit 30.0L, Mean Corpuscular Volume 93, Mean Corpuscular Hemoglobin 28.8, Mean Corpuscular Hemoglobin Concent 31.1L, Red Cell Distribution Width 16.5H, Platelet Count 564H, Mean Platelet Volume 5.6L, Neutrophils (%) (Auto) 81.7H, Lymphocytes (%) (Auto) 9.9L, Monocytes (%) (Auto) 6.2, Eosinophils (%) (Auto) 1.7, Basophils (%) (Auto) 0.4, Sodium Level 142, Potassium Level 2.3*L, Chloride Level 107, Carbon Dioxide Level 26, Anion Gap 10, Blood Urea Nitrogen 3L, Creatinine 0.4L, Estimat Glomerular Filtration Rate > 60, Glucose Level 120H, Calcium Level 7.7L, Phosphorus Level 2.6, Magnesium Level 1.8, Total Bilirubin 0.3, Aspartate Amino Transf (AST/SGOT) 16, Alanine Aminotransferase (ALT/SGPT) 17, Alkaline Phosphatase 93, C-Reactive Protein, Quantitative 12.4H, Pro-B-Type Natriuretic Peptide 555H, Total Protein 5.7L, Albumin 1.5L, Globulin 4.2, Albumin/Globulin Ratio 0.4L Height (Feet): 5 Height (Inches): 6.00 Weight (Pounds): 140 Assessment/Plan Problem List: (1) Cerebral palsy ICD Codes: G80.9 - Cerebral palsy, unspecified SNOMED: 888360980 (2) Sepsis ICD Codes: A41.9 - Sepsis, unspecified organism SNOMED: [id number] Status: progressing Assessment/Plan: severe hypokalemia replaced by dr osorio leukocytosis not improving afebrile sepsis uti r/o abdominal abscess abx per id Samantha Blackwood MD Nov 28, 2020 21:25
[2020-11-29] VITALS (7 sets, daily range): BP systolic 123–146; BP diastolic 53–71
[2020-11-29] MEDS: Piperacillin/Tazobactam 3.375 GM in NS 110 ML IVPB SCH ×3 (05:40→21:09)
[2020-11-29 06:00] LABS: BASOPHILS % (AUTO) 0.7 % (0.0-2.0); EOSINOPHILS % (AUTO) 2.3 % (0.0-3.0); HEMATOCRIT 29.3 % (42.0-52.0); HEMOGLOBIN 9.1 G/DL (14.2-18.0); LYMPHOCYTES % (AUTO) 13.6 % (20.0-45.0); MEAN CORPUSCULAR VOLUME 93 FL (80-99); MONOCYTES % (AUTO) 6.7 % (1.0-10.0); NEUTROPHILS % (AUTO) 76.8 % (45.0-75.0); PLATELET COUNT 533 K/UL (150-450); RED BLOOD COUNT 3.15 M/UL (4.70-6.10); RED CELL DISTRIBUTION WIDTH 16.8 % (11.6-14.8); WHITE BLOOD COUNT 12.6 K/UL (4.8-10.8)
[2020-11-29 06:15] LABS: ALANINE AMINOTRANSFERASE 14 U/L (12-78); ALBUMIN 1.5 G/DL (3.4-5.0); ALBUMIN/GLOBULIN RATIO 0.4 (1.0-2.7); ALKALINE PHOSPHATASE 90 U/L (46-116); ANION GAP 7 mmol/L (5-15); ASPARTATE AMINO TRANSFERASE 11 U/L (15-37); BILIRUBIN,TOTAL 0.2 MG/DL (0.2-1.0); BLOOD UREA NITROGEN 2 mg/dL (7-18); CALCIUM 7.6 MG/DL (8.5-10.1); CARBON DIOXIDE 29 MMOL/L (21-32); CHLORIDE 108 MMOL/L (98-107); CREATININE 0.5 MG/DL (0.55-1.30); PHOSPHORUS 2.3 MG/DL (2.5-4.9); POTASSIUM 3.1 MMOL/L (3.5-5.1); SODIUM 144 MMOL/L (136-145)
--- NOTE | 2020-11-29 07:26 | NUR ---
NURSE HAND-OFF REPORT: Important Events on Shift: no changes from previous assessment. complete bath. repositioned. tube feed increase by 10 @0200, now at 50cc/hr. patient on antibiotic. bed alarm on. Patient Status: full Diet: cont tube feed Pending Orders: Pending Results/Labs: Pending MD notification: Latest Vital Signs: Temperature 98.4 , Pulse 88 , B/P 134 /53 , Respiratory Rate 20 , O2 SAT 98 , Nasal Cannula, O2 Flow Rate 4.0 . Vital Sign Comment: EKG Rhythm: Sinus Rhythm Rhythm change?: N MD Notified?: Josef Em MD Response: Latest Hoyt Fall Score: 70 Fall Risk: High Risk Safety Measures: Call light Within Reach, Bed Alarm Zone 1, Side Rails Side Rails x3, Bed position Low and Locked. Fall Precautions: Yellow Socks Yellow Gown Door Sign Patient Fall Education Report given to Bina CALDERON.
--- NOTE | 2020-11-29 09:39 | Surgery Progress Note ---
Surgery Progress Note Subjective Symptoms: improved, tolerating diet, passing flatus Additional Comments needs new ng tube at later date cont abx still hard no fluctuance phlegmon Objective Last 24 Hour Vital Signs Date Time Temp Pulse Resp B/P (MAP) Pulse Ox O2 Delivery O2 Flow Rate FiO2 11/29/20 08:13 97.1 92 18 146/63 (90) 97 11/29/20 08:00 97.1 92 20 146/63 (90) 97 11/29/20 04:00 88 11/29/20 04:00 98.4 89 20 134/53 (80) 98 11/29/20 00:00 97.5 89 18 131/59 (83) 95 11/29/20 00:00 90 11/28/20 21:00 Room Air 11/28/20 20:09 95 118/62 11/28/20 20:00 97.7 95 20 118/63 (81) 92 11/28/20 20:00 95 11/28/20 19:45 98 Nasal Cannula 4.0 36 11/28/20 19:45 89 18 98 Nasal Cannula 4.0 36 11/28/20 16:00 94 11/28/20 16:00 97.7 99 20 130/77 (94) 94 11/28/20 12:00 99 11/28/20 12:00 98.0 101 20 132/75 (94) 94 I&O Intake and Output 11/28/20 11/29/20 19:00 07:00 Output Total 1000 ml Balance -1000 ml Output Urine Total 1000 ml # Bowel Movements 2 1 Dressing: saturated Cardiovascular: RSR Respiratory: decreased breath sounds Abdomen: soft, non-tender, present bowel sounds Extremities: no tenderness, no cyanosis Laboratory Tests Test 11/29/20 05:40 White Blood Count 12.6 K/UL (4.8-10.8) H Red Blood Count 3.15 M/UL (4.70-6.10) L Hemoglobin 9.1 G/DL (14.2-18.0) L Hematocrit 29.3 % (42.0-52.0) L Mean Corpuscular Volume 93 FL (80-99) Mean Corpuscular Hemoglobin 28.8 PG (27.0-31.0) Mean Corpuscular Hemoglobin Concent 30.9 G/DL (32.0-36.0) L Red Cell Distribution Width 16.8 % (11.6-14.8) H Platelet Count 533 K/UL (150-450) H Mean Platelet Volume 6.0 FL (6.5-10.1) L Neutrophils (%) (Auto) 76.8 % (45.0-75.0) H Lymphocytes (%) (Auto) 13.6 % (20.0-45.0) L Monocytes (%) (Auto) 6.7 % (1.0-10.0) Eosinophils (%) (Auto) 2.3 % (0.0-3.0) Basophils (%) (Auto) 0.7 % (0.0-2.0) Sodium Level 144 MMOL/L (136-145) Potassium Level 3.1 MMOL/L (3.5-5.1) L Chloride Level 108 MMOL/L (98-107) H Carbon Dioxide Level 29 MMOL/L (21-32) Anion Gap 7 mmol/L (5-15) Blood Urea Nitrogen 2 mg/dL (7-18) L Creatinine 0.5 MG/DL (0.55-1.30) L Estimat Glomerular Filtration Rate > 60 mL/min (>60) Glucose Level 187 MG/DL (74-106) H Calcium Level 7.6 MG/DL (8.5-10.1) L Phosphorus Level 2.3 MG/DL (2.5-4.9) L Magnesium Level 1.7 MG/DL (1.8-2.4) L Total Bilirubin 0.2 MG/DL (0.2-1.0) Aspartate Amino Transf (AST/SGOT) 11 U/L (15-37) L Alanine Aminotransferase (ALT/SGPT) 14 U/L (12-78) Alkaline Phosphatase 90 U/L (46-116) C-Reactive Protein, Quantitative 8.2 mg/dL (0.00-0.90) H Total Protein 5.5 G/DL (6.4-8.2) L Albumin 1.5 G/DL (3.4-5.0) L Globulin 4.0 g/dL Albumin/Globulin Ratio 0.4 (1.0-2.7) L Plan Problems: (1) Cerebral palsy (2) Sepsis Assessment & Plan: Pt presented on admission with CP, L AKA,Multiple Pressure Injuries, Wound dorsal L hand. Macular red rash L Flank. Full thickness wound dorsal L hand(L)2.4cm x (W)1.9cm. Loose necrotic cap which was easily removed from wound bed. Base of wound is 95% fibrinous slough with marginal erythema along borders. Small amt sanguineous exudate noted. No erythe ma or elevation in skin temp periwound. Incontinence Associated dermatitis R and L groin and scrotum. Affected areas are erythematous and macerated. Full Thickness Pressure Injury Upper L buttocks(L)4.8cm x (W)6.4cmBase of wound is 25% necrotic ,75% lida. Edges are adherent to base of wound. Surrounding non-blanchable erythema without fluctuance /induration. No odor or exudate not ed. No evidence of sacral skin breakdown. An erythematous and indurated soft tissue mass noted to posterior upper L thigh. (L)3.2cm x (W)3.7cm. Base of L AKA is erythematous,fluctuant, with increased warmth. DTPI medial R Heel(L)1cm x (W)1.2cm. Base of Pressure Injury is purpuric and fluctuant. Periwound is blanchable with dry flaky skin. unlikely etiology of sepsis urine noted leukocytosis on abx Tx.Plan: Cleanse Dorsal L hand with Saline. Apply Therahoney. Apply Cavilon Skin Barrier periwound. Cover with Optifoam Drsg Daily and prn. Cleanse Wound L Buttocks with Saline. Apply Therahoney. Apply Moisture Barrier P aste periwound. Cover with Optifoam drsg. Change Daily and prn. Apply Moisture Barrier Paste to R and L Groin and scrotum with each incontinence care. Apply Cavilon Skin Barrier to Posterior Upper L thigh. Cover with Optifoam drsg. Change every 3 days and prn. Apply Betadine to Base of L AKA stump. Cover with Optifoam drsg. Change every 3 days and prn. Apply Betadine to medial R Heel. Cover with Optifoam drsg. Change every 3 days and prn. Reposition at least every 2hours or as tolerated. Off-load L AKA with Pillow. Off-load R Heel with Pillow. DAILY ESTIMATED NEEDS: Needs based on Wound underweight 37kg 30-40 kcals/kg 6264-8229 total kcals 1.25-2 g protein/kg 46-74 g total protein 25-35ml/kcal mL/kg 925-1295 total fluid mLs NUTRITION DIAGNOSIS: Increased kcal and pro needs r/t underweight status and wound care as evidenced by pt is est 62% of IBW, BMI underweight per guidelines, multiple wounds including full thickness wounds x2, refer to WC eval. CURRENT TF: Jevity 1.2 @50 ml/hr ENTERAL NUTRITION RECOMMENDATIONS: Maintain current TF as ordered Jevity 1.2 @50ml/hr x24 hrs to provide 1200ml, 1440 kcal, 67g pro, 968ml free H2O - Initiate Jevity 1.2 @35ml/hr for 6 hrs, advance as tolerated 10ml/hr q4-6 hrs to goal. - Flush per MD, HOB over 30 degrees ADDITIONAL RECOMMENDATIONS: 1) Wound care: add DARLENE BID, Vit C 250mg BID 2) Maintain calibrated bed scale wts 3) Monitor BG, need for carb control TF respiratory insufficiency now in icu on support cxr noted cont respiratory support CT noted ant abd wall phlegmon. hard and no fluctuance. nothing to drain at this time. packing and dressings to prior g tube site bka with erythema distal as bone pushing Rowdy Arce Nov 29, 2020 09:39
[2020-11-29] MEDS: levETIRAcetam 500mg/5ml Liquid NG SCH ×2 (09:59→20:57)
[2020-11-29] MEDS: Spironolactone 25mg tab GT SCH ×2 (09:59→20:57)
[2020-11-29] MEDS ORDERED: D5 1/4NS 1000ml IV ONE (09:59)
[2020-11-29] MEDS: Enoxaparin 60mg Inj SUBQ SCH ×2 (10:00→21:07)
[2020-11-29] MEDS ORDERED: D5NS 1000ml IV ONE (10:01)
[2020-11-29] MEDS ORDERED: Tubing IV Secondary IV ONE (10:01)
[2020-11-29] MEDS ORDERED: D5 1/2NS 1000ml IV ONE (10:01)
[2020-11-29] MEDS ORDERED: NS 275ml ONE (10:01)
--- NOTE | 2020-11-29 10:11 | Pulmonology Progress Note ---
Subjective ROS Limited/Unobtainable: Yes Interval Events: now in tele Constitutional: Reports: other - doing better, transferred from ICU to telemetry HEENT: Repors: no symptoms Respiratory: Reports: no symptoms Cardiovascular: Reports: no symptoms Gastrointestinal/Abdominal: Reports: constipation Genitourinary: Reports: no symptoms Allergies: Coded Allergies: No Known Allergies (Unverified , 11/22/20) Objective Last 24 Hour Vital Signs Date Time Temp Pulse Resp B/P (MAP) Pulse Ox O2 Delivery O2 Flow Rate FiO2 11/29/20 09:59 92 146/63 11/29/20 08:13 97.1 92 18 146/63 (90) 97 11/29/20 08:00 97.1 92 20 146/63 (90) 97 11/29/20 04:00 88 11/29/20 04:00 98.4 89 20 134/53 (80) 98 11/29/20 00:00 97.5 89 18 131/59 (83) 95 11/29/20 00:00 90 11/28/20 21:00 Room Air 11/28/20 20:09 95 118/62 11/28/20 20:00 97.7 95 20 118/63 (81) 92 11/28/20 20:00 95 11/28/20 19:45 98 Nasal Cannula 4.0 36 11/28/20 19:45 89 18 98 Nasal Cannula 4.0 36 11/28/20 16:00 94 11/28/20 16:00 97.7 99 20 130/77 (94) 94 11/28/20 12:00 99 11/28/20 12:00 98.0 101 20 132/75 (94) 94 Intake and Output 11/28/20 11/29/20 19:00 07:00 Output Total 1000 ml Balance -1000 ml Output Urine Total 1000 ml # Bowel Movements 2 1 General Appearance: no acute distress HEENT: normocephalic, atraumatic, anicteric Respiratory: lungs clear Cardiovascular: normal rate, regular rhythm Extremities: no edema, other - contracture noted Microbiology Date/Time Source Procedure Growth Status 11/27/20 12:25 Abdomen Gram Stain - Final Resulted 11/27/20 12:25 Abdomen Wound Culture - Preliminary NO GROWTH Resulted Laboratory Tests 11/29/20 05:40: White Blood Count 12.6H, Red Blood Count 3.15L, Hemoglobin 9.1L, Hematocrit 29.3L, Mean Corpuscular Volume 93, Mean Corpuscular Hemoglobin 28.8, Mean Corpuscular Hemoglobin Concent 30.9L, Red Cell Distribution Width 16.8H, Platelet Count 533H, Mean Platelet Volume 6.0L, Neutrophils (%) (Auto) 76.8H, Lymphocytes (%) (Auto) 13.6L, Monocytes (%) (Auto) 6.7, Eosinophils (%) (Auto) 2.3, Basophils (%) (Auto) 0.7, Sodium Level 144, Potassium Level 3.1L, Chloride Level 108H, Carbon Dioxide Level 29, Anion Gap 7, Blood Urea Nitrogen 2L, Creatinine 0.5L, Estimat Glomerular Filtration Rate > 60, Glucose Level 187H, Calcium Level 7.6L, Phosphorus Level 2.3L, Magnesium Level 1.7L, Total Bilirubin 0.2, Aspartate Amino Transf (AST/SGOT) 11L, Alanine Aminotransferase (ALT/SGPT) 14, Alkaline Phosphatase 90, C-Reactive Protein, Quantitative 8.2H, Total Protein 5.5L, Albumin 1.5L, Globulin 4.0, Albumin/Globulin Ratio 0.4L Current Medications Medications (Trade) Dose Ordered Sig/Venecia Route PRN Reason Start Time Stop Time Status Last Admin Dose Admin Acetaminophen (Tylenol) 650 mg Q4H PRN GT Temp >100.5 11/22/20 16:30 12/22/20 15:59 11/24/20 11:35 Acetaminophen (Tylenol) 650 mg Q4H PRN GT For Pain 11/22/20 16:30 12/22/20 16:29 Amlodipine Besylate (Norvasc) 5 mg EVERY 12 HOURS ORAL 11/25/20 21:00 12/25/20 20:59 11/29/20 09:59 Clonidine HCl (Catapres Tab) 0.1 mg Q4H PRN ORAL sbp>170 11/25/20 14:45 02/23/21 14:44 Dextrose/Sodium Chloride 1,000 ml @ 60 mls/hr [id number] IV 11/27/20 09:30 12/27/20 09:29 11/28/20 17:52 Enalaprilat (Vasotec) 2.5 mg Q4H PRN IV For blood pressure over 160 sy 3/18/21 11:30 12/23/20 11:29 11/25/20 14:45 Enoxaparin Sodium (Lovenox) 60 mg EVERY 12 HOURS SUBQ 11/25/20 21:00 02/23/21 20:59 11/29/20 10:00 Famotidine (Pepcid) 20 mg Q12HR GT 11/28/20 21:00 02/26/21 20:59 11/29/20 09:59 Hydromorphone HCl (Dilaudid) 0.5 mg Q2H PRN IVP For Pain 11/23/20 09:45 11/30/20 09:44 11/23/20 09:57 Levetiracetam (Keppra) 500 mg Q12HR NG 11/28/20 21:00 01/12/21 20:59 11/29/20 09:59 Piperacillin Sod/ Tazobactam Sod 3.375 gm/Sodium Chloride 110 ml @ 27.5 mls/hr EVERY 8 HOURS IVPB 11/24/20 14:00 12/02/20 13:59 11/29/20 05:40 Spironolactone (Aldactone) 25 mg EVERY 12 HOURS GT 11/28/20 09:15 12/28/20 09:14 11/29/20 09:59 Assessment/Plan Assessment/Plan 1. Respiratory distress - now tolerating room air - Needs frequent suctioning and hygiene 2. Right basilar atelectasis -Continue pulmonary hygiene 3. Sepsis - On Abx - WBC downtrending - f/u UCx, BCx, and wound Cx negative 4. Persistent thrombus in the left common femoral and proximal superficial femoral veins - on full dose Lovenox - has DVT on amputated leg; due to venous ligation The care of this patient was discussed with my supervising physician Time spent for this encounter was approximately 31 minutes Richi Boo Nov 29, 2020 10:11
--- NOTE | 2020-11-29 11:59 | Infectious Diseases Prog Note ---
Assessment/Plan Assessment/Plan IMPRESSION: Sepsis, Infected gastrostomy with gastrostomy migration, ? 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 DVT of left leg Leukocytosis, improving RECOMMENDATION: Continue Zosyn Subjective ROS Limited/Unobtainable: Yes Allergies: Coded Allergies: No Known Allergies (Unverified , 11/22/20) Objective Last 24 Hour Vital Signs Date Time Temp Pulse Resp B/P (MAP) Pulse Ox O2 Delivery O2 Flow Rate FiO2 11/29/20 09:59 92 146/63 11/29/20 08:13 97.1 92 18 146/63 (90) 97 11/29/20 08:00 97.1 92 20 146/63 (90) 97 11/29/20 08:00 88 11/29/20 04:00 88 11/29/20 04:00 98.4 89 20 134/53 (80) 98 11/29/20 00:00 97.5 89 18 131/59 (83) 95 11/29/20 00:00 90 11/28/20 21:00 Room Air 11/28/20 20:09 95 118/62 11/28/20 20:00 97.7 95 20 118/63 (81) 92 11/28/20 20:00 95 11/28/20 19:45 98 Nasal Cannula 4.0 36 11/28/20 19:45 89 18 98 Nasal Cannula 4.0 36 11/28/20 16:00 94 11/28/20 16:00 97.7 99 20 130/77 (94) 94 11/28/20 12:00 99 11/28/20 12:00 98.0 101 20 132/75 (94) 94 Height (Feet): 5 Height (Inches): 6.00 Weight (Pounds): 140 HEENT: mucous membranes moist Respiratory/Chest: rhonchi - bilaterally Cardiovascular: normal rate Abdomen: soft, non tender, other - NG tube feeding Extremities: other - left AKA Neurologic/Psychiatric: aphasia Microbiology Date/Time Source Procedure Growth Status 11/27/20 12:25 Abdomen Gram Stain - Final Resulted 11/27/20 12:25 Abdomen Wound Culture - Preliminary NO GROWTH Resulted Laboratory Tests Test 11/29/20 05:40 White Blood Count 12.6 K/UL (4.8-10.8) H Red Blood Count 3.15 M/UL (4.70-6.10) L Hemoglobin 9.1 G/DL (14.2-18.0) L Hematocrit 29.3 % (42.0-52.0) L Mean Corpuscular Volume 93 FL (80-99) Mean Corpuscular Hemoglobin 28.8 PG (27.0-31.0) Mean Corpuscular Hemoglobin Concent 30.9 G/DL (32.0-36.0) L Red Cell Distribution Width 16.8 % (11.6-14.8) H Platelet Count 533 K/UL (150-450) H Mean Platelet Volume 6.0 FL (6.5-10.1) L Neutrophils (%) (Auto) 76.8 % (45.0-75.0) H Lymphocytes (%) (Auto) 13.6 % (20.0-45.0) L Monocytes (%) (Auto) 6.7 % (1.0-10.0) Eosinophils (%) (Auto) 2.3 % (0.0-3.0) Basophils (%) (Auto) 0.7 % (0.0-2.0) Sodium Level 144 MMOL/L (136-145) Potassium Level 3.1 MMOL/L (3.5-5.1) L Chloride Level 108 MMOL/L (98-107) H Carbon Dioxide Level 29 MMOL/L (21-32) Anion Gap 7 mmol/L (5-15) Blood Urea Nitrogen 2 mg/dL (7-18) L Creatinine 0.5 MG/DL (0.55-1.30) L Estimat Glomerular Filtration Rate > 60 mL/min (>60) Glucose Level 187 MG/DL (74-106) H Calcium Level 7.6 MG/DL (8.5-10.1) L Phosphorus Level 2.3 MG/DL (2.5-4.9) L Magnesium Level 1.7 MG/DL (1.8-2.4) L Total Bilirubin 0.2 MG/DL (0.2-1.0) Aspartate Amino Transf (AST/SGOT) 11 U/L (15-37) L Alanine Aminotransferase (ALT/SGPT) 14 U/L (12-78) Alkaline Phosphatase 90 U/L (46-116) C-Reactive Protein, Quantitative 8.2 mg/dL (0.00-0.90) H Total Protein 5.5 G/DL (6.4-8.2) L Albumin 1.5 G/DL (3.4-5.0) L Globulin 4.0 g/dL Albumin/Globulin Ratio 0.4 (1.0-2.7) L Current Medications Medications (Trade) Dose Ordered Sig/Venecia Route PRN Reason Start Time Stop Time Status Last Admin Dose Admin Acetaminophen (Tylenol) 650 mg Q4H PRN GT Temp >100.5 11/22/20 16:30 12/22/20 15:59 11/24/20 11:35 Acetaminophen (Tylenol) 650 mg Q4H PRN GT For Pain 11/22/20 16:30 12/22/20 16:29 Amlodipine Besylate (Norvasc) 5 mg EVERY 12 HOURS ORAL 11/25/20 21:00 12/25/20 20:59 11/29/20 09:59 Clonidine HCl (Catapres Tab) 0.1 mg Q4H PRN ORAL sbp>170 11/25/20 14:45 02/23/21 14:44 Dextrose/Sodium Chloride 1,000 ml @ 60 mls/hr [id number] IV 11/27/20 09:30 12/27/20 09:29 11/28/20 17:52 Enalaprilat (Vasotec) 2.5 mg Q4H PRN IV For blood pressure over 160 sy 11/23/20 11:30 12/23/20 11:29 11/25/20 14:45 Enoxaparin Sodium (Lovenox) 60 mg EVERY 12 HOURS SUBQ 11/25/20 21:00 02/23/21 20:59 11/29/20 10:00 Famotidine (Pepcid) 20 mg Q12HR GT 11/28/20 21:00 02/26/21 20:59 11/29/20 09:59 Hydromorphone HCl (Dilaudid) 0.5 mg Q2H PRN IVP For Pain 11/23/20 09:45 11/30/20 09:44 11/23/20 09:57 Levetiracetam (Keppra) 500 mg Q12HR NG 11/28/20 21:00 01/12/21 20:59 11/29/20 09:59 Piperacillin Sod/ Tazobactam Sod 3.375 gm/Sodium Chloride 110 ml @ 27.5 mls/hr EVERY 8 HOURS IVPB 11/24/20 14:00 12/02/20 13:59 11/29/20 05:40 Spironolactone (Aldactone) 25 mg EVERY 12 HOURS GT 11/28/20 09:15 12/28/20 09:14 11/29/20 09:59 John Lara MD Nov 29, 2020 11:59
--- NOTE | 2020-11-29 13:09 | Hematology/Onc Progress Note ---
Assessment/Plan Assessment/Plan Assessment and Recs # LLE stump dvt, that is acute diagnosed --> for dvt have started lovenox bid therapy, treatment dose --> likely is due to correction immobility --> does not need a hypercoag workup # Leukocytosis due to Sepsis --> currently is on abx --> .wbc 23-->21-->18 -> remains on zosyn --> as per ID # Anemia due to chronic disease --> hgb 9.8-->9.5 --> transfuse prn --> no hemolysis is noted # Cerebral palsy -> chronic condition # Sinus Tachycardia due to sepsis in this patient with white count of 23,000 on IV fluid and IV antibiotics. --> as per cards # S/P gastrostomy tube migration. Now is removed and has NGT. --> S/P CT scan of the abdomen and pelvis to rule out abscess formation. FU GI and surgery # Status post left above-knee amputation. # Mental retardation. # Dvt ppx lovenox bid DW RN Subjective Constitutional: Denies: no symptoms, chills, fever, malaise, weakness, other HEENT: Denies: no symptoms, eye pain, blurred vision, tearing, double vision, ear pain, ear discharge, nose pain, nose congestion, throat pain, throat swelling, mouth pain, mouth swelling, other Respiratory: Denies: no symptoms, cough, shortness of breath, SOB with excertion, SOB at rest, sputum, wheezing, other Gastrointestinal/Abdominal: Denies: no symptoms, abdomen distended, abdominal pain, black stools, tarry stools, blood in stool, constipated, diarrhea, difficulty swallowing, nausea, poor appetite, poor fluid intake, rectal bleeding, vomiting, other Genitourinary: Denies: no symptoms, burning, discharge, frequency, flank pain, hematuria, incontinence, pain, urgency, other Neurologic/Psychiatric: Denies: no symptoms, anxiety, depressed, emotional problems, headache, numbness, paresthesia, pre-existing deficit, seizure, tingling, tremors, weakness, other Endocrine: Denies: no symptoms, excessive sweating, flushing, intolerance to cold, intolerance to heat, increased hunger, increased thirst, increased urine, unexplained weight gain, unexplained weight loss, other Hematologic/Lymphatic: Denies: no symptoms, anemia, easy bleeding, easy bruising, adenopathy, other Allergies: Coded Allergies: No Known Allergies (Unverified , 11/22/20) Subjective 11/27 labs noted, meds reviewed, on lovenox bid, cbc is noted 11/29 labs noted, no bleeding, is on zosyn and lovenox bid sq Objective Objective Current Medications Medications (Trade) Dose Ordered Sig/Venecia Route PRN Reason Start Time Stop Time Status Last Admin Dose Admin Acetaminophen (Tylenol) 650 mg Q4H PRN GT Temp >100.5 11/22/20 16:30 12/22/20 15:59 11/24/20 11:35 Acetaminophen (Tylenol) 650 mg Q4H PRN GT For Pain 11/22/20 16:30 12/22/20 16:29 Amlodipine Besylate (Norvasc) 5 mg EVERY 12 HOURS ORAL 11/25/20 21:00 12/25/20 20:59 11/29/20 09:59 Clonidine HCl (Catapres Tab) 0.1 mg Q4H PRN ORAL sbp>170 11/25/20 14:45 02/23/21 14:44 Dextrose/Sodium Chloride 1,000 ml @ 60 mls/hr [id number] IV 11/27/20 09:30 12/27/20 09:29 11/28/20 17:52 Enalaprilat (Vasotec) 2.5 mg Q4H PRN IV For blood pressure over 160 sy 11/23/20 11:30 12/23/20 11:29 11/25/20 14:45 Enoxaparin Sodium (Lovenox) 60 mg EVERY 12 HOURS SUBQ 11/25/20 21:00 02/23/21 20:59 11/29/20 10:00 Famotidine (Pepcid) 20 mg Q12HR GT 11/28/20 21:00 02/26/21 20:59 11/29/20 09:59 Hydromorphone HCl (Dilaudid) 0.5 mg Q2H PRN IVP For Pain 11/23/20 09:45 11/30/20 09:44 11/23/20 09:57 Levetiracetam (Keppra) 500 mg Q12HR NG 11/28/20 21:00 01/12/21 20:59 11/29/20 09:59 Piperacillin Sod/ Tazobactam Sod 3.375 gm/Sodium Chloride 110 ml @ 27.5 mls/hr EVERY 8 HOURS IVPB 11/24/20 14:00 12/02/20 13:59 11/29/20 05:40 Potassium Chloride (K-Dur) 40 meq ONCE ORAL 11/29/20 13:00 11/29/20 14:00 Spironolactone (Aldactone) 25 mg EVERY 12 HOURS GT 11/28/20 09:15 12/28/20 09:14 11/29/20 09:59 Last 24 Hour Vital Signs Date Time Temp Pulse Resp B/P (MAP) Pulse Ox O2 Delivery O2 Flow Rate FiO2 11/29/20 09:59 92 146/63 11/29/20 08:13 97.1 92 18 146/63 (90) 97 11/29/20 08:00 97.1 92 20 146/63 (90) 97 11/29/20 08:00 88 11/29/20 04:00 88 11/29/20 04:00 98.4 89 20 134/53 (80) 98 11/29/20 00:00 97.5 89 18 131/59 (83) 95 11/29/20 00:00 90 11/28/20 21:00 Room Air 11/28/20 20:09 95 118/62 11/28/20 20:00 97.7 95 20 118/63 (81) 92 11/28/20 20:00 95 11/28/20 19:45 98 Nasal Cannula 4.0 36 11/28/20 19:45 89 18 98 Nasal Cannula 4.0 36 11/28/20 16:00 94 11/28/20 16:00 97.7 99 20 130/77 (94) 94 11/28/20 12:00 99 11/28/20 12:00 98.0 101 20 132/75 (94) 94 11/28/20 09:02 94 141/74 11/28/20 08:00 93 11/28/20 08:00 Room Air 11/28/20 08:00 97.7 94 20 141/74 (96) 97 11/28/20 04:00 98.1 90 20 119/67 (84) 96 11/28/20 04:00 90 11/28/20 04:00 Nasal Cannula 2.0 11/28/20 00:00 79 11/28/20 00:00 Nasal Cannula 2.0 11/28/20 00:00 98.2 86 20 121/74 (90) 98 11/27/20 21:15 102 134/88 11/27/20 20:00 Nasal Cannula 2.0 11/27/20 20:00 102 11/27/20 20:00 98.2 100 20 134/88 (103) 97 11/27/20 17:00 98 16 122/63 (82) 100 11/27/20 16:00 97 11/27/20 16:00 Nasal Cannula 2.0 11/27/20 16:00 98.1 96 20 113/73 (86) 98 11/27/20 15:00 93 16 116/72 (87) 100 11/27/20 14:00 98.4 96 15 133/69 (90) 100 Intake and Output 11/28/20 11/29/20 19:00 07:00 Output Total 1000 ml Balance -1000 ml Output Urine Total 1000 ml # Bowel Movements 2 1 Labs Test 11/27/20 05:10 11/28/20 05:05 11/29/20 05:40 White Blood Count 18.1 K/UL (4.8-10.8) 15.5 K/UL (4.8-10.8) 12.6 K/UL (4.8-10.8) Red Blood Count 3.32 M/UL (4.70-6.10) 3.23 M/UL (4.70-6.10) 3.15 M/UL (4.70-6.10) Hemoglobin 9.5 G/DL (14.2-18.0) 9.3 G/DL (14.2-18.0) 9.1 G/DL (14.2-18.0) Hematocrit 31.5 % (42.0-52.0) 30.0 % (42.0-52.0) 29.3 % (42.0-52.0) Mean Corpuscular Volume 95 FL (80-99) 93 FL (80-99) 93 FL (80-99) Mean Corpuscular Hemoglobin 28.7 PG (27.0-31.0) 28.8 PG (27.0-31.0) 28.8 PG (27.0-31.0) Mean Corpuscular Hemoglobin Concent 30.2 G/DL (32.0-36.0) 31.1 G/DL (32.0-36.0) 30.9 G/DL (32.0-36.0) Red Cell Distribution Width 17.3 % (11.6-14.8) 16.5 % (11.6-14.8) 16.8 % (11.6-14.8) Platelet Count 548 K/UL (150-450) 564 K/UL (150-450) 533 K/UL (150-450) Mean Platelet Volume 5.8 FL (6.5-10.1) 5.6 FL (6.5-10.1) 6.0 FL (6.5-10.1) Neutrophils (%) (Auto) % (45.0-75.0) 81.7 % (45.0-75.0) 76.8 % (45.0-75.0) Lymphocytes (%) (Auto) % (20.0-45.0) 9.9 % (20.0-45.0) 13.6 % (20.0-45.0) Monocytes (%) (Auto) % (1.0-10.0) 6.2 % (1.0-10.0) 6.7 % (1.0-10.0) Eosinophils (%) (Auto) % (0.0-3.0) 1.7 % (0.0-3.0) 2.3 % (0.0-3.0) Basophils (%) (Auto) % (0.0-2.0) 0.4 % (0.0-2.0) 0.7 % (0.0-2.0) Differential Total Cells Counted 100 Neutrophils % (Manual) 81 % (45-75) Lymphocytes % (Manual) 14 % (20-45) Monocytes % (Manual) 5 % (1-10) Eosinophils % (Manual) 0 % (0-3) Basophils % (Manual) 0 % (0-2) Band Neutrophils 0 % (0-8) Platelet Estimate Increased Platelet Morphology Normal Hypochromasia 1+ Anisocytosis 1+ Sodium Level 145 MMOL/L (136-145) 142 MMOL/L (136-145) 144 MMOL/L (136-145) Potassium Level 3.0 MMOL/L (3.5-5.1) 2.3 MMOL/L (3.5-5.1) 3.1 MMOL/L (3.5-5.1) Chloride Level 109 MMOL/L (98-107) 107 MMOL/L (98-107) 108 MMOL/L (98-107) Carbon Dioxide Level 24 MMOL/L (21-32) 26 MMOL/L (21-32) 29 MMOL/L (21-32) Anion Gap 12 mmol/L (5-15) 10 mmol/L (5-15) 7 mmol/L (5-15) Blood Urea Nitrogen 7 mg/dL (7-18) 3 mg/dL (7-18) 2 mg/dL (7-18) Creatinine 0.4 MG/DL (0.55-1.30) 0.4 MG/DL (0.55-1.30) 0.5 MG/DL (0.55-1.30) Estimat Glomerular Filtration Rate > 60 mL/min (>60) > 60 mL/min (>60) > 60 mL/min (>60) Glucose Level 71 MG/DL (74-106) 120 MG/DL (74-106) 187 MG/DL (74-106) Calcium Level 8.7 MG/DL (8.5-10.1) 7.7 MG/DL (8.5-10.1) 7.6 MG/DL (8.5-10.1) Phosphorus Level 3.0 MG/DL (2.5-4.9) 2.6 MG/DL (2.5-4.9) 2.3 MG/DL (2.5-4.9) Magnesium Level 1.6 MG/DL (1.8-2.4) 1.8 MG/DL (1.8-2.4) 1.7 MG/DL (1.8-2.4) Total Bilirubin 0.3 MG/DL (0.2-1.0) 0.3 MG/DL (0.2-1.0) 0.2 MG/DL (0.2-1.0) Aspartate Amino Transf (AST/SGOT) 20 U/L (15-37) 16 U/L (15-37) 11 U/L (15-37) Alanine Aminotransferase (ALT/SGPT) 22 U/L (12-78) 17 U/L (12-78) 14 U/L (12-78) Alkaline Phosphatase 96 U/L (46-116) 93 U/L (46-116) 90 U/L (46-116) Total Protein 6.1 G/DL (6.4-8.2) 5.7 G/DL (6.4-8.2) 5.5 G/DL (6.4-8.2) Albumin 1.7 G/DL (3.4-5.0) 1.5 G/DL (3.4-5.0) 1.5 G/DL (3.4-5.0) Globulin 4.4 g/dL 4.2 g/dL 4.0 g/dL Albumin/Globulin Ratio 0.4 (1.0-2.7) 0.4 (1.0-2.7) 0.4 (1.0-2.7) C-Reactive Protein, Quantitative 12.4 mg/dL (0.00-0.90) 8.2 mg/dL (0.00-0.90) Pro-B-Type Natriuretic Peptide 555 pg/mL (0-125) Height (Feet): 5 Height (Inches): 6.00 Weight (Pounds): 140 Objective Physical Exam General Appearance: mild distress, lethargic, Chronically Ill ENT: normal ENT inspection Neck: limited range of motion Respiratory: lungs clear Cardiovascular: tachycardia, edema Gastrointestinal: normal inspection, non tender, soft Genitourinary: normal inspection Musculoskeletal: other - Contracted upper and lower extremity +++left above knee amp Neurologic: motor weakness, responsive - Opens eyes, nonverbal, other - Makes incomprehensible sounds grimaces to pain Skin: no rash Nate Wren MD Nov 29, 2020 13:09
[2020-11-29] MEDS: D5 1/2NS 1,000 ML IV SCH (13:25)
--- NOTE | 2020-11-29 13:25 | Cardiac Electrophysiology PN ---
Assessment/Plan Assessment/Plan 1. Sinus Tachycardia due to sepsis in this patient with white count of 23,000 on IV antibiotics. 2. S/P gastrostomy tube migration. Now is removed and has NGT. S/P CT scan of the abdomen and pelvis to rule out abscess formation. FU GI and surgery NGT feeding started 3. Sepsis of unclear source. 4. S/P EXPANDER for respiratory failure. BNP of 724. Echocardiogram EF 65%. Now on RA 5. Status post left above-knee amputation. 6. Anemia. 7. Mental retardation. 8. Left thigh DVT on Lovenox 60 bid 9. Accelerated HTN. Better on Norvasc 5 bid, Aldactone 25 bid and prn Clonidine 10. Hypernatremia. Resolved on D51/2 NS at 50 cc / hr 11. Persistent hypokalemia. Replaced again today. On Aldactone 25 po bid DW RN Subjective Subjective PEG was removed as it was misplaced. Has NGT On anticoagulation for DVT in the LLE stump S/P EXPANDER for respiratory failure. Now on RA K low again today and gave order for KCL by NGT Objective Last 24 Hour Vital Signs Date Time Temp Pulse Resp B/P (MAP) Pulse Ox O2 Delivery O2 Flow Rate FiO2 11/29/20 12:00 97.1 96 20 129/56 (80) 94 11/29/20 12:00 96 11/29/20 09:59 92 146/63 11/29/20 08:13 97.1 92 18 146/63 (90) 97 11/29/20 08:00 97.1 92 20 146/63 (90) 97 11/29/20 08:00 88 11/29/20 04:00 88 11/29/20 04:00 98.4 89 20 134/53 (80) 98 11/29/20 00:00 97.5 89 18 131/59 (83) 95 11/29/20 00:00 90 11/28/20 21:00 Room Air 11/28/20 20:09 95 118/62 11/28/20 20:00 97.7 95 20 118/63 (81) 92 11/28/20 20:00 95 11/28/20 19:45 98 Nasal Cannula 4.0 36 11/28/20 19:45 89 18 98 Nasal Cannula 4.0 36 11/28/20 16:00 94 11/28/20 16:00 97.7 99 20 130/77 (94) 94 Intake and Output 11/28/20 11/29/20 19:00 07:00 Output Total 1000 ml Balance -1000 ml Output Urine Total 1000 ml # Bowel Movements 2 1 Laboratory Tests Test 11/29/20 05:40 White Blood Count 12.6 K/UL (4.8-10.8) H Red Blood Count 3.15 M/UL (4.70-6.10) L Hemoglobin 9.1 G/DL (14.2-18.0) L Hematocrit 29.3 % (42.0-52.0) L Mean Corpuscular Volume 93 FL (80-99) Mean Corpuscular Hemoglobin 28.8 PG (27.0-31.0) Mean Corpuscular Hemoglobin Concent 30.9 G/DL (32.0-36.0) L Red Cell Distribution Width 16.8 % (11.6-14.8) H Platelet Count 533 K/UL (150-450) H Mean Platelet Volume 6.0 FL (6.5-10.1) L Neutrophils (%) (Auto) 76.8 % (45.0-75.0) H Lymphocytes (%) (Auto) 13.6 % (20.0-45.0) L Monocytes (%) (Auto) 6.7 % (1.0-10.0) Eosinophils (%) (Auto) 2.3 % (0.0-3.0) Basophils (%) (Auto) 0.7 % (0.0-2.0) Sodium Level 144 MMOL/L (136-145) Potassium Level 3.1 MMOL/L (3.5-5.1) L Chloride Level 108 MMOL/L (98-107) H Carbon Dioxide Level 29 MMOL/L (21-32) Anion Gap 7 mmol/L (5-15) Blood Urea Nitrogen 2 mg/dL (7-18) L Creatinine 0.5 MG/DL (0.55-1.30) L Estimat Glomerular Filtration Rate > 60 mL/min (>60) Glucose Level 187 MG/DL (74-106) H Calcium Level 7.6 MG/DL (8.5-10.1) L Phosphorus Level 2.3 MG/DL (2.5-4.9) L Magnesium Level 1.7 MG/DL (1.8-2.4) L Total Bilirubin 0.2 MG/DL (0.2-1.0) Aspartate Amino Transf (AST/SGOT) 11 U/L (15-37) L Alanine Aminotransferase (ALT/SGPT) 14 U/L (12-78) Alkaline Phosphatase 90 U/L (46-116) C-Reactive Protein, Quantitative 8.2 mg/dL (0.00-0.90) H Total Protein 5.5 G/DL (6.4-8.2) L Albumin 1.5 G/DL (3.4-5.0) L Globulin 4.0 g/dL Albumin/Globulin Ratio 0.4 (1.0-2.7) L Microbiology Date/Time Source Procedure Growth Status 11/27/20 12:25 Abdomen Gram Stain - Final Resulted 11/27/20 12:25 Abdomen Wound Culture - Preliminary NO GROWTH Resulted Objective HEAD AND NECK: No JVD.NGT in place LUNGS: Decreased breath sounds. CARDIOVASCULAR: Regular S1 and S2 with no gallop. ABDOMEN: Soft. EXTREMITIES: Contracted with left above-knee amputation. Phoenix Amador MD Nov 29, 2020 13:25
--- NOTE | 2020-11-29 15:09 | NUR ---
consent form faxed to director case Zuleyka at [phone] for egd
--- NOTE | 2020-11-29 16:35 | Nephrology Progress Note ---
Assessment/Plan Problem List: (1) Dehydration (2) Electrolyte imbalance (3) Sepsis (4) Anemia (5) HTN (hypertension) (6) Seizure disorder Assessment 75-year-old male Patient presented with low serum sodium 134 however it is now corrected Blood pressure remains high Left [id number] amputation Sepsis, tachycardia Anemia Encephalopathy acute Seizure disorder Nonfunctioning GT tube, migrated to abdominal wall from gastric cavity. It is now removed Plan November 29: Status quo. Remains full code. Labs reviewed. Low potassium and low phosphorus addressed. Continue to monitor electrolytes and renal parameters. Medication list reviewed. November 28: Patient now on monitor bed. Labs reviewed. Serum potassium again low. KCl IV ordered. Aldactone through GT ordered. Continue per consultants. November 27: Seen in ICU. Low magnesium and low potassium addressed. Discussed with RN. Continue per consultants. November 26: Patient remains in ICU. Not in any distress. Labs reviewed. Potassium 2.6, replacement ordered. Medication list reviewed. Discussed with RN. Clinically improved. November 25: Patient in ICU. On nonrebreather mask. Labs reviewed. Leukocytosis. Renal parameters stable. Low serum potassium addressed. Discussed with RN. Continue per consultants. Patient is full code. November 24: Labs reviewed. Low potassium addressed. Venofer 200 mg 1 dose IV ordered. Continue per consultants. On tube feeding now. Will stop IV fluids. Patient is n.p.o. per GI Change IV to D5 normal saline Intravenous Vasotec as needed for high blood pressure Monitor renal parameters and electrolytes Anemia work-up Urine analysis and culture Antibiotics Per orders Subjective ROS Limited/Unobtainable: Yes Objective Objective Last 24 Hour Vital Signs Date Time Temp Pulse Resp B/P (MAP) Pulse Ox O2 Delivery O2 Flow Rate FiO2 11/29/20 15:41 111 11/29/20 12:00 97.1 96 20 129/56 (80) 94 11/29/20 12:00 96 11/29/20 09:59 92 146/63 11/29/20 08:13 97.1 92 18 146/63 (90) 97 11/29/20 08:00 97.1 92 20 146/63 (90) 97 11/29/20 08:00 88 11/29/20 07:00 90 18 97 Nasal Cannula 4.0 36 11/29/20 07:00 97 Nasal Cannula 4.0 36 11/29/20 04:00 88 11/29/20 04:00 98.4 89 20 134/53 (80) 98 11/29/20 00:00 97.5 89 18 131/59 (83) 95 11/29/20 00:00 90 11/28/20 21:00 Room Air 11/28/20 20:09 95 118/62 11/28/20 20:00 97.7 95 20 118/63 (81) 92 11/28/20 20:00 95 11/28/20 19:45 98 Nasal Cannula 4.0 36 11/28/20 19:45 89 18 98 Nasal Cannula 4.0 36 Intake and Output 11/28/20 11/29/20 19:00 07:00 Output Total 1000 ml Balance -1000 ml Output Urine Total 1000 ml # Bowel Movements 2 1 Current Medications Medications (Trade) Dose Ordered Sig/Venecia Route PRN Reason Start Time Stop Time Status Last Admin Dose Admin Acetaminophen (Tylenol) 650 mg Q4H PRN GT Temp >100.5 11/22/20 16:30 12/22/20 15:59 11/24/20 11:35 Acetaminophen (Tylenol) 650 mg Q4H PRN GT For Pain 11/22/20 16:30 12/22/20 16:29 Amlodipine Besylate (Norvasc) 5 mg EVERY 12 HOURS ORAL 11/25/20 21:00 12/25/20 20:59 11/29/20 09:59 Clonidine HCl (Catapres Tab) 0.1 mg Q4H PRN ORAL sbp>170 11/25/20 14:45 02/23/21 14:44 Dextrose/Sodium Chloride 1,000 ml @ 60 mls/hr [id number] IV 11/27/20 09:30 12/27/20 09:29 11/29/20 13:25 Enalaprilat (Vasotec) 2.5 mg Q4H PRN IV For blood pressure over 160 sy 11/23/20 11:30 12/23/20 11:29 11/25/20 14:45 Enoxaparin Sodium (Lovenox) 60 mg EVERY 12 HOURS SUBQ 11/25/20 21:00 02/23/21 20:59 11/29/20 10:00 Famotidine (Pepcid) 20 mg Q12HR GT 11/28/20 21:00 02/26/21 20:59 11/29/20 09:59 Hydromorphone HCl (Dilaudid) 0.5 mg Q2H PRN IVP For Pain 11/23/20 09:45 11/30/20 09:44 11/23/20 09:57 Levetiracetam (Keppra) 500 mg Q12HR NG 11/28/20 21:00 01/12/21 20:59 11/29/20 09:59 Piperacillin Sod/ Tazobactam Sod 3.375 gm/Sodium Chloride 110 ml @ 27.5 mls/hr EVERY 8 HOURS IVPB 11/24/20 14:00 12/02/20 13:59 11/29/20 13:25 Spironolactone (Aldactone) 25 mg EVERY 12 HOURS GT 11/28/20 09:15 12/28/20 09:14 11/29/20 09:59 Laboratory Tests 11/29/20 05:40: White Blood Count 12.6H, Red Blood Count 3.15L, Hemoglobin 9.1L, Hematocrit 29.3L, Mean Corpuscular Volume 93, Mean Corpuscular Hemoglobin 28.8, Mean Corpuscular Hemoglobin Concent 30.9L, Red Cell Distribution Width 16.8H, Platelet Count 533H, Mean Platelet Volume 6.0L, Neutrophils (%) (Auto) 76.8H, Lymphocytes (%) (Auto) 13.6L, Monocytes (%) (Auto) 6.7, Eosinophils (%) (Auto) 2.3, Basophils (%) (Auto) 0.7, Sodium Level 144, Potassium Level 3.1L, Chloride Level 108H, Carbon Dioxide Level 29, Anion Gap 7, Blood Urea Nitrogen 2L, Creatinine 0.5L, Estimat Glomerular Filtration Rate > 60, Glucose Level 187H, Calcium Level 7.6L, Phosphorus Level 2.3L, Magnesium Level 1.7L, Total Bilirubin 0.2, Aspartate Amino Transf (AST/SGOT) 11L, Alanine Aminotransferase (ALT/SGPT) 14, Alkaline Phosphatase 90, C-Reactive Protein, Quantitative 8.2H, Total Protein 5.5L, Albumin 1.5L, Globulin 4.0, Albumin/Globulin Ratio 0.4L Height (Feet): 5 Height (Inches): 6.00 Weight (Pounds): 140 Neck: limited range of motion Cardiovascular: tachycardia Respiratory/Chest: decreased breath sounds Abdomen: distended Lenny Veliz MD Nov 29, 2020 16:35
[2020-11-29] MEDS ORDERED: Potassium Phosphate 20 MM in NS 275 ML IV SCH (19:00)
--- NOTE | 2020-11-29 19:18 | General Progress Note ---
Subjective ROS Limited/Unobtainable: Yes Allergies: Coded Allergies: No Known Allergies (Unverified , 11/22/20) Objective Last 24 Hour Vital Signs Date Time Temp Pulse Resp B/P (MAP) Pulse Ox O2 Delivery O2 Flow Rate FiO2 11/29/20 16:00 98.9 105 20 141/69 (93) 97 11/29/20 15:41 111 11/29/20 12:00 97.1 96 20 129/56 (80) 94 11/29/20 12:00 96 11/29/20 09:59 92 146/63 11/29/20 08:13 97.1 92 18 146/63 (90) 97 11/29/20 08:00 97.1 92 20 146/63 (90) 97 11/29/20 08:00 88 11/29/20 07:00 90 18 97 Nasal Cannula 4.0 36 11/29/20 07:00 97 Nasal Cannula 4.0 36 11/29/20 04:00 88 11/29/20 04:00 98.4 89 20 134/53 (80) 98 11/29/20 00:00 97.5 89 18 131/59 (83) 95 11/29/20 00:00 90 11/28/20 21:00 Room Air 11/28/20 20:09 95 118/62 11/28/20 20:00 97.7 95 20 118/63 (81) 92 11/28/20 20:00 95 11/28/20 19:45 98 Nasal Cannula 4.0 36 11/28/20 19:45 89 18 98 Nasal Cannula 4.0 36 Intake and Output 11/28/20 11/29/20 19:00 07:00 Output Total 1000 ml Balance -1000 ml Output Urine Total 1000 ml # Bowel Movements 2 1 Laboratory Tests 11/29/20 05:40: White Blood Count 12.6H, Red Blood Count 3.15L, Hemoglobin 9.1L, Hematocrit 29.3L, Mean Corpuscular Volume 93, Mean Corpuscular Hemoglobin 28.8, Mean Corpuscular Hemoglobin Concent 30.9L, Red Cell Distribution Width 16.8H, Platelet Count 533H, Mean Platelet Volume 6.0L, Neutrophils (%) (Auto) 76.8H, Lymphocytes (%) (Auto) 13.6L, Monocytes (%) (Auto) 6.7, Eosinophils (%) (Auto) 2.3, Basophils (%) (Auto) 0.7, Sodium Level 144, Potassium Level 3.1L, Chloride Level 108H, Carbon Dioxide Level 29, Anion Gap 7, Blood Urea Nitrogen 2L, Creatinine 0.5L, Estimat Glomerular Filtration Rate > 60, Glucose Level 187H, Calcium Level 7.6L, Phosphorus Level 2.3L, Magnesium Level 1.7L, Total Bilirubin 0.2, Aspartate Amino Transf (AST/SGOT) 11L, Alanine Aminotransferase (ALT/SGPT) 14, Alkaline Phosphatase 90, C-Reactive Protein, Quantitative 8.2H, Total Protein 5.5L, Albumin 1.5L, Globulin 4.0, Albumin/Globulin Ratio 0.4L Height (Feet): 5 Height (Inches): 6.00 Weight (Pounds): 140 Assessment/Plan Problem List: (1) Cerebral palsy ICD Codes: G80.9 - Cerebral palsy, unspecified SNOMED: 971927470 (2) Sepsis ICD Codes: A41.9 - Sepsis, unspecified organism SNOMED: [id number] Status: progressing Assessment/Plan: hypokalemia is improving leukocytosis is improving contracture reviewed chart and labs sepsis uti r/o abdominal abscess abx per id Samantha Blackwood MD Nov 29, 2020 19:18
--- NOTE | 2020-11-29 21:40 | General Progress Note ---
Subjective Allergies: Coded Allergies: No Known Allergies (Unverified , 11/22/20) Subjective Calm tolerating TF Objective Last 24 Hour Vital Signs Date Time Temp Pulse Resp B/P (MAP) Pulse Ox O2 Delivery O2 Flow Rate FiO2 11/29/20 20:57 110 123/71 11/29/20 20:46 97 Nasal Cannula 4.0 36 11/29/20 20:46 89 18 97 Nasal Cannula 4.0 36 11/29/20 16:00 98.9 105 20 141/69 (93) 97 11/29/20 15:41 111 11/29/20 12:00 97.1 96 20 129/56 (80) 94 11/29/20 12:00 96 11/29/20 09:59 92 146/63 11/29/20 08:13 97.1 92 18 146/63 (90) 97 11/29/20 08:00 97.1 92 20 146/63 (90) 97 11/29/20 08:00 88 11/29/20 07:00 90 18 97 Nasal Cannula 4.0 36 11/29/20 07:00 97 Nasal Cannula 4.0 36 11/29/20 04:00 88 11/29/20 04:00 98.4 89 20 134/53 (80) 98 11/29/20 00:00 97.5 89 18 131/59 (83) 95 11/29/20 00:00 90 Intake and Output 0 11/28/20 11/29/20 19:00 07:00 Output Total 1000 ml Balance -1000 ml Output Urine Total 1000 ml # Bowel Movements 2 1 Laboratory Tests 11/29/20 05:40: White Blood Count 12.6H, Red Blood Count 3.15L, Hemoglobin 9.1L, Hematocrit 29.3L, Mean Corpuscular Volume 93, Mean Corpuscular Hemoglobin 28.8, Mean Corpuscular Hemoglobin Concent 30.9L, Red Cell Distribution Width 16.8H, Platelet Count 533H, Mean Platelet Volume 6.0L, Neutrophils (%) (Auto) 76.8H, Lymphocytes (%) (Auto) 13.6L, Monocytes (%) (Auto) 6.7, Eosinophils (%) (Auto) 2.3, Basophils (%) (Auto) 0.7, Sodium Level 144, Potassium Level 3.1L, Chloride Level 108H, Carbon Dioxide Level 29, Anion Gap 7, Blood Urea Nitrogen 2L, Creatinine 0.5L, Estimat Glomerular Filtration Rate > 60, Glucose Level 187H, Calcium Level 7.6L, Phosphorus Level 2.3L, Magnesium Level 1.7L, Total Bilirubin 0.2, Aspartate Amino Transf (AST/SGOT) 11L, Alanine Aminotransferase (ALT/SGPT) 14, Alkaline Phosphatase 90, C-Reactive Protein, Quantitative 8.2H, Total Protein 5.5L, Albumin 1.5L, Globulin 4.0, Albumin/Globulin Ratio 0.4L Height (Feet): 5 Height (Inches): 6.00 Weight (Pounds): 140 Objective Debilitaed man NCAT coarse BS RR abd (+) improving indurated subxiphoid area, No discharge today (+) contracted OBS Assessment/Plan Status: progressing Assessment/Plan: Assessment - GT migration into anterior abd wall - removed - abdominal pain, induration - resolving - dysphagia/NGT - can now plan on PEG replacement - respiratory distress - resolved - cerebral palsy - contractures - decubitus ulcers - (L) BKA - hypokalemia Recommendations - broad spect abx - NG TF - pulmonary f/u - NGT for meds - message left with conservator - await consent foe PEG - IVF - replace Nacho Crawford MD Nov 29, 2020 21:40
[2020-11-29] MEDS: Acetaminophen 650mg/20.3ml GT PRN (23:13)
[2020-11-30] VITALS: BP 130/67
[2020-11-30 04:00] VITALS: BP 130/63
[2020-11-30 04:52] LABS: BASOPHILS % (AUTO) 0.6 % (0.0-2.0); EOSINOPHILS % (AUTO) 2.2 % (0.0-3.0); HEMOGLOBIN 10.2 G/DL (14.2-18.0); LYMPHOCYTES % (AUTO) 13.7 % (20.0-45.0); MEAN CORPUSCULAR VOLUME 93 FL (80-99); MONOCYTES % (AUTO) 6.5 % (1.0-10.0); PLATELET COUNT 590 K/UL (150-450); RED BLOOD COUNT 3.56 M/UL (4.70-6.10); RED CELL DISTRIBUTION WIDTH 17.3 % (11.6-14.8); WHITE BLOOD COUNT 15.5 K/UL (4.8-10.8)
[2020-11-30 05:10] LABS: ALANINE AMINOTRANSFERASE 17 U/L (12-78); ALBUMIN 1.7 G/DL (3.4-5.0); ALBUMIN/GLOBULIN RATIO 0.4 (1.0-2.7); ALKALINE PHOSPHATASE 101 U/L (46-116); ANION GAP 6 mmol/L (5-15); ASPARTATE AMINO TRANSFERASE 18 U/L (15-37); BILIRUBIN,TOTAL 0.2 MG/DL (0.2-1.0); BLOOD UREA NITROGEN 7 mg/dL (7-18); CALCIUM 8.3 MG/DL (8.5-10.1); CARBON DIOXIDE 29 MMOL/L (21-32); CHLORIDE 107 MMOL/L (98-107); CREATININE 0.5 MG/DL (0.55-1.30); PHOSPHORUS 3.7 MG/DL (2.5-4.9); POTASSIUM 4.2 MMOL/L (3.5-5.1); SODIUM 142 MMOL/L (136-145)
[2020-11-30] MEDS: D5 1/2NS 1,000 ML IV SCH (05:12)
[2020-11-30] MEDS: Piperacillin/Tazobactam 3.375 GM in NS 110 ML IVPB SCH ×3 (06:15→21:45)
--- NOTE | 2020-11-30 07:30 | NUR ---
NURSE NOTES: Received pt from YUMIKO Bales, pt is sleeping, pt is in RA, no SOB or acute respiratory distress noted. Pt has L Ng tube in place is working well, pt has condom cath in place is working well. pt has in tact IV access LAC 20G SL. no pain noted at this time. All needs attended, bed is locked and is in the lowest position, call light within easy reach. will continue to monitor.
[2020-11-30 08:00] VITALS: BP 121/70
--- NOTE | 2020-11-30 08:17 | NUR ---
RD ASSESSMENT & RECOMMENDATIONS SEE CARE ACTIVITY FOR COMPLETE ASSESSMENT DAILY ESTIMATED NEEDS: Needs based on Wound underweight 37kg 30-40 kcals/kg 9279-3044 total kcals 1.25-2 g protein/kg 46-74 g total protein 25-35ml/kcal mL/kg 925-1295 total fluid mLs NUTRITION DIAGNOSIS: Increased kcal and pro needs r/t underweight status and wound care as evidenced by pt is est 62% of IBW, BMI underweight per guidelines, multiple wounds including full thickness wounds x2, refer to WC eval. CURRENT TF: Jevity 1.2 @50 ml/hr ENTERAL NUTRITION RECOMMENDATIONS: Maintain current TF as ordered Jevity 1.2 @50ml/hr x24 hrs to provide 1200ml, 1440 kcal, 67g pro, 968ml free H2O - Initiate Jevity 1.2 @35ml/hr for 6 hrs, advance as tolerated 10ml/hr q4-6 hrs to goal. - Flush per MD, HOB over 30 degrees ADDITIONAL RECOMMENDATIONS: 1) Wound care: add DARLENE BID, Vit C 250mg BID 2) Maintain calibrated bed scale wts 3) Monitor BG, need for carb control TF 4) NGT feeds as able, GT out. 5) Rec niss for glycemic control. 6) Rec change of D5 to normal saline
--- NOTE | 2020-11-30 08:51 | Pulmonology Progress Note ---
Subjective ROS Limited/Unobtainable: Yes Interval Events: now in tele Constitutional: Reports: other - doing better, transferred from ICU to telemetry HEENT: Repors: no symptoms Respiratory: Reports: no symptoms Cardiovascular: Reports: no symptoms Gastrointestinal/Abdominal: Reports: constipation Genitourinary: Reports: no symptoms Allergies: Coded Allergies: No Known Allergies (Unverified , 11/22/20) Objective Last 24 Hour Vital Signs Date Time Temp Pulse Resp B/P (MAP) Pulse Ox O2 Delivery O2 Flow Rate FiO2 11/30/20 07:41 97 11/30/20 04:00 98.7 92 22 130/63 (85) 95 11/30/20 04:00 91 11/30/20 00:00 101 11/30/20 00:00 98.2 102 20 130/67 (88) 95 11/29/20 23:43 98.2 11/29/20 21:00 Room Air 11/29/20 20:57 110 123/71 11/29/20 20:46 97 Nasal Cannula 4.0 36 11/29/20 20:46 89 18 97 Nasal Cannula 4.0 36 11/29/20 20:00 99.0 110 20 123/71 (88) 97 11/29/20 20:00 109 11/29/20 16:00 98.9 105 20 141/69 (93) 97 11/29/20 15:41 111 11/29/20 12:00 97.1 96 20 129/56 (80) 94 11/29/20 12:00 96 11/29/20 09:59 92 146/63 Intake and Output 11/29/20 11/30/20 19:00 07:00 Intake Total 100 ml Output Total 1200 ml Balance -1100 ml Free Water 50 ml Tube Feeding 50 ml Output Urine Total 1200 ml # Bowel Movements 1 General Appearance: no acute distress HEENT: normocephalic, atraumatic, anicteric Respiratory: lungs clear Cardiovascular: normal rate, regular rhythm Extremities: no edema, other - contracture noted Microbiology Date/Time Source Procedure Growth Status 11/27/20 12:25 Abdomen Gram Stain - Final Complete 11/27/20 12:25 Wound Culture - Final Staphylococcus Sp Coag Neg Becky Albicans Complete Laboratory Tests 11/30/20 04:15: White Blood Count 15.5H, Red Blood Count 3.56L, Hemoglobin 10.2L, Hematocrit 33.0L, Mean Corpuscular Volume 93, Mean Corpuscular Hemoglobin 28.8, Mean Corpuscular Hemoglobin Concent 31.0L, Red Cell Distribution Width 17.3H, Platelet Count 590H, Mean Platelet Volume 6.1L, Neutrophils (%) (Auto) 77.0H, Lymphocytes (%) (Auto) 13.7L, Monocytes (%) (Auto) 6.5, Eosinophils (%) (Auto) 2.2, Basophils (%) (Auto) 0.6, Sodium Level 142, Potassium Level 4.2, Chloride Level 107, Carbon Dioxide Level 29, Anion Gap 6, Blood Urea Nitrogen 7, Creatinine 0.5L, Estimat Glomerular Filtration Rate > 60, Glucose Level 143H, Calcium Level 8.3L, Phosphorus Level 3.7, Magnesium Level 1.6L, Total Bilirubin 0.2, Aspartate Amino Transf (AST/SGOT) 18, Alanine Aminotransferase (ALT/SGPT) 17, Alkaline Phosphatase 101, C-Reactive Protein, Quantitative 6.8H, Pro-B-Type Natriuretic Peptide 491H, Total Protein 6.2L, Albumin 1.7L, Globulin 4.5, Albumin/Globulin Ratio 0.4L Current Medications Medications (Trade) Dose Ordered Sig/Venecia Route PRN Reason Start Time Stop Time Status Last Admin Dose Admin Acetaminophen (Tylenol) 650 mg Q4H PRN GT Temp >100.5 11/22/20 16:30 12/22/20 15:59 11/29/20 23:13 Acetaminophen (Tylenol) 650 mg Q4H PRN GT For Pain 11/22/20 16:30 12/22/20 16:29 Amlodipine Besylate (Norvasc) 5 mg EVERY 12 HOURS ORAL 11/25/20 21:00 12/25/20 20:59 11/29/20 20:57 Clonidine HCl (Catapres Tab) 0.1 mg Q4H PRN ORAL sbp>170 11/25/20 14:45 02/23/21 14:44 Dextrose/Sodium Chloride 1,000 ml @ 60 mls/hr [id number] IV 11/27/20 09:30 12/27/20 09:29 11/30/20 05:12 Enalaprilat (Vasotec) 2.5 mg Q4H PRN IV For blood pressure over 160 sy 11/23/20 11:30 12/23/20 11:29 11/25/20 14:45 Enoxaparin Sodium (Lovenox) 60 mg EVERY 12 HOURS SUBQ 11/25/20 21:00 02/23/21 20:59 11/29/20 21:07 Famotidine (Pepcid) 20 mg Q12HR GT 11/28/20 21:00 02/26/21 20:59 11/29/20 20:57 Hydromorphone HCl (Dilaudid) 0.5 mg Q2H PRN IVP For Pain 11/23/20 09:45 11/30/20 09:44 11/23/20 09:57 Levetiracetam (Keppra) 500 mg Q12HR NG 11/28/20 21:00 01/12/21 20:59 11/29/20 20:57 Piperacillin Sod/ Tazobactam Sod 3.375 gm/Sodium Chloride 110 ml @ 27.5 mls/hr EVERY 8 HOURS IVPB 11/24/20 14:00 12/02/20 13:59 11/30/20 06:15 Spironolactone (Aldactone) 25 mg EVERY 12 HOURS GT 11/28/20 09:15 12/28/20 09:14 11/29/20 20:57 Assessment/Plan Assessment/Plan 1. Respiratory distress - now tolerating room air - Needs frequent suctioning and hygiene 2. Right basilar atelectasis -Continue pulmonary hygiene 3. Sepsis - On Abx - WBC downtrending - f/u UCx, BCx, and wound Cx negative 4. Persistent thrombus in the left common femoral and proximal superficial femoral veins - on full dose Lovenox - has DVT on amputated leg; due to venous ligation Has NG tube PEG replacement pending consent The care of this patient was discussed with my supervising physician Time spent for this encounter was approximately 31 minutes Richi Boo Nov 30, 2020 08:51 Noam Em MD Nov 30, 2020 10:46
[2020-11-30] MEDS: Spironolactone 25mg tab GT SCH ×2 (09:23→21:47)
[2020-11-30] MEDS: levETIRAcetam 500mg/5ml Liquid NG SCH ×2 (09:23→21:47)
[2020-11-30] MEDS: Enoxaparin 60mg Inj SUBQ SCH ×2 (09:24→21:46)
--- NOTE | 2020-11-30 10:01 | Cardiac Electrophysiology PN ---
Assessment/Plan Assessment/Plan 1. Sinus Tachycardia due to sepsis in this patient with white count of 23,000 on IV antibiotics. 2. S/P gastrostomy tube migration. Now is removed and has NGT. S/P CT scan of the abdomen and pelvis to rule out abscess formation. FU GI and surgery NGT feeding started Awaiting Conservator's consent for PEG placement by Dr. Mcelroy 3. Sepsis of unclear source. 4. 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 BNP of 724. Echocardiogram EF 65%. Now on RA 5. Status post left above-knee amputation. 6. Anemia. 7. Mental retardation. 8. Left thigh DVT on Lovenox 60 bid 9. Accelerated HTN. Better on Norvasc 5 bid, Aldactone 25 bid and prn Clonidine 10. Hypernatremia. Resolved on D51/2 NS at 50 cc / hr 11. Persistent hypokalemia. Replaced again. On Aldactone 25 po bid DW RN and Dr Mcelroy Subjective Subjective PEG was removed as it was misplaced. 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 Now on RA K low again and replaced. Awaiting Conservator's consent for PEG placement by Dr. Mcelroy Objective Last 24 Hour Vital Signs Date Time Temp Pulse Resp B/P (MAP) Pulse Ox O2 Delivery O2 Flow Rate FiO2 11/30/20 09:23 99 121/70 11/30/20 08:00 98.1 99 22 121/70 (87) 100 11/30/20 07:41 97 11/30/20 04:00 98.7 92 22 130/63 (85) 95 11/30/20 04:00 91 11/30/20 00:00 101 11/30/20 00:00 98.2 102 20 130/67 (88) 95 11/29/20 23:43 98.2 11/29/20 21:00 Room Air 11/29/20 20:57 110 123/71 11/29/20 20:46 97 Nasal Cannula 4.0 36 11/29/20 20:46 89 18 97 Nasal Cannula 4.0 36 11/29/20 20:00 99.0 110 20 123/71 (88) 97 11/29/20 20:00 109 11/29/20 16:00 98.9 105 20 141/69 (93) 97 11/29/20 15:41 111 11/29/20 12:00 97.1 96 20 129/56 (80) 94 11/29/20 12:00 96 11/29/20 09:59 92 146/63 Intake and Output 11/29/20 11/30/20 19:00 07:00 Intake Total 100 ml Output Total 1200 ml Balance -1100 ml Free Water 50 ml Tube Feeding 50 ml Output Urine Total 1200 ml # Bowel Movements 1 Laboratory Tests Test 11/30/20 04:15 White Blood Count 15.5 K/UL (4.8-10.8) H Red Blood Count 3.56 M/UL (4.70-6.10) L Hemoglobin 10.2 G/DL (14.2-18.0) L Hematocrit 33.0 % (42.0-52.0) L Mean Corpuscular Volume 93 FL (80-99) Mean Corpuscular Hemoglobin 28.8 PG (27.0-31.0) Mean Corpuscular Hemoglobin Concent 31.0 G/DL (32.0-36.0) L Red Cell Distribution Width 17.3 % (11.6-14.8) H Platelet Count 590 K/UL (150-450) H Mean Platelet Volume 6.1 FL (6.5-10.1) L Neutrophils (%) (Auto) 77.0 % (45.0-75.0) H Lymphocytes (%) (Auto) 13.7 % (20.0-45.0) L Monocytes (%) (Auto) 6.5 % (1.0-10.0) Eosinophils (%) (Auto) 2.2 % (0.0-3.0) Basophils (%) (Auto) 0.6 % (0.0-2.0) Sodium Level 142 MMOL/L (136-145) Potassium Level 4.2 MMOL/L (3.5-5.1) Chloride Level 107 MMOL/L (98-107) Carbon Dioxide Level 29 MMOL/L (21-32) Anion Gap 6 mmol/L (5-15) Blood Urea Nitrogen 7 mg/dL (7-18) Creatinine 0.5 MG/DL (0.55-1.30) L Estimat Glomerular Filtration Rate > 60 mL/min (>60) Glucose Level 143 MG/DL (74-106) H Calcium Level 8.3 MG/DL (8.5-10.1) L Phosphorus Level 3.7 MG/DL (2.5-4.9) Magnesium Level 1.6 MG/DL (1.8-2.4) L Total Bilirubin 0.2 MG/DL (0.2-1.0) Aspartate Amino Transf (AST/SGOT) 18 U/L (15-37) Alanine Aminotransferase (ALT/SGPT) 17 U/L (12-78) Alkaline Phosphatase 101 U/L (46-116) C-Reactive Protein, Quantitative 6.8 mg/dL (0.00-0.90) H Pro-B-Type Natriuretic Peptide 491 pg/mL (0-125) H Total Protein 6.2 G/DL (6.4-8.2) L Albumin 1.7 G/DL (3.4-5.0) L Globulin 4.5 g/dL Albumin/Globulin Ratio 0.4 (1.0-2.7) L Microbiology Date/Time Source Procedure Growth Status 11/27/20 12:25 Abdomen Gram Stain - Final Complete 11/27/20 12:25 Wound Culture - Final Staphylococcus Sp Coag Neg Becky Albicans Complete Objective HEAD AND NECK: No JVD.NGT in place LUNGS: Decreased breath sounds. CARDIOVASCULAR: Regular S1 and S2 with no gallop. ABDOMEN: Soft. EXTREMITIES: Contracted with left above-knee amputation. Phoenix Amador MD Nov 30, 2020 10:01
--- NOTE | 2020-11-30 10:53 | Infectious Diseases Prog Note ---
Assessment/Plan Assessment/Plan IMPRESSION: Sepsis, Infected gastrostomy with gastrostomy migration, ? 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 DVT of left leg Leukocytosis, RECOMMENDATION: Continue Zosyn CXR repeat wound culture Add Doxycycline Subjective ROS Limited/Unobtainable: Yes Gastrointestinal/Abdominal: Denies: diarrhea Allergies: Coded Allergies: No Known Allergies (Unverified , 11/22/20) Objective Last 24 Hour Vital Signs Date Time Temp Pulse Resp B/P (MAP) Pulse Ox O2 Delivery O2 Flow Rate FiO2 11/30/20 09:23 99 121/70 11/30/20 08:00 98.1 99 22 121/70 (87) 100 11/30/20 07:41 97 11/30/20 04:00 98.7 92 22 130/63 (85) 95 11/30/20 04:00 91 11/30/20 00:00 101 11/30/20 00:00 98.2 102 20 130/67 (88) 95 11/29/20 23:43 98.2 11/29/20 21:00 Room Air 11/29/20 20:57 110 123/71 11/29/20 20:46 97 Nasal Cannula 4.0 36 11/29/20 20:46 89 18 97 Nasal Cannula 4.0 36 11/29/20 20:00 99.0 110 20 123/71 (88) 97 11/29/20 20:00 109 11/29/20 16:00 98.9 105 20 141/69 (93) 97 11/29/20 15:41 111 11/29/20 12:00 97.1 96 20 129/56 (80) 94 11/29/20 12:00 96 Height (Feet): 5 Height (Inches): 6.00 Weight (Pounds): 140 HEENT: mucous membranes moist Respiratory/Chest: rhonchi - bilaterally Cardiovascular: tachycardia Abdomen: soft, non tender, other - GT feeding Extremities: other - dependent edema Neurologic/Psychiatric: aphasia Microbiology Date/Time Source Procedure Growth Status 11/27/20 12:25 Abdomen Gram Stain - Final Complete 11/27/20 12:25 Wound Culture - Final Staphylococcus Sp Coag Neg Becky Albicans Complete Laboratory Tests Test 11/30/20 04:15 White Blood Count 15.5 K/UL (4.8-10.8) H Red Blood Count 3.56 M/UL (4.70-6.10) L Hemoglobin 10.2 G/DL (14.2-18.0) L Hematocrit 33.0 % (42.0-52.0) L Mean Corpuscular Volume 93 FL (80-99) Mean Corpuscular Hemoglobin 28.8 PG (27.0-31.0) Mean Corpuscular Hemoglobin Concent 31.0 G/DL (32.0-36.0) L Red Cell Distribution Width 17.3 % (11.6-14.8) H Platelet Count 590 K/UL (150-450) H Mean Platelet Volume 6.1 FL (6.5-10.1) L Neutrophils (%) (Auto) 77.0 % (45.0-75.0) H Lymphocytes (%) (Auto) 13.7 % (20.0-45.0) L Monocytes (%) (Auto) 6.5 % (1.0-10.0) Eosinophils (%) (Auto) 2.2 % (0.0-3.0) Basophils (%) (Auto) 0.6 % (0.0-2.0) Sodium Level 142 MMOL/L (136-145) Potassium Level 4.2 MMOL/L (3.5-5.1) Chloride Level 107 MMOL/L (98-107) Carbon Dioxide Level 29 MMOL/L (21-32) Anion Gap 6 mmol/L (5-15) Blood Urea Nitrogen 7 mg/dL (7-18) Creatinine 0.5 MG/DL (0.55-1.30) L Estimat Glomerular Filtration Rate > 60 mL/min (>60) Glucose Level 143 MG/DL (74-106) H Calcium Level 8.3 MG/DL (8.5-10.1) L Phosphorus Level 3.7 MG/DL (2.5-4.9) Magnesium Level 1.6 MG/DL (1.8-2.4) L Total Bilirubin 0.2 MG/DL (0.2-1.0) Aspartate Amino Transf (AST/SGOT) 18 U/L (15-37) Alanine Aminotransferase (ALT/SGPT) 17 U/L (12-78) Alkaline Phosphatase 101 U/L (46-116) C-Reactive Protein, Quantitative 6.8 mg/dL (0.00-0.90) H Pro-B-Type Natriuretic Peptide 491 pg/mL (0-125) H Total Protein 6.2 G/DL (6.4-8.2) L Albumin 1.7 G/DL (3.4-5.0) L Globulin 4.5 g/dL Albumin/Globulin Ratio 0.4 (1.0-2.7) L Current Medications Medications (Trade) Dose Ordered Sig/Venecia Route PRN Reason Start Time Stop Time Status Last Admin Dose Admin Acetaminophen (Tylenol) 650 mg Q4H PRN GT Temp >100.5 11/22/20 16:30 12/22/20 15:59 11/29/20 23:13 Acetaminophen (Tylenol) 650 mg Q4H PRN GT For Pain 11/22/20 16:30 12/22/20 16:29 Amlodipine Besylate (Norvasc) 5 mg EVERY 12 HOURS ORAL 11/25/20 21:00 12/25/20 20:59 11/30/20 09:23 Clonidine HCl (Catapres Tab) 0.1 mg Q4H PRN ORAL sbp>170 11/25/20 14:45 02/23/21 14:44 Dextrose/Sodium Chloride 1,000 ml @ 60 mls/hr [id number] IV 11/27/20 09:30 12/27/20 09:29 11/30/20 05:12 Enalaprilat (Vasotec) 2.5 mg Q4H PRN IV For blood pressure over 160 sy 11/23/20 11:30 12/23/20 11:29 11/25/20 14:45 Enoxaparin Sodium (Lovenox) 60 mg EVERY 12 HOURS SUBQ 11/25/20 21:00 02/23/21 20:59 11/30/20 09:24 Famotidine (Pepcid) 20 mg Q12HR GT 11/28/20 21:00 02/26/21 20:59 11/30/20 09:23 Levetiracetam (Keppra) 500 mg Q12HR NG 11/28/20 21:00 01/12/21 20:59 11/30/20 09:23 Piperacillin Sod/ Tazobactam Sod 3.375 gm/Sodium Chloride 110 ml @ 27.5 mls/hr EVERY 8 HOURS IVPB 11/24/20 14:00 12/02/20 13:59 11/30/20 06:15 Spironolactone (Aldactone) 25 mg EVERY 12 HOURS GT 11/28/20 09:15 12/28/20 09:14 11/30/20 09:23 John Lara MD Nov 30, 2020 10:53
--- NOTE | 2020-11-30 11:22 | NUR ---
RADIOLOGY DEPT., CHEST X-RAY DONE.-P.DYE
--- NOTE | 2020-11-30 11:24 | Nephrology Progress Note ---
Assessment/Plan Problem List: (1) Dehydration (2) Electrolyte imbalance (3) Sepsis (4) Anemia (5) HTN (hypertension) (6) Seizure disorder Assessment 75-year-old male Patient presented with low serum sodium 134 however it is now corrected Blood pressure remains high Left [id number] amputation Sepsis, tachycardia Anemia Encephalopathy acute Seizure disorder Nonfunctioning GT tube, migrated to abdominal wall from gastric cavity. It is now removed Plan November 30: Discussed with RN. Low magnesium addressed. Labs reviewed. Medication list reviewed. DC IV fluid. Continue per consultants. November 29: Status quo. Remains full code. Labs reviewed. Low potassium and low phosphorus addressed. Continue to monitor electrolytes and renal parameters. Medication list reviewed. November 28: Patient now on monitor bed. Labs reviewed. Serum potassium again low. KCl IV ordered. Aldactone through GT ordered. Continue per consultants. November 27: Seen in ICU. Low magnesium and low potassium addressed. Discussed with RN. Continue per consultants. November 26: Patient remains in ICU. Not in any distress. Labs reviewed. Potassium 2.6, replacement ordered. Medication list reviewed. Discussed with RN. Clinically improved. November 25: Patient in ICU. On nonrebreather mask. Labs reviewed. Leukocytosis. Renal parameters stable. Low serum potassium addressed. Discussed with RN. Continue per consultants. Patient is full code. November 24: Labs reviewed. Low potassium addressed. Venofer 200 mg 1 dose IV ordered. Continue per consultants. On tube feeding now. Will stop IV fluids. Patient is n.p.o. per GI Change IV to D5 normal saline Intravenous Vasotec as needed for high blood pressure Monitor renal parameters and electrolytes Anemia work-up Urine analysis and culture Antibiotics Per orders Subjective ROS Limited/Unobtainable: Yes Objective Objective Last 24 Hour Vital Signs Date Time Temp Pulse Resp B/P (MAP) Pulse Ox O2 Delivery O2 Flow Rate FiO2 11/30/20 09:23 99 121/70 11/30/20 08:00 98.1 99 22 121/70 (87) 100 11/30/20 07:41 97 11/30/20 04:00 98.7 92 22 130/63 (85) 95 11/30/20 04:00 91 11/30/20 00:00 101 11/30/20 00:00 98.2 102 20 130/67 (88) 95 11/29/20 23:43 98.2 11/29/20 21:00 Room Air 11/29/20 20:57 110 123/71 11/29/20 20:46 97 Nasal Cannula 4.0 36 11/29/20 20:46 89 18 97 Nasal Cannula 4.0 36 11/29/20 20:00 99.0 110 20 123/71 (88) 97 11/29/20 20:00 109 11/29/20 16:00 98.9 105 20 141/69 (93) 97 11/29/20 15:41 111 11/29/20 12:00 97.1 96 20 129/56 (80) 94 11/29/20 12:00 96 Intake and Output 11/29/20 11/30/20 19:00 07:00 Intake Total 100 ml Output Total 1200 ml Balance -1100 ml Free Water 50 ml Tube Feeding 50 ml Output Urine Total 1200 ml # Bowel Movements 1 Current Medications Medications (Trade) Dose Ordered Sig/Venecia Route PRN Reason Start Time Stop Time Status Last Admin Dose Admin Acetaminophen (Tylenol) 650 mg Q4H PRN GT Temp >100.5 11/22/20 16:30 12/22/20 15:59 11/29/20 23:13 Acetaminophen (Tylenol) 650 mg Q4H PRN GT For Pain 11/22/20 16:30 12/22/20 16:29 Amlodipine Besylate (Norvasc) 5 mg EVERY 12 HOURS ORAL 11/25/20 21:00 12/25/20 20:59 11/30/20 09:23 Clonidine HCl (Catapres Tab) 0.1 mg Q4H PRN ORAL sbp>170 11/25/20 14:45 02/23/21 14:44 Doxycycline Monohydrate (Doxycycline Monohydrate) 100 mg EVERY 12 HOURS GT 11/30/20 10:45 12/07/20 10:44 11/30/20 11:43 Enalaprilat (Vasotec) 2.5 mg Q4H PRN IV For blood pressure over 160 sy 11/23/20 11:30 12/23/20 11:29 11/25/20 14:45 Enoxaparin Sodium (Lovenox) 60 mg EVERY 12 HOURS SUBQ 11/25/20 21:00 02/23/21 20:59 11/30/20 09:24 Famotidine (Pepcid) 20 mg Q12HR GT 11/28/20 21:00 02/26/21 20:59 11/30/20 09:23 Levetiracetam (Keppra) 500 mg Q12HR NG 11/28/20 21:00 01/12/21 20:59 11/30/20 09:23 Magnesium Sulfate 100 ml @ 100 mls/hr Q1H IVPB 11/30/20 11:45 11/30/20 13:44 11/30/20 11:44 Piperacillin Sod/ Tazobactam Sod 3.375 gm/Sodium Chloride 110 ml @ 27.5 mls/hr EVERY 8 HOURS IVPB 11/24/20 14:00 12/02/20 13:59 11/30/20 06:15 Spironolactone (Aldactone) 25 mg EVERY 12 HOURS GT 11/28/20 09:15 12/28/20 09:14 11/30/20 09:23 Laboratory Tests 11/30/20 04:15: White Blood Count 15.5H, Red Blood Count 3.56L, Hemoglobin 10.2L, Hematocrit 33.0L, Mean Corpuscular Volume 93, Mean Corpuscular Hemoglobin 28.8, Mean Corpuscular Hemoglobin Concent 31.0L, Red Cell Distribution Width 17.3H, Platelet Count 590H, Mean Platelet Volume 6.1L, Neutrophils (%) (Auto) 77.0H, Lymphocytes (%) (Auto) 13.7L, Monocytes (%) (Auto) 6.5, Eosinophils (%) (Auto) 2.2, Basophils (%) (Auto) 0.6, Sodium Level 142, Potassium Level 4.2, Chloride Level 107, Carbon Dioxide Level 29, Anion Gap 6, Blood Urea Nitrogen 7, Creatinine 0.5L, Estimat Glomerular Filtration Rate > 60, Glucose Level 143H, Calcium Level 8.3L, Phosphorus Level 3.7, Magnesium Level 1.6L, Total Bilirubin 0.2, Aspartate Amino Transf (AST/SGOT) 18, Alanine Aminotransferase (ALT/SGPT) 17, Alkaline Phosphatase 101, C-Reactive Protein, Quantitative 6.8H, Pro-B-Type Natriuretic Peptide 491H, Total Protein 6.2L, Albumin 1.7L, Globulin 4.5, Albumin/Globulin Ratio 0.4L Height (Feet): 5 Height (Inches): 6.00 Weight (Pounds): 140 General Appearance: no apparent distress Cardiovascular: tachycardia Respiratory/Chest: decreased breath sounds Abdomen: distended Lenny Veliz MD Nov 30, 2020 11:23
--- NOTE | 2020-11-30 11:39 | NUR ---
NURSE NOTES: Dr Veliz visited pt and is aware about MG 1.6 and other lab results and V/S, order noted and carried out. and wound swab sent to lab.
[2020-11-30] MEDS: Doxycycline Monohydrate 100mg GT SCH ×2 (11:43→21:46)
[2020-11-30 12:00] VITALS: BP 142/67
--- NOTE | 2020-11-30 12:23 | Diagnostic Imaging Report ---
Indication: Shortness of breath Technique: XRAY Chest 1v Comparison: 11/24/2020 Findings: Persistent low lung volumes with streaky opacities at the right base. There is decreased left basilar opacities. There is malpositioning of enteric tube with the tip in the midesophagus. No pneumothorax or significant pleural effusion. Heart size and osseous structures are stable. IMPRESSION: Malpositioned enteric tube/NG tube with the tip in the mid esophagus. Replacement is recommended. Persistent low lung volumes and streaky bibasilar opacities which may be related to atelectasis vs pneumonia, slightly decreased on the left. Attempts to call results to RN on 2E ([phone]) but no response.
--- NOTE | 2020-11-30 12:43 | NUR ---
NURSE NOTES: NG tube stopped due to malplacement and again reinserted NG tube and waiting for CXR result. will continue to close monitoring. Addendum: 11/30/20 at 1400 by Galileo Chavez RN the size of NG tube is 75cm.
--- NOTE | 2020-11-30 13:54 | NUR ---
RADIOLOGY DEPT., ABDOMEN X-RAY FOR REPLACED N/GT IS COMPLETED.-P.DYE
--- NOTE | 2020-11-30 13:55 | Diagnostic Imaging Report ---
Indication: NG tube placement Technique: XRAY Abdomen 1v Comparison: Correlation made to concurrent chest Findings: NG tube has been replaced is now coiled in the stomach. Bowel gas pattern is nonobstructed. There is severe scoliosis and degenerative changes of the spine. Minimal basilar opacities are partially visualized. IMPRESSION: NG tube in the stomach.
--- NOTE | 2020-11-30 13:59 | Surgery Progress Note ---
Surgery Progress Note Subjective Additional Comments leukocytosis awake discussed with GI. drainage today from prior g tube site. phlegmon has likely formed fluid and drained spontaneously. on exam today site much softer and no further drainage noted Objective Last 24 Hour Vital Signs Date Time Temp Pulse Resp B/P (MAP) Pulse Ox O2 Delivery O2 Flow Rate FiO2 11/30/20 12:00 99.0 104 22 142/67 (92) 99 11/30/20 11:37 104 11/30/20 09:23 99 121/70 11/30/20 08:00 98.1 99 22 121/70 (87) 100 11/30/20 07:41 97 11/30/20 04:00 98.7 92 22 130/63 (85) 95 11/30/20 04:00 91 11/30/20 00:00 101 11/30/20 00:00 98.2 102 20 130/67 (88) 95 11/29/20 23:43 98.2 11/29/20 21:00 Room Air 11/29/20 20:57 110 123/71 11/29/20 20:46 97 Nasal Cannula 4.0 36 11/29/20 20:46 89 18 97 Nasal Cannula 4.0 36 11/29/20 20:00 99.0 110 20 123/71 (88) 97 11/29/20 20:00 109 11/29/20 16:00 98.9 105 20 141/69 (93) 97 11/29/20 15:41 111 I&O Intake and Output 11/29/20 11/30/20 19:00 07:00 Intake Total 100 ml 60 ml Output Total 1200 ml Balance -1100 ml 60 ml Free Water 50 ml IV Total 60 ml Tube Feeding 50 ml Output Urine Total 1200 ml # Bowel Movements 1 Dressing: saturated Wound: clean Cardiovascular: RSR Respiratory: clear Abdomen: soft, flat, non-tender, present bowel sounds, other, non-distended Extremities: no edema, no tenderness, no cyanosis Laboratory Tests Test 11/30/20 04:15 White Blood Count 15.5 K/UL (4.8-10.8) H Red Blood Count 3.56 M/UL (4.70-6.10) L Hemoglobin 10.2 G/DL (14.2-18.0) L Hematocrit 33.0 % (42.0-52.0) L Mean Corpuscular Volume 93 FL (80-99) Mean Corpuscular Hemoglobin 28.8 PG (27.0-31.0) Mean Corpuscular Hemoglobin Concent 31.0 G/DL (32.0-36.0) L Red Cell Distribution Width 17.3 % (11.6-14.8) H Platelet Count 590 K/UL (150-450) H Mean Platelet Volume 6.1 FL (6.5-10.1) L Neutrophils (%) (Auto) 77.0 % (45.0-75.0) H Lymphocytes (%) (Auto) 13.7 % (20.0-45.0) L Monocytes (%) (Auto) 6.5 % (1.0-10.0) Eosinophils (%) (Auto) 2.2 % (0.0-3.0) Basophils (%) (Auto) 0.6 % (0.0-2.0) Sodium Level 142 MMOL/L (136-145) Potassium Level 4.2 MMOL/L (3.5-5.1) Chloride Level 107 MMOL/L (98-107) Carbon Dioxide Level 29 MMOL/L (21-32) Anion Gap 6 mmol/L (5-15) Blood Urea Nitrogen 7 mg/dL (7-18) Creatinine 0.5 MG/DL (0.55-1.30) L Estimat Glomerular Filtration Rate > 60 mL/min (>60) Glucose Level 143 MG/DL (74-106) H Calcium Level 8.3 MG/DL (8.5-10.1) L Phosphorus Level 3.7 MG/DL (2.5-4.9) Magnesium Level 1.6 MG/DL (1.8-2.4) L Total Bilirubin 0.2 MG/DL (0.2-1.0) Aspartate Amino Transf (AST/SGOT) 18 U/L (15-37) Alanine Aminotransferase (ALT/SGPT) 17 U/L (12-78) Alkaline Phosphatase 101 U/L (46-116) C-Reactive Protein, Quantitative 6.8 mg/dL (0.00-0.90) H Pro-B-Type Natriuretic Peptide 491 pg/mL (0-125) H Total Protein 6.2 G/DL (6.4-8.2) L Albumin 1.7 G/DL (3.4-5.0) L Globulin 4.5 g/dL Albumin/Globulin Ratio 0.4 (1.0-2.7) L Plan Problems: (1) Cerebral palsy (2) Sepsis Assessment & Plan: Pt presented on admission with CP, L AKA,Multiple Pressure Injuries, Wound dorsal L hand. Macular red rash L Flank. Full thickness wound dorsal L hand(L)2.4cm x (W)1.9cm. Loose necrotic cap which was easily removed from wound bed. Base of wound is 95% fibrinous slough with marginal erythema along borders. Small amt sanguineous exudate noted. No erythema or elevation in skin temp periwound. Incontinence Associated dermatitis R and L groin and scrotum. Affected areas are erythematous and macerated. Full Thickness Pressure Injury Upper L buttocks(L)4.8cm x (W)6.4cmBase of wound is 25% necrotic ,75% lida. Edges are adherent to base of wound. Surrounding non-blanchable erythema without fluctuance /induration. No odor or exudate noted. No evidence of sacral skin breakdown. An erythematous and indurated soft tissue mass noted to posterior upper L thigh. (L)3.2cm x (W)3.7cm. Base of L AKA is erythematous,fluctuant, with increased warmth. DTPI medial R Heel(L)1cm x (W)1.2cm. Base of Pressure Injury is purpuric and fluctuant. Periwound is blanchable with dry flaky skin. unlikely etiology of sepsis urine noted leukocytosis on abx Tx.Plan: Cleanse Dorsal L hand with Saline. Apply Therahoney. Apply Cavilon Skin Barrier periwound. Cover with Optifoam Drsg Daily and prn. Cleanse Wound L Buttocks with Saline. Apply Therahoney. Apply Moisture Barrier Paste periwound. Cover with Optifoam drsg. Change Daily and prn. Apply Moisture Barrier Paste to R and L Groin and scrotum with each incontinence care. Apply Cavilon Skin Barrier to Posterior Upper L thigh. Cover with Optifoam drsg. Change every 3 days and prn. Apply Betadine to Base of L AKA stump. Cover with Optifoam drsg. Change every 3 days and prn. Apply Betadine to medial R Heel. Cover with Optifoam drsg. Change every 3 days and prn. Reposition at least every 2hours or as tolerated. Off-load L AKA with Pillow. Off-load R Heel with Pillow. DAILY ESTIMATED NEEDS: Needs based on Wound underweight 37kg 30-40 kcals/kg 8770-7077 total kcals 1.25-2 g protein/kg 46-74 g total protein 25-35ml/kcal mL/kg 925-1295 total fluid mLs NUTRITION DIAGNOSIS: Increased kcal and pro needs r/t underweight status and wound care as evidenced by pt is est 62% of IBW, BMI underweight per guidelines, multiple wounds including full thickness wounds x2, refer to WC eval. CURRENT TF: Jevity 1.2 @50 ml/hr ENTERAL NUTRITION RECOMMENDATIONS: Maintain current TF as ordered Jevity 1.2 @50ml/hr x24 hrs to provide 1200ml, 1440 kcal, 67g pro, 968ml free H2O - Initiate Jevity 1.2 @35ml/hr for 6 hrs, advance as tolerated 10ml/hr q4-6 hrs to goal. - Flush per MD, HOB over 30 degrees ADDITIONAL RECOMMENDATIONS: 1) Wound care: add DARLENE BID, Vit C 250mg BID 2) Maintain calibrated bed scale wts 3) Monitor BG, need for carb control TF respiratory insufficiency now in icu on support cxr noted cont respiratory support CT noted ant abd wall phlegmon. hard and no fluctuance. nothing to drain at this time. packing and dressings to prior g tube site bka with erythema distal as bone pushing discussed with GI. drainage today from prior g tube site. phlegmon has likely formed fluid and drained spontaneously. on exam today site much softer and no further drainage noted recommend waiting 1-2 weeks prior now that phlegmon --> abscess -- > drained prior to new peg placement Rowdy Arce Nov 30, 2020 13:59
[2020-11-30 16:00] VITALS: BP 124/65
--- NOTE | 2020-11-30 19:31 | NUR ---
NURSE HAND-OFF REPORT: pt's g tube side is infected, swab sent. Important Events on Shift: Patient Status: Diet: Pending Orders: Pending Results/Labs: Pending MD notification: Latest Vital Signs: Temperature 98.1 , Pulse 89 , B/P 124 /65 , Respiratory Rate 18 , O2 SAT 97 , Nasal Cannula, O2 Flow Rate 4.0 . Vital Sign Comment: EKG Rhythm: Sinus Rhythm Rhythm change?: N MD Notified?: Josef Em MD Response: Latest Hoyt Fall Score: 70 Fall Risk: High Risk Safety Measures: Call light Within Reach, Bed Alarm Zone 1, Side Rails Side Rails x3, Bed position Low and Locked. Fall Precautions: Yellow Socks Yellow Gown Door Sign Patient Fall Education Report given to . Pt is sleeping and stable, no stress noted. Endorsed plan of care. Endorsed to monitor HR.
--- NOTE | 2020-11-30 19:32 | NUR ---
NURSE NOTES: Important Events on Shift: Received report from Galileo Lopez RN. Pt in bed, asleep, no s/s of distress or pain noted at this time. Pt appears to be resting comfortably. NGT at 73mm (range 70-75mm in left nare). KUB confirmed placement 11/30/20. Will continue close monitoring and plan of care. Patient Status: full code Diet: NGT Jevity 1.2 @ 50ml/hr (goal) Pending Orders: none Pending Results/Labs: AM labs Pending MD notification: none Latest Vital Signs: Temperature 98.1 , Pulse 89 , B/P 124 /65 , Respiratory Rate 18 , O2 SAT 97 , Nasal Cannula, O2 Flow Rate 4.0 . Vital Sign Comment: Per report, stable throughout shift. EKG Rhythm: Sinus Rhythm Rhythm change?: N MD Notified?: - MD Response: Latest Hoyt Fall Score: 70 Fall Risk: High Risk Safety Measures: Call light Within Reach, Bed Alarm Zone 1, Side Rails Side Rails x3, Bed position Low and Locked. Fall Precautions: Yellow Socks, Yellow Gown, Door Sign, Patient Fall Education
[2020-11-30 20:00] VITALS: BP 134/66
--- NOTE | 2020-11-30 20:29 | General Progress Note ---
Subjective ROS Limited/Unobtainable: Yes Allergies: Coded Allergies: No Known Allergies (Unverified , 11/22/20) Objective Last 24 Hour Vital Signs Date Time Temp Pulse Resp B/P (MAP) Pulse Ox O2 Delivery O2 Flow Rate FiO2 11/30/20 19:00 89 18 97 Nasal Cannula 4.0 36 11/30/20 19:00 97 Nasal Cannula 4.0 36 11/30/20 16:00 98.1 100 22 124/65 (84) 95 11/30/20 15:47 100 11/30/20 12:00 99.0 104 22 142/67 (92) 99 11/30/20 11:37 104 11/30/20 09:23 99 121/70 11/30/20 08:00 98.1 99 22 121/70 (87) 100 11/30/20 07:41 97 11/30/20 04:00 98.7 92 22 130/63 (85) 95 11/30/20 04:00 91 11/30/20 00:00 101 11/30/20 00:00 98.2 102 20 130/67 (88) 95 11/29/20 23:43 98.2 11/29/20 21:00 Room Air 11/29/20 20:57 110 123/71 11/29/20 20:46 97 Nasal Cannula 4.0 36 11/29/20 20:46 89 18 97 Nasal Cannula 4.0 36 Intake and Output 11/29/20 11/30/20 19:00 07:00 Intake Total 100 ml 110 ml Output Total 1200 ml Balance -1100 ml 110 ml Free Water 50 ml IV Total 60 ml Tube Feeding 50 ml 50 ml Output Urine Total 1200 ml # Bowel Movements 1 Laboratory Tests 11/30/20 04:15: White Blood Count 15.5H, Red Blood Count 3.56L, Hemoglobin 10.2L, Hematocrit 33.0L, Mean Corpuscular Volume 93, Mean Corpuscular Hemoglobin 28.8, Mean Corpuscular Hemoglobin Concent 31.0L, Red Cell Distribution Width 17.3H, Platelet Count 590H, Mean Platelet Volume 6.1L, Neutrophils (%) (Auto) 77.0H, Lymphocytes (%) (Auto) 13.7L, Monocytes (%) (Auto) 6.5, Eosinophils (%) (Auto) 2 .2, Basophils (%) (Auto) 0.6, Sodium Level 142, Potassium Level 4.2, Chloride Level 107, Carbon Dioxide Level 29, Anion Gap 6, Blood Urea Nitrogen 7, Creatinine 0.5L, Estimat Glomerular Filtration Rate > 60, Glucose Level 143H, Calcium Level 8.3L, Phosphorus Level 3.7, Magnesium Level 1.6L, Total Bilirubin 0.2, Aspartate Amino Transf (AST/SGOT) 18, Alanine Aminotransferase (ALT/SGPT) 17, Alkaline Phosphatase 101, C-Reactive Protein, Quantitative 6.8H, Pro-B-Type Natriuretic Peptide 491H, Total Protein 6.2L, Albumin 1.7L, Globulin 4.5, Albumin/Globulin Ratio 0.4L Height (Feet): 5 Height (Inches): 6.00 Weight (Pounds): 140 Assessment/Plan Problem List: (1) Cerebral palsy ICD Codes: G80.9 - Cerebral palsy, unspecified SNOMED: 454243039 (2) Sepsis ICD Codes: A41.9 - Sepsis, unspecified organism SNOMED: 22755758 Status: progressing Assessment/Plan: persistent leukocytosis per dr evans cant put peg yet due at abdominal infection phegmon afebrile poor historian sepsis uti r/o abdominal abscess abx per Samantha Solis MD Nov 30, 2020 20:29
--- NOTE | 2020-11-30 21:37 | General Progress Note ---
Subjective Allergies: Coded Allergies: No Known Allergies (Unverified , 11/22/20) Subjective Seen this am Calm tolerating TF abd wound noted to be open (+) purulent drainage Objective Last 24 Hour Vital Signs Date Time Temp Pulse Resp B/P (MAP) Pulse Ox O2 Delivery O2 Flow Rate FiO2 11/30/20 20:36 Room Air 11/30/20 20:00 97 11/30/20 20:00 98.2 98 22 134/66 (88) 97 11/30/20 19:00 89 18 97 Nasal Cannula 4.0 36 11/30/20 19:00 97 Nasal Cannula 4.0 36 11/30/20 16:00 98.1 100 22 124/65 (84) 95 11/30/20 15:47 100 11/30/20 12:00 99.0 104 22 142/67 (92) 99 11/30/20 11:37 104 11/30/20 09:23 99 121/70 11/30/20 08:00 98.1 99 22 121/70 (87) 100 11/30/20 07:41 97 11/30/20 04:00 98.7 92 22 130/63 (85) 95 11/30/20 04:00 91 11/30/20 00:00 101 11/30/20 00:00 98.2 102 20 130/67 (88) 95 11/29/20 23:43 98.2 Intake and Output 11/29/20 11/30/20 19:00 07:00 Intake Total 100 ml 110 ml Output Total 1200 ml Balance -1100 ml 110 ml Free Water 50 ml IV Total 60 ml Tube Feeding 50 ml 50 ml Output Urine Total 1200 ml # Bowel Movements 1 Laboratory Tests 11/30/20 04:15: White Blood Count 15.5H, Red Blood Count 3.56L, Hemoglobin 10.2L, Hematocrit 33.0L, Mean Corpuscular Volume 93, Mean Corpuscular Hemoglobin 28.8, Mean Corpuscular Hemoglobin Concent 31.0L, Red Cell Distribution Width 17.3H, Platelet Count 590H, Mean Platelet Volume 6.1L, Neutrophils (%) (Auto) 77.0H, Lymphocytes (%) (Auto) 13.7L, Monocytes (%) (Auto) 6.5, Eosinophils (%) (Auto) 2.2, Basophils (%) (Auto) 0.6, Sodium Level 142, Potassium Level 4.2, Chloride Level 107, Carbon Dioxide Level 29, Anion Gap 6, Blood Urea Nitrogen 7, Creatinine 0.5L, Estimat Glomerular Filtration Rate > 60, Glucose Level 143H, Calcium Level 8.3L, Phosphorus Level 3.7, Magnesium Level 1.6L, Total Bilirubin 0.2, Aspartate Amino Transf (AST/SGOT) 18, Alanine Aminotransferase (ALT/SGPT) 17, Alkaline Phosphatase 101, C-Reactive Protein, Quantitative 6.8H, Pro-B-Type Natriuretic Peptide 491H, Total Protein 6.2L, Albumin 1.7L, Globulin 4.5, Albumin/Globulin Ratio 0.4L Height (Feet): 5 Height (Inches): 6.00 Weight (Pounds): 140 Objective Debilitaed man NCAT coarse BS RR abd (+) purulent drainage from abdominal wound (+) contracted OBS Assessment/Plan Status: progressing Assessment/Plan: Assessment - GT migration into anterior abd wall - removed - abdominal pain, induration - now has organized into a draining abscess - dysphagia/NGT - will need to hold off on PEG placement for about another week - respiratory distress - resolved - cerebral palsy - contractures - decubitus ulcers - (L) BKA - hypokalemia Recommendations - broad spect abx - NG TF - pulmonary f/u - NGT for meds - re assess for PEG candidacy at later date - wound care - IVF - replace Nacho Crawford MD Nov 30, 2020 21:37
[2020-12-01] VITALS: BP 144/91
[2020-12-01 04:00] VITALS: BP 120/80
[2020-12-01] MEDS: Piperacillin/Tazobactam 3.375 GM in NS 110 ML IVPB SCH (06:01)
[2020-12-01 06:56] LABS: ALANINE AMINOTRANSFERASE 20 U/L (12-78); ALBUMIN 1.7 G/DL (3.4-5.0); ALBUMIN/GLOBULIN RATIO 0.3 (1.0-2.7); ALKALINE PHOSPHATASE 107 U/L (46-116); ANION GAP 8 mmol/L (5-15); ASPARTATE AMINO TRANSFERASE 19 U/L (15-37); BILIRUBIN,TOTAL 0.3 MG/DL (0.2-1.0); BLOOD UREA NITROGEN 11 mg/dL (7-18); CALCIUM 8.1 MG/DL (8.5-10.1); CARBON DIOXIDE 27 MMOL/L (21-32); CHLORIDE 101 MMOL/L (98-107); CREATININE 0.6 MG/DL (0.55-1.30); PHOSPHORUS 3.2 MG/DL (2.5-4.9); POTASSIUM 4.3 MMOL/L (3.5-5.1); SODIUM 136 MMOL/L (136-145)
--- NOTE | 2020-12-01 07:04 | NUR ---
NURSE HAND-OFF REPORT: Important Events on Shift: None Patient Status: full code Diet: Jevity 1.2 @ 50 via L NGT Pending Orders: none Pending Results/Labs: AM labs Pending MD notification: none Latest Vital Signs: Temperature 97.5 , Pulse 93 , B/P 120 /80 , Respiratory Rate 22 , O2 SAT 95 , Nasal Cannula, O2 Flow Rate 4.0 . Vital Sign Comment: stable throughout shift EKG Rhythm: Sinus Rhythm Rhythm change?: N Notified?: N Response: - Latest Hoyt Fall Score: 70 Fall Risk: High Risk Safety Measures: Call light Within Reach, Bed Alarm Zone 1, Side Rails Side Rails x3, Bed position Low and Locked. Fall Precautions: Yellow Socks, Yellow Gown, Door Sign, Patient Fall Education Report to be given to Galileo Lopez RN
[2020-12-01 07:13] LABS: HEMATOCRIT 34.5 % (42.0-52.0); HEMOGLOBIN 10.6 G/DL (14.2-18.0); MEAN CORPUSCULAR VOLUME 92 FL (80-99); PLATELET COUNT 663 K/UL (150-450); RED BLOOD COUNT 3.76 M/UL (4.70-6.10); RED CELL DISTRIBUTION WIDTH 17.3 % (11.6-14.8)
--- NOTE | 2020-12-01 07:30 | NUR ---
NURSE NOTES: Received pt from YUMIKO Veronica, pt is sleeping, pt is in RA, no SOB or acute respiratory distress noted. pt is very pale and looks weak, Pt has L Ng tube in place is working well, pt has condom cath in place is working well. pt has in tact IV access LAC 20G SL. no pain noted at this time. All needs attended, bed is locked and is in the lowest position, call light within easy reach. will continue to monitor.
[2020-12-01 07:54] VITALS: BP 136/67
--- NOTE | 2020-12-01 08:46 | Pulmonology Progress Note ---
Subjective ROS Limited/Unobtainable: Yes Interval Events: now in tele Constitutional: Reports: other - doing better, transferred from ICU to telemetry HEENT: Repors: no symptoms Respiratory: Reports: no symptoms Cardiovascular: Reports: no symptoms Gastrointestinal/Abdominal: Denies: diarrhea Genitourinary: Reports: no symptoms Allergies: Coded Allergies: No Known Allergies (Unverified , 11/22/20) Objective Last 24 Hour Vital Signs Date Time Temp Pulse Resp B/P (MAP) Pulse Ox O2 Delivery O2 Flow Rate FiO2 12/01/20 07:54 98.7 97 22 136/67 (90) 98 12/01/20 04:00 93 12/01/20 04:00 97.5 95 22 120/80 (93) 95 12/01/20 00:00 99.0 95 22 144/91 (108) 95 11/30/20 23:30 90 11/30/20 21:47 97 134/66 11/30/20 20:36 Room Air 11/30/20 20:00 97 11/30/20 20:00 98.2 98 22 134/66 (88) 97 11/30/20 19:00 89 18 97 Nasal Cannula 4.0 36 11/30/20 19:00 97 Nasal Cannula 4.0 36 11/30/20 16:00 98.1 100 22 124/65 (84) 95 11/30/20 15:47 100 11/30/20 12:00 99.0 104 22 142/67 (92) 99 11/30/20 11:37 104 11/30/20 09:23 99 121/70 Intake and Output 11/30/20 12/01/20 19:00 07:00 Intake Total 1150.0 ml 150 ml Output Total 1500 ml 1000 ml Balance -350.0 ml -850 ml Free Water 100 ml 100 ml IV Total 550.0 ml Tube Feeding 500 ml 50 ml Output Urine Total 1500 ml 1000 ml # Bowel Movements 1 General Appearance: no acute distress HEENT: normocephalic, atraumatic, anicteric Respiratory: lungs clear Cardiovascular: normal rate, regular rhythm Extremities: no edema, other - contracture noted Microbiology Date/Time Source Procedure Growth Status 11/30/20 11:00 Abdomen Gram Stain - Final Resulted 11/30/20 11:00 Abdomen Wound Culture Pending Resulted Laboratory Tests 12/01/20 04:35: White Blood Count 19.0H, Red Blood Count 3.76L, Hemoglobin 10.6L, Hematocrit 34.5L, Mean Corpuscular Volume 92, Mean Corpuscular Hemoglobin 28.1, Mean Corpuscular Hemoglobin Concent 30.6L, Red Cell Distribution Width 17.3H, Platelet Count 663H, Mean Platelet Volume 6.0L, Neutrophils (%) (Auto) , Lymphocytes (%) (Auto) , Monocytes (%) (Auto) , Eosinophils (%) (Auto) , Basophils (%) (Auto) , Neutrophils % (Manual) [Pending], Lymphocytes % (Manual) [Pending], Platelet Estimate [Pending], Platelet Morphology [Pending], Sodium Level 136, Potassium Level 4.3, Chloride Level 101, Carbon Dioxide Level 27, Anion Gap 8, Blood Urea Nitrogen 11, Creatinine 0.6, Estimat Glomerular Filtration Rate > 60, Glucose Level 127H, Calcium Level 8.1L, Phosphorus Level 3.2, Magnesium Level 1.9, Total Bilirubin 0.3, Aspartate Amino Transf (AST/SGOT) 19, Alanine Aminotransferase (ALT/SGPT) 20, Alkaline Phosphatase 107, Total Protein 6.7, Albumin 1.7L, Globulin 5.0, Albumin/Globulin Ratio 0.3L Current Medications Medications (Trade) Dose Ordered Sig/Venecia Route PRN Reason Start Time Stop Time Status Last Admin Dose Admin Acetaminophen (Tylenol) 650 mg Q4H PRN GT Temp >100.5 11/22/20 16:30 12/22/20 15:59 11/29/20 23:13 Acetaminophen (Tylenol) 650 mg Q4H PRN GT For Pain 11/22/20 16:30 12/22/20 16:29 Amlodipine Besylate (Norvasc) 5 mg EVERY 12 HOURS ORAL 11/25/20 21:00 12/25/20 20:59 11/30/20 21:47 Clonidine HCl (Catapres Tab) 0.1 mg Q4H PRN ORAL sbp>170 11/25/20 14:45 02/23/21 14:44 Doxycycline Monohydrate (Doxycycline Monohydrate) 100 mg EVERY 12 HOURS GT 11/30/20 10:45 12/07/20 10:44 11/30/20 21:46 Enalaprilat (Vasotec) 2.5 mg Q4H PRN IV For blood pressure over 160 sy 11/23/20 11:30 12/23/20 11:29 11/25/20 14:45 Enoxaparin Sodium (Lovenox) 60 mg EVERY 12 HOURS SUBQ 11/25/20 21:00 02/23/21 20:59 11/30/20 21:46 Famotidine (Pepcid) 20 mg Q12HR GT 11/28/20 21:00 02/26/21 20:59 11/30/20 21:46 Levetiracetam (Keppra) 500 mg Q12HR NG 11/28/20 21:00 01/12/21 20:59 11/30/20 21:47 Piperacillin Sod/ Tazobactam Sod 3.375 gm/Sodium Chloride 110 ml @ 27.5 mls/hr EVERY 8 HOURS IVPB 11/24/20 14:00 12/02/20 13:59 12/01/20 06:01 Spironolactone (Aldactone) 25 mg EVERY 12 HOURS GT 11/28/20 09:15 12/28/20 09:14 11/30/20 21:47 Assessment/Plan Assessment/Plan 1. Respiratory distress - now tolerating room air - Needs frequent suctioning and hygiene 2. Right basilar atelectasis -Continue pulmonary hygiene - f/u CXR slight improvement 3. Sepsis - On Abx - WBC downtrending - f/u UCx, BCx, and wound Cx negative 4. 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
[2020-12-01] MEDS: levETIRAcetam 500mg/5ml Liquid NG SCH (09:01)
[2020-12-01] MEDS: Doxycycline Monohydrate 100mg GT SCH (09:01)
[2020-12-01] MEDS: Spironolactone 25mg tab GT SCH (09:01)
[2020-12-01] MEDS: Enoxaparin 60mg Inj SUBQ SCH (09:02)
--- NOTE | 2020-12-01 09:10 | Nephrology Progress Note ---
Assessment/Plan Problem List: (1) Dehydration (2) Electrolyte imbalance (3) Sepsis (4) Anemia (5) HTN (hypertension) (6) Seizure disorder Assessment 75-year-old male Patient presented with low serum sodium 134 however it is now corrected Blood pressure remains high Left [id number] amputation Sepsis, tachycardia Anemia Encephalopathy acute Seizure disorder Nonfunctioning GT tube, migrated to abdominal wall from gastric cavity. It is now removed Plan November 30: Discussed with RN. Low magnesium addressed. Labs reviewed. Medication list reviewed. DC IV fluid. Continue per consultants. November 29: Status quo. Remains full code. Labs reviewed. Low potassium and low phosphorus addressed. Continue to monitor electrolytes and renal parameters. Medication list reviewed. November 28: Patient now on monitor bed. Labs reviewed. Serum potassium again low. KCl IV ordered. Aldactone through GT ordered. Continue per consultants. November 27: Seen in ICU. Low magnesium and low potassium addressed. Discussed with RN. Continue per consultants. November 26: Patient remains in ICU. Not in any distress. Labs reviewed. Potassium 2.6, replacement ordered. Medication list reviewed. Discussed with RN. Clinically improved. November 25: Patient in ICU. On nonrebreather mask. Labs reviewed. Leukocytosis. Renal parameters stable. Low serum potassium addressed. Discussed with RN. Continue per consultants. Patient is full code. November 24: Labs reviewed. Low potassium addressed. Venofer 200 mg 1 dose IV ordered. Continue per consultants. On tube feeding now. Will stop IV fluids. Patient is n.p.o. per GI Change IV to D5 normal saline Intravenous Vasotec as needed for high blood pressure Monitor renal parameters and electrolytes Anemia work-up Urine analysis and culture Antibiotics Per orders Objective Objective Last 24 Hour Vital Signs Date Time Temp Pulse Resp B/P (MAP) Pulse Ox O2 Delivery O2 Flow Rate FiO2 12/01/20 09:01 97 136/67 12/01/20 07:54 98.7 97 22 136/67 (90) 98 12/01/20 04:00 93 12/01/20 04:00 97.5 95 22 120/80 (93) 95 12/01/20 00:00 99.0 95 22 144/91 (108) 95 11/30/20 23:30 90 11/30/20 21:47 97 134/66 11/30/20 20:36 Room Air 11/30/20 20:00 97 11/30/20 20:00 98.2 98 22 134/66 (88) 97 11/30/20 19:00 89 18 97 Nasal Cannula 4.0 36 11/30/20 19:00 97 Nasal Cannula 4.0 36 11/30/20 16:00 98.1 100 22 124/65 (84) 95 11/30/20 15:47 100 11/30/20 12:00 99.0 104 22 142/67 (92) 99 11/30/20 11:37 104 11/30/20 09:23 99 121/70 Intake and Output 11/30/20 12/01/20 19:00 07:00 Intake Total 1150.0 ml 150 ml Output Total 1500 ml 1000 ml Balance -350.0 ml -850 ml Free Water 100 ml 100 ml IV Total 550.0 ml Tube Feeding 500 ml 50 ml Output Urine Total 1500 ml 1000 ml # Bowel Movements 1 Laboratory Tests 12/01/20 04:35: White Blood Count 19.0H, Red Blood Count 3.76L, Hemoglobin 10.6L, Hematocrit 34.5L, Mean Corpuscular Volume 92, Mean Corpuscular Hemoglobin 28.1, Mean Corpuscular Hemoglobin Concent 30.6L, Red Cell Distribution Width 17.3H, Platelet Count 663H, Mean Platelet Volume 6.0L, Neutrophils (%) (Auto) , Lymphocytes (%) (Auto) , Monocytes (%) (Auto) , Eosinophils (%) (Auto) , Basophils (%) (Auto) , Neutrophils % (Manual) [Pending], Lymphocytes % (Manual) [Pending], Platelet Estimate [Pending], Platelet Morphology [Pending], Sodium Level 136, Potassium Level 4.3, Chloride Level 101, Carbon Dioxide Level 27, Anion Gap 8, Blood Urea Nitrogen 11, Creatinine 0.6, Estimat Glomerular Filtration Rate > 60, Glucose Level 127H, Calcium Level 8.1L, Phosphorus Level 3.2, Magnesium Level 1.9, Total Bilirubin 0.3, Aspartate Amino Transf (AST/SGOT) 19, Alanine Aminotransferase (ALT/SGPT) 20, Alkaline Phosphatase 107, Total Protein 6.7, Albumin 1.7L, Globulin 5.0, Albumin/Globulin Ratio 0.3L Height (Feet): 5 Height (Inches): 6.00 Weight (Pounds): 140 Lenny Veliz MD Dec 01, 2020 09:10
--- NOTE | 2020-12-01 09:51 | Nephrology Progress Note ---
Assessment/Plan Problem List: (1) Dehydration (2) Electrolyte imbalance (3) Sepsis (4) Anemia (5) HTN (hypertension) (6) Seizure disorder Assessment 75-year-old male Patient presented with low serum sodium 134 however it is now corrected Blood pressure remains high Left [id number] amputation Sepsis, tachycardia Anemia Encephalopathy acute Seizure disorder Nonfunctioning GT tube, migrated to abdominal wall from gastric cavity. It is now removed Plan December 01: Labs reviewed. Renal parameters stable. Leukocytosis persists and worsened. Medication list reviewed. Continue per consultants. Patient remains full code. November 30: Discussed with RN. Low magnesium addressed. Labs reviewed. Medication list reviewed. DC IV fluid. Continue per consultants. November 29: Status quo. Remains full code. Labs reviewed. Low potassium and low phosphorus addressed. Continue to monitor electrolytes and renal parameters. Medication list reviewed. November 28: Patient now on monitor bed. Labs reviewed. Serum potassium again low. KCl IV ordered. Aldactone through GT ordered. Continue per consultants. November 27: Seen in ICU. Low magnesium and low potassium addressed. Discussed with RN. Continue per consultants. November 26: Patient remains in ICU. Not in any distress. Labs reviewed. Potassium 2.6, replacement ordered. Medication list reviewed. Discussed with RN. Clinically improved. November 25: Patient in ICU. On nonrebreather mask. Labs reviewed. Leukocytosis. Renal parameters stable. Low serum potassium addressed. Discussed with RN. Continue per consultants. Patient is full code. November 24: Labs reviewed. Low potassium addressed. Venofer 200 mg 1 dose IV ordered. Continue per consultants. On tube feeding now. Will stop IV fluids. Patient is n.p.o. per GI Change IV to D5 normal saline Intravenous Vasotec as needed for high blood pressure Monitor renal parameters and electrolytes Anemia work-up Urine analysis and culture Antibiotics Per orders Subjective ROS Limited/Unobtainable: Yes Objective Objective Last 24 Hour Vital Signs Date Time Temp Pulse Resp B/P (MAP) Pulse Ox O2 Delivery O2 Flow Rate FiO2 12/01/20 09:01 97 136/67 12/01/20 07:54 98.7 97 22 136/67 (90) 98 12/01/20 04:00 93 12/01/20 04:00 97.5 95 22 120/80 (93) 95 12/01/20 00:00 99.0 95 22 144/91 (108) 95 11/30/20 23:30 90 11/30/20 21:47 97 134/66 11/30/20 20:36 Room Air 11/30/20 20:00 97 11/30/20 20:00 98.2 98 22 134/66 (88) 97 11/30/20 19:00 89 18 97 Nasal Cannula 4.0 36 11/30/20 19:00 97 Nasal Cannula 4.0 36 11/30/20 16:00 98.1 100 22 124/65 (84) 95 11/30/20 15:47 100 11/30/20 12:00 99.0 104 22 142/67 (92) 99 11/30/20 11:37 104 Intake and Output 11/30/20 12/01/20 19:00 07:00 Intake Total 1150.0 ml 150 ml Output Total 1500 ml 1000 ml Balance -350.0 ml -850 ml Free Water 100 ml 100 ml IV Total 550.0 ml Tube Feeding 500 ml 50 ml Output Urine Total 1500 ml 1000 ml # Bowel Movements 1 Current Medications Medications (Trade) Dose Ordered Sig/Venecia Route PRN Reason Start Time Stop Time Status Last Admin Dose Admin Acetaminophen (Tylenol) 650 mg Q4H PRN GT Temp >100.5 11/22/20 16:30 12/22/20 15:59 11/29/20 23:13 Acetaminophen (Tylenol) 650 mg Q4H PRN GT For Pain 11/22/20 16:30 12/22/20 16:29 Amlodipine Besylate (Norvasc) 5 mg EVERY 12 HOURS ORAL 11/25/20 21:00 12/25/20 20:59 12/01/20 09:01 Clonidine HCl (Catapres Tab) 0.1 mg Q4H PRN ORAL sbp>170 11/25/20 14:45 02/23/21 14:44 Doxycycline Monohydrate (Doxycycline Monohydrate) 100 mg EVERY 12 HOURS GT 11/30/20 10:45 12/07/20 10:44 12/01/20 09:01 Enalaprilat (Vasotec) 2.5 mg Q4H PRN IV For blood pressure over 160 sy 11/23/20 11:30 12/23/20 11:29 11/25/20 14:45 Enoxaparin Sodium (Lovenox) 60 mg EVERY 12 HOURS SUBQ 11/25/20 21:00 02/23/21 20:59 12/01/20 09:02 Famotidine (Pepcid) 20 mg Q12HR GT 11/28/20 21:00 02/26/21 20:59 12/01/20 09:01 Levetiracetam (Keppra) 500 mg Q12HR NG 11/28/20 21:00 01/12/21 20:59 12/01/20 09:01 Piperacillin Sod/ Tazobactam Sod 3.375 gm/Sodium Chloride 110 ml @ 27.5 mls/hr EVERY 8 HOURS IVPB 11/24/20 14:00 12/04/20 13:59 12/01/20 06:01 Spironolactone (Aldactone) 25 mg EVERY 12 HOURS GT 11/28/20 09:15 12/28/20 09:14 12/01/20 09:01 Laboratory Tests 12/01/20 04:35: White Blood Count 19.0H, Red Blood Count 3.76L, Hemoglobin 10.6L, Hematocrit 34.5L, Mean Corpuscular Volume 92, Mean Corpuscular Hemoglobin 28.1, Mean Corpuscular Hemoglobin Concent 30.6L, Red Cell Distribution Width 17.3H, Platelet Count 663H, Mean Platelet Volume 6.0L, Neutrophils (%) (Auto) , Lymphocytes (%) (Auto) , Monocytes (%) (Auto) , Eosinophils (%) (Auto) , Basophils (%) (Auto) , Differential Total Cells Counted 100, Neutrophils % (Manual) 77H, Lymphocytes % (Manual) 15L, Monocytes % (Manual) 5, Eosinophils % (Manual) 3, Basophils % (Manual) 0, Band Neutrophils 0, Platelet Estimate IncreasedH, Platelet Morphology Normal, Hypochromasia 1+, Anisocytosis 1+, Sodium Level 136, Potassium Level 4.3, Chloride Level 101, Carbon Dioxide Level 27, Anion Gap 8, Blood Urea Nitrogen 11, Creatinine 0.6, Estimat Glomerular Filtration Rate > 60, Glucose Level 127H, Calcium Level 8.1L, Phosphorus Level 3.2, Magnesium Level 1.9, Total Bilirubin 0.3, Aspartate Amino Transf (AST/SGOT) 19, Alanine Aminotransferase (ALT/SGPT) 20, Alkaline Phosphatase 107, Total Protein 6.7, Albumin 1.7L, Globulin 5.0, Albumin/Globulin Ratio 0.3L Height (Feet): 5 Height (Inches): 6.00 Weight (Pounds): 140 General Appearance: no apparent distress, lethargic Neck: limited range of motion Cardiovascular: tachycardia Respiratory/Chest: decreased breath sounds Abdomen: distended Lenny Veliz MD Dec 01, 2020 09:51
--- NOTE | 2020-12-01 11:00 | Surgery Progress Note ---
Surgery Progress Note Subjective Additional Comments ab wound soft no purulent drainage noted on exam wbc 19k Objective Last 24 Hour Vital Signs Date Time Temp Pulse Resp B/P (MAP) Pulse Ox O2 Delivery O2 Flow Rate FiO2 12/01/20 09:01 97 136/67 12/01/20 07:54 98.7 97 22 136/67 (90) 98 12/01/20 07:51 97 12/01/20 04:00 93 12/01/20 04:00 97.5 95 22 120/80 (93) 95 12/01/20 00:00 99.0 95 22 144/91 (108) 95 11/30/20 23:30 90 11/30/20 21:47 97 134/66 11/30/20 20:36 Room Air 11/30/20 20:00 97 11/30/20 20:00 98.2 98 22 134/66 (88) 97 11/30/20 19:00 89 18 97 Nasal Cannula 4.0 36 11/30/20 19:00 97 Nasal Cannula 4.0 36 11/30/20 16:00 98.1 100 22 124/65 (84) 95 11/30/20 15:47 100 11/30/20 12:00 99.0 104 22 142/67 (92) 99 11/30/20 11:37 104 I&O Intake and Output 11/30/20 12/01/20 19:00 07:00 Intake Total 1150.0 ml 150 ml Output Total 1500 ml 1000 ml Balance -350.0 ml -850 ml Free Water 100 ml 100 ml IV Total 550.0 ml Tube Feeding 500 ml 50 ml Output Urine Total 1500 ml 1000 ml # Bowel Movements 1 Dressing: saturated Cardiovascular: RSR Respiratory: decreased breath sounds Abdomen: soft, flat, non-tender, present bowel sounds, other, non-distended Extremities: no edema, no tenderness, no cyanosis Laboratory Tests Test 12/01/20 04:35 White Blood Count 19.0 K/UL (4.8-10.8) H Red Blood Count 3.76 M/UL (4.70-6.10) L Hemoglobin 10.6 G/DL (14.2-18.0) L Hematocrit 34.5 % (42.0-52.0) L Mean Corpuscular Volume 92 FL (80-99) Mean Corpuscular Hemoglobin 28.1 PG (27.0-31.0) Mean Corpuscular Hemoglobin Concent 30.6 G/DL (32.0-36.0) L Red Cell Distribution Width 17.3 % (11.6-14.8) H Platelet Count 663 K/UL (150-450) H Mean Platelet Volume 6.0 FL (6.5-10.1) L Neutrophils (%) (Auto) % (45.0-75.0) Lymphocytes (%) (Auto) % (20.0-45.0) Monocytes (%) (Auto) % (1.0-10.0) Eosinophils (%) (Auto) % (0.0-3.0) Basophils (%) (Auto) % (0.0-2.0) Differential Total Cells Counted 100 Neutrophils % (Manual) 77 % (45-75) H Lymphocytes % (Manual) 15 % (20-45) L Monocytes % (Manual) 5 % (1-10) Eosinophils % (Manual) 3 % (0-3) Basophils % (Manual) 0 % (0-2) Band Neutrophils 0 % (0-8) Platelet Estimate Increased H Platelet Morphology Normal Hypochromasia 1+ Anisocytosis 1+ Sodium Level 136 MMOL/L (136-145) Potassium Level 4.3 MMOL/L (3.5-5.1) Chloride Level 101 MMOL/L (98-107) Carbon Dioxide Level 27 MMOL/L (21-32) Anion Gap 8 mmol/L (5-15) Blood Urea Nitrogen 11 mg/dL (7-18) Creatinine 0.6 MG/DL (0.55-1.30) Estimat Glomerular Filtration Rate > 60 mL/min (>60) Glucose Level 127 MG/DL (74-106) H Calcium Level 8.1 MG/DL (8.5-10.1) L Phosphorus Level 3.2 MG/DL (2.5-4.9) Magnesium Level 1.9 MG/DL (1.8-2.4) Total Bilirubin 0.3 MG/DL (0.2-1.0) Aspartate Amino Transf (AST/SGOT) 19 U/L (15-37) Alanine Aminotransferase (ALT/SGPT) 20 U/L (12-78) Alkaline Phosphatase 107 U/L (46-116) Total Protein 6.7 G/DL (6.4-8.2) Albumin 1.7 G/DL (3.4-5.0) L Globulin 5.0 g/dL Albumin/Globulin Ratio 0.3 (1.0-2.7) L Plan Problems: (1) Cerebral palsy (2) Sepsis Assessment & Plan: Pt presented on admission with CP, L AKA,Multiple Pressure Injuries, Wound dorsal L hand. Macular red rash L Flank. Full thickness wound dorsal L hand(L)2.4cm x (W)1.9cm. Loose necrotic cap which was easily removed from wound bed. Base of wound is 95% fibrinous slough with marginal erythema along borders. Small amt sanguineous exudate noted. No erythema or elevation in skin temp periwound. Incontinence Associated dermatitis R and L groin and scrotum. Affected areas are erythematous and macerated. Full Thickness Pressure Injury Upper L buttocks(L)4.8cm x (W)6.4cmBase of wound is 25% necrotic ,75% lida. Edges are adherent to base of wound. Surrounding non-blanchable erythema without fluctuance /induration. No odor or exudate noted. No evidence of sacral skin breakdown. An erythematous and indurated soft tissue mass noted to posterior upper L thigh. (L)3.2cm x (W)3.7cm. Base of L AKA is erythematous,fluctuant, with increased warmth. DTPI medial R Heel(L)1cm x (W)1.2cm. Base of Pressure Injury is purpuric and fluctuant. Periwound is blanchable with dry flaky skin. unlikely etiology of sepsis urine noted leukocytosis on abx Tx.Plan: Cleanse Dorsal L hand with Saline. Apply Therahoney. Apply Cavilon Skin Barrier periwound. Cover with Optifoam Drsg Daily and prn. Cleanse Wound L Buttocks with Saline. Apply Therahoney. Apply Moisture Barrier Paste periwound. Cover with Optifoam drsg. Change Daily and prn. Apply Moisture Barrier Paste to R and L Groin and scrotum with each incontinence care. Apply Cavilon Skin Barrier to Posterior Upper L thigh. Cover with Optifoam drsg. Change every 3 days and prn. Apply Betadine to Base of L AKA stump. Cover with Optifoam drsg. Change every 3 days and prn. Apply Betadine to medial R Heel. Cover with Optifoam drsg. Change every 3 days and prn. Reposition at least every 2hours or as tolerated. Off-load L AKA with Pillow. Off-load R Heel with Pillow. DAILY ESTIMATED NEEDS: Needs based on Wound underweight 37kg 30-40 kcals/kg 8726-8910 total kcals 1.25-2 g protein/kg 46-74 g total protein 25-35ml/kcal mL/kg 925-1295 total fluid mLs NUTRITION DIAGNOSIS: Increased kcal and pro needs r/t underweight status and wound care as evidenced by pt is est 62% of IBW, BMI underweight per guidelines, multiple wounds including full thickness wounds x2, refer to WC eval. CURRENT TF: Jevity 1.2 @50 ml/hr ENTERAL NUTRITION RECOMMENDATIONS: Maintain current TF as ordered Jevity 1.2 @50ml/hr x24 hrs to provide 1200ml, 1440 kcal, 67g pro, 968ml free H2O - Initiate Jevity 1.2 @35ml/hr for 6 hrs, advance as tolerated 10ml/hr q4-6 hrs to goal. - Flush per MD, HOB over 30 degrees ADDITIONAL RECOMMENDATIONS: 1) Wound care: add DARLENE BID, Vit C 250mg BID 2) Maintain calibrated bed scale wts 3) Monitor BG, need for carb control TF respiratory insufficiency now in icu on support cxr noted cont respiratory support CT noted ant abd wall phlegmon. hard and no fluctuance. nothing to drain at this time. packing and dressings to prior g tube site bka with erythema distal as bone pushing discussed with GI. drainage today from prior g tube site. phlegmon has likely formed fluid and drained spontaneously. on exam today site much softer and no further drainage noted recommend waiting 1-2 weeks prior now that phlegmon --> abscess -- > drained prior to new peg placement Rowdy Arce Dec 01, 2020 11:00
[2020-12-01 12:00] VITALS: BP 131/76
--- NOTE | 2020-12-01 12:30 | NUR ---
NURSE NOTES: Dr Marge Lara visited pt and is aware about WBC 19 and clear diarrhea, MD will F/U.
--- NOTE | 2020-12-01 12:31 | Infectious Diseases Prog Note ---
Assessment/Plan Assessment/Plan IMPRESSION: Sepsis, Infected gastrostomy with gastrostomy migration, ? 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 DVT of left leg Leukocytosis, RECOMMENDATION: Change Zosyn to Meropenem Continue Doxycycline Will f/u cultures Subjective ROS Limited/Unobtainable: Yes Constitutional: Denies: fever Allergies: Coded Allergies: No Known Allergies (Unverified , 11/22/20) Objective Last 24 Hour Vital Signs Date Time Temp Pulse Resp B/P (MAP) Pulse Ox O2 Delivery O2 Flow Rate FiO2 12/01/20 12:00 98.7 92 19 131/76 (94) 98 12/01/20 09:01 97 136/67 12/01/20 07:54 98.7 97 22 136/67 (90) 98 12/01/20 07:51 97 12/01/20 04:00 93 12/01/20 04:00 97.5 95 22 120/80 (93) 95 12/01/20 00:00 99.0 95 22 144/91 (108) 95 11/30/20 23:30 90 11/30/20 21:47 97 134/66 11/30/20 20:36 Room Air 11/30/20 20:00 97 11/30/20 20:00 98.2 98 22 134/66 (88) 97 11/30/20 19:00 89 18 97 Nasal Cannula 4.0 36 11/30/20 19:00 97 Nasal Cannula 4.0 36 11/30/20 16:00 98.1 100 22 124/65 (84) 95 11/30/20 15:47 100 Height (Feet): 5 Height (Inches): 6.00 Weight (Pounds): 140 General Appearance: no acute distress HEENT: mucous membranes moist Respiratory/Chest: lungs clear Cardiovascular: normal rate Abdomen: soft, non tender, other - NG tube Extremities: no edema Neurologic/Psychiatric: other - opens eyes Microbiology Date/Time Source Procedure Growth Status 11/30/20 11:00 Abdomen Gram Stain - Final Resulted 11/30/20 11:00 Abdomen Wound Culture Pending Resulted Laboratory Tests Test 12/01/20 04:35 White Blood Count 19.0 K/UL (4.8-10.8) H Red Blood Count 3.76 M/UL (4.70-6.10) L Hemoglobin 10.6 G/DL (14.2-18.0) L Hematocrit 34.5 % (42.0-52.0) L Mean Corpuscular Volume 92 FL (80-99) Mean Corpuscular Hemoglobin 28.1 PG (27.0-31.0) Mean Corpuscular Hemoglobin Concent 30.6 G/DL (32.0-36.0) L Red Cell Distribution Width 17.3 % (11.6-14.8) H Platelet Count 663 K/UL (150-450) H Mean Platelet Volume 6.0 FL (6.5-10.1) L Neutrophils (%) (Auto) % (45.0-75.0) Lymphocytes (%) (Auto) % (20.0-45.0) Monocytes (%) (Auto) % (1.0-10.0) Eosinophils (%) (Auto) % (0.0-3.0) Basophils (%) (Auto) % (0.0-2.0) Differential Total Cells Counted 100 Neutrophils % (Manual) 77 % (45-75) H Lymphocytes % (Manual) 15 % (20-45) L Monocytes % (Manual) 5 % (1-10) Eosinophils % (Manual) 3 % (0-3) Basophils % (Manual) 0 % (0-2) Band Neutrophils 0 % (0-8) Platelet Estimate Increased H Platelet Morphology Normal Hypochromasia 1+ Anisocytosis 1+ Sodium Level 136 MMOL/L (136-145) Potassium Level 4.3 MMOL/L (3.5-5.1) Chloride Level 101 MMOL/L (98-107) Carbon Dioxide Level 27 MMOL/L (21-32) Anion Gap 8 mmol/L (5-15) Blood Urea Nitrogen 11 mg/dL (7-18) Creatinine 0.6 MG/DL (0.55-1.30) Estimat Glomerular Filtration Rate > 60 mL/min (>60) Glucose Level 127 MG/DL (74-106) H Calcium Level 8.1 MG/DL (8.5-10.1) L Phosphorus Level 3.2 MG/DL (2.5-4.9) Magnesium Level 1.9 MG/DL (1.8-2.4) Total Bilirubin 0.3 MG/DL (0.2-1.0) Aspartate Amino Transf (AST/SGOT) 19 U/L (15-37) Alanine Aminotransferase (ALT/SGPT) 20 U/L (12-78) Alkaline Phosphatase 107 U/L (46-116) Total Protein 6.7 G/DL (6.4-8.2) Albumin 1.7 G/DL (3.4-5.0) L Globulin 5.0 g/dL Albumin/Globulin Ratio 0.3 (1.0-2.7) L Current Medications Medications (Trade) Dose Ordered Sig/Venecia Route PRN Reason Start Time Stop Time Status Last Admin Dose Admin Acetaminophen (Tylenol) 650 mg Q4H PRN GT Temp >100.5 11/22/20 16:30 12/22/20 15:59 11/29/20 23:13 Acetaminophen (Tylenol) 650 mg Q4H PRN GT For Pain 11/22/20 16:30 12/22/20 16:29 Amlodipine Besylate (Norvasc) 5 mg EVERY 12 HOURS ORAL 11/25/20 21:00 12/25/20 20:59 12/01/20 09:01 Clonidine HCl (Catapres Tab) 0.1 mg Q4H PRN ORAL sbp>170 11/25/20 14:45 02/23/21 14:44 Doxycycline Monohydrate (Doxycycline Monohydrate) 100 mg EVERY 12 HOURS GT 11/30/20 10:45 12/07/20 10:44 12/01/20 09:01 Enalaprilat (Vasotec) 2.5 mg Q4H PRN IV For blood pressure over 160 sy 11/23/20 11:30 12/23/20 11:29 11/25/20 14:45 Enoxaparin Sodium (Lovenox) 60 mg EVERY 12 HOURS SUBQ 11/25/20 21:00 02/23/21 20:59 12/01/20 09:02 Famotidine (Pepcid) 20 mg Q12HR GT 11/28/20 21:00 02/26/21 20:59 12/01/20 09:01 Levetiracetam (Keppra) 500 mg Q12HR NG 11/28/20 21:00 01/12/21 20:59 12/01/20 09:01 Piperacillin Sod/ Tazobactam Sod 3.375 gm/Sodium Chloride 110 ml @ 27.5 mls/hr EVERY 8 HOURS IVPB 11/24/20 14:00 12/04/20 13:59 12/01/20 06:01 Spironolactone (Aldactone) 25 mg EVERY 12 HOURS GT 11/28/20 09:15 12/28/20 09:14 12/01/20 09:01 John Lara MD Dec 01, 2020 12:31
--- NOTE | 2020-12-01 12:37 | Cardiac Electrophysiology PN ---
Assessment/Plan Assessment/Plan 1. Sinus Tachycardia due to sepsis on IV antibiotics. WBC going up to 19K. 2. S/P gastrostomy tube migration. Now is removed and has NGT. S/P CT scan of the abdomen and pelvis to rule out abscess formation. FU GI and surgery NGT feeding started Awaiting Conservator's consent for PEG placement by Dr. Mcelroy 3. Sepsis of unclear source. 4. 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 BNP of 724. Echocardiogram EF 65%. Now on RA 5. Status post left above-knee amputation. 6. Anemia. 7. Mental retardation. 8. Left thigh DVT on Lovenox 60 bid 9. Accelerated HTN. Better on Norvasc 5 bid, Aldactone 25 bid and prn Clonidine 10. Hypernatremia. Resolved on D51/2 NS at 50 cc / hr 11. Persistent hypokalemia. Replaced again. On Aldactone 25 po bid DW RN and Dr Mcelroy Subjective Subjective PEG was removed as it was misplaced. Has NGT On anticoagulation for DVT in the LLE stump S/P DRIER FEEDER for respiratory failure. Now on RA Awaiting Conservator's consent for PEG placement by Dr. Mcelroy PEG site also still draining. Had sinus tach up to 120s Objective Last 24 Hour Vital Signs Date Time Temp Pulse Resp B/P (MAP) Pulse Ox O2 Delivery O2 Flow Rate FiO2 12/01/20 12:00 98.7 92 19 131/76 (94) 98 12/01/20 09:01 97 136/67 12/01/20 07:54 98.7 97 22 136/67 (90) 98 12/01/20 07:51 97 12/01/20 04:00 93 12/01/20 04:00 97.5 95 22 120/80 (93) 95 12/01/20 00:00 99.0 95 22 144/91 (108) 95 11/30/20 23:30 90 11/30/20 21:47 97 134/66 11/30/20 20:36 Room Air 11/30/20 20:00 97 11/30/20 20:00 98.2 98 22 134/66 (88) 97 11/30/20 19:00 89 18 97 Nasal Cannula 4.0 36 11/30/20 19:00 97 Nasal Cannula 4.0 36 11/30/20 16:00 98.1 100 22 124/65 (84) 95 11/30/20 15:47 100 Intake and Output 11/30/20 12/01/20 19:00 07:00 Intake Total 1150.0 ml 150 ml Output Total 1500 ml 1000 ml Balance -350.0 ml -850 ml Free Water 100 ml 100 ml IV Total 550.0 ml Tube Feeding 500 ml 50 ml Output Urine Total 1500 ml 1000 ml # Bowel Movements 1 Laboratory Tests Test 12/01/20 04:35 White Blood Count 19.0 K/UL (4.8-10.8) H Red Blood Count 3.76 M/UL (4.70-6.10) L Hemoglobin 10.6 G/DL (14.2-18.0) L Hematocrit 34.5 % (42.0-52.0) L Mean Corpuscular Volume 92 FL (80-99) Mean Corpuscular Hemoglobin 28.1 PG (27.0-31.0) Mean Corpuscular Hemoglobin Concent 30.6 G/DL (32.0-36.0) L Red Cell Distribution Width 17.3 % (11.6-14.8) H Platelet Count 663 K/UL (150-450) H Mean Platelet Volume 6.0 FL (6.5-10.1) L Neutrophils (%) (Auto) % (45.0-75.0) Lymphocytes (%) (Auto) % (20.0-45.0) Monocytes (%) (Auto) % (1.0-10.0) Eosinophils (%) (Auto) % (0.0-3.0) Basophils (%) (Auto) % (0.0-2.0) Differential Total Cells Counted 100 Neutrophils % (Manual) 77 % (45-75) H Lymphocytes % (Manual) 15 % (20-45) L Monocytes % (Manual) 5 % (1-10) Eosinophils % (Manual) 3 % (0-3) Basophils % (Manual) 0 % (0-2) Band Neutrophils 0 % (0-8) Platelet Estimate Increased H Platelet Morphology Normal Hypochromasia 1+ Anisocytosis 1+ Sodium Level 136 MMOL/L (136-145) Potassium Level 4.3 MMOL/L (3.5-5.1) Chloride Level 101 MMOL/L (98-107) Carbon Dioxide Level 27 MMOL/L (21-32) Anion Gap 8 mmol/L (5-15) Blood Urea Nitrogen 11 mg/dL (7-18) Creatinine 0.6 MG/DL (0.55-1.30) Estimat Glomerular Filtration Rate > 60 mL/min (>60) Glucose Level 127 MG/DL (74-106) H Calcium Level 8.1 MG/DL (8.5-10.1) L Phosphorus Level 3.2 MG/DL (2.5-4.9) Magnesium Level 1.9 MG/DL (1.8-2.4) Total Bilirubin 0.3 MG/DL (0.2-1.0) Aspartate Amino Transf (AST/SGOT) 19 U/L (15-37) Alanine Aminotransferase (ALT/SGPT) 20 U/L (12-78) Alkaline Phosphatase 107 U/L (46-116) Total Protein 6.7 G/DL (6.4-8.2) Albumin 1.7 G/DL (3.4-5.0) L Globulin 5.0 g/dL Albumin/Globulin Ratio 0.3 (1.0-2.7) L Microbiology Date/Time Source Procedure Growth Status 11/30/20 11:00 Abdomen Gram Stain - Final Resulted 11/30/20 11:00 Abdomen Wound Culture Pending Resulted Objective HEAD AND NECK: No JVD.NGT in place LUNGS: Decreased breath sounds. CARDIOVASCULAR: Regular S1 and S2 with no gallop. ABDOMEN: Soft.PEG site draining pus EXTREMITIES: Contracted with left above-knee amputation. Phoenix Amador MD Dec 01, 2020 12:37
--- NOTE | 2020-12-01 13:30 | NUR ---
SALAD COUNTER ATTENDANT NOTES SPOKE WITH THE ENGINEERING SPECIALIST @ [facility] FOR POSSIBLE TRANSFER. KAITLYNN WILL Call ME BACK IN ONE HOUR WITH A BED.WILL FOLLOW UP. Addendum: 12/01/20 at 1649 by EDILMA JIMENEZ RN CM PT ACCEPTED TO [facility] ROOM 241.NURSE TO CALL REPORT TO [phone]. [facility] AN ETA OF 1745. NURSE MADE AWARE.PLACED A CALL TO [facility], MESSAGE LEFT WITH INFORMING [facility] OF THE TRANSFER LOCATION. EMAILED ALSO SENT TO .
[2020-12-01] MEDS ORDERED: Meropenem 1 GM in NS 55 ML IVPB SCH (14:00)
[2020-12-01] MEDS ORDERED: NS 275ml ONE (14:19)
[2020-12-01] MEDS ORDERED: D5 1/2NS 1000ml IV ONE (14:19)
[2020-12-01] MEDS ORDERED: Tubing IV Secondary IV ONE (14:19)
[2020-12-01 16:00] VITALS: BP 141/71
--- NOTE | 2020-12-01 18:00 | NUR ---
NURSE NOTES: pt has D/C order, all discharge assessments and instructions done, pt is obtunded, V/S stable, pt is on RA SPO2 97%, NO stress noted. took pictures from wounds and will uploaded. Report givwen to Verenice ROMERO, Endorsed plan of care, Endorsed about continue hospital meds and iv ABX, CBC BMP AM, WOUNDS, WBC 19, infected g tube site and do c diff and L femoral DVT, NG tube feeding and size 75cm. and .... All paperwork will send. waiting for ambulance.
--- NOTE | 2020-12-01 19:27 | NUR ---
NURSE NOTES: AMBULANCE PERSONNEL ARE HERE AND TAKING PT, PT IS STABLE, V/S STABLE, NO BELONGINGS, LFA IV ACCESS INTACT. NG TUBE IN PLACE SIZE 75CM. ALL PAPER WORKS INCLUDE HOSPITAL MEDS NAMES TO AMBULANCE PERSONNEL. PT IS LEAVING.
--- NOTE | 2020-12-01 23:24 | General Progress Note ---
Subjective Allergies: Coded Allergies: No Known Allergies (Unverified , 11/22/20) Subjective Seen this am Calm tolerating TF less purulence from abd wound Objective Last 24 Hour Vital Signs Date Time Temp Pulse Resp B/P (MAP) Pulse Ox O2 Delivery O2 Flow Rate FiO2 12/01/20 19:09 97 Nasal Cannula 4.0 36 12/01/20 19:08 88 18 97 Nasal Cannula 4.0 36 12/01/20 16:00 97.7 99 20 141/71 (94) 98 12/01/20 16:00 91 12/01/20 12:24 102 12/01/20 12:00 98.7 92 19 131/76 (94) 98 12/01/20 09:01 97 136/67 12/01/20 07:54 98.7 97 22 136/67 (90) 98 12/01/20 07:51 97 12/01/20 04:00 93 12/01/20 04:00 97.5 95 22 120/80 (93) 95 12/01/20 00:00 99.0 95 22 144/91 (108) 95 11/30/20 23:30 90 Intake and Output 11/30/20 12/01/20 19:00 07:00 Intake Total 1150.0 ml 200 ml Output Total 1500 ml 1000 ml Balance -350.0 ml -800 ml Free Water 100 ml 100 ml IV Total 550.0 ml Tube Feeding 500 ml 100 ml Output Urine Total 1500 ml 1000 ml # Bowel Movements 1 Laboratory Tests 12/01/20 04:35: White Blood Count 19.0H, Red Blood Count 3.76L, Hemoglobin 10.6L, Hematocrit 34.5L, Mean Corpuscular Volume 92, Mean Corpuscular Hemoglobin 28.1, Mean Corpuscular Hemoglobin Concent 30.6L, Red Cell Distribution Width 17.3H, Platelet Count 663H, Mean Platelet Volume 6.0L, Neutrophils (%) (Auto) , Lymphocytes (%) (Auto) , Monocytes (%) (Auto) , Eosinophils (%) (Auto) , Basophils (%) (Auto) , Differential Total Cells Counted 100, Neutrophils % (Manual) 77H, Lymphocytes % (Manual) 15L, Monocytes % (Manual) 5, Eosinophils % (Manual) 3, Basophils % (Manual) 0, Band Neutrophils 0, Platelet Estimate IncreasedH, Platelet Morphology Normal, Hypochromasia 1+, Anisocytosis 1+, Sodium Level 136, Potassium Level 4.3, Chloride Level 101, Carbon Dioxide Level 27, Anion Gap 8, Blood Urea Nitrogen 11, Creatinine 0.6, Estimat Glomerular Filtration Rate > 60, Glucose Level 127H, Calcium Level 8.1L, Phosphorus Level 3.2, Magnesium Level 1.9, Total Bilirubin 0.3, Aspartate Amino Transf (AST/SGOT) 19, Alanine Aminotransferase (ALT/SGPT) 20, Alkaline Phosphatase 107, Total Protein 6.7, Albumin 1.7L, Globulin 5.0, Albumin/Globulin Ratio 0.3L Height (Feet): 5 Height (Inches): 6.00 Weight (Pounds): 140 Objective Debilitaed man NCAT coarse BS RR abd (+) purulent drainage from abdominal wound (+) contracted OBS Assessment/Plan Status: progressing Assessment/Plan: Assessment - GT migration into anterior abd wall - removed - abdominal pain, induration - now has organized into a draining abscess - dysphagia/NGT - will need to hold off on PEG placement for about another week - respiratory distress - resolved - cerebral palsy - contractures - decubitus ulcers - (L) BKA - hypokalemia Recommendations - broad spect abx - NG TF - pulmonary f/u - NGT for meds - re assess for PEG candidacy at later date - wound care - IVF - replace Nacho Crawford MD Dec 01, 2020 23:24
--- NOTE | 2020-12-04 13:45 | Cardiology Report ---
APPROVED REPORT EKG Measurement Heart [id number] [id number] <Conclusion> Sinus tachycardia Possible Left atrial enlargement Left axis deviation Pulmonary disease pattern Abnormal ECG
--- NOTE | 2020-12-05 09:49 | Cardiology Report ---
APPROVED REPORT EXAM: Two-dimensional and M-mode echocardiogram with Doppler and color Doppler. INDICATION Congestive Heart Failure M-Mode DIMENSIONS IVSd1.4 (0.7-1.1cm)Left Atrium (MM)4.0 (1.6-4.0cm) LVDd5.5 (3.5-5.6cm)Aortic Root3.0 (2.0-3.7cm) PWd1.3 (0.7-1.1cm)Aortic Cusp Exc.1.9 (1.5-2.0cm) IVSs1.7 cmEPSS0.1 (>1.0cm) LVDs3.8 (2.5-4.0cm) PWs2.0 cm <Conclusion> Technically difficult study due to poor acoustic windows. Study quality precludes accurate assessment of regional wall motion. Normal left ventricular chamber size, systolic function and wall motion. Left ventricular ejection fraction estimated to be 65%. Mild evidence of left ventricular hypertrophy. Anterior Echo-free space, may be due to pericardial fat or effusion. All other cardiac chamber sizes are within normal limits. Focal aortic valve sclerosis with adequate cusp excursion. Thickened mitral valve leaflets with normal excursion. Mitral annulus and aortic root calcification. Pulmonic valve not well visualized. Normal tricuspid valve structure. IVC is normal in size with physiological collapse. A color flow and spectral Doppler study was performed and revealed: Trace aortic regurgitation. Trace mitral regurgitation. Mitral diastolic velocities suggest mild left ventricular diastolic dysfunction (Grade I). Trace tricuspid regurgitation. Tricuspid systolic velocities suggests peak right ventricular systolic pressure of 11 mmHg.
--- NOTE | 2020-12-05 09:55 | Discharge Summary ---
Discharge Summary Discharge Summary _ Date of admission: 11/22/2020 Date of discharge: 12/01/[address] Blackwood History of Present Illness and Brief Hospital Course Mr. Vazquez is a 75-year-old male with past medical history of cerebral palsy, and left above-knee amputation, who was sent to ED from SNF for worsening respiratory distress and displacement of G-tube. Patient was reported to be chronically debilitated and nonverbal at baseline. EKG showed sinus tachycardia without acute ST or T wave changes in the ER. Chest x-ray demonstrated right hemidiaphragm elevation with right basilar atelectasis. Patient was admitted to the hospital for further management. Patient was noted to have G-tube that had migrated out of the gastric cavity into the interior abdominal wall. G-tube was removed and an NG tube was inserted. Patient also had abdominal pain and induration. A draining abscess was also noted. Wound culture revealed growth of Staph aureus MRSA and Becky albicans. Given the clinical presentation and laboratory evidence for sepsis, patient was started on antibiotics. Patient was also placed on supplemental oxygen given the respiratory distress. However, patient was able to be weaned off of oxygen and remained stable on room air. The chest x-ray finding of right basilar atelectasis was unknown whether it was acute or chronic as there was no previous chest x-ray on record. Given normoxemia on room air, no intervention was indicated at this time. Patient was noted to have left common femoral and femoral DVT. Patient was started on full dose Lovenox. Given the closure of [facility], patient was transferred to [facility] [place] for continuation of care. Patient was transferred on 12/01/2020. Consultants: Cardiology Dr. Amador Hematology oncology Dr. Wren Infectious disease Dr. Lara Gastroenterology Dr. Mcelroy Nephrology Dr. Munoz Pulmonology Dr. Em Surgery Dr. Arce Discharge Condition Fair Discharge Activity Bedrest Discharge Diet Tube feeding, Jevity 1.2 50 cc/h Final diagnoses Sinus tachycardia Infected gastrotomy tube s/p gastrotomy tube migration Sepsis Respiratory failure s/p left above-knee amputation Anemia Mental retardation Accelerated hypertension Hypernatremia Persistent hypokalemia MRSA carrier History of cerebral palsy Leukocytosis Dehydration Electrolyte imbalance Seizure disorder Decubitus ulcers Contractures Hypokalemia Left common femoral and proximal superficial femoral DVT I have been assigned to dictate discharge summary for this account. Richi Boo Dec 05, 2020 09:55
== END 2020-12-01 19:33 | disposition short-term general hospital (02) | DRG 720 ==
LOC: EDBD 10:15 → EMR 11:21 → 2E 11:32 → EDBEDREQ 12:25 → 2E 14:43 → ICU 11-24 19:02 → 2E 11-27 17:28
PROC: 0DP6XUZ Removal of Feeding Device from Stomach, External Approach (ICD-10-PCS; principal; 2020-11-23)
DX: A41.9 Sepsis, unspecified organism (principal); L89.323 Pressure ulcer of left buttock, stage 3; L89.893 Pressure ulcer of other site, stage 3; L89.616 Pressure-induced deep tissue damage of right heel; K94.23 Gastrostomy malfunction; K94.22 Gastrostomy infection; Y83.3 Surgical operation with formation of external stoma as the cause of abnormal reaction of the patient, or of later complication, without mention of misadventure at the time of the procedure; I82.412 Acute embolism and thrombosis of left femoral vein; R06.03 Acute respiratory distress; G40.909 Epilepsy, unspecified, not intractable, without status epilepticus; G80.9 Cerebral palsy, unspecified; N39.0 Urinary tract infection, site not specified; K21.9 Gastro-esophageal reflux disease without esophagitis; Z89.612 Acquired absence of left leg above knee; J98.11 Atelectasis; Z22.322 Carrier or suspected carrier of Methicillin resistant Staphylococcus aureus; D64.9 Anemia, unspecified; R47.01 Aphasia; L30.8 Other specified dermatitis; F79 Unspecified intellectual disabilities; E86.0 Dehydration; I10 Essential (primary) hypertension; E87.6 Hypokalemia; E87.0 Hyperosmolality and hypernatremia; M24.50 Contracture, unspecified joint
CPT/HCPCS: 36415; 71045; 74018; 74177; 80053; 80061; 81001; 82550; 82553; 82607; 82728; 82746; 82803; 82962; 82977; 83540; 83550; 83605; 83735; 83880; 84100; 84439; 84443; 84484; 84550; 85007; 85025; 85379; 86140; 86850; 86900; 86901; 87040; 87070; 87081; 87086; 87181; 87205; 93005; 93306; 93970; 96361; 96365; 96367; 99285; J7030; J8499